=== PATIENT | male | born 1935 | race Hispanic/Latino ===

== ENCOUNTER 2016-11-19 10:12 | Day surgery (SDC) | payer MEDICARE, BC ==
[2016-11-19] MEDS ORDERED: Piperacillin/Tazobact 3.375 gm 100 ML IVPB STA (10:16)
[2016-11-19 10:36] VITALS: BMI 27.0
[2016-11-19] MEDS ORDERED: Propofol 10 mg/ml Inj (20 ML) ONE (10:44)
[2016-11-19] MEDS ORDERED: Midazolam 2 MG/2 ML VIAL ONE (10:45)
[2016-11-19] MEDS ORDERED: Lidocaine 1% Inj (20ml) ONE (10:45)
[2016-11-19] MEDS ORDERED: ePHEDrine 50 mg/ml Inj ONE (11:04)
[2016-11-19] MEDS ORDERED: Neostigmine 1:1000 (1 mg/ml) Inj ONE (11:29)
[2016-11-19] MEDS ORDERED: HYDROmorphone 0.5 mg/0.5 ml ISec IVP PRN (12:07)
[2016-11-19] MEDS ORDERED: Sodium Chloride 0.9% 1,000 ML IV SCH (12:15)
[2016-11-19 13:17] VITALS: RESP 18; TEMP 97.8
[2016-11-19 13:59] VITALS: BP 100/59; PULSE 81; O2SAT 95
--- NOTE | 2016-11-19 16:28 | OP ---
PROCEDURE DATE: 11/19/2016 PREOPERATIVE DIAGNOSIS: Urinary retention, prostatic obstruction. POSTOPERATIVE DIAGNOSIS: Urinary retention, prostatic obstruction. PROCEDURE: Photovaporization of the prostate using a ProTouch 1470 laser. SURGEON: Jose Parker M.D. ANESTHESIA: General endotracheal. DESCRIPTION OF OPERATION: After adequate general LMA was given, the patient was placed in lithotomy, prepped and draped in usual manner. The Espinal catheter was removed. The 23-Welsh laser scope with the obturator was introduced under direct vision. The patient was seen to have bilobar occlusion. Bladder showed no stones or foreign bodies. Orifices normal in appearance and location. There was s ome catheter reaction from the Espinal catheter. Urine was obtained for C and S. The obturator from e laser scope was removed. The working element was then replaced and using the ProTouch 1470 at a se tting of 88, all obstructing tissue was vaporized until there was an unobstructed view from the verum ontanum into the bladder. Orifices were visualized prior and after the procedure and they were compl etely intact with no evidence of any trauma. The prostatic fossa was inspected for bleeding without the water running and no bleeding was seen. The scope was then removed. I then tried to pass a 20-F rench coude catheter. It would not go into the bladder. I then rescoped the patient, placed the sen sor wire in and over and then removed the scope and then placed an 18-Welsh [place] catheter that ea sily went in through the wire into the bladder with return of clear irrigant with no evidence of any bleeding. The balloon was inflated. The patient was awakened and brought to recovery room in good c ondition. Jose Parker MD cc: [id number] TT: 11/19/2016 16:27:55 tn
== END 2016-11-19 14:10 | disposition home or self-care (01) ==
LOC: SDS 10:12
PROVIDERS: ATTEND Urology
DX: N40.1 Benign prostatic hyperplasia with lower urinary tract symptoms (principal); R33.8 Other retention of urine; I10 Essential (primary) hypertension; I25.10 Atherosclerotic heart disease of native coronary artery without angina pectoris; E11.8 Type 2 diabetes mellitus with unspecified complications; Z95.5 Presence of coronary angioplasty implant and graft
CPT/HCPCS: 52648; 87086; A4358; J1170; J2250; J2405; J2543; J2704; J2710; J2765; J3010; J7040; J7120

== ENCOUNTER 2017-05-15 03:14 | Inpatient (IN) | payer MEDICARE, BC ==
--- NOTE | 2017-05-15 03:22 | ED PDOC ---
Arrival/HPI - General Time Seen by Provider: 05/15/17 03:15 Historian: Spouse, EMS - History of Present Illness Narrative History of Present Illness (Text): 05/15/17 03:22 Juan Jose Walton is an 81 year old male, whose past medical history includes myelodysplastic disorder, anemia, hypertension, and diabetes, who presents to the Emergency department brought in by EMS for altered mental status. states patient has been confused, disoriented, and lethargic for the past few hours. Limited HPI and ROS secondary to patient's altered mental status. Symptom Onset: Gradual Symptom Course: Unchanged Activities at Onset: Rest, Light Context: Home Past Medical History - Provider Review Nursing Documentation Reviewed: Yes - Infectious Disease Hx of Infectious Diseases: None - Tetanus Immunization Tetanus Immunization: Unknown - Cardiac Hx Pacemaker: No - Pulmonary Hx Respiratory Disorders: No - Neurological Hx Paralysis: No - HEENT Hx HEENT Disorder: No - Renal Hx Renal Disorder: No - Endocrine/Metabolic Hx Diabetes Mellitus Type 2: Yes - Hematological/Oncological Hx Blood Transfusions: Yes Hx Blood Transfusion Reaction: No - Integumentary Hx Dermatological Disorder: No - Musculoskeletal/Rheumatological Hx Musculoskeletal Disorders: Yes - Gastrointestinal Hx Gastrointestinal Disorders: No - Genitourinary/Gynecological Hx Genitourinary Disorders: No Hx Reproductive Disorders: No - Psychiatric Hx Emotional Abuse: No Hx Physical Abuse: No Hx Substance Use: No - Surgical History Other/Comment: lamenectomy, stent x1, gall bladder removal - Anesthesia Hx Anesthesia Reactions: No Hx Malignant Hyperthermia: No - Suicidal Assessment Feels Threatened In Home Enviroment: No Family/Social History - Physician Review Nursing Documentation Reviewed: Yes Family/Social History: Unknown Family HX Smoking Status: Never Smoked Hx Alcohol Use: No Hx Substance Use: No Hx Substance Use Treatment: No Allergies/Home Meds Allergies/Adverse Reactions: Allergies No Known Allergies Allergy (Verified 05/15/17 03:25) Home Medications: Home Meds Medication Instructions Recorded Confirmed Atorvastatin [Lipitor] 10 mg PO DAILY 05/15/17 05/15/17 Carvedilol [Coreg] 3.125 mg PO BID 05/15/17 05/15/17 Cyclobenzaprine [Flexeril] 10 mg PO TID PRN 05/15/17 05/15/17 Gabapentin [Neurontin] 600 mg PO BID 05/15/17 05/15/17 Lisinopril [Zestril] 10 mg PO DAILY 05/15/17 05/15/17 Vicoprofen 7.5 mg PO QID PRN 05/15/17 05/15/17 metFORMIN [glucOPHAGE] 500 mg PO TID 05/15/17 05/15/17 Review of Systems - Review of Systems Systems not reviewed;Unavailable: Altered Mental Status Physical Exam Vital Signs Reviewed: Yes Vital Signs Temp Pulse Resp BP Pulse Ox 05/15/17 09:05 91 H 05/15/17 08:25 96 H 18 115/61 98 05/15/17 07:41 99.2 F 97 H 20 115/61 99 05/15/17 06:47 22 100/57 L 95 05/15/17 06:30 97 H 20 108/55 L 96 05/15/17 06:09 98 H 21 143/54 L 97 05/15/17 06:05 99 H 22 103/57 L 97 05/15/17 04:56 98 H 22 110/55 L 97 05/15/17 04:09 99.8 F H 100 H 22 93/56 L 98 Temperature: Afebrile Blood Pressure: Normal Respiratory Rate: Normal Appearance: Positive for: Non-Toxic Pain Distress: None Mental Status: Positive for: Lethargic (Lethargic and disoriented) - Systems Exam Head: Present: Atraumatic, Normocephalic Pupils: Present: PERRL Extroacular Muscles: Present: EOMI Conjunctiva: Present: Normal Mouth: Present: Moist Mucous Membranes Neck: Present: Normal Range of Motion Respiratory/Chest: Present: Clear to Auscultation, Good Air Exchange. No: Respiratory Distress, Accessory Muscle Use Cardiovascular: Present: Regular Rate and Rhythm, Normal S1, S2. No: Murmurs Abdomen: Present: Normal Bowel Sounds. No: Tenderness, Distention, Peritoneal Signs Back: Present: Normal Inspection Upper Extremity: Present: Normal Inspection. No: Cyanosis, Edema Lower Extremity: Present: Normal Inspection. No: Edema Neurological: Present: CN II-XII Intact Skin: Present: Warm, Dry, Normal Color. No: Rashes Psychiatric: Present: Lethargic. No: Oriented x 3 (Disoriented) Medical Decision Making ED Course and Treatment: 05/15/17 03:22 Impression: 81 year old male brought in for altered mental status tonight. Plan: -- CT Head w/o contrast -- EKG -- Chest X-ray -- Labs, cardiac enzymes, alcohol level, ammonia level, blood cultures -- Urinalysis, urine cultures, urine drug screen -- Reassess and disposition Prior Visits: Notes and results from previous visits were reviewed. On 10/03/2016, pt was seen in the Emergency department for AMS and slurred speech. Pt was admitted to the hospital for further evaluation. Progress Notes: 05/15/17 04:30 Reviewed radiology, Chest X-ray shows no acute processes. 05/15/17 05:33 Reviewed EKG, sinus rhythm at [address]pm. RBBB. Non-specific ST/T wave changes. CT Head shows: Limitations: Motion artifact - mild. Brain: Mild atrophy. No definite intracranial hemorrhage. No mass. Few scattered foci of decreased attenuation within periventricular/subcortical white matter. No definite edema. Ventricles: No hydrocephalus. Bones/joints: No acute fracture. Soft tissues: Unremarkable. Sinuses: No acute sinusitis. LEFT frontal osteoma. Mastoid air cells: No mastoid effusion. Orbits: Unremarkable as visualized. IMPRESSION: 1. Nonspecific white matter changes. Acute infarction may be CT occult within first 24 hours. If a focal deficit persists, consider followup CT or MRI for further evaluation. 2. Incidental/non-acute findings are described above. 05/15/17 05:[address] Vivi Grey, who is aware and agrees with plan. Accepts pt in to his service. Pt will be admitted to Telemetry for AMS. Family agreeable with plan. 7am pt with change in vs , hypotension still altered will call code sepsis , overdose possible also , case d/w dr neal will admit to icu 05/17/17 19:49 - Lab Interpretations Microbiology Results: Microbiology Results 05/15/17 03:30 Blood-Venous Blood Culture - Preliminary NO GROWTH AFTER 48 HOURS 05/15/17 03:00 Blood-Venous Blood Culture - Preliminary NO GROWTH AFTER 48 HOURS 05/15/17 04:05 Urine,Clean Catch Urine Culture - Final No Growth (<1,000 CFU/ML) Lab Results: 05/15/17 03:30 05/15/17 03:30 Lab Results 05/15/17 05:05: pO2 188 H, VBG pH 7.34, VBG pCO2 44.0, VBG HCO3 23.7, VBG Total CO2 25.1, VBG O2 Sat (Calc) 99.9 H, VBG Base Excess -2.2 L, VBG Potassium 3.9, Glucose 246 H, Lactate 2.6 H, FiO2 21.0, Sodium 140.0, Chloride 110.0 H, Venous Blood Potassium 3.9 05/15/17 04:44: Blood Type O NEGATIVE, Antibody Screen Negative, BBK History Checked Patient has bt 05/15/17 04:29: Urine Opiates Screen Positive H, Urine Methadone Screen Negative , Ur Barbiturates Screen Negative, Ur Phencyclidine Scrn Negative, Ur Amphetamines Screen Negative, U Benzodiazepines Scrn Negative, U Oth Cocaine Metabols Negative, U Cannabinoids Screen Negative 05/15/17 04:05: Urine Color Yellow, Urine Appearance Sl cloudy, Urine pH 6.0, Ur Specific [place] 1.015, Urine Protein 30 H, Urine Glucose (UA) Negative, Urine Ketones Negative, Urine Blood Large H, Urine Nitrate Negative, Urine Bilirubin Negative, Urine Urobilinogen 0.2, Ur Leukocyte Esterase Small H, Urine RBC 20 - 25, Urine WBC 1 - 3, Ur Epithelial Cells 0 - 2, Urine Bacteria Rare 05/15/17 03:30: Alcohol, Quantitative < 10 05/15/17 03:30: Ammonia 17 05/15/17 03:30: Sodium 140, Potassium 3.9, Chloride 105, Carbon Dioxide 23, Anion Gap 16, BUN 65 H, Creatinine 1.4, Est GFR ( Amer) 59, Est GFR (Non- Af Amer) 49, Random Glucose 211 H, Calcium 9.5, Phosphorus 2.9, Magnesium 2.0, Total Bilirubin 0.8, AST 45, ALT 114 H, Alkaline Phosphatase 530 H, Lactate Dehydrogenase 369, Total Creatine Kinase 46, Troponin I < 0.01 D, Total Protein 6.6, Albumin 3.4, Globulin 3.1, Albumin/Globulin Ratio 1.1 05/15/17 03:30: PT 10.9, INR 1.01, APTT 28.4 05/15/17 03:30: WBC 5.2 D, RBC 2.84 L, Hgb 9.3 L, Hct 27.1 L, MCV 95.4, MCH 32.7, MCHC 34.3, RDW 13.0, Plt Count 132, MPV 8.7, Gran % 76.1 H, Lymph % (Auto ) 20.2 L, [place] % (Auto) 2.9, Eos % (Auto) 0.4 L, Baso % (Auto) 0.4, Gran # 3.97 , Lymph # 1.1 L, [place] # 0.2, Eos # 0.0, Baso # 0.02 05/15/17 03:21: POC Glucose (mg/dL) 246 H I have reviewed the lab results: Yes - RAD Interpretation Radiology Orders: 05/15/17 03:27 HEAD W/O CONTRAST [CT] Stat 05/15/17 03:28 CHEST PORTABLE [RAD] Stat Drill Presser: ED Physician, Radiologist - EKG Interpretation Interpreted by ED Physician: Yes Type: 12 lead EKG - Medication Orders Current Medication Orders: Discontinued Medications Albuterol/Ipratropium (Duoneb 3 Mg/0.5 Mg (3 Ml) Ud) 3 ml IH Q4H [facility] Stop: 05/15/17 16:31 Last Admin: 05/15/17 16:00 Dose: 3 ml Atorvastatin Calcium (Lipitor) 10 mg PO DAILY [facility] Last Admin: 05/17/17 10:59 Dose: 10 mg Carvedilol (Coreg) 3.125 mg PO BID DA Last Admin: 05/17/17 11:05 Dose: 3.125 mg Cyclobenzaprine HCl (Flexeril) 10 mg PO TID PRN PRN Reason: Muscle spasm Gabapentin (Neurontin) 600 mg PO BID DA PRN Reason: Protocol Last Admin: 05/17/17 11:04 Dose: 600 mg Behavioural Document 05/17/17 11:04 LMN (Rec: 05/17/17 11:04 [facility]N [id number] Maintenance Maintenance Dose Yes Nonmedicinal Nonmedicinal Interventions Redirect Therapeutic Communication Activity Give food/fluids Comment for pain Heparin Sodium (Porcine) (Heparin) 5,000 units SC Q8H DA PRN Reason: Protocol Last Admin: 05/17/17 08:51 Dose: 5,000 units Subcutaneous Administrations Document 05/17/17 08:51 LMN (Rec: 05/17/17 08:53 LMN [id number]) Injection Site MAR Injection Site Right Abdomen Charges for Administration # of Subcutaneous Administrations 1 Sodium Chloride (Sodium Chloride 0.9%) 1,000 mls @ 500 mls/hr IV .Q2H DA Last Admin: 05/15/17 04:46 Dose: 500 mls/hr eMAR Start Stop Document 05/15/17 04:46 OCS (Rec: 05/15/17 04:46 OCS [id number]) Intravenous Solution Start Date 05/15/17 Start Time 04:46 Aztreonam (Azactam 2 Gm) 100 mls @ 100 mls/hr IVPB STAT STA PRN Reason: Protocol Stop: 05/15/17 06:29 Last Admin: 05/15/17 06:01 Dose: 100 mls/hr eMAR Start Stop Document 05/15/17 06:01 OCS (Rec: 05/15/17 06:01 OCS [id number]) Intravenous Solution Start Date 05/15/17 Start Time 06:01 Vancomycin HCl (Vancomycin 1gm) 1 gm in 250 mls @ 167 mls/hr IVPB STAT STA PRN Reason: Protocol Stop: 05/15/17 06:59 Last Admin: 05/15/17 07:58 Dose: 167 mls/hr eMAR Start Stop Document 05/15/17 07:58 MR (Rec: 05/15/17 07:58 MR [id number]) Intravenous Solution Start Date 05/15/17 Start Time 07:58 End Date 05/15/17 End time 09:28 Total Infusion Time 90 Sodium Chloride (Sodium Chloride 0.9%) 1,000 mls @ 100 mls/hr IV .Q10H DA Last Admin: 05/15/17 06:01 Dose: 100 mls/hr eMAR Start Stop Document 05/15/17 06:01 OCS (Rec: 05/15/17 06:01 OCS [id number]) Intravenous Solution Start Date 05/15/17 Start Time 06:01 Sodium Chloride (Sodium Chloride 0.9%) 1,000 mls @ 150 mls/hr IV .Q6H40M STA Stop: 05/15/17 13:41 Last Admin: 05/15/17 08:39 Dose: 150 mls/hr eMAR Start Stop Document 05/15/17 08:39 MR (Rec: 05/15/17 08:39 MR [id number]) Intravenous Solution Start Date 05/15/17 Start Time 08:39 Sodium Chloride 2,400 ml/ IV (SUPPLIES) 2,400 mls @ 4,762.74 mls/hr IV ONCE ONE PRN Reason: 60 ML/KG/HR Stop: 05/15/17 07:13 Last Admin: 05/15/17 07:37 Dose: 4,762.74 mls/hr eMAR Start Stop Document 05/15/17 07:37 MR (Rec: 05/15/17 07:37 [id number]) Intravenous Solution Start Date 05/15/17 Start Time 07:37 End Date 05/15/17 End time 08:07 Total Infusion Time 30 Insulin Human Lispro (Humalog Low) 0 units SC ACHS DA PRN Reason: Protocol Last Admin: 05/17/17 12:00 Dose: 2 units MAR Blood Glucose Document 05/17/17 12:00 LMN (Rec: 05/17/17 17:06 [id number] Blood Glucose Finger Stick Blood Glucose (70-120) 265 Subcutaneous Administrations Document 05/17/17 12:00 LMN (Rec: 05/17/17 17:06 [id number] Injection Site MAR Injection Site Right Arm Charges for Administration # of Subcutaneous Administrations 1 Lisinopril (Zestril) 10 mg PO DAILY [facility] Last Admin: 05/17/17 11:00 Dose: 10 mg MAR Pulse and Blood Pressure Document 05/17/17 11:00 LMN (Rec: 05/17/17 11:03 [id number] Pulse Pulse Rate (60-90) 84 Blood Pressure Blood Pressure (100/60-150/90) 141/77 Metformin HCl (Glucophage) 500 mg PO TID [facility] Last Admin: 05/17/17 11:04 Dose: 500 mg Methylprednisolone (Solu-Medrol) 40 mg IVP Q8H [facility] Last Admin: 05/16/17 08:33 Dose: 40 mg IVP Administration Document 05/16/17 08:33 MS (Rec: 05/16/17 08:33 MS [id number]) Charges for Administration # of IVP Administrations 1 Naloxone HCl (Narcan) 0.4 mg IVP STAT STA Stop: 05/15/17 05:36 Last Admin: 05/15/17 05:48 Dose: 0.4 mg IVP Administration Document 05/15/17 05:48 JOL (Rec: 05/15/17 05:48 JOL [id number]) Charges for Administration # of IVP Administrations 1 Naloxone HCl (Narcan) 0.4 mg IVP STAT STA Stop: 05/15/17 07:18 Last Admin: 05/15/17 07:31 Dose: 0.4 mg IVP Administration Document 05/15/17 07:31 MR (Rec: 05/15/17 07:31 MR [id number]) Charges for Administration # of IVP Administrations 1 Pantoprazole Sodium (Protonix Inj) 40 mg IVP DAILY DA Last Admin: 05/17/17 10:59 Dose: 40 mg IVP Administration Document 05/17/17 10:59 LMN (Rec: 05/17/17 10:59 LMN [email or web address]) Charges for Administration # of IVP Administrations 1 Tramadol HCl (Ultram) 50 mg PO TID PRN PRN Reason: Pain, moderate (4-7) Last Admin: 05/17/17 10:16 Dose: 50 mg MAR Pain Assessment Document 05/17/17 10:16 LMN (Rec: 05/17/17 10:17 [facility]N [id number] Pain Reassessment Is this a pain reassessment? No Presence of Pain Presence of Pain Yes Pain Scale Used Pain Scale Used Numeric Location Left, Right or Bilateral Left Pain Location Body Site Hip Leg Description Description Constant Intensity of Pain at present 7 Pain Behavior Guarding Restlessness Zolpidem Tartrate (Ambien) 10 mg PO HS PRN; Protocol PRN Reason: Insomnia Last Admin: 05/16/17 22:56 Dose: 10 mg Behavioural Document 05/16/17 22:56 PCO (Rec: 05/16/17 22:56 PCO [place] [id number]) Maintenance Maintenance Dose Yes Nonmedicinal Nonmedicinal Interventions Redirect Behavior Behavior for Medication: Insomnia Re-Assess: Reassess Psych Meds Document 05/16/17 23:56 PCO (Rec: 05/17/17 00:26 PCO [place] [id number]) Reassess Psych Med Effective - Scribe Statement The provider has reviewed the documentation as recorded by the Scribe Chayo Burgess Provider Scribe Attestation: All medical record entries made by the Scribe were at my direction and personally dictated by me. I have reviewed the chart and agree that the record accurately reflects my personal performance of the history, physical exam, medical decision making, and the department course for this patient. I have also personally directed, reviewed, and agree with the discharge instructions and disposition. Disposition/Present on Arrival - Present on Arrival Any Indicators Present on Arrival: No History of DVT/PE: No History of Uncontrolled Diabetes: No Urinary Catheter: No History Surgical Site Infection Following: None - Disposition Have Diagnosis and Disposition been Completed?: Yes Diagnosis: Altered mental state, Sepsis, Overdose Disposition: HOSPITALIZED Disposition Time: 07:15 Condition: SERIOUS
[2017-05-15 04:02] LABS: INR 1.01 (0.93-1.08); PARTIAL THROMBOPLASTIN TIME 28.4 Seconds (23.7-30.8)
[2017-05-15 04:03] LABS: ALB/GLOB RATIO 1.1 (1.1-1.8); ALKALINE PHOSPHATASE 530 U/L (38-126); ALT/SGPT 114 U/L (7-56); AST/SGOT 45 U/L (17-59); BILIRUBIN,TOTAL 0.8 mg/dL (0.2-1.3); BLOOD UREA NITROGEN 65 mg/dL (7-21); CALCIUM 9.5 mg/dL (8.4-10.5); CARBON DIOXIDE 23 mmol/L (21-33); CHLORIDE 105 mmol/L (98-107); GFR AFRICAN-AMERICAN 59; GLUCOSE,RANDOM 211 mg/dL (70-110); PHOSPHOROUS 2.9 mg/dL (2.5-4.5); POTASSIUM 3.9 mmol/L (3.6-5.0); SODIUM 140 mmol/L (132-148); TOTAL PROTEIN 6.6 g/dL (5.8-8.3)
[2017-05-15 04:05] LABS: BASO # 0.02 K/mm3 (0.0-2.0); BASO % 0.4 % (0.0-3.0); EOS % 0.4 % (1.5-5.0); GRAN # 3.97 (1.4-6.5); GRAN % 76.1 % (50.0-68.0); HEMATOCRIT 27.1 % (42.0-52.0); LYMPH # 1.1 (1.2-3.4); LYMPH % 20.2 % (22.0-35.0); MEAN CELL VOLUME 95.4 fl (80.0-105.0); MEAN CORPUSCULAR HEMOGLOBIN 32.7 pg (25.0-35.0); MEAN CORPUSCULAR HGB CONC 34.3 g/dl (31.0-37.0); MEAN PLATELET VOLUME 8.7 fl (7.0-11.0); MONO # 0.2 (0.1-0.6); MONO % 2.9 % (1.0-6.0); WHITE BLOOD COUNT 5.2 10^3/ul (4.5-11.0)
[2017-05-15 04:17] LABS: URINE BILIRUBIN NEGATIVE (NEGATIVE); URINE BLOOD LARGE (NEGATIVE); URINE GLUCOSE (UA) NEGATIVE (NEGATIVE); URINE KETONE NEGATIVE (NEGATIVE); URINE LEUKOCYTE ESTERASE SMALL Leu/uL (NEGATIVE); URINE PROTEIN 30 mg/dL (<30 mg/dL); URINE UROBILINOGEN 0.2 E.U./dL (<1 E.U./dL)
[2017-05-15 04:22] LABS: TROPONIN I < 0.01 ng/mL
[2017-05-15 04:28] LABS: URINE APPEARANCE SL CLOUDY (CLEAR); URINE COLOR YELLOW (YELLOW)
[2017-05-15 04:30] LABS: URINE EPITHELIAL CELLS 0 - 2 /hpf (0-5); URINE RBC 20 - 25 /hpf (0-2)
[2017-05-15] MEDS ORDERED: Sodium Chloride 0.9% 1,000 ML IV SCH ×2 (04:30→05:32)
[2017-05-15 04:31] LABS: URINE BACTERIA RARE (NEG)
[2017-05-15 05:23] LABS: VENOUS BLOOD GAS BASE EXCESS -2.2 mmol/L (0.0-2.0); VENOUS BLOOD PH 7.34 (7.32-7.43)
[2017-05-15] MEDS ORDERED: Aztreonam 2 Gm in NS 100mL 100 ML IVPB STA (05:30)
[2017-05-15] MEDS ORDERED: Vancomycin 1gm in NS 250ml 1 GM/250 ML BAG IVPB STA (05:30)
[2017-05-15] MEDS ORDERED: Naloxone 0.4 mg/ml Inj (Adult) IVP STA ×2 (05:35→07:17)
--- NOTE | 2017-05-15 05:38 | CT ---
EXAM: CT Head Without Intravenous Contrast CLINICAL HISTORY: 81 years old, male; Signs and symptoms; Altered mental status/memory loss; Additional info: AMS TECHNIQUE: Axial computed tomography images of the head/brain without intravenous contrast. All CT scans at this facility use one or more dose reduction techniques, viz.: automated exposure control; ma/kV adjustment per patient size (including targeted exams where dose is matched to indication; i.e. head); or iterative reconstruction technique. COMPARISON: CT - HEAD W/O (CODE STROKE) 10/03/2016 9:41:50 PM FINDINGS: Limitations: Motion artifact - mild. Brain: Mild atrophy. No definite intracranial hemorrhage. No mass. Few scattered foci of decreased attenuation within periventricular/subcortical white matter. No definite edema. Ventricles: No hydrocephalus. Bones/joints: No acute fracture. Soft tissues: Unremarkable. Sinuses: No acute sinusitis. LEFT frontal osteoma. Mastoid air cells: No mastoid effusion. Orbits: Unremarkable as visualized. IMPRESSION: 1. Nonspecific white matter changes. Acute infarction may be CT occult within first 24 hours. If a focal deficit persists, consider followup CT or MRI for further evaluation. 2. Incidental/non-acute findings are described above.
[2017-05-15] MEDS ORDERED: Sodium Chloride 0.9% 1,000 ML IV STA (07:02)
--- NOTE | 2017-05-15 08:05 | RAD ---
HISTORY: ams COMPARISON: Single frontal chest 10/03/2016. FINDINGS: LUNGS: The hemidiaphragm appears elevated. No alveolar infiltrate identified bilaterally. PLEURA: No significant pleural effusion identified, no pneumothorax apparent. CARDIOVASCULAR: Normal. OSSEOUS STRUCTURES: No significant abnormalities. VISUALIZED UPPER ABDOMEN: Normal. OTHER FINDINGS: None. IMPRESSION: Mildly elevated left hemidiaphragm. Exam is otherwise unremarkable grossly. Etiology of this finding is unclear.
[2017-05-15 08:06] LABS: VENOUS BLOOD GAS BASE EXCESS -1.8 mmol/L (0.0-2.0); VENOUS BLOOD PH 7.29 (7.32-7.43)
[2017-05-15 08:28] LABS: ARTERIAL BLOOD GAS HCO3 23.2 mmol/L (21-28); ARTERIAL BLOOD GAS PH 7.32 (7.35-7.45)
--- NOTE | 2017-05-15 08:57 | CARD ---
APPROVED REPORT EKG Measurement Heart [id number] <Conclusion> Sinus rhythm Right bundle branch block NSSTW changes No change
[2017-05-15] MEDS: Albuterol-Ipratrop 3 mg / 0.5 (3 ml) UD IH SCH ×3 (09:18→16:00)
[2017-05-15] MEDS: MethylPREDNISolone 40 mg Vial IVP SCH ×3 (10:19→23:54)
--- NOTE | 2017-05-15 11:51 | CP.PCM.CON ---
<Pavel Beckett - Last Filed: 05/15/17 13:27> History of Present Illness - History of Present Illness History of Present Illness: ICU Consult Note - Erasmo Beckett PGY-1 IM Mr. Walton is an 81 year old male with past medical history significant for myelodysplastic disorder, anemia, hypertension, CAD with hx of stent x1 and diabetes mellitus who presented to [facility] ED via EMS with altered mental status. Per records patient was altered with limited recall of events leading up to his arrival. In speaking with patient today in ICU, patient is alert and oriented to name and year, not to place. Patient reports prior to arrival to ED he had accompanied his to her pain management physician that evening. He arrived home and states he was experiencing left sided hip pain and placed a fentanyl patch on his left side and then going to bed. Patient does not recall the events prior to the EMS arrival and transportation to [facility] ED. Patient denies taking any medication other than stated, drinking alcohol or ingesting any other illegal substances. Patient was brought to ICU for further management and close observation for AMS in the setting of sepsis with lactate of 2.6, HR 100, mild hypotension. Patient denies chest pain, shob, abdominal pain, n/v/f/c. PMH: Myelodysplastic disorder, Anemia, HTN, CAD s/p stent x1, DM PSH: Appendectomy, Cholecystectomy FMH: HTN Meds: unable to recall, check MAR All: NKDA Review of Systems - Review of Systems All systems: reviewed and no additional remarkable complaints except (as mentioned in HPI) Past Patient History - Infectious Disease Hx of Infectious Diseases: None - Tetanus Immunizations Tetanus Immunization: Unknown - Past Social History Smoking Status: Never Smoked Alcohol: None Drugs: Denies - CARDIAC Hx Pacemaker: No - PULMONARY Hx Respiratory Disorders: No - NEUROLOGICAL Hx Paralysis: No - HEENT Hx HEENT Problems: No - RENAL Hx Chronic Kidney Disease: No - ENDOCRINE/METABOLIC Hx Diabetes Mellitus Type 2: Yes - HEMATOLOGICAL/ONCOLOGICAL Hx Blood Transfusions: Yes Hx Blood Transfusion Reaction: No - INTEGUMENTARY Hx Dermatological Problems: No - MUSCULOSKELETAL/RHEUMATOLOGICAL Hx Musculoskeletal Disorders: Yes - GASTROINTESTINAL Hx Gastrointestinal Disorders: No - GENITOURINARY/GYNECOLOGICAL Hx Genitourinary Disorders: No Hx Reproductive Disorders: No - PSYCHIATRIC Hx Emotional Abuse: No Hx Physical Abuse: No Hx Substance Use: No - SURGICAL HISTORY Other/Comment: lamenectomy, stent x1, gall bladder removal - ANESTHESIA Hx Anesthesia Reactions: No Hx Malignant Hyperthermia: No Meds Allergies/Adverse Reactions: Allergies Allergy/AdvReac Type Severity Reaction Status Date / Time No Known Allergies Allergy Verified 05/15/17 03:25 - Medications Medications: Current Medications Albuterol/Ipratropium (Duoneb 3 Mg/0.5 Mg (3 Ml) Ud) 3 ml IH Q4H DA Stop: 05/15/17 16:31 Last Admin: 05/15/17 09:18 Dose: 3 ml Heparin Sodium (Porcine) (Heparin) 5,000 units SC Q8H [facility] PRN Reason: Protocol Last Admin: 05/15/17 10:18 Dose: 5,000 units Sodium Chloride (Sodium Chloride 0.9%) 1,000 mls @ 150 mls/hr IV .Q6H40M STA Stop: 05/15/17 13:41 Last Admin: 05/15/17 08:39 Dose: 150 mls/hr Methylprednisolone (Solu-Medrol) 40 mg IVP Q8H [facility] Last Admin: 05/15/17 10:19 Dose: 40 mg Pantoprazole Sodium (Protonix Inj) 40 mg IVP DAILY [facility] Last Admin: 05/15/17 10:18 Dose: 40 mg Physical Exam - Constitutional Appears: Well, No Acute Distress - Head Exam Head Exam: ATRAUMATIC, NORMAL INSPECTION, NORMOCEPHALIC - Eye Exam Eye Exam: EOMI, PERRL - ENT Exam ENT Exam: Mucous Membranes Dry - Neck Exam Neck exam: Positive for: Full Rom, Normal Inspection - Respiratory Exam Respiratory Exam: Clear to Auscultation Bilateral, NORMAL BREATHING PATTERN Additional comments: patient currently on bipap - Cardiovascular Exam Cardiovascular Exam: REGULAR RHYTHM, RRR, +S1, +S2 - GI/Abdominal Exam GI & Abdominal Exam: Normal Bowel Sounds, Soft. absent: Rigid, Tenderness - Exam Exam: NORMAL INSPECTION. absent: Scrotal Swelling, Testicular Tenderness, Uretheral Discharge - Extremities Exam Extremities exam: Positive for: pedal pulses present. Negative for: calf tenderness - Back Exam Back exam: paraspinal tenderness (bilateral lumbar) - Neurological Exam Neurological exam: Alert, CN II-XII Intact Additional comments: oriented to person and year, not place - Skin Skin Exam: Dry, Intact Results - Vital Signs Recent Vital Signs: Last Vital Signs Temp 99.2 F 05/15/17 07:41 Pulse 87 05/15/17 10:50 Resp 18 05/15/17 08:25 BP 115/61 05/15/17 08:25 Pulse Ox 98 05/15/17 08:25 - Labs Result Diagrams: 05/15/17 03:30 05/15/17 03:30 Labs: Laboratory Results - last 24 hr 05/15/17 05/15/17 07:55 08:10 pCO2 45 pO2 90 H 104.0 H HCO3 23.2 ABG pH 7.32 L ABG Total CO2 24.6 ABG O2 Saturation 99.2 H ABG Base Excess -3.1 L ABG Potassium 3.7 VBG pH 7.29 L VBG pCO2 52.0 VBG HCO3 25.0 VBG Total CO2 26.6 VBG O2 Sat (Calc) 98.6 H VBG Base Excess -1.8 L VBG Potassium 3.9 Sodium 141.0 141.0 Chloride 110.0 H 113.0 H Glucose 260 H 237 H Lactate 1.9 1.5 FiO2 21.0 28.0 Arterial Blood Potassium 3.7 Venous Blood Potassium 3.9 Assessment & Plan - Assessment and Plan (Free Text) Assessment: Patient is a 81 yo male with PMH sig for myelodysplastic syndrome, DM, CAD s/p stent x1, and HTN who presented to [facility] ED for AMS. Patient was evaluated in ED and found to have AMS as well as meet sepsis criteria with lactate of 2.6, HR > 100 and transferred to the ICU for further workup and management. Plan: Neuro : AAOx2, knows name and year, not place. AMS - improved from admission - tox screen positive for opiates - bg normal, electrolytes within normal ranges - afebrile, no leukocytosis, - No neurological deficits noted on PE - no reported seizure activity as per ED - Head CT negative for acute findings in ED CV : - Hemodynamically stable at this time, no pressor support indicated - Hx of HTN, normotensive at this time, will hold off on any anti-hypertensive for now - Maintain MAP>65. - Cont to monitor. Pulm: - On BiPAP settings of 14/6/14/40. Saturating well. - AM ABG reviewed, repeat ABG shows improvement 7.36/40/128/22.6/40%, will decrease FiO2 to 30% and reassess - Maintain O2 sat>90% - Continue with HOB elevation> 35 degrees, aspiration precautions. GI: - NPO. Continue with Protonix for ppx : - Espinal catheter in place - producing cloudy yellow urine Renal : - BUN/Cr. of 65/1.4 - Replace lytes as necessary, maintain euvolemia. Continue to monitor. ID: - Afebrile, no leukocytosis. - 1 dose of aztreonam and vancomyocin given in ED - Code sepsis called for tachycardia and elevated lactate of 2.6, repeat lactate now 1 Endo: BS . Maintain euglycemia. Heme: - Hgb stable at 9.3. Stable. Cont to monitor. DVT ppx - Heparin Q8 GI ppx - Protonix will discuss with attending Dr. Stubbs - Date & Time Date: 05/15/17 Time: 13:22 <Castro Stubbs - Last Filed: 05/15/17 16:22> Meds - Medications Medications: Current Medications Albuterol/Ipratropium (Duoneb 3 Mg/0.5 Mg (3 Ml) Ud) 3 ml IH Q4H [facility] Stop: 05/15/17 16:31 Last Admin: 05/15/17 16:00 Dose: 3 ml Heparin Sodium (Porcine) (Heparin) 5,000 units SC Q8H [facility] PRN Reason: Protocol Last Admin: 05/15/17 10:18 Dose: 5,000 units Methylprednisolone (Solu-Medrol) 40 mg IVP Q8H [facility] Last Admin: 05/15/17 10:19 Dose: 40 mg Pantoprazole Sodium (Protonix Inj) 40 mg IVP DAILY [facility] Last Admin: 05/15/17 10:18 Dose: 40 mg Results - Vital Signs Recent Vital Signs: Last Vital Signs Temp 97.8 F 05/15/17 13:02 Pulse 90 05/15/17 16:05 Resp 18 05/15/17 12:46 BP 132/59 L 05/15/17 12:46 Pulse Ox 98 05/15/17 08:25 - Labs Result Diagrams: 05/15/17 03:30 05/15/17 03:30 Labs: Laboratory Results - last 24 hr 05/15/17 05/15/17 05/15/17 07:55 08:10 09:15 pCO2 45 pO2 90 H 104.0 H HCO3 23.2 ABG pH 7.32 L ABG Total CO2 24.6 ABG O2 Saturation 99.2 H ABG Base Excess -3.1 L ABG Potassium 3.7 VBG pH 7.29 L VBG pCO2 52.0 VBG HCO3 25.0 VBG Total CO2 26.6 VBG O2 Sat (Calc) 98.6 H VBG Base Excess -1.8 L VBG Potassium 3.9 Sodium 141.0 141.0 Chloride 110.0 H 113.0 H Glucose 260 H 237 H Lactate 1.9 1.5 FiO2 21.0 28.0 Procalcitonin 0.69 H Arterial Blood Potassium 3.7 Venous Blood Potassium 3.9 05/15/17 13:00 pCO2 40 pO2 128.0 H HCO3 22.6 ABG pH 7.36 ABG Total CO2 23.8 ABG O2 Saturation 99.5 H ABG Base Excess -2.7 L ABG Potassium 3.7 VBG pH VBG pCO2 VBG HCO3 VBG Total CO2 VBG O2 Sat (Calc) VBG Base Excess VBG Potassium Sodium 142.0 Chloride 117.0 H Glucose 180 H Lactate 1.0 FiO2 40.0 Procalcitonin Arterial Blood Potassium 3.7 Venous Blood Potassium Attending/Attestation - Attestation I have personally seen and examined this patient.: Yes I have fully participated in the care of the patient.: Yes I have reviewed all pertinent clinical information: Yes Notes (Text): 05/15/17 16:[address] stubbs note. BPAP, abx, bronchodilators, steroids taper, serial abg untill acidosis resolved and mental status improved. dvt/gi prophylaxis ccm time 40 min
[2017-05-15 12:59] VITALS: BMI 27.3
[2017-05-15 13:13] LABS: ARTERIAL BLOOD GAS HCO3 22.6 mmol/L (21-28); ARTERIAL BLOOD GAS PH 7.36 (7.35-7.45)
--- NOTE | 2017-05-15 14:05 | PCM.SEPTIC ---
Sepsis Progress Note - Reassessment Type Date of Evaluation: 05/15/17 Time of Evaluation: 13:00 Reassessment Type: Non-invasive reassessment - Non Invasive Reassessment Were the most recent vital sign reviewed: Yes Vital Sign (Latest): Temp Pulse Resp BP Pulse Ox 99.2 F 90 18 132/59 L 98 05/15/17 12:46 05/15/17 13:31 05/15/17 12:46 05/15/17 12:46 05/15/17 08:25 Cardiovascular: Yes: Regular Rate, Rhythm Respiratory: Yes: Normal Breath Sounds Capillary Refill: Normal (Less than 2 sec) Skin: Normal Color
[2017-05-15] MEDS: Insulin Lispro (humaLOG) LOW Coverage SC SCH (23:54)
--- NOTE | 2017-05-16 07:27 | CP.CCUPN ---
<Jody Persaud - Last Filed: 05/16/17 11:08> CCU Subjective - Physician Review Events Since Last Encounter (Free Text): 05/16/17 07:24 Espinal removed overnight Subjective (Free Text): 05/16/17 07:24 Critical care progress note for Dr. Steven Persaud, PGY-1 Pt S & E at bedside. pt reports insomnia overnight, is on Ambien at home. Also c/o Left hip pain - mild, was prescribed Flexeril and Percocet for pain, pt states he took that along with an Ultram on the AM of admission. Espinal was removed overnight due to patient discomfort. Denies N/V/F/C, SOB, CP, ab pain, other complaints. Critical Care Time Spent (in minutes): 35 CCU Objective - Vital Signs / Intake & Output Vital Signs (Last 4 hours): Vital Signs Temp Pulse Resp BP Pulse Ox 05/16/17 06:34 97.9 F 05/16/17 06:30 81 18 95 05/16/17 06:20 85 28 H 96 05/16/17 06:10 85 17 96 05/16/17 06:00 87 10 L 121/64 97 05/16/17 05:50 82 36 H 96 05/16/17 05:40 81 18 94 L 05/16/17 05:30 83 41 H 95 05/16/17 05:20 82 82 H 96 05/16/17 05:10 87 96 05/16/17 05:00 85 43 H 124/56 L 96 05/16/17 04:50 88 21 97 05/16/17 04:40 96 H 22 97 05/16/17 04:30 95 H 19 98 05/16/17 04:20 84 16 99 05/16/17 04:10 89 21 95 05/16/17 04:00 88 18 144/61 97 05/16/17 03:50 88 28 H 93 L 05/16/17 03:40 88 18 94 L 05/16/17 03:30 87 18 95 - Physical Exam Physical Exam Limitations: Negative for: Altered Mental Status Head: Positive for: Atraumatic, Normocephalic Extroacular Muscles: Positive for: EOMI Conjunctiva: Positive for: Normal Mouth: Positive for: Moist Mucous Membranes, Normal Tounge Nose (External): Positive for: Atraumatic Neck: Positive for: Normal Range of Motion Respiratory/Chest: Positive for: Clear to Auscultation, Good Air Exchange. Negative for: Respiratory Distress, Accessory Muscle Use, Wheezes, Rales, Retracting, Rhonchi Cardiovascular: Positive for: Regular Rate and Rhythm, Normal S1, S2. Negative for: Murmurs Abdomen: Positive for: Normal Bowel Sounds. Negative for: Tenderness, Distention, Peritoneal Signs Back: Positive for: Normal Inspection Upper Extremity: Positive for: Normal Inspection. Negative for: Cyanosis, Edema Lower Extremity: Positive for: Normal Inspection. Negative for: Edema Neurological: Positive for: GCS=15, CN II-XII Intact, Speech Normal Skin: Positive for: Warm, Dry, Normal Color. Negative for: Rashes Psychiatric: Positive for: Alert, Normal Insight, Normal Concentration. Negative for: Oriented x 3 (AOx 2 (self, place, not time)) - Medications Active Medications: Active Medications Generic Name Dose Route Start Last Admin Trade Name Freq PRN Reason Stop Dose Admin Heparin Sodium (Porcine) 5,000 units 05/15/17 08:45 05/15/17 23:55 Heparin SC 5,000 units Q8H [facility] Administration Protocol Insulin Human Lispro 0 units 05/15/17 23:45 05/15/17 23:54 Humalog Low SC 3 units ACHS [facility] Administration Protocol Methylprednisolone 40 mg 05/15/17 08:30 05/15/17 23:54 Solu-Medrol IVP 40 mg Q8H DA Administration Pantoprazole Sodium 40 mg 05/15/17 10:00 05/15/17 10:18 Protonix Inj IVP 40 mg DAILY DA Administration - Patient Studies Lab Studies: Lab Studies 05/16/17 05/16/17 05/15/17 Range/Units 06:03 03:55 21:28 pCO2 (35-45) mm/Hg pO2 (30-55) mm/Hg HCO3 (21-28) mmol/L ABG pH (7.35-7.45) ABG Total CO2 (22-28) mmol.L ABG O2 Saturation (95-98) % ABG Base Excess (-2.0-3.0) mmol/L ABG Potassium (3.6-5.2) mmol/L VBG pH (7.32-7.43) VBG pCO2 (40-60) VBG HCO3 (21-28) mmol/l VBG Total CO2 (22-28) mmol.L VBG O2 Sat (Calc) (40-65) % VBG Base Excess (0.0-2.0) mmol/L VBG Potassium (3.6-5.2) mmol/L Sodium (132-148) mmol/L Chloride (98-107) mmol/L Glucose (75-110) mg/dl Lactate (0.7-2.1) mmol/L FiO2 % POC Glucose (mg/dL) 287 H 267 H 365 H (65-110) mg/dL Procalcitonin (0.19-0.49) NG/ML Arterial Blood Potassium (3.6-5.2) mmol/L Venous Blood Potassium (3.6-5.2) mmol/L 05/15/17 05/15/17 05/15/17 Range/Units 13:00 09:15 08:10 pCO2 40 45 (35-45) mm/Hg pO2 128.0 H 104.0 H (30-55) mm/Hg HCO3 22.6 23.2 (21-28) mmol/L ABG pH 7.36 7.32 L (7.35-7.45) ABG Total CO2 23.8 24.6 (22-28) mmol.L ABG O2 Saturation 99.5 H 99.2 H (95-98) % ABG Base Excess -2.7 L -3.1 L (-2.0-3.0) mmol/L ABG Potassium 3.7 3.7 (3.6-5.2) mmol/L VBG pH (7.32-7.43) VBG pCO2 (40-60) VBG HCO3 (21-28) mmol/l VBG Total CO2 (22-28) mmol.L VBG O2 Sat (Calc) (40-65) % VBG Base Excess (0.0-2.0) mmol/L VBG Potassium (3.6-5.2) mmol/L Sodium 142.0 141.0 (132-148) mmol/L Chloride 117.0 H 113.0 H (98-107) mmol/L Glucose 180 H 237 H (75-110) mg/dl Lactate 1.0 1.5 (0.7-2.1) mmol/L FiO2 40.0 28.0 % POC Glucose (mg/dL) (65-110) mg/dL Procalcitonin 0.69 H (0.19-0.49) NG/ML Arterial Blood Potassium 3.7 3.7 (3.6-5.2) mmol/L Venous Blood Potassium (3.6-5.2) mmol/L 05/15/17 Range/Units 07:55 pCO2 (35-45) mm/Hg pO2 90 H (30-55) mm/Hg HCO3 (21-28) mmol/L ABG pH (7.35-7.45) ABG Total CO2 (22-28) mmol.L ABG O2 Saturation (95-98) % ABG Base Excess (-2.0-3.0) mmol/L ABG Potassium (3.6-5.2) mmol/L VBG pH 7.29 L (7.32-7.43) VBG pCO2 52.0 (40-60) VBG HCO3 25.0 (21-28) mmol/l VBG Total CO2 26.6 (22-28) mmol.L VBG O2 Sat (Calc) 98.6 H (40-65) % VBG Base Excess -1.8 L (0.0-2.0) mmol/L VBG Potassium 3.9 (3.6-5.2) mmol/L Sodium 141.0 (132-148) mmol/L Chloride 110.0 H (98-107) mmol/L Glucose 260 H (75-110) mg/dl Lactate 1.9 (0.7-2.1) mmol/L FiO2 21.0 % POC Glucose (mg/dL) (65-110) mg/dL Procalcitonin (0.19-0.49) NG/ML Arterial Blood Potassium (3.6-5.2) mmol/L Venous Blood Potassium 3.9 (3.6-5.2) mmol/L Laboratory Results - last 24 hr 05/15/17 05/15/17 05/15/17 07:55 08:10 09:15 pCO2 45 pO2 90 H 104.0 H HCO3 23.2 ABG pH 7.32 L ABG Total CO2 24.6 ABG O2 Saturation 99.2 H ABG Base Excess -3.1 L ABG Potassium 3.7 VBG pH 7.29 L VBG pCO2 52.0 VBG HCO3 25.0 VBG Total CO2 26.6 VBG O2 Sat (Calc) 98.6 H VBG Base Excess -1.8 L VBG Potassium 3.9 Sodium 141.0 141.0 Chloride 110.0 H 113.0 H Glucose 260 H 237 H Lactate 1.9 1.5 FiO2 21.0 28.0 POC Glucose (mg/dL) Procalcitonin 0.69 H Arterial Blood Potassium 3.7 Venous Blood Potassium 3.9 05/15/17 05/15/17 05/16/17 13:00 21:28 03:55 pCO2 40 pO2 128.0 H HCO3 22.6 ABG pH 7.36 ABG Total CO2 23.8 ABG O2 Saturation 99.5 H ABG Base Excess -2.7 L ABG Potassium 3.7 VBG pH VBG pCO2 VBG HCO3 VBG Total CO2 VBG O2 Sat (Calc) VBG Base Excess VBG Potassium Sodium 142.0 Chloride 117.0 H Glucose 180 H Lactate 1.0 FiO2 40.0 POC Glucose (mg/dL) 365 H 267 H Procalcitonin Arterial Blood Potassium 3.7 Venous Blood Potassium 05/16/17 06:03 pCO2 pO2 HCO3 ABG pH ABG Total CO2 ABG O2 Saturation ABG Base Excess ABG Potassium VBG pH VBG pCO2 VBG HCO3 VBG Total CO2 VBG O2 Sat (Calc) VBG Base Excess VBG Potassium Sodium Chloride Glucose Lactate FiO2 POC Glucose (mg/dL) 287 H Procalcitonin Arterial Blood Potassium Venous Blood Potassium EKG/Cardiology Studies: Cardiology / EKG Studies 05/15/17 07:31 EKG [ELECTROCARDIOGRAM] Stat Comment: Reason For Exam: ams Fingerstick Blood Sugar Results: 267 Review of Systems - Review of Systems All systems: reviewed and no additional remarkable complaints except - Constitutional Constitutional: absent: Fever, Chills - EENT Eyes: UNREMARKABLE Nose/Mouth/Throat: UNREMARKABLE - Cardiovascular Cardiovascular: UNREMARKABLE. absent: Chest Pain - Respiratory Respiratory: UNREMARKABLE. absent: Cough - Gastrointestinal Gastrointestinal: UNREMARKABLE. absent: Abdominal Pain, Nausea, Vomiting - Genitourinary Genitourinary: Dysuria - Integumentary Integumentary: UNREMARKABLE Critical Care Progress Note - Extremities/Vascular Does the Patient have a Central Venous Catheter?: No Does the Patient need a Central Venous Catheter?: No Does the Patient have a Espinal Catheter?: No Does the Patient need a Espinal Catheter?: No - Prophylaxis GI Prophylaxis GI: PPI - Prophylaxis DVT Prophylaxis DVT: Heparin SQ - Nutrition Nutrition: Nutrition Category Date Time Status Dysphagia/Modified Consistency Diet [DIET] Diets 05/15/17 Dinner Ordered Assessment/Plan - Assessment and Plan (Free Text) Assessment: 81M w/AMS-resolving, stable, ready for transfer to med-surg Plan: Neuro AOx2 Stable CVS Mostly Normotensive Normocardiac Stable Pulm Solumedrol ABG pH 7.46, pCO2 32, pO2 87, HCO3 22.8 O2 via NC PRN Sao2 95% Target Sao2>94% GI Diabetic modified consistency diet changed to HHD, thin liquids today Transaminitis AST/ALT improving Holding home med: lipitor Monitor Voids freely UOP 1100cc/24H UDS Pos for opiates Endo ISS Accuchecks Diabetic diet ID Afebrile No leukoctyosis BLood cx neg x 24H FU sputum cx urine cx neg Procalc 0.69 MSK PT OOBTC Monitor for skin break down GI/DVT ppx Heparin Protonix Dispo Stable on RA Transfer to med-surg DW attending Cori, PGY-1 - Date & Time Date: 05/16/17 Time: 07:30 <Emilie SUMMERS,Maria Dolores H - Last Filed: 05/16/17 13:18> CCU Objective - Vital Signs / Intake & Output Vital Signs (Last 4 hours): Vital Signs Pulse 05/16/17 10:00 83 Intake and Output (Last 8hrs): Intake & Output 05/15/17 05/16/17 05/16/17 22:59 06:59 14:59 Output Total 250 Balance -250 Weight 175 lb Output: Urine 250 Urine, Voided 250 - Medications Active Medications: Active Medications Generic Name Dose Route Start Last Admin Trade Name Freq PRN Reason Stop Dose Admin Heparin Sodium (Porcine) 5,000 units 05/15/17 08:45 05/16/17 08:28 Heparin SC 5,000 units Q8H [facility] Administration Protocol Insulin Human Lispro 0 units 05/15/17 23:45 05/16/17 12:53 Humalog Low SC 4 units ACHS DA Administration Protocol Methylprednisolone 40 mg 05/15/17 08:30 05/16/17 08:33 Solu-Medrol IVP 40 mg Q8H DA Administration Pantoprazole Sodium 40 mg 05/15/17 10:00 05/16/17 11:08 Protonix Inj IVP 40 mg DAILY DA Administration - Patient Studies Lab Studies: Lab Studies 05/16/17 05/16/17 05/16/17 Range/Units 11:25 09:55 08:30 WBC (4.5-11.0) 10^3/ul RBC (3.5-6.1) 10^6/uL Hgb (14.0-18.0) g/dL Hct (42.0-52.0) % MCV (80.0-105.0) fl MCH (25.0-35.0) pg MCHC (31.0-37.0) g/dl RDW (11.5-14.5) % Plt Count (120.0-450.0) 10^3/uL MPV (7.0-11.0) fl Gran % (50.0-68.0) % Lymph % (Auto) (22.0-35.0) % Pine % (Auto) (1.0-6.0) % Eos % (Auto) (1.5-5.0) % Baso % (Auto) (0.0-3.0) % Gran # (1.4-6.5) Lymph # (1.2-3.4) Pine # (0.1-0.6) Eos # (0.0-0.7) Baso # (0.0-2.0) K/mm3 pCO2 32 L (35-45) mm/Hg pO2 87.0 (80-100) mm/Hg HCO3 22.8 (21-28) mmol/L ABG pH 7.46 H (7.35-7.45) ABG Total CO2 23.8 (22-28) mmol.L ABG O2 Saturation 99.3 H (95-98) % ABG O2 Content 11.7 L (15-23) ML/dl ABG Base Excess -0.7 (-2.0-3.0) mmol/L ABG Hemoglobin 8.5 L (11.7-17.4) g/dL ABG Carboxyhemoglobin 1.8 H (0.5-1.5) % POC ABG HHb (Measured) 0.7 (0-5) % ABG Methemoglobin 1.1 (0.0-3.0) % ABG O2 Capacity 11.8 L (16-24) mL/dl Hgb O2 Saturation 96.4 (95.0-98.0) % FiO2 21.0 % Sodium 145 (132-148) mmol/L Potassium 4.4 (3.6-5.0) mmol/L Chloride 109 (95-110) mmol/L Carbon Dioxide 26 (21-33) mmol/L Anion Gap 14 (10-20) BUN 42 H (7-21) mg/dL Creatinine 0.9 (0.5-1.4) mg/dL Est GFR ( Amer) > 60 Est GFR (Non-Af Amer) > 60 POC Glucose (mg/dL) 338 H (65-110) mg/dL Random Glucose 258 H (70-110) mg/dL Calcium 8.7 (8.4-10.5) mg/dL Phosphorus 3.2 (2.5-4.5) mg/dL Magnesium 1.7 (1.7-2.2) mg/dL Total Bilirubin 0.6 (0.2-1.3) mg/dL AST 34 (17-59) U/L ALT 97 H (7-56) U/L Alkaline Phosphatase 420 H D (38-126) U/L Total Protein 6.0 (5.8-8.3) g/dL Albumin 3.0 (3.0-4.8) g/dL Globulin 3.1 gm/dL Albumin/Globulin Ratio 1.0 L (1.1-1.8) 05/16/17 05/16/17 05/16/17 Range/Units 08:30 07:51 06:03 WBC 3.6 L D (4.5-11.0) 10^3/ul RBC 2.56 L (3.5-6.1) 10^6/uL Hgb 8.2 L (14.0-18.0) g/dL Hct 24.3 L (42.0-52.0) % MCV 94.9 (80.0-105.0) fl MCH 32.0 (25.0-35.0) pg MCHC 33.7 (31.0-37.0) g/dl RDW 12.6 (11.5-14.5) % Plt Count 128 (120.0-450.0) 10^3/uL MPV 8.5 (7.0-11.0) fl Gran % 70.5 H (50.0-68.0) % Lymph % (Auto) 27.0 (22.0-35.0) % Pine % (Auto) 2.2 (1.0-6.0) % Eos % (Auto) 0.0 L (1.5-5.0) % Baso % (Auto) 0.3 (0.0-3.0) % Gran # 2.53 (1.4-6.5) Lymph # 1.0 L (1.2-3.4) Pine # 0.1 (0.1-0.6) Eos # 0.0 (0.0-0.7) Baso # 0.01 (0.0-2.0) K/mm3 pCO2 (35-45) mm/Hg pO2 (80-100) mm/Hg HCO3 (21-28) mmol/L ABG pH (7.35-7.45) ABG Total CO2 (22-28) mmol.L ABG O2 Saturation (95-98) % ABG O2 Content (15-23) ML/dl ABG Base Excess (-2.0-3.0) mmol/L ABG Hemoglobin (11.7-17.4) g/dL ABG Carboxyhemoglobin (0.5-1.5) % POC ABG HHb (Measured) (0-5) % ABG Methemoglobin (0.0-3.0) % ABG O2 Capacity (16-24) mL/dl Hgb O2 Saturation (95.0-98.0) % FiO2 % Sodium (132-148) mmol/L Potassium (3.6-5.0) mmol/L Chloride (95-110) mmol/L Carbon Dioxide (21-33) mmol/L Anion Gap (10-20) BUN (7-21) mg/dL Creatinine (0.5-1.4) mg/dL Est GFR ( Amer) Est GFR (Non-Af Amer) POC Glucose (mg/dL) 286 H 287 H (65-110) mg/dL Random Glucose (70-110) mg/dL Calcium (8.4-10.5) mg/dL Phosphorus (2.5-4.5) mg/dL Magnesium (1.7-2.2) mg/dL Total Bilirubin (0.2-1.3) mg/dL AST (17-59) U/L ALT (7-56) U/L Alkaline Phosphatase (38-126) U/L Total Protein (5.8-8.3) g/dL Albumin (3.0-4.8) g/dL Globulin gm/dL Albumin/Globulin Ratio (1.1-1.8) 05/16/17 05/15/17 Range/Units 03:55 21:28 WBC (4.5-11.0) 10^3/ul RBC (3.5-6.1) 10^6/uL Hgb (14.0-18.0) g/dL Hct (42.0-52.0) % MCV (80.0-105.0) fl MCH (25.0-35.0) pg MCHC (31.0-37.0) g/dl RDW (11.5-14.5) % Plt Count (120.0-450.0) 10^3/uL MPV (7.0-11.0) fl Gran % (50.0-68.0) % Lymph % (Auto) (22.0-35.0) % Pine % (Auto) (1.0-6.0) % Eos % (Auto) (1.5-5.0) % Baso % (Auto) (0.0-3.0) % Gran # (1.4-6.5) Lymph # (1.2-3.4) Pine # (0.1-0.6) Eos # (0.0-0.7) Baso # (0.0-2.0) K/mm3 pCO2 (35-45) mm/Hg pO2 (80-100) mm/Hg HCO3 (21-28) mmol/L ABG pH (7.35-7.45) ABG Total CO2 (22-28) mmol.L ABG O2 Saturation (95-98) % ABG O2 Content (15-23) ML/dl ABG Base Excess (-2.0-3.0) mmol/L ABG Hemoglobin (11.7-17.4) g/dL ABG Carboxyhemoglobin (0.5-1.5) % POC ABG HHb (Measured) (0-5) % ABG Methemoglobin (0.0-3.0) % ABG O2 Capacity (16-24) mL/dl Hgb O2 Saturation (95.0-98.0) % FiO2 % Sodium (132-148) mmol/L Potassium (3.6-5.0) mmol/L Chloride (95-110) mmol/L Carbon Dioxide (21-33) mmol/L Anion Gap (10-20) BUN (7-21) mg/dL Creatinine (0.5-1.4) mg/dL Est GFR ( Amer) Est GFR (Non-Af Amer) POC Glucose (mg/dL) 267 H 365 H (65-110) mg/dL Random Glucose (70-110) mg/dL Calcium (8.4-10.5) mg/dL Phosphorus (2.5-4.5) mg/dL Magnesium (1.7-2.2) mg/dL Total Bilirubin (0.2-1.3) mg/dL AST (17-59) U/L ALT (7-56) U/L Alkaline Phosphatase (38-126) U/L Total Protein (5.8-8.3) g/dL Albumin (3.0-4.8) g/dL Globulin gm/dL Albumin/Globulin Ratio (1.1-1.8) Laboratory Results - last 24 hr 05/15/17 05/16/17 05/16/17 21:28 03:55 06:03 WBC RBC Hgb Hct MCV MCH MCHC RDW Plt Count MPV Gran % Lymph % (Auto) Pine % (Auto) Eos % (Auto) Baso % (Auto) Gran # Lymph # Pine # Eos # Baso # pCO2 pO2 HCO3 ABG pH ABG Total CO2 ABG O2 Saturation ABG O2 Content ABG Base Excess ABG Hemoglobin ABG Carboxyhemoglobin POC ABG HHb (Measured) ABG Methemoglobin ABG O2 Capacity Hgb O2 Saturation FiO2 Sodium Potassium Chloride Carbon Dioxide Anion Gap BUN Creatinine Est GFR ( Amer) Est GFR (Non-Af Amer) POC Glucose (mg/dL) 365 H 267 H 287 H Random Glucose Calcium Phosphorus Magnesium Total Bilirubin AST ALT Alkaline Phosphatase Total Protein Albumin Globulin Albumin/Globulin Ratio 05/16/17 05/16/17 05/16/17 07:51 08:30 08:30 WBC 3.6 L D RBC 2.56 L Hgb 8.2 L Hct 24.3 L MCV 94.9 MCH 32.0 MCHC 33.7 RDW 12.6 Plt Count 128 MPV 8.5 Gran % 70.5 H Lymph % (Auto) 27.0 Pine % (Auto) 2.2 Eos % (Auto) 0.0 L Baso % (Auto) 0.3 Gran # 2.53 Lymph # 1.0 L Pine # 0.1 Eos # 0.0 Baso # 0.01 pCO2 pO2 HCO3 ABG pH ABG Total CO2 ABG O2 Saturation ABG O2 Content ABG Base Excess ABG Hemoglobin ABG Carboxyhemoglobin POC ABG HHb (Measured) ABG Methemoglobin ABG O2 Capacity Hgb O2 Saturation FiO2 Sodium 145 Potassium 4.4 Chloride 109 Carbon Dioxide 26 Anion Gap 14 BUN 42 H Creatinine 0.9 Est GFR ( Amer) > 60 Est GFR (Non-Af Amer) > 60 POC Glucose (mg/dL) 286 H Random Glucose 258 H Calcium 8.7 Phosphorus 3.2 Magnesium 1.7 Total Bilirubin 0.6 AST 34 ALT 97 H Alkaline Phosphatase 420 H D Total Protein 6.0 Albumin 3.0 Globulin 3.1 Albumin/Globulin Ratio 1.0 L 05/16/17 05/16/17 09:55 11:25 WBC RBC Hgb Hct MCV MCH MCHC RDW Plt Count MPV Gran % Lymph % (Auto) Pine % (Auto) Eos % (Auto) Baso % (Auto) Gran # Lymph # Pine # Eos # Baso # pCO2 32 L pO2 87.0 HCO3 22.8 ABG pH 7.46 H ABG Total CO2 23.8 ABG O2 Saturation 99.3 H ABG O2 Content 11.7 L ABG Base Excess -0.7 ABG Hemoglobin 8.5 L ABG Carboxyhemoglobin 1.8 H POC ABG HHb (Measured) 0.7 ABG Methemoglobin 1.1 ABG O2 Capacity 11.8 L Hgb O2 Saturation 96.4 FiO2 21.0 Sodium Potassium Chloride Carbon Dioxide Anion Gap BUN Creatinine Est GFR ( Amer) Est GFR (Non-Af Amer) POC Glucose (mg/dL) 338 H Random Glucose Calcium Phosphorus Magnesium Total Bilirubin AST ALT Alkaline Phosphatase Total Protein Albumin Globulin Albumin/Globulin Ratio Critical Care Progress Note - Nutrition Nutrition: Nutrition Category Date Time Status Heart Healthy Diet [DIET] Diets 05/16/17 Lunch Ordered Attending/Attestation - Attestation I have personally seen and examined this patient.: Yes I have fully participated in the care of the patient.: Yes I have reviewed all pertinent clinical information: Yes Notes (Text): 05/16/17 13:16 81 y/o M w/ 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 Currently pain free w/ mental status intact. Medications adjusted and no further icu monitoring needed.
--- NOTE | 2017-05-16 08:14 | CON ---
DATE: 05/15/2017 HISTORY OF PRESENT ILLNESS: The patient was seen and examined at the bedside. This is an 81-year-old gentleman with history of hypertension who presented to [facility], [place] with altered mental status. No nausea, no vomiting, no diarrhea, no constipation, no chest pain, no shortness of breath. PAST MEDICAL HISTORY: Hypertension. ALLERGIES: NKDA. MEDICATIONS: Unobtainable. FAMILY HISTORY: Noncontributory. SOCIAL HISTORY: Unobtainable. REVIEW OF SYSTEMS: Review of 12-point systems other than mentioned in history of present illness is negative. PHYSICAL EXAMINATION: VITAL SIGNS: Temperature 99.2, heart rate 97, blood pressure 115/61, respiratory rate 20, oxygen saturation 99% on nasal cannula. HEENT: Head and neck are atraumatic. LUNGS: Clear to auscultation bilaterally. HEART: Regular rate and rhythm. S1 and S2 normal. ABDOMEN: Soft, nontender, nondistended. MUSCULOSKELETAL: Trace bilateral pedal and ankle edema. NEURO: The patient is lethargic, responding to the stimuli. SKIN: Moist. PSYCHIATRIC: The patient is lethargic, but comfortable. LABORATORY DATA: WBC 5.2, hemoglobin 9.3, platelet count 132. Sodium 140, potassium 3.9, chloride 105, carbon dioxide 23, BUN 65, creatinine 1.4, glucose 311, calcium 9.5, AST 45, ALT 114, alkaline phosphatase 530. Total bilirubin 0.8, ammonia level 70. CAT scan of the head did not reveal any acute intracranial pathology. Utox positive opiates. Blood gas revealed pH 7.29, glucose 260, lactic acid went down to 1.9 from 2.6. MEDICATIONS: Tylenol p.r.n., normal saline 150 mL per hour, aztreonam and vancomycin were given. ASSESSMENT AND PLAN: This is an 81-year-old gentleman who presented with decreased mental status in the setting of positive drug screen for opioids. He has a mild what appears to be respiratory acidosis even though ABG is pending, to hold that. The patient is responding to touch and painful stimuli. He was able to protect his airways. At present time, I would recommend bronchodilators, inhaled corticosteroids, BiPAP. I will continue antibiotics. I will check level. I would repeat echocardiogram. I would repeat we will consider transferring the patient to the ICU for low-threshold intubation. I will continue with fluid resuscitation. Castro Stubbs MD
[2017-05-16] MEDS: Insulin Lispro (humaLOG) LOW Coverage SC SCH ×4 (08:28→23:15)
[2017-05-16] MEDS: MethylPREDNISolone 40 mg Vial IVP SCH (08:33)
--- NOTE | 2017-05-16 08:41 | CARD ---
APPROVED REPORT EXAM: Two-dimensional and M-mode echocardiogram with Doppler and color Doppler. Other Information Quality : PoorRhythm : INDICATION Pulmonary Hypertention 2D DIMENSIONS Left Atrium (2D)4.9 (1.6-4.0cm) M-Mode DIMENSIONS IVSd1.19 (0.7-1.1cm)Aortic Root4.00 (2.2-3.7cm) LVDd5.49 (4.0-5.6cm)Aortic Cusp Exc.1.70 (1.5-2.0cm) PWd1.32 (0.7-1.1cm)FS (%) 34 % LVDs3.64 (2.0-3.8cm)LVEF (%)62 (>50%) Aortic Valve AoV Peak Zuahgcyk200.0cm/s Mitral Valve E/A ratio0.0 TDI E/Lateral E'0.0E/Medial E'0.0 Pulmonary Valve PV Peak Auahnztc91.4cm/sPV Peak Grad.3mmHg Tricuspid Valve TR Peak [id number] Peak Gr.12mmHg [id number] LEFT VENTRICLE The left ventricle is normal size. There is normal left ventricular wall thickness. The left ventricular function is normal. The left ventricular ejection fraction is within the normal range. RIGHT VENTRICLE The right ventricle is normal size. ATRIA The left atrium size is normal. The right atrium size is normal. The interatrial septum is intact with no evidence for an atrial septal defect. AORTIC VALVE The aortic valve is not well visualized. MITRAL VALVE The mitral valve is normal in structure. TRICUSPID VALVE The tricuspid valve is normal in structure. PULMONIC VALVE The pulmonic valve is not well visualized. PERICARDIAL EFFUSION There is no pericardial effusion. <Conclusion> Very limited study done in ICU on vented patient. The LV function appears normal. This is based on apical 4 chamber and short access views only. Suggest repeat study when patient is stabilized, out of ICU.
--- NOTE | 2017-05-16 08:44 | CARD ---
APPROVED REPORT EKG Measurement Heart [id number] <Conclusion> Normal sinus rhythm Right bundle branch block NSSTW changes No change
[2017-05-16 08:49] LABS: BASO # 0.01 K/mm3 (0.0-2.0); BASO % 0.3 % (0.0-3.0); GRAN # 2.53 (1.4-6.5); GRAN % 70.5 % (50.0-68.0); HEMATOCRIT 24.3 % (42.0-52.0); MEAN CELL VOLUME 94.9 fl (80.0-105.0); MEAN CORPUSCULAR HGB CONC 33.7 g/dl (31.0-37.0); MEAN PLATELET VOLUME 8.5 fl (7.0-11.0); MONO # 0.1 (0.1-0.6); MONO % 2.2 % (1.0-6.0); RED CELL DISTRIBUTION WIDTH 12.6 % (11.5-14.5); WHITE BLOOD COUNT 3.6 10^3/ul (4.5-11.0)
[2017-05-16 08:53] LABS: ALKALINE PHOSPHATASE 420 U/L (38-126); ALT/SGPT 97 U/L (7-56); AST/SGOT 34 U/L (17-59); BILIRUBIN,TOTAL 0.6 mg/dL (0.2-1.3); BLOOD UREA NITROGEN 42 mg/dL (7-21); CALCIUM 8.7 mg/dL (8.4-10.5); CARBON DIOXIDE 26 mmol/L (21-33); CHLORIDE 109 mmol/L (95-110); GFR AFRICAN-AMERICAN > 60; GLUCOSE,RANDOM 258 mg/dL (70-110); MAGNESIUM 1.7 mg/dL (1.7-2.2); PHOSPHOROUS 3.2 mg/dL (2.5-4.5); POTASSIUM 4.4 mmol/L (3.6-5.0); SODIUM 145 mmol/L (132-148)
[2017-05-16 10:00] LABS: ARTERIAL BLOOD GAS HCO3 22.8 mmol/L (21-28); ARTERIAL BLOOD GAS O2 CAPACITY 11.8 mL/dl (16-24); ARTERIAL BLOOD GAS O2 CONTENT 11.7 ML/dl (15-23); ARTERIAL BLOOD GAS PH 7.46 (7.35-7.45); ARTERIAL BLOOD HGB O2 SAT 96.4 % (95.0-98.0); CARBOXYHEMOGLOBIN 1.8 % (0.5-1.5); HHB 0.7 % (0-5); METHEMOGLOBIN 1.1 % (0.0-3.0)
--- NOTE | 2017-05-16 19:33 | RAD ---
PROCEDURE: Left Hip X-ray with pelvis Radiographs. HISTORY: pain COMPARISON: None. FINDINGS: BONES: No acute fracture or dislocation left hip is appreciated. No fracture through the pelvic ring either. No suspicious lytic or blastic change. Diffuse osteopenia suggests at least an element of osteoporosis. JOINTS: Advanced degenerative joint changes seen at the left hip joint and a moderate at the bilateral sacroiliac joints. Advanced degenerate changes suggests of the right hip joint as well. Right hip joints prostate obscured by add apparent neural stimulator generator at the right hemipelvis soft tissues. SOFT TISSUES: Vascular calcifications seen the inferior pelvic soft tissues enter rounded density at the inferior pelvis suggests at least moderate urinary bladder distention. OTHER FINDINGS: None. IMPRESSION: No acute fracture dislocation throughout the left hip joint or the pelvic ring. Degenerate changes are seen the bilateral sacroiliac and hip joints. Additional details discussed above.
[2017-05-17] MEDS: Insulin Lispro (humaLOG) LOW Coverage SC SCH ×2 (08:53→12:00)
[2017-05-17 08:55] VITALS: RESP 18; TEMP 97.6; O2SAT 99
[2017-05-17 10:28] LABS: BASO # 0.01 K/mm3 (0.0-2.0); BASO % 0.4 % (0.0-3.0); EOS % 0.4 % (1.5-5.0); GRAN # 1.61 (1.4-6.5); GRAN % 59.2 % (50.0-68.0); HEMATOCRIT 25.5 % (42.0-52.0); MEAN CELL VOLUME 96.6 fl (80.0-105.0); MEAN CORPUSCULAR HGB CONC 34.1 g/dl (31.0-37.0); MEAN PLATELET VOLUME 8.4 fl (7.0-11.0); MONO # 0.1 (0.1-0.6); RED CELL DISTRIBUTION WIDTH 12.8 % (11.5-14.5)
[2017-05-17 10:38] LABS: WHITE BLOOD COUNT 2.7 10^3/ul (4.5-11.0)
[2017-05-17 10:47] LABS: ALKALINE PHOSPHATASE 372 U/L (38-126); ALT/SGPT 73 U/L (7-56); AST/SGOT 36 U/L (17-59); BILIRUBIN,TOTAL 0.4 mg/dL (0.2-1.3); BLOOD UREA NITROGEN 26 mg/dL (7-21); CALCIUM 8.9 mg/dL (8.4-10.5); CARBON DIOXIDE 26 mmol/L (21-33); CHLORIDE 106 mmol/L (98-107); GFR AFRICAN-AMERICAN > 60; MAGNESIUM 1.7 mg/dL (1.7-2.2); PHOSPHOROUS 2.2 mg/dL (2.5-4.5); POTASSIUM 3.5 mmol/L (3.6-5.0); SODIUM 143 mmol/L (132-148); TOTAL PROTEIN 6.1 g/dL (5.8-8.3)
[2017-05-17 11:07] LABS: GLUCOSE,RANDOM 304 mg/dL (70-110)
[2017-05-17 11:11] VITALS: BP 141/77; PULSE 84
== END 2017-05-17 14:03 | disposition home or self-care (01) | DRG 948 ==
LOC: ED 03:14 → ERH 06:12 → CCU 09:05 → 5RSO 05-16 14:25
PROVIDERS: ADMIT Internal Medicine; ATTEND Internal Medicine
PROC: 5A09357 Assistance with Respiratory Ventilation, Less than 24 Consecutive Hours, Continuous Positive Airway Pressure (ICD-10-PCS; principal; 2017-05-15)
DX: R41.82 Altered mental status, unspecified (principal); E87.2 Acidosis; D46.9 Myelodysplastic syndrome, unspecified; E11.9 Type 2 diabetes mellitus without complications; D64.9 Anemia, unspecified; I10 Essential (primary) hypertension; I25.10 Atherosclerotic heart disease of native coronary artery without angina pectoris; Z79.84 Long term (current) use of oral hypoglycemic drugs; Z95.5 Presence of coronary angioplasty implant and graft

== ENCOUNTER 2017-08-27 16:24 | Inpatient (IN) | payer MEDICARE, BC ==
--- NOTE | 2017-08-27 17:51 | ED PDOC ---
Arrival/HPI - General Chief Complaint: Abnormal Labs Time Seen by Provider: 08/27/17 17:33 Historian: Patient - History of Present Illness Narrative History of Present Illness (Text): 08/27/17 17:55 81 year old male, whose past medical history includes diabetes, hypertension, history of renal failure, myelodysplastic disorder, CHF, and anemia, presents to the emergency department complaining of shortness of breath that began 1 week ago. Patient went to see Dr. Rasmussen and was told that his hemoglobin was 11. Patient returned today for another visit, but shortness of breath has worsened and struggled to make it to the doctors office. Patient's hemoglobin was check again to be 6.9 and put on fluids. Patient was sent to [facility] [place]. Patient reports decreased appetite secondary to dry mouth, but denies any fever, chills, chest pain, nausea, vomiting, diarrhea, urinary symptoms, back pain, neck pain, headache, dizziness, or any other complaints. PMD: Dr. Grey Time/Duration: 1 week Symptom Onset: Gradual Symptom Course: Unchanged Activities at Onset: Light Context: Home Past Medical History - Provider Review Nursing Documentation Reviewed: Yes - Infectious Disease Hx of Infectious Diseases: None - Tetanus Immunization Tetanus Immunization: Unknown - Cardiac Hx Hypertension: Yes Hx Pacemaker: No - Pulmonary Hx Respiratory Disorders: No - Neurological Hx Paralysis: No - HEENT Hx HEENT Disorder: No - Renal Hx Renal Disorder: Yes Hx Renal Failure: Yes - Endocrine/Metabolic Hx Diabetes Mellitus Type 2: Yes - Hematological/Oncological Hx Anemia: Yes Hx Blood Transfusions: Yes Hx Blood Transfusion Reaction: No - Integumentary Hx Dermatological Disorder: No - Musculoskeletal/Rheumatological Hx Musculoskeletal Disorders: Yes Hx Arthritis: Yes - Gastrointestinal Hx Gastrointestinal Disorders: No - Genitourinary/Gynecological Hx Genitourinary Disorders: No Hx Reproductive Disorders: No - Psychiatric Hx Emotional Abuse: No Hx Physical Abuse: No Hx Substance Use: No - Surgical History Hx Cholecystectomy: Yes Hx Coronary Stent: Yes Other/Comment: lamenectomy, stent x1, gall bladder removal - Anesthesia Hx Anesthesia Reactions: No Hx Malignant Hyperthermia: No - Suicidal Assessment Feels Threatened In Home Enviroment: No Family/Social History - Physician Review Nursing Documentation Reviewed: Yes Family/Social History: No Known Family HX Smoking Status: Never Smoked Hx Alcohol Use: No Hx Substance Use: No Hx Substance Use Treatment: No Allergies/Home Meds Allergies/Adverse Reactions: Allergies No Known Allergies Allergy (Verified 08/28/17 11:59) Home Medications: Home Meds Medication Instructions Recorded Confirmed Atorvastatin [Lipitor] 10 mg PO DAILY 05/15/17 08/27/17 Carvedilol [Coreg] 3.125 mg PO BID 05/15/17 08/27/17 Gabapentin [Neurontin] 600 mg PO BID 05/15/17 08/27/17 Lisinopril [Zestril] 10 mg PO DAILY 05/15/17 08/27/17 metFORMIN [glucOPHAGE] 500 mg PO TID 05/15/17 08/27/17 Prednisone [Sai] 2.5 mg PO DAILY 08/27/17 08/27/17 Zolpidem [Ambien] 10 mg PO DAILY 08/27/17 08/27/17 Review of Systems - Physician Review All systems were reviewed & negative as marked: Yes - Review of Systems Constitutional: absent: Fevers, Other (Chills) Respiratory: SOB Cardiovascular: absent: Chest Pain Gastrointestinal: Appetite Changes (decreased appetite). absent: Diarrhea, Nausea, Vomiting Genitourinary Male: absent: Dysuria, Frequency, Hematuria Musculoskeletal: absent: Back Pain, Neck Pain Neurological: absent: Headache, Dizziness Physical Exam Vital Signs Reviewed: Yes Vital Signs Temp Pulse Resp BP Pulse Ox 08/28/17 11:41 95 H 17 136/65 96 08/28/17 09:48 91 H 17 142/68 96 08/28/17 08:26 98.9 F 98 H 18 136/64 98 08/28/17 07:56 98.2 F 90 17 139/72 96 08/28/17 07:44 98.2 F 90 17 139/72 08/28/17 06:32 98.1 F 90 17 137/71 08/28/17 05:47 98.6 F 94 H 17 137/59 L 08/28/17 05:38 98.1 F 89 17 138/66 98 08/28/17 05:26 98.1 F 92 H 18 135/66 08/28/17 03:00 98.2 F 97 H 18 144/76 95 08/28/17 02:57 98.3 F 92 H 19 124/60 08/28/17 01:44 97.5 F L 93 H 20 136/60 95 08/28/17 01:02 97.5 F L 91 H 18 134/60 08/28/17 00:44 97.8 F 93 H 18 128/57 L 08/27/17 23:12 92 H 19 107/48 L 96 08/27/17 17:01 98.0 F 95 H 19 125/79 96 Temperature: Afebrile Blood Pressure: Normal Pulse: Regular Respiratory Rate: Normal Appearance: Positive for: Well-Appearing, Non-Toxic, Comfortable Pain Distress: None Mental Status: Positive for: Alert and Oriented X 3, Lethargic - Systems Exam Head: Present: Atraumatic, Normocephalic Pupils: Present: PERRL Extroacular Muscles: Present: EOMI Conjunctiva: Present: Normal Mouth: Present: Dry Neck: Present: Normal Range of Motion Respiratory/Chest: Present: Clear to Auscultation, Good Air Exchange. No: Respiratory Distress, Accessory Muscle Use Cardiovascular: Present: Regular Rate and Rhythm, Murmurs (soft systolic murmur) , Normal S1, S2 Abdomen: Present: Normal Bowel Sounds. No: Tenderness, Distention, Peritoneal Signs Back: Present: Normal Inspection Upper Extremity: Present: Normal Inspection. No: Cyanosis, Edema Lower Extremity: Present: Normal Inspection, NORMAL PULSES. No: Edema Neurological: Present: GCS=15, CN II-XII Intact, Speech Normal Skin: Present: Warm, Dry, Pale. No: Rashes Psychiatric: Present: Alert, Oriented x 3, Normal Insight, Normal Concentration , Lethargic Medical Decision Making ED Course and Treatment: 08/27/17 17:50 Impression: 81 year old male presents complaining of shortness of breath that began last week. Patient reports hemoglobin dropped from 11 to 6.9 with that week. Plan: -- Labs -- Chest X-ray -- Reassess and disposition Prior Visits: Notes and results from previous visits were reviewed. Patient was last seen in the emergency department on 05/12/17 presents for AMS. Patient was admitted. Progress Notes: PROCEDURE: Chest X-ray Dictator : Dinora Pulido MD Report Date : 08/27/2017 18:46:18 IMPRESSION: Findings are most compatible with congestive heart failure 08/27/17 20:15 Patient's hem culture is negative. - Lab Interpretations Lab Results: 08/27/17 20:00 08/27/17 18:50 Lab Results 08/27/17 20:00: PT 14.8 H, INR 1.29 H 08/27/17 20:00: WBC 6.1 D, RBC 1.08 L, Hgb 6.0 L* D, Hct 12.6 L*, MCV 101.9 D , MCH 55.6 H, MCHC 54.5 H, RDW 21.0 H, Plt Count 172, MPV 8.3, Gran % 43.2 L, Lymph % (Auto) 54.5 H, [place] % (Auto) 1.3, Eos % (Auto) 0.3 L, Baso % (Auto) 0.7 , Gran # 2.62, Lymph # 3.3, [place] # 0.1, Eos # 0.0, Baso # 0.04 08/27/17 18:50: Blood Type O NEGATIVE, Antibody Screen Negative, Crossmatch See Detail, BBK History Checked Patient has bt 08/27/17 18:50: Sodium 138, Potassium 4.0, Chloride 105, Carbon Dioxide 25, Anion Gap 12, BUN 30 H, Creatinine 1.1, Est GFR ( Amer) > 60, Est GFR ( Non-Af Amer) > 60, Random Glucose 121 H, Calcium 8.7, Total Bilirubin 1.7 H, AST 24, ALT 13, Alkaline Phosphatase 130 H D, Total Protein 9.0 H, Albumin 3.2, Globulin 5.8, Albumin/Globulin Ratio 0.6 L I have reviewed the lab results: Yes - RAD Interpretation Radiology Orders: 08/27/17 17:54 CHEST PORTABLE [RAD] Stat - Medication Orders Current Medication Orders: Acetaminophen (Tylenol 325mg Tab) 650 mg PO Q4H PRN PRN Reason: Pain, Mild (1-3) Ceftriaxone Sodium 500 mg/ (Sodium Chloride) 50 mls @ 100 mls/hr IVPB Q24H DA PRN Reason: Protocol Nystatin (Nystatin Oral Susp) 5 ml PO QID [facility] Last Admin: 08/29/17 13:39 Dose: 5 ml Tramadol HCl (Ultram) 50 mg PO TID [facility] Last Admin: 08/29/17 13:39 Dose: 50 mg MAR Pain Assessment Document 08/29/17 13:39 BIR (Rec: 08/29/17 13:39 [facility] [id number]) Pain Reassessment Is this a pain reassessment? No Sleep Is patient sleeping during reassessment? No Presence of Pain Presence of Pain Yes - Scribe Statement The provider has reviewed the documentation as recorded by the Mojgan Beck Provider Scribe Attestation: All medical record entries made by the Scribe were at my direction and personally dictated by me. I have reviewed the chart and agree that the record accurately reflects my personal performance of the history, physical exam, medical decision making, and the department course for this patient. I have also personally directed, reviewed, and agree with the discharge instructions and disposition. Disposition/Present on Arrival - Present on Arrival Any Indicators Present on Arrival: No History of DVT/PE: No History of Uncontrolled Diabetes: No Urinary Catheter: No History of Decub. Ulcer: No History Surgical Site Infection Following: None - Disposition Have Diagnosis and Disposition been Completed?: Yes Diagnosis: Anemia, Myelodysplasia (myelodysplastic syndrome) Disposition: HOSPITALIZED Disposition Time: 18:00 Patient Plan: Admission Patient Problems: Current Active Problems Problem Status Onset Anemia Acute Myelodysplasia (myelodysplastic syndrome) Acute Condition: STABLE
--- NOTE | 2017-08-27 18:47 | RAD ---
HISTORY: Shortness of breath COMPARISON: 05/15/2017 FINDINGS: LUNGS: There is severe pulmonary venous congestion. There is bibasilar airspace disease likely representing atelectasis however superimposed pneumonia cannot be excluded. PLEURA: There are small pleural effusions, no pneumothorax apparent. CARDIOVASCULAR: The heart is enlarged with prominent central vasculature. OSSEOUS STRUCTURES: No significant abnormalities. VISUALIZED UPPER ABDOMEN: Normal. OTHER FINDINGS: None. IMPRESSION: Findings are most compatible with congestive heart failure.
[2017-08-27 19:24] LABS: ALBUMIN 3.2 g/dL (3.0-4.8); ALT/SGPT 13 U/L (7-56); AST/SGOT 24 U/L (17-59); BLOOD UREA NITROGEN 30 mg/dL (7-21); CALCIUM 8.7 mg/dL (8.4-10.5); GFR AFRICAN-AMERICAN > 60; GFR NON-AFRICAN AMERICAN > 60
[2017-08-27 19:29] LABS: ALB/GLOB RATIO 0.6 (1.1-1.8)
[2017-08-27 20:22] LABS: INR 1.29 (0.93-1.08); PROTHROMBIN TIME 14.8 SECONDS (9.4-12.5)
[2017-08-27 20:27] LABS: BASO # 0.04 K/mm3 (0.0-2.0); BASO % 0.7 % (0.0-3.0); EOS % 0.3 % (1.5-5.0); GRAN # 2.62 (1.4-6.5); GRAN % 43.2 % (50.0-68.0); LYMPH # 3.3 (1.2-3.4); LYMPH % 54.5 % (22.0-35.0); MEAN CELL VOLUME 101.9 fl (80.0-105.0); MEAN CORPUSCULAR HEMOGLOBIN 55.6 pg (25.0-35.0); MEAN CORPUSCULAR HGB CONC 54.5 g/dl (31.0-37.0); MEAN PLATELET VOLUME 8.3 fl (7.0-11.0); MONO # 0.1 (0.1-0.6); MONO % 1.3 % (1.0-6.0); RBC 1.08 10^6/uL (3.5-6.1); WHITE BLOOD COUNT 6.1 10^3/ul (4.5-11.0)
[2017-08-27] MEDS ORDERED: Morphine 4 mg/ml ISec IVP STA (21:07)
[2017-08-28 13:33] VITALS: BMI 25.8
[2017-08-28] MEDS ORDERED: Influenza Vaccine 60 mcg/0.5 mL SYR (4YR UP) IM ONE (13:33)
[2017-08-28] MEDS ORDERED: Pneumococcal 23-Valent Vaccine IM ONE (13:33)
[2017-08-28 14:06] LABS: BASO # 0.03 K/mm3 (0.0-2.0); BASO % 0.5 % (0.0-3.0); EOS % 0.3 % (1.5-5.0); GRAN # 3.25 (1.4-6.5); GRAN % 56.7 % (50.0-68.0); LYMPH # 2.3 (1.2-3.4); LYMPH % 40.1 % (22.0-35.0); MEAN CELL VOLUME 101.4 fl (80.0-105.0); MEAN CORPUSCULAR HEMOGLOBIN 36.8 pg (25.0-35.0); MEAN CORPUSCULAR HGB CONC 36.3 g/dl (31.0-37.0); MEAN PLATELET VOLUME 9.4 fl (7.0-11.0); MONO # 0.1 (0.1-0.6); MONO % 2.4 % (1.0-6.0); RBC 2.12 10^6/uL (3.5-6.1); RED CELL DISTRIBUTION WIDTH 23.9 % (11.5-14.5); WHITE BLOOD COUNT 5.7 10^3/ul (4.5-11.0)
[2017-08-28 14:08] LABS: HEMOGLOBIN 7.8 g/dL (14.0-18.0)
[2017-08-28] MEDS: Nystatin 100,000 Units/ml Oral Susp 5 ml UD PO SCH ×3 (14:11→21:41)
--- NOTE | 2017-08-28 18:01 | CARD ---
APPROVED REPORT EKG Measurement Heart [id number] <Conclusion> Normal sinus rhythm Normal ECG
[2017-08-29 06:28] LABS: BASO # 0.02 K/mm3 (0.0-2.0); BASO % 0.4 % (0.0-3.0); EOS % 0.2 % (1.5-5.0); GRAN # 2.29 (1.4-6.5); GRAN % 48.3 % (50.0-68.0); LYMPH # 2.2 (1.2-3.4); LYMPH % 46.9 % (22.0-35.0); MEAN CORPUSCULAR HEMOGLOBIN 33.9 pg (25.0-35.0); MEAN CORPUSCULAR HGB CONC 36.3 g/dl (31.0-37.0); MEAN PLATELET VOLUME 8.6 fl (7.0-11.0); MONO # 0.2 (0.1-0.6); MONO % 4.2 % (1.0-6.0); RBC 2.89 10^6/uL (3.5-6.1); RED CELL DISTRIBUTION WIDTH 20.5 % (11.5-14.5); WHITE BLOOD COUNT 4.8 10^3/ul (4.5-11.0)
[2017-08-29 06:43] LABS: HEMOGLOBIN 9.8 g/dL (14.0-18.0); MEAN CELL VOLUME 93.4 fl (80.0-105.0)
[2017-08-29 07:10] LABS: BLOOD UREA NITROGEN 16 mg/dL (7-21); CALCIUM 8.1 mg/dL (8.4-10.5); GFR AFRICAN-AMERICAN > 60; GFR NON-AFRICAN AMERICAN > 60
[2017-08-29] MEDS: Nystatin 100,000 Units/ml Oral Susp 5 ml UD PO SCH ×4 (09:13→21:24)
[2017-08-29] MEDS ORDERED: Iodixanol 320 MG/ML 100 ML BOTTLE IV ONE (10:16)
--- NOTE | 2017-08-29 12:13 | CT ---
PROCEDURE: CT Chest with contrast (Pulmonary Angiogram) HISTORY: RlQ pain, MDS, weakness, rope COMPARISON: None available. TECHNIQUE: Axial computed tomography images were obtained of the chest in the pulmonary arterial phase of enhancement. Coronal and sagittal reformatted images were created and reviewed. Intravenous contrast dose: Radiation dose: Total exam DLP = mGy-cm. This CT exam was performed using one or more of the following dose reduction techniques: Automated exposure control, adjustment of the mA and/or kV according to patient size, and/or use of iterative reconstruction technique. FINDINGS: PULMONARY ARTERIES: Unremarkable. No pulmonary embolism. AORTA: No acute findings. No thoracic aortic aneurysm. LUNGS: Bilateral infiltrates with extensive consolidation in both lung bases. PLEURAL SPACES: Unremarkable. No effusion or pneuomothorax. HEART: Unremarkable. No cardiomegaly. No significant pericardial effusion. LYMPH NODES: Scattered mediastinal lymph nodes within enlarged 17 millimeter subcarinal lymph node. Additional mildly enlarged right paratracheal lymph nodes. BONES, CHEST WALL: Unremarkable. No fracture or destructive lesion OTHER FINDINGS: Cholecystectomy. IMPRESSION: Bilateral infiltrates with extensive consolidation in both lung bases.Scattered mediastinal lymph nodes within enlarged 17 millimeter subcarinal lymph node. Additional mildly enlarged right paratracheal lymph nodes. Recommend followup.No pulmonary embolus.
--- NOTE | 2017-08-29 20:50 | PN ---
DATE: 08/29/2017 DAILY PROGRESS NOTE SUBJECTIVE: Patient was seen this Friday morning in room 368, bed 1. He complained of some right sided low rib anterior pain and then he is still feeling tired. His hemoglobin is up to 9 after 4 units of packed red cells. We will await to hear from hematology. PHYSICAL EXAMINATION HEAD AND NECK: Otherwise unremarkable. Conjunctivae are pink. LUNGS: Good aeration in right and left. EXTREMITIES: Show no edema. IMPRESSION: 1. Myelodysplastic syndrome. 2. Severe anemia. 3. Right sided pleuritic like rib pain. PLAN: We will get CT angio to rule out PE and follow. ADDENDUM: Phone call from nurse practioneer, CT angio is negative for pulmonary embolus, but infiltrate and some other abnormalities noted. We will need to review personally and with radiologist. Consider Lasix after transfusions. Sidney Grey MD
[2017-08-30 08:08] LABS: BASO # 0.01 K/mm3 (0.0-2.0); BASO % 0.3 % (0.0-3.0); EOS % 0.5 % (1.5-5.0); GRAN # 1.62 (1.4-6.5); GRAN % 42.4 % (50.0-68.0); HEMOGLOBIN 9.6 g/dL (14.0-18.0); LYMPH # 2.1 (1.2-3.4); LYMPH % 53.7 % (22.0-35.0); MEAN CELL VOLUME 94.6 fl (80.0-105.0); MEAN CORPUSCULAR HEMOGLOBIN 34.5 pg (25.0-35.0); MEAN CORPUSCULAR HGB CONC 36.5 g/dl (31.0-37.0); MEAN PLATELET VOLUME 8.4 fl (7.0-11.0); MONO # 0.1 (0.1-0.6); MONO % 3.1 % (1.0-6.0); RBC 2.78 10^6/uL (3.5-6.1); RED CELL DISTRIBUTION WIDTH 19.9 % (11.5-14.5); WHITE BLOOD COUNT 3.8 10^3/ul (4.5-11.0)
[2017-08-30 08:21] LABS: BLOOD UREA NITROGEN 14 mg/dL (7-21); CALCIUM 8.3 mg/dL (8.4-10.5); GFR AFRICAN-AMERICAN > 60; GFR NON-AFRICAN AMERICAN > 60
[2017-08-30 08:29] LABS: B-TYPE NATRIURETIC PEPTIDE 1250 pg/mL (0-450)
[2017-08-30] MEDS: Nystatin 100,000 Units/ml Oral Susp 5 ml UD PO SCH ×4 (09:17→22:46)
--- NOTE | 2017-08-31 05:16 | CON ---
DATE: 08/30/2017 LOCATION: The patient is in room 368, bed 2. REASON FOR CONSULTATION: Shortness of breath, coronary artery disease, congestive changes on chest x-ray, history of angioplasty and stent insertion. HISTORY OF PRESENT ILLNESS: An 81-year-old male with known case of coronary artery disease, angioplasty, and stent insertion in 2009, history of myelodysplastic syndrome, diabetes mellitus, hypertension, and hyperlipidemia, in the past had bilateral pneumonia, now admitted with the history that since one week he feels that he is weak and tired and on exertion, he was getting shortness of breath. He sees Adjunct Teacher, Dr. Rasmussen and she sent him to Emergency Room, and in the Emergency Room, the patient's hemoglobin was 6.0 and hematocrit 12.6. The patient is now lying comfortably in bed without chest pain, shortness of breath or palpitation. PAST MEDICAL HISTORY: Positive for myelodysplastic syndrome, coronary artery disease, angioplasty, stent insertion in 2009, history of multiple blood transfusions in the past, history of bilateral pneumonia, hypertension, and hyperlipidemia. PERSONAL HISTORY: The patient used to smoke before, but stopped 43 years ago. Denies alcohol abuse. MEDICATIONS: The patient's medications at home included metformin 500 mg t.i.d., Ambien 10 mg daily at night time, prednisone 2.5 mg daily, Zestril 10 mg daily, Neurontin 600 mg b.i.d., Coreg 3.125 b.i.d., and atorvastatin 10 mg daily. ALLERGIES: THE PATIENT DENIES ANY ALLERGIES. REVIEW OF SYSTEMS: All other systems reviewed, positive mentioned in the history, others were negative. PHYSICAL EXAMINATION: VITAL SIGNS: Blood pressure 115/65, respirations 19, pulse 94, and temperature 99.1. HEENT: Head is normocephalic. Eyes: Pupils are normal. Conjunctivae are pale. NECK: JVP low. Carotids are equal. THORAX: AP diameter is normal. LUNGS: Bilateral rales, two-third of the lungs bilateral. CARDIOVASCULAR: S1 and S2. ABDOMEN: Soft. No tenderness. Bowel sounds normal. EXTREMITIES: No clubbing, no cyanosis. LABORATORY DATA: WBC of 3.8; hemoglobin on admission 08/27/2017 was 6.0, but today it is 9.6; hematocrit on the day of admission was 12.6 but today it is 26.3, the patient has received multiple blood transfusions; and platelet count 125. Sodium 136, potassium 3.7, BUN 14, and creatinine 0.9. AST and ALT normal, alkaline phosphatase 130. Glucose 170. NT-pro-B natriuretic peptide 1250. Chest x-ray showed bronchovascular marking prominent, suggestion of some vascular congestion. CT of the chest showed bilateral infiltrates with extensive consolidation in both lung bases, scattered mediastinal lymph nodes with an enlarged one 7-mm subcarinal lymph node, in addition mildly enlarged right paratracheal lymph node. No pulmonary embolism. Electrocardiogram showed normal sinus rhythm. Normal EKG. The patient had echocardiogram done on 07/15/2017, it showed normal LV function with LV ejection fraction of 62%. DIAGNOSES: Myelodysplastic syndrome; severe anemia, multiple blood transfusions; coronary artery disease; history of angioplasty and stent insertion in 2009; hypertension; diabetes mellitus; hyperlipidemia; congestive changes on chest x-ray; bilateral pneumonia. PLAN: The patient is on already carvedilol 3.125 b.i.d., metformin 500 mg b.i.d., Lasix 40 IV daily, Neurontin 600 mg p.o. b.i.d., Protonix 40 mg IV daily, Rocephin 1 g IV daily, and Zestril 10 mg p.o. daily. Chest x-ray will be repeated tomorrow. It has been already ordered as per Dr. Grey. We will continue present therapy, and we will follow with you. Yogi Johnson MD
[2017-08-31 07:55] LABS: IRON 17 ug/dL (45-180)
[2017-08-31 08:04] LABS: TOTAL IRON BINDING CAPACITY 165 ug/dL (261-462)
[2017-08-31 08:12] LABS: % IRON SATURATION 10 % (20-55)
--- NOTE | 2017-08-31 10:06 | RAD ---
HISTORY: f/u on ct findings COMPARISON: 08/27/2017 TECHNIQUE: Chest PA and lateral FINDINGS: LUNGS: There is an increasing infiltrate in the right lower lobe. There is no change in the infiltrate at the left lung base. There is persistent elevation of left hemidiaphragm. PLEURA: No significant pleural effusion identified. No pneumothorax apparent. CARDIOVASCULAR: Mild cardiomegaly. Mild vascular congestion OSSEOUS STRUCTURES: No significant abnormalities. VISUALIZED UPPER ABDOMEN: Normal. OTHER FINDINGS: None. IMPRESSION: There is an increasing infiltrate in the right lower lobe. There is no change in the infiltrate at the left lung base. There is persistent elevation of left hemidiaphragm.
[2017-08-31] MEDS: Nystatin 100,000 Units/ml Oral Susp 5 ml UD PO SCH ×4 (11:14→22:39)
[2017-08-31 11:57] LABS: FOLATE 9.9 ng/mL
--- NOTE | 2017-08-31 15:54 | PN ---
DATE: 08/31/2017 LOCATION: The patient is in room 368, bed 2. REASON FOR CONSULTATION AND FOLLOWUP: Shortness of breath, coronary artery disease, congestive changes on chest x-ray plus history of angioplasty and stent insertion plus bilateral infiltrates in the lungs. SUBJECTIVE: The patient states that he gets shortness of breath on exertion, lying down. He denies any chest pain, palpitation or shortness of breath. The patient is lying flat in bed at present moment. PHYSICAL EXAMINATION: VITAL SIGNS: Blood pressure 118/66, respirations 20, pulse 100, and temperature 99.4. HEENT: Head is normocephalic. Eyes: Pupils are normal. Conjunctivae pale. NECK: JVP low. Carotids are equal. THORAX: AP diameter is normal. LUNGS: Scattered rales, which seem to be left as compared to before. CARDIOVASCULAR: S1 and S2. ABDOMEN: Soft. No tenderness. Bowel sounds normal. EXTREMITIES: No clubbing, no cyanosis. LABORATORY DATA: WBC 3.8, hemoglobin 9.6, hematocrit 26.3, and platelet 125. Sodium 136, potassium 3.7, BUN 14, and creatinine 0.9. AST and ALT normal. NT-pro-B natriuretic peptide 1250. DIAGNOSES: Myelodysplastic syndrome, severe anemia, multiple blood transfusions, coronary artery disease, history of angioplasty and stent insertion in 2009, hypertension, diabetes mellitus, hyperlipidemia, congestive changes on chest x-ray, and bilateral pneumonia. PLAN: The patient is on carvedilol 3.125 b.i.d., Glucophage 500 mg b.i.d., furosemide 40 IV daily, gabapentin 600 mg b.i.d., Protonix 40 mg IV daily, Rocephin 1 g IV daily, and lisinopril 10 mg daily. We will continue present therapy. The patient would have chest x-ray today, we will follow the report. We will follow with you. Yogi Johnson MD
--- NOTE | 2017-08-31 16:07 | PN ---
DATE: 08/31/2017 DAILY PROGRESS NOTE SUBJECTIVE: The patient was seen this Friday morning in room 368, bed 2. He just came back from chest x-ray. He is feeling much improved and better, stronger, with no cough, fever, sputum production, chills, etc. PHYSICAL EXAMINATION: HEENT: Head and Neck: Unremarkable except for some temporalis muscle wasting typical range. Mucous membranes are moist. Neck is supple without masses. LUNGS: Show chronic fine dry rales in all lung angeles. HEART: Non-tachycardic. ABDOMEN: Soft and nontender. IMPRESSION: 1. Severe anemia due to myelodysplastic syndrome. 2. Myelodysplastic syndrome. 3. Abnormal chest x-ray and CT of chest showing infiltrated process versus atelectasis versus chronic changes. 4. Questionable history of abnormal stress test. 5. Failed back syndrome. 6. History of hypertension. 7. Chronic back pain/numbness. PLAN: We will continue IV antibiotics and IV Lasix for now. We will discuss with Cardiology later today or tomorrow. I spoke with pulmonary technical consultant this morning, he is in agreement that much of changes seen on chest x-ray maybe chronic in nature. I will order a serum procalcitonin to support a concern of bacterial, infectious process in the lung. Then we will consider possible discharge for tomorrow. Sidney Grey MD [facility]
--- NOTE | 2017-08-31 16:23 | PN ---
DATE: 08/30/2017 SUBJECTIVE: The patient was seen this Friday morning in room 368, bed 2. I explained the CT findings of the infiltrate to him and how we are covering basis with diuretics and antibiotics while Pulmonary and Cardiology consultation are called. for repeat chest x-ray tomorrow. Continue the current regimen . The patient complains of generalized fatigue in spite of having received 4 units of packed red cells and hemoglobin coming up to 9.8. PHYSICAL EXAMINATION: HEAD AND NECK: Unremarkable. LUNGS: Showed good aeration with chronic rales in all lung angeles related to the underlying chronic lung disease. HEART: Regular. Nontachycardic. ABDOMEN: Soft, nontender. EXTREMITIES: Showed no edema. IMPRESSION: 1. 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 2. Myelodysplastic syndrome. 3. Pleuritic like chest pain for which CT scan was done showing . 4. Infiltrates bilaterally, which I suspect are chronic interstitial rather than acute pneumonia. PLAN: As outlined above, we will discuss with Cardiology and Pulmonary. We will continue Lasix and antibiotics definitive diagnosis determined on the CT findings. Sidney Grey MD
--- NOTE | 2017-08-31 18:57 | CON ---
DATE: 08/31/2017 PULMONARY CONSULTATION REASON FOR ADMISSION: We were asked by Dr. Grey, mattress inspector, to evaluate and treat this 81-year-old man who was admitted to [facility] with symptomatic bradycardia and also shortness of breath. HISTORY OF PRESENT ILLNESS: .Patient reported shortness of breath that started approximately one hour prior to admission. He denied cold, denied fever. PAST MEDICAL HISTORY: Positive for diabetes, renal insufficiency, myelodysplastic disorder, congestive heart failure, anemia. His healthcare administrative assistant is Dr. Rasmussen. His anemia is more symptomatic and probably responsible for his shortness of breath. FAMILY HISTORY: Negative for inherited diseases. SOCIAL HISTORY: He quit smoking more than 40 years ago. He is a nondrinker and never used illicit drugs. HOME MEDICATIONS: Reviewed in MAR reports. REVIEW OF SYSTEMS: CARDIAC: He was complaining of dizziness and symptomatic bradycardia. PULMONARY: Complains of shortness of breath and no cough. GASTROINTESTINAL: No complaints of nausea, vomiting, or diarrhea. GENITOURINARY: No complaints of dysuria or hematuria. The rest of the systems were reviewed and found to be negative. PHYSICAL EXAMINATION: GENERAL: He is awake, alert, in no acute distress. HEAD, EARS, NOSE, AND THROAT: This is within normal limits. NECK: Supple with no jugular vein distention. No adenopathy. LUNGS: A few rhonchi bilaterally at the bases, otherwise clear. Good air entry. No wheezing. GASTROINTESTINAL: Soft, nontender, no organomegaly. EXTREMITIES: No pedal edema. NEUROLOGIC: No focal deficits. SKIN: No acute skin rashes. DIAGNOSTIC DATA: I reviewed the CT scan of chest as well as chest x-ray. The CT scan was negative for pulmonary emboli, however, showed extensive bilateral pulmonary infiltrates, most of them appear chronic. There are a lot of fibrotic changes and pulmonary fibrosis cannot be ruled out. However, this could be transformation of myelodysplastic syndrome with lung infiltrations. Further workup including gallium or PET scan after consultation with Dr. Grey and Dr. Rasmussen will be offered. ASSESSMENT: 1. Bilateral pulmonary infiltrates with fibrosis. 2. Myelodysplastic syndrome. 3. Severe anemia. 4. Right-sided chest discomfort. PLAN: I agree with current empiric antibiotics. We will discuss further workup with Dr. Grey. Zachery Ennis MD [facility] # [id number]
--- NOTE | 2017-08-31 21:17 | PN ---
DATE: 08/31/2017 TIME SEEN: 03:47 p.m. SUBJECTIVE: Mr. Juan Jose Walton is an 81-year-old male admitted with significant anemia and is status post 4 units of packed red blood cells. His hemoglobin is stable x 24 hours. He denies passing bloody stools. He has history of myelodysplastic disorder. I originally evaluated the patient yesterday for his anemia. I did review the blood smear, which shows significant RBC agglutination and rouleaux formation. The red cells were normochromic. No spherocytes were seen. There was some reticulocytosis present. No blast forms or immature were seen. Platelets appeared normal without platelets clumping and only mildly reduced. The patient has been diagnosed with pneumonia and has been seen by Dr. Mays today for further recommendations regarding his treatments. He is currently on Rocephin. The patient feels that he has made minimal progress since yesterday and he still has a stitch type of pain in the right anterior rib area when he coughs. There has been no hemoptysis and his cough is non-productive. CURRENT MEDICATIONS: Rocephin 500 mg q. 24 hours, Ambien, Coreg, Glucophage, Lasix, Neurontin, nystatin, Protonix, Tylenol p.r.n., Ultram, and [id number] Zestril. ALLERGIES: NO KNOWN ALLERGIES. PAST MEDICAL HISTORY: Myelodysplastic syndrome, anemia, diabetes, coronary stent placement, CHF, renal failure, and hypertension. REVIEW OF SYSTEMS: Patient has a poor appetite. Patient feels some fatigue, not improved since yesterday. No nausea or vomiting. Denies rigors, odynophagia, dysphagia, chest pain, back pain, neck pain, jaw pain. There is some right anterior ribcage pain on coughing, but no spontaneous unprovoked chest pain. He denies palpitations, chest pressure, arm pain. He denies swollen extremities, abdominal pain, distress, distention, CVA pain, dysuria, hematuria, melena, hematochezia, hematemesis, or black or red stools. PHYSICAL EXAMINATION: GENERAL: Awake and alert, pale. Skin is warm. There is no diaphoresis. Pleasant male, seated comfortably, in no acute distress. VITAL SIGNS: His temperature was 99.4 early this morning, we are waiting on the repeat temperature now. Blood pressure was on the low side 91/56, pulse rate 103, and O2 saturation 97% on room air. HEENT: Conjunctivae pink. Sclerae anicteric. Mucous membranes moist. NECK: No JVD. LUNGS: Diminished breath sounds at bases, some scattered rhonchi. CARDIAC: Regular rhythm. Mildly tachycardic. ABDOMEN: Soft, nontender, no masses, not distended, no guarding, no rebound. EXTREMITIES: No cyanosis, clubbing, or edema. Finger tips are pink. SKIN: Dry to touch, turgor is good. LABORATORY DATA: Yesterday's white count is 3.8, hemoglobin 9.6, and platelets 125,000. Coags: PT 14.8, INR 1.29. Chemistry: Iron low, TIBC low, iron saturation 10%. BNP was elevated at 1250. Patient still continues to receive Lasix 40 daily. B12 was 925 and folate 9.9, which is in the normal range. Retic count is elevated at 5.27. IMPRESSION: Mr. Juan Jose Walton is an 81-year-old male, who is immunosuppressed with a history of myelodysplastic syndrome, presents with pneumonia. Due to the abnormal findings on the blood smear as mentioned above, we will rule out plasma cell dyscrasia and cold agglutinin disease. The patient's reticulocytosis then again can be due to his Procrit therapy last week, although generally we do not see that sort of a response in myelodysplastic patients who had it long-standing. We will repeat a CBC today as well. We will wait Dr. Mays's input. I have asked the nurse to repeat the patient's temperature as he appeared to be febrile to touch, although he did not look toxic; he is a little fatigued. Microbiology blood cultures negative x 24 hours. Chest x-ray was done today and it reveals infiltrate in the right lower lobe, no change in the infiltrate of the left lung base, persistent elevation of the left hemidiaphragm, and this was a comparison, was made with 08/27/2017, on the patient's date of admission. Thank you very much Dr. Mahajan. 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 Chloe Lu MD [facility] # [id number]
[2017-09-01 07:05] LABS: BASO # 0.03 K/mm3 (0.0-2.0); BASO % 0.9 % (0.0-3.0); EOS % 0.6 % (1.5-5.0); GRAN # 1.28 (1.4-6.5); GRAN % 36.4 % (50.0-68.0); LYMPH # 1.9 (1.2-3.4); MEAN CORPUSCULAR HEMOGLOBIN 35.9 pg (25.0-35.0); MEAN CORPUSCULAR HGB CONC 36.6 g/dl (31.0-37.0); MEAN PLATELET VOLUME 8.8 fl (7.0-11.0); MONO # 0.3 (0.1-0.6); MONO % 7.1 % (1.0-6.0); RBC 2.51 10^6/uL (3.5-6.1); RED CELL DISTRIBUTION WIDTH 18.5 % (11.5-14.5); WHITE BLOOD COUNT 3.5 10^3/ul (4.5-11.0)
[2017-09-01 07:35] LABS: BLOOD UREA NITROGEN 27 mg/dL (7-21); CALCIUM 8.2 mg/dL (8.4-10.5); GFR AFRICAN-AMERICAN > 60; GFR NON-AFRICAN AMERICAN 58
--- NOTE | 2017-09-01 08:46 | CON ---
DATE: 08/30/2017 LOCATION: Room #368, bed 2. CONSULTING PHYSICIAN: Sidney Grey MD HISTORY OF PRESENT ILLNESS: I saw the patient today. The patient is an 81-year-old male with a history of myelodysplasia for which he sees Dr. Rasmussen, I am covering for Dr. Rasmussen this weekend and we were asked to evaluate the patient for severe anemia. The patient had been feeling short of breath for about a week prior to coming to the emergency room. He states he does not know his most recent hemoglobin, but that he does receive injections the name of which he did not recall for his MDS, likely Procrit. The patient's chart indicates that his hemoglobin was checked at Dr. Rasmussen's office recently and it was noted to be 6.9. He received some fluid and came to the emergency room where he was complaining of decreased appetite, dry mouth and shortness of breath. The patient was admitted to the medical floor and states that he is still having some element of shortness of breath and if he takes a deep breath, he gets a quick mild fleeting discomfort in the right anterior chest below the nipple line and over the rib. He denies chest pressures, palpitations, dizziness, nausea, vomiting, indigestion, should pain, jaw pain, arm pain. The patient had a chest x-ray that revealed severe pulmonary venous congestion with bibasilar airspace disease representing atelectasis most likely; however, superimposed pneumonia could not be ruled out and there were small pleural effusions. The heart seemed enlarged with prominent central vasculature. CT scan of the chest 2 days later on 08/29/2017 was done because the patient still complained of some breathlessness moving about and did reveal no pulmonary embolism (CT chest was done with contrast). There were bilateral infiltrates with extensive consolidation in both lung bases. Pleural spaces were unremarkable without effusion. No pericardial effusion. There were mildly enlarged paratracheal nodes and mediastinal lymph nodes present thought to be somewhat enlarged at 17 mm, bones were unremarkable. Other significant findings were cholecystectomy. EKG on 08/27/2017 from the emergency room revealed a heart rate of 90, normal sinus rhythm, normal EKG. The patient received 4 unites of packed cells upon admission and he still notes the discomfort as mentioned above. Blood paulson reports, negative antibody screen, blood type O. Hemoglobin today 9.6. Admission hemoglobin was 6.0, hematocrit 12.6, platelets 172,000, white count 6.1 with 43% granulocytes and 54% lymphocytes. That differential remains essentially unchanged today 08/30/2017. The patient is receiving Lasix 40 daily IV. He denies history of cardiac disease other than having a coronary stent in the past. We were called to evaluate the patient for his progressive anemia. He denies melena, hematochezia, hematemesis, abdominal distress, loss of appetite or recent weight loss. HOME MEDICATIONS: No new vitamins listed on the patient's home medications which include metformin, Ambien, prednisone 2.5 mg daily, Restoril, gabapentin, Carvedilol and Lipitor. CURRENT MEDICATIONS: Ambien 10 mg p.o. at bedtime p.r.n., ceftriaxone provided yesterday 500 mg q. 24 hours, Carvedilol 3.125 mg p.o. b.i.d., metformin 500 mg p.o. b.i.d., Lasix 40 mg IV push daily, gabapentin 600 mg p.o. b.i.d., Nystatin oral suspension q.i.d., Protonix 40 mg IV push daily, Tylenol 325 mg tablets 650 mg p.o. q. 4 hours p.r.n., Tramadol 50 mg p.o. t.i.d., and lisinopril 10 mg p.o. daily. ALLERGIES: NO KNOWN ALLERGIES. PAST MEDICAL HISTORY: Coronary artery disease, status post PCI in the remote past with coronary stent, hypertension, diabetes mellitus type 2, history of anemia, arthritis and cholecystectomy. REVIEW OF SYSTEMS: CONSTITUTIONAL: The patient denies fevers or weight loss, visual change, difficulty swallowing, dysphagia, odynophagia, neck pain, back pain or hemoptysis. He does have a cough, which is nonproductive associated with right anterior chest wall pain on coughing. Denies syncope, dizziness, change in voice, GI distress, reflux, abdominal pressure bloating distention, difficulty urinating, nausea, vomiting, diarrhea or constipation. He denies skin rashes, swollen feet or ankles. He has some dyspnea on exertion over the past week or slightly more. FAMILY HISTORY: Noncontributory. SOCIAL HISTORY: Quit smoking 55 years ago. Denies alcohol or drug abuse. PAST SURGICAL HISTORY: Laminectomy and cholecystectomy. No history of blood transfusion reactions. PHYSICAL EXAMINATION: VITAL SIGNS: Pulse 101, temperature 97.7, blood pressure 120/61, respirations 20, and O2 saturation 94% on room air. GENERAL: The patient is awake, alert and oriented x3, seated up in bed, was feeding himself breakfast. His appetite is good. No acute distress, awake, alert and oriented x3. He appears well and comfortable. HEENT: Normocephalic. Cranial nerves intact. Conjunctivae pink. Sclerae anicteric. Lips and oral mucosa reveal no ulcerations , no lesions. Mucosa pink. NECK: No JVD. No adenopathy. LUNGS: Are clear A and P. CARDIAC: Regular rhythm. ABDOMEN: Soft, nontender. No guarding. No rebound. No hepatosplenomegaly. EXTREMITIES: No cyanosis, clubbing or edema. Feet are warmth. No rashes were appreciated. NEUROLOGICAL: The patient follows commands. There is no tremors. His behavior and conversations is appropriate. Speech is normal. Judgement normal. LABORATORY DATA: Today, white count 3.8, hemoglobin 9.6, and platelet counts 125,000. Routine chemistry; basic metabolic panel is normal except for glucose that is elevated at 178. Other laboratory; PT 14.8 and INR 1.29. BNP 1250 from today on 08/30/2017. On admission, his total protein was elevated at 9.0, albumin 3.2. Albumin globulin ratio was low. Chest x-ray and CAT scan as described in the history. IMPRESSION: The patient is an 81-year-old male with history myelodysplastic syndromes, who presents with shortness of breath, cough nonproductive and bibasilar consolidation in the lungs with severe anemia and no subjective blood loss. The patient has a number of abnormalities on his blood work, mainly an elevated BNP suggesting some element of fluid overload for which he is receiving Lasix. Other interesting findings include elevated bilirubin at 1.7 on admission and total protein. His BUN was initially 30 on admission with a creatinine of 1.1, it has normalized to 14 and 0.9 respectively. Since his transfusion on 08/28/2017 his hemoglobin has remained stable. PLAN: Broad spectrum antibiotic coverage for what appears to be community acquired pneumonia. Agree with diuresis therapy for now and follow BNP and daily CBC. We will obtain serum protein electrophoresis and immunofixation to rule out plasma cell dyscrasia. The peripheral blood smear did have moderate amount of rouleaux formation suggesting elevated globulins, the nature of which will need to be determined. We will also send off stool for occult blood. Haptoglobin level given the elevated bilirubin and an indirect bilirubin. We will also obtain quantitative immunoglobulins. Thank you very much for this consultation. We will follow the patient with you, Dr. Rasmussen, or Dr. Mahajan. We will follow up with the patient on 09/01/2017. I will see the patient tomorrow. I can be reached through Dr. Rasmussen and [facility] service. Chloe Lu MD
[2017-09-01] MEDS: Nystatin 100,000 Units/ml Oral Susp 5 ml UD PO SCH ×4 (09:38→21:37)
--- NOTE | 2017-09-01 11:21 | PN ---
PULMONARY NOTE DATE: 09/01/2017 SUBJECTIVE: The patient appears comfortable this morning. He is not short of breath at rest. PHYSICAL EXAMINATION: VITAL SIGNS: Temperature is 99.7, pulse 85, respirations 18, blood pressure 91/56. Oxygen saturation on room air is 97%. HEENT: Normocephalic, atraumatic. No JVD. CARDIOVASCULAR: Systolic ejection murmur at the lower left sternal border. No S3 gallop. LUNGS: Decreased breath sounds at the bases. Minimal bilateral rhonchi. No wheezing. EXTREMITIES: No clubbing, cyanosis, or edema. Calves are nontender to palpation. GI: Abdomen is soft, nontender, and nondistended. Bowel sounds are positive. SKIN: No acute rash. NEUROLOGIC: Exam limited at the present time. IMPRESSION: 1. Pulmonary fibrosis. 2. Rule out underlying pneumonia. 3. Advanced myelodysplastic syndrome. 4. Chronic anemia. PLAN: The patient appears comfortable this morning. He is not short of breath at rest. He does state to feeling much better overall. On physical exam, there is only minimal bronchospasm noted. In addition, there is no significant alveolar-arterial gradient. Cultures are negative so far. However, the patient does remain with low grade fevers. The patient is currently on intravenous Rocephin. I will add intravenous Zithromax for the time being. Inputs by Oncology/Hematology, and Cardiology are noted. Overall status/prognosis of this chronically ill patient remains very guarded at best. I will discuss the above with the attending physician. Tyrell Newsome MD [facility]
[2017-09-01] MEDS: Azithromycin 500MG/NS 250ml 500 MG/250 ML BAG IVPB SCH (11:45)
[2017-09-01 12:21] LABS: PROLACTIN 14.4 ng/mL (3.7-17.9)
[2017-09-01] MEDS ORDERED: Potassium Chloride 20 mEq ER Tab PO ONE (14:58)
[2017-09-01 19:28] VITALS: RESP 20
[2017-09-02] MEDS ORDERED: Pantoprazole 40 mg EC Tab PO SCH (07:30)
--- NOTE | 2017-09-02 07:43 | PN ---
DATE: 09/02/2017 PULMONARY NOTE SUBJECTIVE: The patient appears very comfortable this morning. He is not short of breath at rest. PHYSICAL EXAMINATION: VITAL SIGNS: Temperature is 98.0, pulse is 88, respiratory rate 18, blood pressure 116/66. Oxygen saturation on room air is 92-95%. HEENT: Normocephalic, atraumatic. NECK: No JVD. CARDIOVASCULAR: Systolic ejection murmur at the lower left sternal border. No S3 gallop. LUNGS: Decreased breath sounds at the bases. Less/very minimal rhonchi. No wheezing. EXTREMITIES: No clubbing, cyanosis or edema. Calves are nontender to palpation. GI: Abdomen is soft, nontender and nondistended. Bowel sounds are positive. SKIN: Skin: No acute rash. NEUROLOGIC: Exam limited at the present time. IMPRESSION: 1. Pulmonary fibrosis. 2. Rule out underlying pneumonia. 3. Advanced myelodysplastic syndrome. 4. Chronic anemia. PLAN: The patient appears very comfortable this morning. He is not short of breath at rest. He does state to feeling much better overall. On physical exam, there is no significant bronchospasm noted. In addition, there is no significant alveolar-arterial gradient. I will continue with the current antibiotic therapy for now. Temperatures have resolved. Input by Hematology/Oncology is also noted. Clinical status of the patient is certainly improved - compared to the initial presentation. However, again, the future status/prognosis for this elderly patient does remain very guarded. I will discuss the above with the attending physician. Tyrell Newsome MD [facility]
--- NOTE | 2017-09-02 08:51 | PN ---
DATE: 09/01/2017 REASON FOR CONSULTATION: Shortness of breath, coronary artery disease, congestive heart failure, history of CAD, status post PTCA, and admitted with pneumonia. SUBJECTIVE: The patient denies any chest pain, but complaints of cough right-sided coughing hurts, but otherwise no chest pain. PHYSICAL EXAMINATION: GENERAL: Not in apparent distress, lying flat on the bed. VITAL SIGNS: As follows; temperature afebrile, heart rate , and blood pressure 108/62. HEENT: PERRLA. Extraocular muscles are intact. NECK: Supple. No carotid bruits or thyromegaly. CHEST: Clear to auscultation. HEART: S1 and S2 regular. ABDOMEN: Soft. EXTREMITIES: Clubbing and cyanosis negative. LABORATORY DATA: Blood workup as follows; WBC 3.5, hemoglobin 9, hematocrit 24.6, and platelet count 140. Chemistry shows sodium 135, potassium 3.7, chloride 100, carbon dioxide 28, anion gap of 10, BUN 27, and creatinine 1.2. IMPRESSION: Pneumonia, history of coronary artery disease, history of percutaneous transluminal coronary angioplasty in the past, myelodysplastic syndrome, severe anemia, multiple blood transfusion, status post 4 units of blood red blood cell transfusion, coronary artery disease, stent in 2009, hypertension, diabetes, hyperlipidemia, and bilateral pneumonia. RECOMMENDATIONS: Continue aggressive medical treatment. Continue gentle diuretics. Keep improve oxygenation. Continue broad-spectrum antibiotic. Continue Coreg. Continue metformin. We will consider pneumonia completely better probably in 4 to 6 weeks. Discussed with the patient. We will supplement potassium. Thank you Dr. Grey for providing us the opportunity in taking care of Juan Jose Walton. Yogi Gibbs MD
[2017-09-02 09:22] VITALS: BP 120/84; PULSE 116; O2SAT 90
[2017-09-02] MEDS: Nystatin 100,000 Units/ml Oral Susp 5 ml UD PO SCH (09:56)
[2017-09-02] MEDS: Azithromycin 500MG/NS 250ml 500 MG/250 ML BAG IVPB SCH (09:56)
[2017-09-02 11:24] VITALS: TEMP 98.5
--- NOTE | 2017-09-02 12:00 | PN ---
DATE: 09/02/2017 Patient is in room 368, bed 2 REASON FOR CONSULTATION: Shortness of breath, coronary artery disease, congestive heart failure, history of CAD, status post PTCA admitted with pneumonia. SUBJECTIVE: Patient denies chest pain. He states his breathing is improving. Denies any palpitation. Patient is lying flat in bed. He states when he walks he gets shortness of breath. PHYSICAL EXAMINATION VITAL SIGNS: Blood pressure 120/84, respirations 20, pulse 116, temperature 98.1. HEENT: Head is normocephalic. Eyes, pupils normal. Conjunctivae slightly pale. NECK: JVP low. Carotids equal. THORAX: AP diameter normal. LUNGS: Few coarse rales showing some improvement when compared to before. CARDIOVASCULAR: S1, S2. Patient has sinus tachycardia. ABDOMEN: Soft, no tenderness. No organomegaly. Bowel sounds are normal. EXTREMITIES: No clubbing. No cyanosis. LABORATORY DATA: WBC 3.5, hemoglobin 9.0, hematocrit 24.6, platelets 140. Sodium 135, potassium 3.7, BUN 27, creatinine 1.2, random glucose 184, calcium 8.2. DIAGNOSES: Pneumonia, history of coronary artery disease, history of angioplasty in the past, myelodysplastic syndrome, severe anemia, multiple blood transfusions, status 4 units of blood transfusion on this admission, coronary artery disease, stent in 2009, hypertension, diabetes, hyperlipidemia, bilateral pneumonia. PLAN: Since patient has sinus tachycardia, we will increase Coreg from 3.125 b.i.d. to 6.25 p.o. b.i.d. We will continue rest of the medications as before including azithromycin 500 mg IV daily, lisinopril 10 daily, Rocephin 500 mg IV q 24 hours, Neurontin 600 b.i.d., furosemide 40 IV daily, metformin 500 mg b.i.d. We will monitor the patient with you and follow. Yogi Johnson MD
--- NOTE | 2017-09-02 12:40 | PN ---
DATE: 09/01/2017 SUBJECTIVE: The patient is an 81-year-old male who was admitted five days ago with severe anemia. 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 Rasmussen for followup on his myelodysplastic syndrome. He received a total of 4 units of O negative type blood. He has also been treated with intravenous antibiotics for pneumonia, which was found on chest x-ray. PHYSICAL EXAMINATION: GENERAL: When seen today, the patient is resting comfortably. VITAL SIGNS: His temperature is 99.7 degrees, blood pressure is 102/62 with a heart rate of 85. HEART: Regular. LUNGS: Clear anteriorly and laterally. LABORATORY DATA: White blood cell count on this morning labs is 3.5, hemoglobin and hematocrit are 9.0 and 24.6, platelet count is 140. Sodium is 135, potassium 3.7, BUN is 27, creatinine is 1.2, and glucose is 184. ASSESSMENT AND PLAN: We are anticipating discharge to home for the patient in the morning and continue followup with us in the office post discharge as well as with his pensions retirement plan specialist. We will also be changing him to oral antibiotics for continued coverage of his pneumonia. Thomas Grey MD
--- NOTE | 2017-09-03 14:08 | DS ---
SUBJECTIVE: This is an 81-year-old male, who came to the emergency room with severe anemia. 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 PAST MEDICAL HISTORY: Also significant for myelodysplastic syndrome, hypertension, and failed back syndrome. COURSE OF HOSPITAL STAY: The patient was admitted to medical floor, transfused 2 units of blood, bringing his hemoglobin up to 7.9, so an additional 3 units were given. He complained of extreme weakness and fatigue in spite of the adequate transfusions. He complained of neck muscle soreness, was treated with some mild analgesics and a muscle relaxer. He complained of some right rib pleuritic like pain. CT scan was done showing a question of an infiltrate and chronic changes. He is followed by Pulmonary as well as Infectious Disease. Rocephin was started initially. Serum prolactin level was unremarkable making it less likely to be infectious of origin. 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 He had improved clinically, was ambulating without difficulty and not coughing. Respiratory status is at baseline. He was not short of breath. He was ready for discharge to home. We briefly entertained the idea of continuing with physical therapy in Transistional Care Unit, but declined for the option to go home. We will see him in the office in 1 week. FINAL DISCHARGE DIAGNOSES: 1. Severe anemia. 2. Myelodysplastic syndrome. 3. Failed back syndrome. 4. Left posterior cervical muscle spasm. 5. Hypertension. 6. History of coronary artery disease. 7. Interstitial lung disease Sidney Grey MD KEYSHA
== END 2017-09-02 13:54 | disposition home or self-care (01) | DRG 811 ==
LOC: ED 16:24 → ERH 21:14 → 3RNO 08-28 12:38 → 5RNO 09-02 11:37
PROVIDERS: ADMIT Internal Medicine; ATTEND Internal Medicine
PROC: 30233N1 Transfusion of Nonautologous Red Blood Cells into Peripheral Vein, Percutaneous Approach (ICD-10-PCS; principal; 2017-08-28)
DX: D46.9 Myelodysplastic syndrome, unspecified (principal); J18.9 Pneumonia, unspecified organism; I11.0 Hypertensive heart disease with heart failure; J84.10 Pulmonary fibrosis, unspecified; D63.8 Anemia in other chronic diseases classified elsewhere; I50.9 Heart failure, unspecified; E11.9 Type 2 diabetes mellitus without complications; E78.5 Hyperlipidemia, unspecified; I25.10 Atherosclerotic heart disease of native coronary artery without angina pectoris; G89.29 Other chronic pain; M54.9 Dorsalgia, unspecified; Z95.5 Presence of coronary angioplasty implant and graft; Z87.891 Personal history of nicotine dependence

== ENCOUNTER 2017-09-03 11:29 | Inpatient (IN) | payer MEDICARE, BC ==
[2017-09-03 11:39] VITALS: BMI 22.6
--- NOTE | 2017-09-03 12:04 | ED PDOC ---
Arrival/HPI - General Time Seen by Provider: 09/03/17 11:41 Historian: Patient, Family - History of Present Illness Narrative History of Present Illness (Text): 09/03/17 12:01 A 81 year old male, whose past medical history includes diabetes, hypertension, anemia, myelodysplastic disorder and CHF, brought into the emergency department by EMS accompanied by family complaining of shortness of breath since this morning. Family reports patient was recently hospitalized for pneumonia, however signed out against medical advice yesterday. Patient notes generalized weakness but denies any fever, chills, nausea, vomiting, abdominal pain, chest pain or any other complaints. PMD: Dr. 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 Gibbs Time/Duration: Other (this morning) Symptom Course: Unchanged Context: Home Past Medical History - Provider Review Nursing Documentation Reviewed: Yes - Infectious Disease Hx of Infectious Diseases: None - Tetanus Immunization Tetanus Immunization: Unknown - Cardiac Hx Congestive Heart Failure: Yes Hx Hypertension: Yes - Pulmonary Hx Respiratory Disorders: No - Neurological Hx Paralysis: No - HEENT Hx HEENT Disorder: No - Renal Hx Renal Failure: Yes - Endocrine/Metabolic Hx Diabetes Mellitus Type 2: Yes - Hematological/Oncological Hx Anemia: Yes Hx Blood Transfusions: Yes Hx Blood Transfusion Reaction: No - Integumentary Hx Dermatological Disorder: No - Musculoskeletal/Rheumatological Hx Arthritis: Yes - Gastrointestinal Hx Gastrointestinal Disorders: No - Genitourinary/Gynecological Hx Genitourinary Disorders: No Hx Reproductive Disorders: No - Psychiatric Hx Emotional Abuse: No Hx Physical Abuse: No Hx Substance Use: No - Surgical History Hx Cholecystectomy: Yes Hx Coronary Stent: Yes Other/Comment: lamenectomy, stent x1, gall bladder removal - Anesthesia Hx Anesthesia Reactions: No Hx Malignant Hyperthermia: No - Suicidal Assessment Feels Threatened In Home Enviroment: No Family/Social History - Physician Review Nursing Documentation Reviewed: Yes Family/Social History: No Known Family HX Smoking Status: Never Smoked Hx Alcohol Use: No Hx Substance Use: No Hx Substance Use Treatment: No Allergies/Home Meds Allergies/Adverse Reactions: Allergies No Known Allergies Allergy (Verified 09/03/17 12:13) Home Medications: Home Meds Medication Instructions Recorded Confirmed Atorvastatin [Lipitor] 10 mg PO DAILY 05/15/17 09/03/17 Carvedilol [Coreg] 3.125 mg PO BID 05/15/17 09/03/17 Gabapentin [Neurontin] 600 mg PO BID 05/15/17 09/03/17 Lisinopril [Zestril] 10 mg PO DAILY 05/15/17 09/03/17 metFORMIN [glucOPHAGE] 500 mg PO TID 05/15/17 09/03/17 Prednisone [Sai] 2.5 mg PO DAILY 08/27/17 09/03/17 Zolpidem [Ambien] 10 mg PO DAILY 08/27/17 09/03/17 Review of Systems - Physician Review All systems were reviewed & negative as marked: Yes - Review of Systems Constitutional: Other (Generalized weakness). absent: Fevers, Night Sweats Respiratory: SOB Cardiovascular: absent: Chest Pain Gastrointestinal: absent: Abdominal Pain, Nausea, Vomiting Physical Exam - Physical Exam Narrative Physical Exam (Text): Constitutional: No acute distress. Head: Normocephalic. Atraumatic. Eyes: PERRL. ENT: Dry mucous membranes. Neck: Supple. Cardiovascular: Systolic murmur. Chest: No tenderness. Respiratory: Clear to auscultation bilaterally. 90% saturation on room air. GI: Soft. Nontender. Nondistended. Back: No CVA tenderness. Musculoskeletal: No tenderness or swelling of extremities. Skin: No rash. Neurologic: Alert, no focal deficit. Vital Signs Reviewed: Yes Vital Signs Temp Pulse Pulse Resp BP Pulse Ox 09/03/17 17:35 103 H 17 108/52 L 99 09/03/17 17:22 104 H 17 101/46 L 100 09/03/17 17:14 103 H 103 H 17 108/52 L 09/03/17 17:08 101 H 18 97/54 L 98 09/03/17 15:45 104 H 18 93/45 L 99 09/03/17 15:00 104 H 19 75/46 L 97 09/03/17 13:23 115 H 24 87/45 L 92 L 09/03/17 13:02 87/45 L 09/03/17 12:00 24 92 L 09/03/17 11:53 99.9 F H 123 H 18 90/45 L 95 Temperature: Afebrile Blood Pressure: Hypotensive Pulse: Tachycardic Respiratory Rate: Normal Appearance: Positive for: Other (Elderly male, weak appearing) Pain Distress: Moderate (Moderately short of breath) Mental Status: Positive for: Alert and Oriented X 3 Medical Decision Making ED Course and Treatment: 09/03/17 12:01 Impression: A 81 year old male with shortness of breath. Patient denies chest pain. Plan: -- Chest xray -- EKG -- Labs -- Urine culture and Urinalysis -- Reassess and disposition Prior Visits: Notes and results from previous visits were reviewed. Patient last seen in the ED on 08/27/16 for shortness of breath and hospitalized for anemia. Progress Notes: EKG shows sinus tachycardia at [address]-segment elevations. Interpreted by me. Report Date : 09/03/2017 12:32:47 Procedure: Chest xray Dictator : Thomas Blackburn MD IMPRESSION: Bilateral perihilar and lower lobe infiltrates unchanged 09/03/17 21:35 Dr. Grey accepts patient to his service on telemetry. ICU consulted due to patient's tachycardia and hypotension, recommended telemetry admission at this time, hydration given normal EF and signs and lab results consistent with dehydration. - Lab Interpretations Lab Results: 09/03/17 13:20 09/03/17 13:20 Lab Results 09/03/17 15:29: Influenza Typ A,B (EIA) Negative for flu a/b 09/03/17 14:45: pCO2 35, pO2 91.0, HCO3 23.2, ABG pH 7.43, ABG Total CO2 24.3, ABG O2 Saturation 99.3 H, ABG Base Excess -0.6, ABG Potassium 4.0, Glucose 90, Lactate 1.5, FiO2 100.0, Sodium 140.0, Chloride 110.0 H, Arterial Blood Potassium 4.0 09/03/17 13:20: PT 16.8 H, INR 1.45 H, APTT 31.0 09/03/17 13:20: Sodium 139, Potassium 4.5, Chloride 106, Carbon Dioxide 22, Anion Gap 16, BUN 40 H, Creatinine 1.9 H, Est GFR ( Amer) 41, Est GFR ( Non-Af Amer) 34, Random Glucose 124 H, Calcium 8.5, Total Bilirubin 1.1, AST 14 L D, ALT 20, Alkaline Phosphatase 102, Total Creatine Kinase < 20 L, Troponin I < 0.01, NT-Pro-B Natriuret Pep 574 H, Total Protein 7.7, Albumin 2.6 L, Globulin 5.1, Albumin/Globulin Ratio 0.5 L 09/03/17 13:20: WBC 3.7 L, RBC 3.24 L, Hgb 9.9 L, Hct 30.8 L, MCV 95.1, MCH 30.6 , MCHC 32.1, RDW 18.2 H, Plt Count 162, MPV 9.0, Gran % 73.4 H, Lymph % (Auto) 18.6 L, Hale % (Auto) 7.4 H, Eos % (Auto) 0.3 L, Baso % (Auto) 0.3, Gran # 2.68 , Lymph # 0.7 L, Hale # 0.3, Eos # 0.0, Baso # 0.01 I have reviewed the lab results: Yes - RAD Interpretation Radiology Orders: 09/03/17 12:03 CHEST PORTABLE [RAD] Stat - Medication Orders Current Medication Orders: Discontinued Medications Furosemide (Lasix) 20 mg IVP STAT STA Stop: 09/03/17 12:17 Last Admin: 09/03/17 13:02 Dose: 20 mg MAR Blood Pressure Document 09/03/17 13:02 OCS (Rec: 09/03/17 13:04 [id number] Blood Pressure Blood Pressure (100/60-150/90) 87/45 IVP Administration Document 09/03/17 13:02 OCS (Rec: 09/03/17 13:04 [id number] Charges for Administration # of IVP Administrations 1 Sodium Chloride (Sodium Chloride 0.9%) 1,000 mls @ 999 mls/hr IV .Q1H1M STA Stop: 09/03/17 13:47 Last Admin: 09/03/17 13:04 Dose: 999 mls/hr eMAR Start Stop Document 09/03/17 13:04 OCS (Rec: 09/03/17 13:04 [id number] Intravenous Solution Start Date 09/03/17 Start Time 13:04 End Date 09/03/17 End time 14:05 Total Infusion Time 61 Sodium Chloride (Sodium Chloride 0.9%) 1,000 mls @ 999 mls/hr IV .Q1H1M STA Stop: 09/03/17 13:48 Last Admin: 09/03/17 14:28 Dose: 999 mls/hr eMAR Start Stop Document 09/03/17 14:28 OCS (Rec: 09/03/17 14:28 OCS [id number]) Intravenous Solution Start Date 09/03/17 Start Time 14:28 End Date 09/03/17 End time 15:29 Total Infusion Time 61 Sodium Chloride (Sodium Chloride 0.9%) 1,000 mls @ 999 mls/hr IV .Q1H1M STA Stop: 09/03/17 16:04 Last Admin: 09/03/17 15:15 Dose: 999 mls/hr eMAR Start Stop Document 09/03/17 15:15 SF (Rec: 09/03/17 15:29 SF [id number]) Intravenous Solution Start Date 09/03/17 Start Time 15:15 End Date 09/03/17 End time 16:16 Total Infusion Time 61 Cefepime HCl (Maxipime 1gm) 1 gm in 100 mls @ 100 mls/hr IVPB STAT STA PRN Reason: Protocol Stop: 09/03/17 16:03 Last Admin: 09/03/17 15:28 Dose: 100 mls/hr eMAR Start Stop Document 09/03/17 15:28 SF (Rec: 09/03/17 15:28 SF [id number]) Intravenous Solution Start Date 09/03/17 Start Time 15:28 End Date 09/03/17 End time 16:28 Total Infusion Time 60 Vancomycin HCl (Vancomycin 1gm) 1 gm in 250 mls @ 167 mls/hr IVPB STAT STA PRN Reason: Protocol Stop: 09/03/17 16:33 Last Admin: 09/03/17 16:53 Dose: 167 mls/hr eMAR Start Stop Document 09/03/17 16:53 SF (Rec: 09/03/17 16:54 SF [id number]) Intravenous Solution Start Date 09/03/17 Start Time 16:53 End Date 09/03/17 End time 18:25 Total Infusion Time 92 Pneumococcal Polyvalent Vaccine (Pneumovax 23 Vaccine) 0.5 ml IM .ONCE ONE Stop: 09/03/17 17:55 - Scribe Statement The provider has reviewed the documentation as recorded by the Ronaldiblianna Scanlon Provider Scribe Attestation: All medical record entries made by the Scribe were at my direction and personally dictated by me. I have reviewed the chart and agree that the record accurately reflects my personal performance of the history, physical exam, medical decision making, and the department course for this patient. I have also personally directed, reviewed, and agree with the discharge instructions and disposition. Disposition/Present on Arrival - Present on Arrival Any Indicators Present on Arrival: No History of DVT/PE: No History of Uncontrolled Diabetes: No Urinary Catheter: No History Surgical Site Infection Following: None - Disposition Have Diagnosis and Disposition been Completed?: Yes Diagnosis: Pneumonia, Acute renal failure, Dehydration Disposition: HOSPITALIZED Disposition Time: 14:30 Patient Plan: Admission, Telemetry Condition: GUARDED
[2017-09-03] MEDS ORDERED: Sodium Chloride 0.9% 1,000 ML IV STA ×4 (12:16→15:04)
--- NOTE | 2017-09-03 12:34 | RAD ---
HISTORY: dyspnea COMPARISON: 08/31/2017 FINDINGS: LUNGS: Bilateral perihilar and lower lobe infiltrates are unchanged PLEURA: No significant pleural effusion identified, no pneumothorax apparent. CARDIOVASCULAR: Mild to moderate cardiomegaly OSSEOUS STRUCTURES: No significant abnormalities. VISUALIZED UPPER ABDOMEN: Normal. OTHER FINDINGS: None. IMPRESSION: Bilateral perihilar and lower lobe infiltrates unchanged
[2017-09-03 13:27] LABS: BASO # 0.01 K/mm3 (0.0-2.0); BASO % 0.3 % (0.0-3.0); EOS % 0.3 % (1.5-5.0); GRAN # 2.68 (1.4-6.5); GRAN % 73.4 % (50.0-68.0); HEMOGLOBIN 9.9 g/dL (14.0-18.0); LYMPH # 0.7 (1.2-3.4); LYMPH % 18.6 % (22.0-35.0); MEAN CELL VOLUME 95.1 fl (80.0-105.0); MEAN CORPUSCULAR HEMOGLOBIN 30.6 pg (25.0-35.0); MEAN CORPUSCULAR HGB CONC 32.1 g/dl (31.0-37.0); MONO # 0.3 (0.1-0.6); MONO % 7.4 % (1.0-6.0); RBC 3.24 10^6/uL (3.5-6.1); RED CELL DISTRIBUTION WIDTH 18.2 % (11.5-14.5); WHITE BLOOD COUNT 3.7 10^3/ul (4.5-11.0)
[2017-09-03 13:35] LABS: INR 1.45 (0.93-1.08); PROTHROMBIN TIME 16.8 SECONDS (9.4-12.5)
[2017-09-03 13:52] LABS: B-TYPE NATRIURETIC PEPTIDE 574 pg/mL (0-450); TROPONIN I < 0.01 ng/mL
[2017-09-03 13:55] LABS: ALB/GLOB RATIO 0.5 (1.1-1.8); ALBUMIN 2.6 g/dL (3.0-4.8); ALT/SGPT 20 U/L (7-56); AST/SGOT 14 U/L (17-59); BLOOD UREA NITROGEN 40 mg/dL (7-21); CALCIUM 8.5 mg/dL (8.4-10.5); GFR AFRICAN-AMERICAN 41; GFR NON-AFRICAN AMERICAN 34
[2017-09-03] MEDS ORDERED: Azithromycin 500MG/NS 250ml 500 MG/250 ML BAG IVPB STA (14:28)
[2017-09-03 14:54] LABS: ARTERIAL BLOOD GAS HCO3 23.2 mmol/L (21-28); ARTERIAL BLOOD GAS O2 SAT 99.3 % (95-98); ARTERIAL BLOOD GAS PCO2 35 mm/Hg (35-45); ARTERIAL BLOOD GAS PH 7.43 (7.35-7.45); ARTERIAL BLOOD GAS TCO2 24.3 mmol.L (22-28)
[2017-09-03] MEDS ORDERED: Cefepime 1gm in NS 100ml 1 GM/100 ML BAG IVPB STA (15:04)
[2017-09-03] MEDS ORDERED: Vancomycin 1gm in NS 250ml 1 GM/250 ML BAG IVPB STA (15:04)
--- NOTE | 2017-09-03 16:03 | CP.PCM.CON ---
History of Present Illness - History of Present Illness History of Present Illness: Patient is 81yo male with PMHx diabetes, hypertension, anemia, myelodysplastic disorder, who signed out AMA yesterday from hospital after being treated for CAP , presents with SOB and Hypotension. Pt reports this morning he was more SOB< cough non productive, without chest pain, palpitaitons, OSORIO, dizziness. In the ER patient noted to have BP 80/40, given 2L NS bolus, repeat BP 95/42, HR 104, lactate 1.5. Currently awake, alert, providing full history. Pt reports after he left the hospital he never filled out his antibiotics. PMHx diabetes, hypertension, anemia, myelodysplastic disorder PSHx as above Allergies NKDA Meds as per EMR ROS as above Review of Systems - Review of Systems Review of Systems: as above Past Patient History - Infectious Disease Hx of Infectious Diseases: None - Tetanus Immunizations Tetanus Immunization: Unknown - Past Social History Smoking Status: Never Smoked - CARDIAC Hx Congestive Heart Failure: Yes Hx Hypertension: Yes - PULMONARY Hx Respiratory Disorders: No - NEUROLOGICAL Hx Paralysis: No - HEENT Hx HEENT Problems: No - RENAL Hx Renal Failure: Yes - ENDOCRINE/METABOLIC Hx Diabetes Mellitus Type 2: Yes - HEMATOLOGICAL/ONCOLOGICAL Hx Anemia: Yes Hx Blood Transfusions: Yes Hx Blood Transfusion Reaction: No - INTEGUMENTARY Hx Dermatological Problems: No - MUSCULOSKELETAL/RHEUMATOLOGICAL Hx Arthritis: Yes - GASTROINTESTINAL Hx Gastrointestinal Disorders: No - GENITOURINARY/GYNECOLOGICAL Hx Genitourinary Disorders: No Hx Reproductive Disorders: No - PSYCHIATRIC Hx Emotional Abuse: No Hx Physical Abuse: No Hx Substance Use: No - SURGICAL HISTORY Hx Cholecystectomy: Yes Hx Coronary Stent: Yes Other/Comment: lamenectomy, stent x1, gall bladder removal - ANESTHESIA Hx Anesthesia Reactions: No Hx Malignant Hyperthermia: No Meds Allergies/Adverse Reactions: Allergies Allergy/AdvReac Type Severity Reaction Status Date / Time No Known Allergies Allergy Verified 09/03/17 12:13 - Medications Medications: Current Medications Sodium Chloride (Sodium Chloride 0.9%) 1,000 mls @ 999 mls/hr IV .Q1H1M STA Stop: 09/03/17 16:04 Last Admin: 09/03/17 15:15 Dose: 999 mls/hr Cefepime HCl (Maxipime 1gm) 1 gm in 100 mls @ 100 mls/hr IVPB STAT STA PRN Reason: Protocol Stop: 09/03/17 16:03 Last Admin: 09/03/17 15:28 Dose: 100 mls/hr Vancomycin HCl (Vancomycin 1gm) 1 gm in 250 mls @ 167 mls/hr IVPB STAT STA PRN Reason: Protocol Stop: 09/03/17 16:33 Physical Exam - Constitutional Appears: Non-toxic, No Acute Distress - Eye Exam Eye Exam: Normal appearance - ENT Exam ENT Exam: Mucous Membranes Dry - Respiratory Exam Respiratory Exam: Clear to Auscultation Bilateral, NORMAL BREATHING PATTERN - Cardiovascular Exam Cardiovascular Exam: Tachycardia, REGULAR RHYTHM, +S1, +S2 - GI/Abdominal Exam GI & Abdominal Exam: Normal Bowel Sounds, Soft - Extremities Exam Extremities exam: Positive for: normal inspection Results - Vital Signs Recent Vital Signs: Last Vital Signs Temp 99.9 F H 09/03/17 11:53 Pulse 104 H 09/03/17 15:00 Resp 19 09/03/17 15:00 BP 75/46 L 09/03/17 15:00 Pulse Ox 97 09/03/17 15:00 - Labs Result Diagrams: 09/03/17 13:20 09/03/17 13:20 Labs: Laboratory Results - last 24 hr 09/03/17 09/03/17 09/03/17 13:20 13:20 13:20 WBC 3.7 L RBC 3.24 L Hgb 9.9 L Hct 30.8 L MCV 95.1 MCH 30.6 MCHC 32.1 RDW 18.2 H Plt Count 162 MPV 9.0 Gran % 73.4 H Lymph % (Auto) 18.6 L Bradford % (Auto) 7.4 H Eos % (Auto) 0.3 L Baso % (Auto) 0.3 Gran # 2.68 Lymph # 0.7 L Bradford # 0.3 Eos # 0.0 Baso # 0.01 PT 16.8 H INR 1.45 H APTT 31.0 pCO2 pO2 HCO3 ABG pH ABG Total CO2 ABG O2 Saturation ABG Base Excess ABG Potassium Glucose Lactate FiO2 Sodium 139 Potassium 4.5 Chloride 106 Carbon Dioxide 22 Anion Gap 16 BUN 40 H Creatinine 1.9 H Est GFR ( Amer) 41 Est GFR (Non-Af Amer) 34 Random Glucose 124 H Calcium 8.5 Total Bilirubin 1.1 AST 14 L D ALT 20 Alkaline Phosphatase 102 Total Creatine Kinase < 20 L Troponin I < 0.01 NT-Pro-B Natriuret Pep 574 H Total Protein 7.7 Albumin 2.6 L Globulin 5.1 Albumin/Globulin Ratio 0.5 L Arterial Blood Potassium 09/03/17 14:45 WBC RBC Hgb Hct MCV MCH MCHC RDW Plt Count MPV Gran % Lymph % (Auto) Bradford % (Auto) Eos % (Auto) Baso % (Auto) Gran # Lymph # Bradford # Eos # Baso # PT INR APTT pCO2 35 pO2 91.0 HCO3 23.2 ABG pH 7.43 ABG Total CO2 24.3 ABG O2 Saturation 99.3 H ABG Base Excess -0.6 ABG Potassium 4.0 Glucose 90 Lactate 1.5 FiO2 100.0 Sodium 140.0 Potassium Chloride 110.0 H Carbon Dioxide Anion Gap BUN Creatinine Est GFR ( Amer) Est GFR (Non-Af Amer) Random Glucose Calcium Total Bilirubin AST ALT Alkaline Phosphatase Total Creatine Kinase Troponin I NT-Pro-B Natriuret Pep Total Protein Albumin Globulin Albumin/Globulin Ratio Arterial Blood Potassium 4.0 - Imaging and Cardiology Chest x-ray Status: Image reviewed by me, Report reviewed by me Assessment & Plan - Assessment and Plan (Free Text) Assessment: 81yo male a/w SOB, PNA SOB PNA Sepsis Anemia Acute Renal Failure - currently febrile, 99.9, BP 95/45, HR 102, AAOX2, NAD, providing full history - LACTATE 1.5 - CXR with bilateral lower lobe infiltrate - Patient has received 2L NS bolus, clinically markedly dry, Cr 1.9 (baseline normal, 1.0), on his third liter of NS currently - took BP meds at home today Recommend: - supp o2 as needed, goal sat >90% - broad spectrum antibiotics, Vanco, Cefepime, Azithro - check procalcitonin, sputum cultures, BCx, UA - rule out FLU - hold BP meds, hold Lisinopril, patient reports he took it today - IVF hydration - UA, Ulytes - ID eval
[2017-09-03] MEDS ORDERED: Influenza Vaccine 60 mcg/0.5 mL SYR (4YR UP) IM ONE (17:54)
[2017-09-03] MEDS ORDERED: Pneumococcal 23-Valent Vaccine IM ONE (17:54)
[2017-09-04] MEDS ORDERED: Dextrose 5%/0.45% NS 1,000 ML IV SCH (01:30)
[2017-09-04] MEDS ORDERED: Albuterol-Ipratrop 3 mg / 0.5 (3 ml) UD IH PRN (07:43)
[2017-09-04] MEDS: Albuterol-Ipratrop 3 mg / 0.5 (3 ml) UD IH SCH ×3 (10:31→19:47)
[2017-09-04] MEDS: Budesonide 0.5 mg/2 ml Inhal Susp UD IH SCH ×2 (10:31→19:47)
--- NOTE | 2017-09-04 13:03 | CARD ---
APPROVED REPORT EKG Measurement Heart [id number] <Conclusion> Sinus tachycardia Nonspecific ST abnormality
[2017-09-04] MEDS: Cefepime 1gm in NS 100ml 1 GM/100 ML BAG IVPB SCH ×3 (13:30→22:02)
[2017-09-04] MEDS: Linezolid 600 mg in D5W 300 ml 600 MG/300 ML BAG IVPB SCH (13:30)
--- NOTE | 2017-09-04 14:55 | CON ---
DATE: 09/04/2017 PULMONARY CONSULTATION REASON FOR CONSULTATION: Pneumonia. REFERRING PHYSICIAN: Dr. Grey. HISTORY: The patient is an 81-year-old chronically ill male, with past medical history significant for advanced myelodysplastic syndrome, chronic anemia, coronary artery disease, hypertension, diabetes mellitus, previous pneumonia (2016), who presents back to [facility] yesterday with increasing shortness of breath at rest, dyspnea on exertion, and cough. Unfortunately, the patient was being treated for pneumonia - but signed out of the hospital against medical advice on 09/02/2017. There is no history of significant sputum production. The patient did present to the hospital with low grade fevers (99.9). These fevers have now resolved. No history of chills or infectious exposure. No history of night sweats, weight loss, or appetite change prior to the above events. No history of calf pains. No history of syncope or diaphoresis. No history of recent travel or trauma. No history of chest pain or hemoptysis. REVIEW OF SYSTEMS: No history of nausea, vomiting, or diarrhea. No acute urinary symptoms. No new neurologic complaints. Rest of the review of systems negative. ALLERGIES: NO KNOWN ALLERGIES. SOCIAL HISTORY: Positive for tobacco. Negative for alcohol. FAMILY HISTORY: No inheritable diseases. HOME MEDICATIONS: Include Glucophage, Ambien, Sai, Zestril, Neurontin, Coreg, Lipitor. PHYSICAL EXAMINATION: GENERAL: The patient appears comfortable at rest. He is not short of breath. VITALS: Temperature is 97.4, pulse is 94, respirations 18/20, blood pressure 97/66. Oxygen saturation on nasal cannula is 95%. HEENT: Normocephalic, atraumatic. No JVD. CARDIOVASCULAR: Systolic ejection murmur at the lower left sternal border. No S3 gallop. LUNGS: Decreased breath sounds at the bases with crackles. Minimal bilateral rhonchi. No wheezing. EXTREMITIES: No clubbing, cyanosis, or edema. Calves are nontender to palpation. GI: Abdomen is soft, nontender, and nondistended. Bowel sounds are positive. SKIN: No acute rash. NEUROLOGIC: Limited at the present time. PERTINENT LABORATORY DATA: Chest x-ray was done yesterday and reviewed. There is no change in the lower lobe infiltrates - compared to the previous film. The patient also had a recent CAT scan of the chest - 08/29/2017. On that CAT scan, there is mild pulmonary fibrosis noted at both lower lobes. In addition, there are scattered infiltrates at both bases - with air bronchograms - consistent with pneumonia. There is no significant lymphadenopathy. CBC: White count 3.7, hemoglobin 9.9, hematocrit 30.8, platelets of 162,000. INR 1.45. Complete metabolic profile: BUN 40, creatinine 1.9, glucose 124, AST 14. B-type natriuretic peptide 574, glucose 2.6. Rest of the metabolic profile is within normal limits. IMPRESSION: 1. Bilateral pneumonia. 2. Mild bronchospasm. 3. Pulmonary fibrosis - lower lobes. 4. Advanced myelodysplastic syndrome. 5. Renal insufficiency. 6. Chronic anemia. PLAN: The patient presents to [facility] with a 1-day history of increasing shortness of breath at rest, dyspnea on exertion, and cough. As above, unfortunately, the patient was being treated for pneumonia - when he signed out of the hospital against medical advice on 09/02/2017. I did discuss this issue with him at length this morning. He does regret signing out against medical advice. The patient did present to the hospital with low grade fevers. He was given cefepime and vancomycin in the emergency room. His fevers have now resolved. I did review the chest x-ray as above. The chest x-ray is not significantly changed from the previous film. Dr. Nye has been called on the case for antibiotic usage. I did discuss the case with Dr. Nye at length. On physical exam, there is only mild bronchospasm noted. There is no significant alveolar-arterial gradient. I will start the patient on DuoNeb treatments and inhaled steroids. The patient is also on a very small dose of prednisone. The patient does feel better this morning and is clinically improved - compared to yesterday. Additional pulmonary intervention will be based on the clinical status of the patient. I will discuss the above with Dr. Grey later this morning. Thank you very much for this pulmonary consultation. Tyrell Newsome MD [facility] # [id number]
[2017-09-05 00:11] LABS: PH,URINE 5.5 (4.7-8.0); URINE BILIRUBIN NEGATIVE (NEGATIVE); URINE BLOOD NEGATIVE (NEGATIVE); URINE GLUCOSE (UA) 250 mg/dL (NEGATIVE); URINE LEUKOCYTE ESTERASE SMALL Leu/uL (NEGATIVE); URINE NITRATE NEGATIVE (NEGATIVE); URINE PROTEIN 30 mg/dL (<30 mg/dL); URINE UROBILINOGEN 0.2 E.U./dL (<1 E.U./dL)
[2017-09-05 00:19] LABS: URINE APPEARANCE CLEAR (CLEAR); URINE COLOR YELLOW (YELLOW)
[2017-09-05 00:29] LABS: URINE RBC 0 - 2 /hpf (0-2)
[2017-09-05 00:30] LABS: URINE BACTERIA SMALL (NEG)
[2017-09-05] MEDS: Albuterol-Ipratrop 3 mg / 0.5 (3 ml) UD IH SCH ×4 (02:29→19:39)
[2017-09-05] MEDS: Cefepime 1gm in NS 100ml 1 GM/100 ML BAG IVPB SCH ×3 (05:38→21:40)
[2017-09-05 07:10] LABS: BASO # 0.01 K/mm3 (0.0-2.0); BASO % 0.3 % (0.0-3.0); EOS % 0.8 % (1.5-5.0); GRAN # 2.04 (1.4-6.5); GRAN % 57.3 % (50.0-68.0); LYMPH # 1.4 (1.2-3.4); LYMPH % 38.2 % (22.0-35.0); MEAN CELL VOLUME 95.8 fl (80.0-105.0); MEAN CORPUSCULAR HEMOGLOBIN 30.7 pg (25.0-35.0); MEAN PLATELET VOLUME 8.7 fl (7.0-11.0); MONO # 0.1 (0.1-0.6); MONO % 3.4 % (1.0-6.0); RBC 2.61 10^6/uL (3.5-6.1); RED CELL DISTRIBUTION WIDTH 18.3 % (11.5-14.5); WHITE BLOOD COUNT 3.6 10^3/ul (4.5-11.0)
[2017-09-05 07:48] LABS: ALB/GLOB RATIO 0.5 (1.1-1.8); ALBUMIN 2.3 g/dL (3.0-4.8); ALT/SGPT 12 U/L (7-56); AST/SGOT 9 U/L (17-59); BLOOD UREA NITROGEN 28 mg/dL (7-21); CALCIUM 8.5 mg/dL (8.4-10.5); GFR AFRICAN-AMERICAN > 60; GFR NON-AFRICAN AMERICAN > 60
[2017-09-05] MEDS: Budesonide 0.5 mg/2 ml Inhal Susp UD IH SCH ×2 (08:15→19:39)
--- NOTE | 2017-09-05 08:18 | CON ---
DATE: 09/04/2017 The patient was seen earlier today in room 272, bed 2. CHIEF COMPLAINT: Weakness times several days. HISTORY OF PRESENT ILLNESS: This is an 81-year-old male with past medical history significant for myelodysplastic syndrome, hypertension, osteoarthritis, hypothyroidism, coronary artery disease, hyperlipidemia, history of cholecystostomy, history of right foot surgery, multiple back surgeries and hernia surgery, who is recently in the hospital and was treated for pneumonia and was discharged. Prior to that, the patient was in the hospital in last 04/2017, the patient signed out against medical advice, he is readmitted because of persistent weakness and cough, and Infectious Disease consultation requested. REVIEW OF SYSTEMS: Reveals the patient did have fevers, and the patient had no chest pain. There is mild cough, nonproductive. No abdominal pain. No diarrhea or constipation. No bright blood per rectum. No headaches or blurred vision. PAST MEDICAL HISTORY: Significant for myelodysplastic syndrome, congestive heart failure, hyperlipidemia, hypertension, osteoarthritis, hypothyroidism, arthritis, coronary artery disease. PAST SURGICAL HISTORY: Significant for cholecystostomy, right foot surgery, back surgery, and hernia surgery. ALLERGIES: THE PATIENT HAS NO KNOWN ALLERGIES. MEDICATIONS AT HOME: Reveal the patient to be on metformin, Ambien, prednisone, lisinopril, gabapentin, carvedilol, Lipitor. PHYSICAL EXAMINATION VITAL SIGNS: The patient's temperature is 97, blood pressure is 100/60, respiratory rate of 20, heart rate of 94, it was up to 103, respiratory rate is up to 24 yesterday. HEENT: Examination of HEENT is unremarkable. NECK: Supple. LUNGS: Decreased breath sounds. HEART: Normal S1 and S2. ABDOMEN: Soft, nontender. No rebound or guarding. LABORATORY DATA: Laboratory examination reveals the white count of 3.7, hemoglobin of 9, platelets of 162. Coagulation is noted. BUN of 27 and creatinine of 1.2 which is up to 1.9. LFTs are noted to be normal. BNP is 574. Cold agglutinins are positive. Influenza is negative x2. Microbiology reveals the blood cultures are negative from 08/29. The patient had a chest x-ray, bilateral perihilar and lower lobe infiltrates. ASSESSMENT AND PLAN: This is an 81-year-old male with past medical history significant for myelodysplastic syndrome, hyperlipidemia, hypertension, congestive heart failure, hypothyroidism, coronary artery disease, arthritis, osteoarthritis, who is admitted with infiltrate, signed out against medical advice and came back in with shortness of breath, tachycardia and now with, 1. Severe sepsis, community-acquired pneumonia with acute kidney injury with creatinine changed from 1.9 to 1.2, and we will start the patient on Zyvox, Maxipime and doxycycline. We will order procalcitonin and check on the final culture results. Case discussed with Dr. Newsome from a radiological point of view, the patient has significant infiltrate, and we will also order an MRSA nasal screen. We will make further recommendations upon the availability of initial results. We will also order a Goodpasture's workup and ANCA for Nyla's workup in a patient with persistent infiltrates and renal disease and vasculitis ANCA workup. We will order an urinalysis and urine culture. The patient also had an HIV test in 04/2017 which was reported to be negative. Shawn Nye MD
[2017-09-05] MEDS: MethylPREDNISolone 40 mg Vial IVP SCH ×2 (10:25→21:43)
[2017-09-05] MEDS: Linezolid 600 mg in D5W 300 ml 600 MG/300 ML BAG IVPB SCH ×2 (10:26→21:42)
--- NOTE | 2017-09-05 11:55 | PN ---
DATE: 09/05/2017 SUBJECTIVE: The patient appears comfortable this morning. He is not short of breath at rest. PHYSICAL EXAMINATION: VITAL SIGNS: Temperature is 98.0, pulse 102, respirations 18/20, blood pressure 112/64. Oxygen saturation on nasal cannula is between 94-96%. HEENT: Normocephalic, atraumatic. No JVD. CARDIOVASCULAR: Systolic ejection murmur at the lower left sternal border. No S3 gallop. LUNGS: Decreased breath sounds at the bases with crackles. Mild bilateral rhonchi remain. No wheezing. EXTREMITIES: No clubbing, cyanosis or edema. Calves are nontender to palpation. GI: Abdomen is soft, nontender and nondistended. Bowel sounds are positive. SKIN: No acute rash. NEUROLOGIC: Exam limited at the present time. IMPRESSION: 1. Bilateral pneumonia. 2. Mild bronchospasm. 3. Pulmonary fibrosis - lower lobes. 4. Advanced myelodysplastic syndrome. 5. Renal insufficiency. 6. Chronic anemia. PLAN: The patient appears comfortable this morning. He is not short of breath at rest. He does state to feeling much better overall. On physical exam, mild bronchospasm persists. I will continue with the current nebulizer treatments and inhaled steroids for now. However, I will discontinue the low-dose prednisone and start intravenous Solu-Medrol. There is no significant alveolar-arterial gradient. Oxygen saturation on nasal cannula is now 94-96%. I would continue with the antibiotic coverage as per Infectious Disease. Input by Dr. Nye is noted. I did discuss the case with Dr. Nye at length yesterday. The temperatures are now resolving. Clinical status of the patient is definitely improved - compared to the initial presentation. I did discuss the case with Dr. Grey at length yesterday. I will discuss the case with him today. Tyrell Newsome MD MTDKika
--- NOTE | 2017-09-05 15:30 | CP.PCM.PN ---
Subjective - Date & Time of Evaluation Date of Evaluation: 09/05/17 Time of Evaluation: 10:25 - Subjective Subjective: Comfortable but still having cough and occasional shortness of breath at rest, no fevers overnight. Objective - Vital Signs/Intake and Output Vital Signs (last 24 hours): Temp Pulse Resp BP Pulse Ox 98 F 102 H 20 112/64 94 L 09/05/17 06:00 09/05/17 06:00 09/05/17 06:00 09/05/17 06:00 09/05/17 06:00 Intake and Output: 09/05/17 09/05/17 06:59 18:59 Intake Total 300 Output Total 400 Balance -100 - Medications Medications: Current Medications Albuterol/Ipratropium (Duoneb 3 Mg/0.5 Mg (3 Ml) Ud) 3 ml IH [id number] [facility] Last Admin: 09/05/17 08:15 Dose: 3 ml Albuterol/Ipratropium (Duoneb 3 Mg/0.5 Mg (3 Ml) Ud) 3 ml IH Q2H PRN PRN Reason: Shortness of Breath Last Admin: 09/05/17 05:31 Dose: 3 ml Atorvastatin Calcium (Lipitor) 10 mg PO DIN [facility] Last Admin: 09/04/17 18:17 Dose: 10 mg Budesonide (Pulmicort Respules) 0.5 mg IH [id number] [facility] Last Admin: 09/05/17 08:15 Dose: 0.5 mg Carvedilol (Coreg) 3.125 mg PO BID [facility] Last Admin: 09/04/17 18:17 Dose: 3.125 mg Clotrimazole (Mycelex Ernestine) 10 mg MT 5XD [facility] Last Admin: 09/05/17 05:39 Dose: 10 mg Doxycycline Hyclate (Doryx) 100 mg PO Q12 [facility] PRN Reason: Protocol Stop: 09/13/17 12:58 Last Admin: 09/04/17 22:04 Dose: 100 mg Gabapentin (Neurontin) 600 mg PO BID [facility] PRN Reason: Protocol Last Admin: 09/04/17 18:17 Dose: 600 mg Cefepime HCl (Maxipime 1gm) 1 gm in 100 mls @ 100 mls/hr IVPB Q8 [facility] PRN Reason: Protocol Stop: 09/13/17 12:58 Last Admin: 09/05/17 05:38 Dose: 100 mls/hr Linezolid (Zyvox 600mg/300ml D5w) 600 mg in 300 mls @ 200 mls/hr IVPB Q12 DA PRN Reason: Protocol Stop: 09/13/17 13:01 Last Admin: 09/04/17 13:30 Dose: 200 mls/hr Lisinopril (Zestril) 10 mg PO DAILY DA Last Admin: 09/04/17 10:09 Dose: Not Given Metformin HCl (Glucophage) 500 mg PO WM DA Last Admin: 09/04/17 18:17 Dose: 500 mg Methylprednisolone (Solu-Medrol) 20 mg IVP Q12 DA Zolpidem Tartrate (Ambien) 10 mg PO HS PRN; Protocol PRN Reason: Insomnia - Labs Labs: 09/05/17 06:00 09/05/17 06:30 PT 16.8 SECONDS (9.4-12.5) H 09/03/17 13:20 INR 1.45 (0.93-1.08) H 09/03/17 13:20 APTT 31.0 Seconds (25.1-36.5) 09/03/17 13:20 - Constitutional Appears: Chronically Ill - Head Exam Head Exam: NORMAL INSPECTION - ENT Exam ENT Exam: Mucous Membranes Moist - Neck Exam Neck Exam: absent: Meningismus - Respiratory Exam Respiratory Exam: Decreased Breath Sounds, Rales (scattered) - Cardiovascular Exam Cardiovascular Exam: +S1, +S2 - GI/Abdominal Exam GI & Abdominal Exam: Soft. absent: Tenderness Assessment and Plan - Assessment and Plan (Free Text) Plan: Assessment severe sepsis S/P acute renal failure from bilateral healthcare-associated pneumonia R/O vasculitis myelodysplastic disorder with history of pancytopenia history of bilateral pneumonia coronary artery disease diabetes mellitus history of back surgeries and laminectomy in the past hypothyroidism HTN dyslipidemia ostearthritis Plan continue Zyvox, Cefepime and Doxycycline day 2; blood cx are negative will continue to monitor clinically overall prognosis is poor
[2017-09-06] MEDS: Albuterol-Ipratrop 3 mg / 0.5 (3 ml) UD IH SCH ×4 (03:40→21:15)
[2017-09-06] MEDS: Cefepime 1gm in NS 100ml 1 GM/100 ML BAG IVPB SCH ×3 (06:06→21:56)
[2017-09-06] MEDS: Budesonide 0.5 mg/2 ml Inhal Susp UD IH SCH ×2 (08:02→21:15)
[2017-09-06] MEDS ORDERED: Insulin Regular 1 UNITS/0.01 ML ML SC STA (09:20)
[2017-09-06] MEDS: MethylPREDNISolone 40 mg Vial IVP SCH ×2 (09:31→21:57)
[2017-09-06] MEDS: Linezolid 600 mg in D5W 300 ml 600 MG/300 ML BAG IVPB SCH ×2 (09:41→21:56)
[2017-09-06] MEDS: Insulin Reg-LOW-Coverage SC SCH ×3 (11:58→21:57)
--- NOTE | 2017-09-06 15:11 | PN ---
DATE: 09/06/2017 PULMONARY PROGRESS NOTE SUBJECTIVE: The patient is feeling better and he offers no respiratory complaint. Occasional cough is heard. No additional problems are noted. The chart has been reviewed and discussed with the patient. PHYSICAL EXAMINATION GENERAL: The patient is lying comfortably in bed. VITAL SIGNS: Afebrile, respiratory rate 18, blood pressure 120/70, O2 sat 96% on nasal cannula. HEENT: Normocephalic, atraumatic. No jugular venous distention, no bruit. No lymphadenopathy. CARDIOVASCULAR: Regular rhythm. S1 and S2, without murmur, gallop, or rub. LUNGS: Global decrease in breath sounds. Scattered rhonchi. No wheezing appreciated. ABDOMEN: Soft. Bowel sounds normoactive, without mass, guarding, rebound or organomegaly. EXTREMITIES: Revealed no clubbing, cyanosis or edema. There is no Con's sign. SKIN: No rash or excoriation. LYMPHATICS: Lymphadenopathy is not present in the supraclavicular notch or in the cervical, inguinal, or axillary areas. NEUROLOGIC: Shows no focal findings. CLINICAL IMPRESSION: 1. Bilateral pneumonia. 2. Acute bronchospasm, resolved. 3. Pulmonary fibrosis (lower lobes). 4. Advanced myelodysplastic syndrome. 5. Renal insufficiency. PLAN: The patient will require followup after discharge. We must follow the pneumonia to complete resolution. Bronchospasm needs to be treated as well. Long-term bronchodilators will be required. Evaluation of lower lobe fibrosis needs to be done as well. This may be due to the myelodysplastic disorder or underlying pulmonary fibrosis. This can be further evaluated once the patient is stabilized. We will follow closely with you. Baron Mays MD
--- NOTE | 2017-09-07 00:55 | PN ---
DATE: 09/06/2017 SUBJECTIVE: The patient was seen early this morning in room 272, bed 2. No fever or chills. Overall, he is doing much better. Less short of breath and less cough. PHYSICAL EXAMINATION: VITAL SIGNS: Temperature is 97, blood pressure is 140/70, respiratory rate of 20 and heart rate of 81. HEENT: Unremarkable. NECK: Supple. LUNGS: Have decreased breath sounds. HEART: Normal S1 and S2. ABDOMEN: Soft. LABORATORY DATA: Reveals the patient has a white count of 3.6, hemoglobin of 8 and platelets of 169. Chemistry reveals a BUN of 28, creatinine of 1.1 and procalcitonin of 23.64. Microbiology reveals the patient's blood cultures are negative. Nasal MRSA is negative. Urine culture is negative. Review of orders reveals the patient has been on doxycycline p.o., cefepime and linezolid. ASSESSMENT AND PLAN: This is an 81-year-old male with severe sepsis, status post acute renal failure and bilateral healthcare-associated pneumonia, vasculitis, myelodysplastic disorder, history of pancytopenia, history of bilateral pneumonia, coronary artery disease, diabetes now with what appears to be a bacterial pneumonia due to an elevated procalcitonin of 24, on Zyvox, cefepime, and doxycycline day #2. The nasal MRSA screen is negative. Dr. report is reviewed. We will follow with you. Shawn Nye MD
[2017-09-07] MEDS: Albuterol-Ipratrop 3 mg / 0.5 (3 ml) UD IH SCH ×4 (03:10→21:04)
[2017-09-07] MEDS: Cefepime 1gm in NS 100ml 1 GM/100 ML BAG IVPB SCH ×3 (05:17→21:13)
[2017-09-07] MEDS: Insulin Reg-LOW-Coverage SC SCH ×4 (07:56→21:37)
[2017-09-07] MEDS: Budesonide 0.5 mg/2 ml Inhal Susp UD IH SCH ×2 (07:56→21:04)
[2017-09-07] MEDS: MethylPREDNISolone 40 mg Vial IVP SCH ×2 (09:12→21:13)
[2017-09-07] MEDS: Linezolid 600 mg in D5W 300 ml 600 MG/300 ML BAG IVPB SCH (10:52)
[2017-09-07 16:18] LABS: IRON 131 ug/dL (45-180)
[2017-09-07 16:28] LABS: % IRON SATURATION 78 % (20-55); TOTAL IRON BINDING CAPACITY 167 ug/dL (261-462)
[2017-09-07 22:38] LABS: FOLATE 12.8 ng/mL
--- NOTE | 2017-09-08 00:31 | PN ---
DATE: 09/07/2017 SUBJECTIVE: The patient is in bed in no acute distress, nontoxic. PHYSICAL EXAMINATION: VITAL SIGNS: Temperature is 98, blood pressure is 120/70, respiratory rate of 20, and heart rate of 83. HEENT: Unremarkable. NECK: Supple. LUNGS: Have decreased breath sounds. HEART: Normal S1 and S2. ABDOMEN: Soft and nontender. LABORATORY EXAMINATION: Reveals a white count of 3.6 and coagulation is noted. Chemistries reveal the patient has a creatinine of 1.1, it was 1.9. Urinalysis is noted. The patient's procalcitonin is elevated at 23.64. Urinalysis is noted and serology is pending. Influenza is negative. Microbiology reveals the patient's blood cultures, no growth; urine cultures no growth; and naris MRSA is not detected. Clostridium difficile antigen and toxin are negative. Review of orders reveals the patient to be on doxycycline and cefepime. ASSESSMENT AND PLAN: This is an 81-year-old male with severe sepsis, status post acute renal failure, bilateral healthcare-associated pneumonia, myelodysplastic disorder, history of pancytopenia, history of bilateral pneumonia, coronary artery disease, and diabetes, which appears to have right at this time severe sepsis secondary to bacterial pneumonia due to an elevated procalcitonin of 24. Today is day number 3 of Zyvox, cefepime, and doxycycline. Methicillin-resistant Staphylococcus aureus screen is negative and cultures are negative. We will discontinue the Zyvox and continue Maxipime and doxycycline day number 3, we would continue 4 to 7 days of antibiotics. We will repeat procalcitonin today for trend of procalcitonin and we will make further recommendations. Shawn Nye MD
[2017-09-08] MEDS: Albuterol-Ipratrop 3 mg / 0.5 (3 ml) UD IH SCH ×4 (02:20→21:27)
[2017-09-08] MEDS: Cefepime 1gm in NS 100ml 1 GM/100 ML BAG IVPB SCH ×3 (05:07→22:37)
[2017-09-08 06:34] LABS: GRAN # 0.7 (1.4-6.5); GRAN % 29.3 % (50.0-68.0); LYMPH # 1.7 (1.2-3.4); LYMPH % 69.9 % (22.0-35.0); MEAN CELL VOLUME 93.4 fl (80.0-105.0); MEAN CORPUSCULAR HEMOGLOBIN 29.3 pg (25.0-35.0); MEAN CORPUSCULAR HGB CONC 31.4 g/dl (31.0-37.0); MEAN PLATELET VOLUME 8.8 fl (7.0-11.0); MONO % 0.8 % (1.0-6.0); RBC 2.73 10^6/uL (3.5-6.1); RED CELL DISTRIBUTION WIDTH 17.2 % (11.5-14.5)
[2017-09-08 06:40] LABS: WHITE BLOOD COUNT 2.4 10^3/ul (4.5-11.0)
[2017-09-08 06:58] LABS: ALB/GLOB RATIO 0.6 (1.1-1.8); ALBUMIN 2.5 g/dL (3.0-4.8); ALT/SGPT 21 U/L (7-56); AST/SGOT 22 U/L (17-59); BLOOD UREA NITROGEN 33 mg/dL (7-21); CALCIUM 9.3 mg/dL (8.4-10.5); GFR AFRICAN-AMERICAN > 60; GFR NON-AFRICAN AMERICAN > 60
[2017-09-08] MEDS: Budesonide 0.5 mg/2 ml Inhal Susp UD IH SCH ×2 (07:55→21:28)
[2017-09-08] MEDS: Insulin Reg-LOW-Coverage SC SCH ×4 (08:01→22:38)
--- NOTE | 2017-09-08 09:39 | PN ---
DATE: 09/08/2017 PULMONARY NOTE SUBJECTIVE: The patient appears very comfortable this morning. He is not short of breath at rest. PHYSICAL EXAMINATION: VITAL SIGNS: Temperature is 98.5, pulse 79, respirations 18, blood pressure 128/52. Oxygen saturation on nasal cannula is 98%. HEENT: Normocephalic, atraumatic. NECK: No JVD. CARDIOVASCULAR: Systolic ejection murmur at the lower left sternal border. No S3 gallop. LUNGS: Less crackles at the bases. Much less rhonchi. No wheezing. EXTREMITIES: No clubbing, cyanosis or edema. Calves are nontender to palpation. GI: Abdomen is soft, nontender, nondistended. Bowel sounds are positive. SKIN: No acute rash. NEUROLOGIC: Exam limited at the present time. IMPRESSION: 1. Bilateral pneumonia. 2. Mild bronchospasm. 3. Pulmonary fibrosis - lower lobes. 4. Advanced myelodysplastic syndrome. 5. Renal insufficiency. 6. Chronic anemia. PLAN: The patient appears very comfortable this morning. He is not short of breath at rest. He does state to feeling much better overall. On physical exam, his bronchospasm is significantly less. In addition, the alveolar-arterial gradient is also significantly less. I will continue the current nebulizer treatments and change to low-dose oral steroids this morning. The patient remains on antibiotic therapy - as per Infectious Disease. His temperatures have completely resolved. Clinical status of the patient is significantly improved - compared to the initial presentation. However, again, the future status/prognosis for this chronically ill patient does remain guarded. I will discuss the above with the attending physician. Tyrell Newsome MD MTDKika
--- NOTE | 2017-09-08 16:42 | CP.PCM.PN ---
Subjective - Date & Time of Evaluation Date of Evaluation: 09/08/17 Time of Evaluation: 10:25 - Subjective Subjective: Still with cough but it has improved, breathing better, no fevers overnight, no diarrhea, no nausea. Objective - Vital Signs/Intake and Output Vital Signs (last 24 hours): Temp Pulse Resp BP Pulse Ox 98.5 F 79 18 128/52 L 98 09/08/17 05:51 09/08/17 05:51 09/08/17 05:51 09/08/17 05:51 09/08/17 05:51 Intake and Output: 09/07/17 09/08/17 18:59 06:59 Intake Total 1260 240 Output Total 1844 1200 Balance -584 960 - Medications Medications: Current Medications Albuterol/Ipratropium (Duoneb 3 Mg/0.5 Mg (3 Ml) Ud) 3 ml IH [id number] [facility] Last Admin: 09/08/17 02:20 Dose: 3 ml Albuterol/Ipratropium (Duoneb 3 Mg/0.5 Mg (3 Ml) Ud) 3 ml IH Q2H PRN PRN Reason: Shortness of Breath Last Admin: 09/05/17 05:31 Dose: 3 ml Atorvastatin Calcium (Lipitor) 10 mg PO DIN [facility] Last Admin: 09/07/17 17:09 Dose: 10 mg Budesonide (Pulmicort Respules) 0.5 mg IH [id number] [facility] Last Admin: 09/07/17 21:04 Dose: 0.5 mg Carvedilol (Coreg) 3.125 mg PO BID [facility] Last Admin: 09/07/17 17:56 Dose: 3.125 mg Clotrimazole (Mycelex Ernestine) 10 mg MT 5XD [facility] Last Admin: 09/08/17 05:07 Dose: Not Given Doxycycline Hyclate (Doryx) 100 mg PO Q12 [facility] PRN Reason: Protocol Stop: 09/13/17 12:58 Last Admin: 09/07/17 21:12 Dose: 100 mg Gabapentin (Neurontin) 600 mg PO BID [facility] PRN Reason: Protocol Last Admin: 09/07/17 17:56 Dose: 600 mg Cefepime HCl (Maxipime 1gm) 1 gm in 100 mls @ 100 mls/hr IVPB Q8 DA PRN Reason: Protocol Stop: 09/13/17 12:58 Last Admin: 09/08/17 05:07 Dose: 100 mls/hr Insulin Human Regular (Humulin R Low) 0 units SC ACHS DA PRN Reason: Protocol Last Admin: 09/07/17 21:37 Dose: Not Given Lisinopril (Zestril) 10 mg PO DAILY [facility] Last Admin: 09/07/17 09:12 Dose: 10 mg Metformin HCl (Glucophage) 500 mg PO WM [facility] Last Admin: 09/07/17 17:09 Dose: 500 mg Methylprednisolone (Solu-Medrol) 20 mg IVP Q12 DA Last Admin: 09/07/17 21:13 Dose: 20 mg Zolpidem Tartrate (Ambien) 10 mg PO HS PRN; Protocol PRN Reason: Insomnia Last Admin: 09/07/17 21:13 Dose: 10 mg - Labs Labs: 09/08/17 05:30 09/05/17 06:30 PT 16.8 SECONDS (9.4-12.5) H 09/03/17 13:20 INR 1.45 (0.93-1.08) H 09/03/17 13:20 APTT 31.0 Seconds (25.1-36.5) 09/03/17 13:20 - Constitutional Appears: Non-toxic - Head Exam Head Exam: NORMAL INSPECTION - ENT Exam ENT Exam: Mucous Membranes Moist - Neck Exam Neck Exam: absent: Meningismus - Respiratory Exam Respiratory Exam: Decreased Breath Sounds - Cardiovascular Exam Cardiovascular Exam: +S1, +S2 - GI/Abdominal Exam GI & Abdominal Exam: Soft. absent: Tenderness Assessment and Plan - Assessment and Plan (Free Text) Plan: Assessment severe sepsis S/P acute renal failure from bilateral healthcare-associated pneumonia myelodysplastic disorder with history of pancytopenia history of bilateral pneumonia coronary artery disease diabetes mellitus history of back surgeries and laminectomy in the past hypothyroidism HTN dyslipidemia ostearthritis Plan continue Cefepime and Doxycycline day 5; blood cx are negative; PCT has trended downwards; complete up to 7 days of therapy will continue to monitor clinically overall prognosis is poor
[2017-09-08 21:01] VITALS: RESP 20
[2017-09-09] MEDS: Albuterol-Ipratrop 3 mg / 0.5 (3 ml) UD IH SCH ×3 (02:35→14:55)
[2017-09-09] MEDS: Cefepime 1gm in NS 100ml 1 GM/100 ML BAG IVPB SCH ×2 (06:41→14:28)
[2017-09-09] MEDS: Budesonide 0.5 mg/2 ml Inhal Susp UD IH SCH (07:35)
--- NOTE | 2017-09-09 08:38 | PN ---
DATE: 09/09/2017 PULMONARY NOTE SUBJECTIVE: The patient appears very comfortable this morning. He is not short of breath at rest. PHYSICAL EXAMINATION: VITAL SIGNS: Temperature is 97.7, pulse 86, respirations 18/20, blood pressure 125/69. Oxygen saturation on nasal cannula is 96%. HEENT: Normocephalic, atraumatic. NECK: No JVD. CARDIOVASCULAR: Systolic ejection murmur at the lower left sternal border. No S3 gallop. LUNGS: Less crackles at the bases. Much less rhonchi. No wheezing. EXTREMITIES: No clubbing, cyanosis or edema. Calves are nontender to palpation. GI: Abdomen is soft, nontender and nondistended. Bowel sounds are positive. SKIN: No acute rash. NEUROLOGIC: Exam limited at the present time. IMPRESSION: 1. Bilateral pneumonia. 2. Mild bronchospasm. 3. Pulmonary fibrosis - lower lobes. 4. Advanced myelodysplastic syndrome. 5. Renal insufficiency. 6. Chronic anemia. PLAN: The patient appears very comfortable this morning. He is not short of breath at rest. He states he is feeling much better overall. On physical exam, his bronchospasm continues to resolve. In addition, the oxygen saturation on nasal cannula is now 96%. I will continue the current nebulizer treatments and oral steroids (changed yesterday) for now. The patient remains on antibiotic therapy - as per Infectious Disease. The patient's temperatures have completely resolved. The clinical status of the patient is definitely improved - compared to the initial presentation. However, again, the future status/prognosis for this chronically ill patient does remain very guarded. I will discuss the above with the attending physician. Tyrell Newsome MD KEY[facility]
[2017-09-09] MEDS: Insulin Reg-LOW-Coverage SC SCH ×2 (08:49→12:15)
[2017-09-09 09:59] VITALS: BP 106/53; PULSE 81
[2017-09-09 10:32] VITALS: TEMP 97.9; O2SAT 92
[2017-09-09 10:55] LABS: EOS % 0.4 % (1.5-5.0); GRAN % 25.7 % (50.0-68.0); HEMOGLOBIN 8.3 g/dL (14.0-18.0); LYMPH # 1.9 (1.2-3.4); LYMPH % 70.2 % (22.0-35.0); MEAN CELL VOLUME 92.8 fl (80.0-105.0); MEAN CORPUSCULAR HGB CONC 32.3 g/dl (31.0-37.0); MEAN PLATELET VOLUME 8.3 fl (7.0-11.0); MONO # 0.1 (0.1-0.6); MONO % 3.7 % (1.0-6.0); PLATELET COUNT 115 10^3/uL (120.0-450.0); RBC 2.77 10^6/uL (3.5-6.1)
[2017-09-09 11:07] LABS: ALB/GLOB RATIO 0.7 (1.1-1.8); ALBUMIN 2.6 g/dL (3.0-4.8); ALT/SGPT 20 U/L (7-56); AST/SGOT 23 U/L (17-59); BLOOD UREA NITROGEN 28 mg/dL (7-21); CALCIUM 9.1 mg/dL (8.4-10.5); GFR AFRICAN-AMERICAN > 60; GFR NON-AFRICAN AMERICAN > 60; MAGNESIUM 1.3 mg/dL (1.7-2.2)
[2017-09-09 11:13] LABS: WHITE BLOOD COUNT 2.7 10^3/ul (4.5-11.0)
[2017-09-09 11:37] LABS: ANCA SCREEN POSITIVE (NEGATIVE)
[2017-09-09 11:41] LABS: ATYPICAL LYMPHOCYTE 2 % (0.0-0.0); LYMPHOCYTE 68 % (22.0-35.0); MONOCYTE 2 % (1.0-6.0); NEUTROPHIL 28 % (50.0-70.0); NUCLEATED RED BLOOD CELL 1 %; PLATELET ESTIMATE NORMAL (NORMAL)
[2017-09-09 11:42] LABS: ANISOCYTOSIS SLIGHT
[2017-09-09] MEDS ORDERED: Magnesium Chloride 64 mg ER Tab PO SCH (12:30)
--- NOTE | 2017-09-09 13:02 | PN ---
DATE: 09/08/2017 SUBJECTIVE: The patient is an 81-year-old male who presented to the emergency room after suggestion of his dining service inspector/oncologist after being found to be grossly anemic. He is noted to have a history of myelodysplastic disorder, congestive heart failure, diabetes, hypertension, and anemia. He was complaining of shortness of breath on admission. He is noted to have chronic interstitial changes on chest x-ray this admission, he is being treated for pneumonia. His blood cultures have been negative x2, procalcitonin is markedly elevated at 23.64. He is being treated with Zosyn, meropenem, and doxycycline. Nasal probe is negative for MRSA. During the hospital stay, the patient was placed on a sliding scale regular insulin to cover the fingerstick glucoses. His hemoglobin had dropped during the hospital stay from 9.8 to 8. He was typed and screened for treatment with packed red blood cells, but his hemoglobin seems to have stabilized at 8.0. With the current treatment, the patient seems to be improving clinically. His respirations are easier. His reticulocyte count was elevated at 2.7. PHYSICAL EXAMINATION: GENERAL: When seen today, he is comfortable, awake, alert and oriented. LUNGS: Clear anteriorly. HEART: Regular. LABORATORY DATA: His white blood cell count this morning is 3.4, hemoglobin 8.0, hematocrit 25.5, platelet count is 140. Vital signs are stable. ASSESSMENT: We were continuing with the antibiotics. We will continue to follow the patient closely. As per Dr. Newsome's note, he will be changed to oral steroids in the morning, and I have encouraged ambulation and physical therapy. Thomas Grey MD
[2017-09-09] MEDS ORDERED: Potassium Chloride 10 mEq ER Tab PO SCH (18:00)
--- NOTE | 2017-09-10 00:34 | PN ---
DATE: 09/09/2017 SUBJECTIVE: The patient is in bed, in no acute distress. PHYSICAL EXAMINATION: VITAL SIGNS: Temperature is 98, blood pressure is 106/60, respiratory rate of 20. HEENT: Unremarkable. NECK: Supple.. LUNGS: Have decreased breath sounds. HEART: Normal S1 and S2. ABDOMEN: Soft, nontender. LABORATORY DATA: Reveals a white count of 2.7, hemoglobin of 8, platelets are 150. Chemistries reveal a BUN of 28, creatinine of 0.8. MIRTHA screen is positive and atypical p-ANCA titer is 1 to 20 and c-ANCA titer is pending. Cultures are noted. Dr. Grey's note is reviewed. ASSESSMENT AND PLAN: This is an 81-year-old with severe sepsis, status post acute renal failure, bilateral healthcare-associated pneumonia, myelodysplastic syndrome, history of pancytopenia, history of bilateral pneumonia, coronary artery disease, diabetes mellitus, history of back surgery, laminectomy, on cefepime and doxycycline day #6 with a procalcitonin treatment, will complete 7 days. We will follow with you. Shawn Nye MD
--- NOTE | 2017-09-11 03:09 | DS ---
HISTORY OF PRESENT ILLNESS: This is an 81-year-old man, who is known for many years, recently hospitalized at [facility] with severe anemia. He was sent to the hospital by his Account Administrator who follows him for his myelodysplastic syndrome. He is treated with transfusion. Infiltrate was noted on chest x-ray, treated with antibiotics and diuretics. He was improved clinically, not short of breath, went home. There is a question as to whether he filled his prescription for antibiotics as he currently did not take anything, but returned in 2 days with worsening cough and shortness of breath. Worsening infiltrate was noted on chest x-ray. He was admitted and treated with very aggressive course of antibiotics. Followup by Dr. Nye for Infectious Disease and Dr. Newsome for Pulmonary. His procalcitonin was elevated and the patient responded nicely to antibiotics. He improved clinically, but was weak, given the pneumonia, his underlying myelodysplastic syndrome, his chronic back pain, etc. Improved clinically and the patient was seen today. He says he feels much better; although, is still weak. Arrangements were made for him to transfer to the Transitional Care Unit at [facility] for additional Physical Therapy and conditioning and to continue his course of antibiotics. FINAL DISCHARGE DIAGNOSES: 1. Pneumonia. 2. Myelodysplastic syndrome. 3. Chronic low back pain. 4. Diabetes. 5. Hyperlipidemia. 6. Coronary artery disease. 7. Anemia related to myelodysplastic syndrome. 8. Hypertension. 9. Osteoarthritis. 10. Hypothyroidism. 11. Status post multiple back surgeries. PLAN: We will follow the patient on Transitional Care Unit. Sidney Grey MD MTDKika
== END 2017-09-09 16:06 | DRG 871 ==
LOC: ED 11:29 → ERH 15:33 → 2RSO 09-04 00:50 → 5RSO 09-08 14:34
PROVIDERS: ADMIT Internal Medicine; ATTEND Internal Medicine
PROC: 3E03328 Introduction of Oxazolidinones into Peripheral Vein, Percutaneous Approach (ICD-10-PCS; principal; 2017-09-04)
PROC: 3E0F7GC Introduction of Other Therapeutic Substance into Respiratory Tract, Via Natural or Artificial Opening (ICD-10-PCS; 2017-09-04)
DX: A41.9 Sepsis, unspecified organism (principal); J18.9 Pneumonia, unspecified organism; N17.9 Acute kidney failure, unspecified; J84.10 Pulmonary fibrosis, unspecified; I11.0 Hypertensive heart disease with heart failure; I50.9 Heart failure, unspecified; E11.9 Type 2 diabetes mellitus without complications; E86.0 Dehydration; J98.01 Acute bronchospasm; D46.9 Myelodysplastic syndrome, unspecified; R65.20 Severe sepsis without septic shock; I25.10 Atherosclerotic heart disease of native coronary artery without angina pectoris; E78.5 Hyperlipidemia, unspecified; E03.9 Hypothyroidism, unspecified; Y95 Nosocomial condition; Z95.5 Presence of coronary angioplasty implant and graft

== ENCOUNTER 2017-09-09 16:06 | Inpatient (IN) | payer OTHER, BC ==
[2017-09-09 16:43] VITALS: BMI 24.5
[2017-09-09] MEDS ORDERED: Albuterol-Ipratrop 3 mg / 0.5 (3 ml) UD IH PRN (17:03)
[2017-09-09] MEDS: Potassium Chloride 10 mEq ER Tab PO SCH (18:20)
[2017-09-09] MEDS: Budesonide 0.5 mg/2 ml Inhal Susp UD IH SCH (21:00)
[2017-09-09] MEDS: Arformoterol 15 mcg/2 ml Inh Sol IH SCH (21:00)
[2017-09-09] MEDS: Albuterol-Ipratrop 3 mg / 0.5 (3 ml) UD IH SCH (21:00)
[2017-09-09] MEDS: Insulin Reg-LOW-Coverage SC SCH (22:43)
[2017-09-09] MEDS: Cefepime 1gm in NS 100ml 1 GM/100 ML BAG IVPB SCH (22:43)
[2017-09-10] MEDS: Albuterol-Ipratrop 3 mg / 0.5 (3 ml) UD IH SCH ×4 (01:39→20:30)
[2017-09-10] MEDS: Cefepime 1gm in NS 100ml 1 GM/100 ML BAG IVPB SCH ×3 (06:21→22:13)
[2017-09-10] MEDS: Insulin Reg-LOW-Coverage SC SCH ×4 (06:56→22:12)
[2017-09-10] MEDS: Arformoterol 15 mcg/2 ml Inh Sol IH SCH ×2 (07:35→20:30)
[2017-09-10] MEDS: Budesonide 0.5 mg/2 ml Inhal Susp UD IH SCH ×2 (07:35→20:30)
[2017-09-10 07:40] LABS: EOS % 0.3 % (1.5-5.0); GRAN # 0.75 (1.4-6.5); GRAN % 21.3 % (50.0-68.0); HEMOGLOBIN 8.3 g/dL (14.0-18.0); LYMPH # 2.7 (1.2-3.4); LYMPH % 75.6 % (22.0-35.0); MEAN CELL VOLUME 90.3 fl (80.0-105.0); MEAN CORPUSCULAR HEMOGLOBIN 29.9 pg (25.0-35.0); MEAN CORPUSCULAR HGB CONC 33.1 g/dl (31.0-37.0); MEAN PLATELET VOLUME 8.3 fl (7.0-11.0); MONO # 0.1 (0.1-0.6); MONO % 2.8 % (1.0-6.0); RBC 2.78 10^6/uL (3.5-6.1); RED CELL DISTRIBUTION WIDTH 16.8 % (11.5-14.5); WHITE BLOOD COUNT 3.5 10^3/ul (4.5-11.0)
[2017-09-10 07:57] LABS: BLOOD UREA NITROGEN 26 mg/dL (7-21); CALCIUM 9.1 mg/dL (8.4-10.5); GFR AFRICAN-AMERICAN > 60; GFR NON-AFRICAN AMERICAN > 60; MAGNESIUM 1.4 mg/dL (1.7-2.2)
[2017-09-10] MEDS: Potassium Chloride 10 mEq ER Tab PO SCH ×2 (08:08→17:38)
--- NOTE | 2017-09-10 08:17 | PN ---
DATE: 09/10/2017 PULMONARY NOTE SUBJECTIVE: The patient appears very comfortable this morning. He is not short of breath at rest. PHYSICAL EXAMINATION: VITAL SIGNS: Temperature is 97.9, pulse 88, respirations 18, blood pressure 123/66. Oxygen saturation on nasal cannula is 99%. HEENT: Normocephalic, atraumatic. NECK: No JVD. CARDIOVASCULAR: Systolic ejection murmur at the lower left sternal border. No S3 gallop. LUNGS: Less crackles at the bases. Minimal/less rhonchi. No wheezing. EXTREMITIES: No clubbing, cyanosis or edema. Calves are nontender to palpation. GI: Abdomen is soft, nontender and nondistended. Bowel sounds are positive. SKIN: No acute rash. NEUROLOGIC: Exam limited at the present time. IMPRESSION: 1. Bilateral pneumonia. 2. Mild bronchospasm. 3. Pulmonary fibrosis - lower lobes. 4. Advanced myelodysplastic syndrome. 5. Renal insufficiency. 6. Chronic anemia. PLAN: The patient appears very comfortable this morning. He is not short of breath at rest. He does state to feeling much better overall. On physical exam, his bronchospasm continues to resolve. In addition, the oxygen saturation on nasal cannula is now 99%. I will continue with the current nebulizer treatments and oral steroids for now. The patient remains on antibiotic therapy - as per Infectious Disease. The temperatures have completely resolved. Clinical status of the patient is significantly improved - compared to the initial presentation. However, again, the future status/prognosis for this chronically ill patient does remain guarded. The patient is now on the Transitional Unit - where he will participate physical therapy. I will discuss the above with the attending physician. Tyrell Newsome MD MTDKika
[2017-09-10] MEDS ORDERED: Darbepoetin Alfa 100 mcg/ml Inj SC ONE (08:23)
[2017-09-10] MEDS: Magnesium Chloride 64 mg ER Tab PO SCH (12:47)
--- NOTE | 2017-09-10 13:40 | CON ---
DATE: 09/10/2017 MEDICAL HEMATOLOGY CONSULTATION LOCATION: The patient is currently located in [place] [address], bed 2. REASON FOR HEMATOLOGY CONSULTATION: Known history of myelodysplastic syndrome. HISTORY OF PRESENT ILLNESS: This is an 81-year-old male very well know to us for his history of myelodysplastic syndrome. The patient follows with Dr. Rasmussen in the office and was last seen on 08/27/2017. At which time, he was sent to [facility] for admission due to hemoglobin of 6.8 and low O2 saturations. At that time, he was also found to have bilateral pneumonias and signed out against medical advice during his treatment course. He represented back to the emergency room with worsening complaints of shortness of breath. Chest x-ray did reveal persistent infiltrates. He was seen and evaluated by Infectious Disease and is currently on IV antibiotics. At bedside, upon questioning, Mr. Walton does state that he feels much better and his breathing has improved since this admission period. He is currently requiring oxygen via nasal cannula and will be commencing physical therapy today to assess his performance status. His baseline hemoglobin ranges between 10 and 11. At this time, on admission, his hemoglobin was noted to be 8.3 with a white blood cell count of 3.5 and platelet count of 114,000. He denies any bleeding or other complaints. PAST MEDICAL HISTORY: As per HPI as well as known history of CAD, diabetes, hypertension, CHF. PAST SURGICAL HISTORY: Noncontributory currently. SOCIAL HISTORY: Denies toxic habits. No smoking. No drinking. ALLERGIES: No known drug or food allergies. PHYSICAL EXAMINATION VITAL SIGNS: Pulse is 91, blood pressure 123/66, currently on 2 liters nasal cannula, saturating very well. GENERAL: AAO x3. No acute respiratory distress is noted. The patient is comfortable at bedside, eating breakfast. HEENT: Normocephalic, atraumatic. Pupils reactive bilaterally. LUNGS: Clear to auscultation bilaterally. Minimal decreased breath sounds at bilateral bases. No rales, rhonchi or wheezing. CARDIOVASCULAR: S1 and S2 normal. Regular rate and rhythm. ABDOMEN: Soft, nontender, nondistended. No organomegaly. EXTREMITIES: No cyanosis, clubbing, or edema. SKIN: No lesions or ecchymosis is noted. LABORATORY DATA: White blood cell count 3.5, hemoglobin 8.3, hematocrit 25.1, platelet count 114,000. Chemistry: Sodium 135, potassium 3.2, chloride 101, bicarb 27, BUN 26, creatinine 0.7, glucose 211, magnesium 1.4. ASSESSMENT AND PLAN: In summary, this is an 81-year-old gentleman, very well known to us, with a history of myelodysplastic syndrome. He is reported with weekly erythropoietin stimulating agent treatment as needed based on his hemoglobin. Most recently, he was transfused at the beginning of August due to acute drop in his hemoglobin. Currently, his hemoglobin is at 8.3. I will order a dose of Aranesp 100 mcg subcu x1 while he is here inpatient and we will monitor his hemoglobin and hematocrit and transfuse as necessary. Otherwise, he is hemodynamically stable and does not require PRBC transfusion at this time. We will continue to follow and monitor his course with you. Thank you kindly for this consultation. Guillermo Mahajan MD
--- NOTE | 2017-09-10 23:45 | CON ---
DATE: LOCATION: The patient is in bed in room 313, the patient is seen earlier this morning. CHIEF COMPLAINT: Weakness times several days. HISTORY OF PRESENT ILLNESS: This is an 81-year-old male with myelodysplastic syndrome, coronary artery disease, congestive heart failure, arthritis, hyperlipidemia, diabetes mellitus, hypertension, osteoarthritis, hypothyroidism. He was admitted to the acute care given the diagnosis of bilateral healthcare-associated pneumonia, acute kidney injury and severe sepsis, now transferred to transitional care. The patient was seen in transitional care this morning in room 313. He states he is doing much better and he is feeling stronger; however, he still has significant weakness. PAST MEDICAL HISTORY: Significant for myelodysplastic syndrome, coronary artery disease, arthritis, diabetes, congestive heart failure, hyperlipidemia, hypertension, osteoarthritis, and hypothyroidism. PAST SURGICAL HISTORY: Significant for hernia surgery and laminectomy. ALLERGIES: THE PATIENT HAS NO KNOWN ALLERGIES. MEDICATIONS AT HOME: Included Glucophage, prednisone, lisinopril, gabapentin, carvedilol, and Lipitor. PHYSICAL EXAMINATION: VITAL SIGNS: The patient is in bed with a temperature of 98, blood pressure is 120/60, respiratory rate of 18, and heart rate of 91. HEENT: Unremarkable. NECK: Supple. LUNGS: Decreased breath sounds. HEART: Normal S1 and S2. ABDOMEN: Soft, nontender. LABORATORY DATA: Reveals a white count of 3.5, hemoglobin of 8, platelets of 114. Chemistries are reviewed and noted. MEDICATIONS: Review of the medications reveal the patient to be on cefepime and doxycycline. ASSESSMENT AND PLAN: This is an 81-year-old male with myelodysplastic syndrome, coronary artery disease, congestive heart failure, arthritis, hyperlipidemia, diabetes, hypertension, osteoarthritis, hypothyroidism with severe sepsis, acute kidney injury, bilateral healthcare-associated pneumonia with a procalcitonin that changed from 23.64 down to 1.1. Overall, the patient is doing well, today is day #7 of Maxipime and doxycycline. We will follow closely with you. Shawn Nye MD
[2017-09-11] MEDS: Cefepime 1gm in NS 100ml 1 GM/100 ML BAG IVPB SCH ×3 (05:58→21:21)
[2017-09-11] MEDS: Arformoterol 15 mcg/2 ml Inh Sol IH SCH ×2 (07:13→20:33)
[2017-09-11] MEDS: Albuterol-Ipratrop 3 mg / 0.5 (3 ml) UD IH SCH ×3 (07:13→20:33)
[2017-09-11] MEDS: Budesonide 0.5 mg/2 ml Inhal Susp UD IH SCH ×2 (07:14→20:34)
[2017-09-11] MEDS: Insulin Reg-LOW-Coverage SC SCH ×4 (07:39→22:44)
[2017-09-11] MEDS: Potassium Chloride 10 mEq ER Tab PO SCH ×2 (08:14→17:47)
[2017-09-11] MEDS: Magnesium Chloride 64 mg ER Tab PO SCH (10:27)
--- NOTE | 2017-09-11 10:41 | PN ---
DATE: 09/11/2017 PULMONARY PROGRESS NOTE SUBJECTIVE: The patient appears comfortable this morning. He is not short of breath at rest. PHYSICAL EXAMINATION: VITAL SIGNS: (Last noted in the computer): Temperature is 97.7, pulse is 86, respirations are 18, and blood pressure is 122/65. Oxygen saturation on room air is 97%. HEENT: Normocephalic and atraumatic. NECK: No JVD. CARDIOVASCULAR: Systolic ejection murmur at the lower left sternal border. No S3 gallop. LUNGS: Less crackles at the bases. Minimal/less rhonchi. No wheezing. EXTREMITIES: No clubbing, cyanosis or edema. Calves are nontender to palpation. GASTROINTESTINAL: Abdomen is soft, nontender and nondistended. Bowel sounds are positive. SKIN: No acute rash. NEUROLOGIC: Exam is limited at the present time. IMPRESSION 1. Bilateral pneumonia. 2. Mild bronchospasm. 3. Pulmonary fibrosis - lower lobes. 4. Advanced myelodysplastic syndrome. 5. Renal insufficiency. 6. Chronic anemia. PLAN: The patient appears very comfortable this morning. He is not short of breath at rest. He does state to feeling much ,much better overall. On physical exam, his bronchospasm continues to resolve. In addition, the oxygen saturation on room air is now 97%. I will continue the current nebulizer treatments and oral steroids for now. The patient remains on antibiotic therapy - as per infectious disease. His temperatures have now fully resolved. Input by Hematology/Oncology is also noted. Clinical status of the patient is significantly improved. However, again, his overall status/prognosis does remain guarded. I will discuss the above with the attending physician. Tyrell Newsome MD KEYSHA
--- NOTE | 2017-09-11 11:53 | PN ---
DATE: 09/10/2017 DAILY PROGRESS NOTE I would like the progress note to be read as follows if you would be so kind. SUBJECTIVE: The patient is an 81-year-old male who was admitted to [facility] on 09/03/2017 after suggestion of his airline ticket agent/oncologist after being found to be grossly anemic. He has a history of myelodysplastic disorder, congestive heart failure, diabetes, hypertension, and anemia. He was complaining of shortness of breath on admission, found to have a low hemoglobin around 6. He was transfused with packed red blood cells. He also showed to have a pneumonia on chest x-ray, which appeared different from chronic changes he had had in the past. Procalcitonin was markedly elevated at 23.64. He is being treated with Zosyn, meropenem, and doxycycline. Nasal probe is negative for MRSA. His fingerstick glucoses are being covered on a sliding scale. On 09/09/2017, he was transferred to the Transitional Care Unit where he was seen today. When seen, he is in good spirits. Family is at the bedside. His respirations are easy. He continues to be followed by Dr. Nye, the infectious disease specialist; Dr. Newsome, the gauge inspector; and Dr. Mahajan, the airline ticket agent. PHYSICAL EXAMINATION: LUNGS: Clear bilaterally. HEART: Regular. ABDOMEN: Soft and nontender. LABORATORY DATA: This morning, his white blood cell count was 3.5, hemoglobin and hematocrit are 8.3 and 25.1, and platelets are 114. Sodium is 135, potassium is 3.2, BUN is 26, and creatinine is 0.7. So, we are continuing to follow the patient closely. Encouraging physical therapy, continuing treatment with antibiotics. Thomas Grey MD
--- NOTE | 2017-09-11 23:42 | PN ---
DATE: 09/11/2017 SUBJECTIVE: The patient is in bed, in no acute distress, nontoxic. PHYSICAL EXAMINATION: VITAL SIGNS: Temperature is 98, blood pressure is 108/50, respiratory rate of 18. HEENT: Unremarkable. NECK: Supple. LUNGS: Have decreased breath sounds. HEART: Normal S1 and S2. ABDOMEN: Soft and nontender. LABORATORY DATA: Reveals a white count of 3.5, hemoglobin of 8, and platelets of 114. Chemistries reveal the patient's BUN of 26 and creatinine of 0.7. ASSESSMENT AND PLAN: This is an 81-year-old male with myelodysplastic syndrome, coronary artery disease, congestive heart failure, arthritis, hyperlipidemia, diabetes, hypertension, osteoarthritis, hypothyroidism with severe sepsis, acute kidney injury, bilateral healthcare-associated pneumonia and a procalcitonin is changed from 23.64 to 1.1. Today is day #8 of Maxipime and doxycycline. Overall, the patient is much improved. Shawn Nye MD
[2017-09-12] MEDS: Albuterol-Ipratrop 3 mg / 0.5 (3 ml) UD IH SCH ×4 (01:30→21:23)
[2017-09-12] MEDS: Cefepime 1gm in NS 100ml 1 GM/100 ML BAG IVPB SCH ×2 (05:22→15:00)
[2017-09-12] MEDS: Insulin Reg-LOW-Coverage SC SCH ×4 (06:49→22:14)
[2017-09-12] MEDS: Arformoterol 15 mcg/2 ml Inh Sol IH SCH ×2 (07:20→21:22)
[2017-09-12] MEDS: Budesonide 0.5 mg/2 ml Inhal Susp UD IH SCH ×2 (07:21→21:23)
[2017-09-12] MEDS: Potassium Chloride 10 mEq ER Tab PO SCH ×2 (09:00→17:45)
[2017-09-12] MEDS: Magnesium Chloride 64 mg ER Tab PO SCH (11:00)
--- NOTE | 2017-09-12 12:58 | PN ---
DATE: SUBJECTIVE: The patient appears very comfortable this morning. He is not short of breath at rest. PHYSICAL EXAMINATION: VITAL SIGNS: Temperature is 98.1, pulse 88, respirations 18, blood pressure 108/57. Oxygen saturation on room air is 97%. HEENT: Normocephalic, atraumatic. NECK: No JVD. CARDIOVASCULAR: Systolic ejection murmur at the lower left sternal border. No S3 gallop. LUNGS: Less crackles at the bases. No rhonchi or wheezing this morning. EXTREMITIES: No clubbing, cyanosis, or edema. Calves are nontender to palpation. GI: Abdomen is soft, nontender, and nondistended. Bowel sounds are positive. SKIN: No acute rash. NEUROLOGIC: Limited at the present time. IMPRESSION: 1. Bilateral pneumonia. 2. Mild bronchospasm. 3. Pulmonary fibrosis-lower lobes. 4. Advanced myelodysplastic syndrome. 5. Renal insufficiency. 6. Chronic anemia. PLAN: The patient appears very comfortable this morning. He is not short of breath at rest. He does state to feeling much better overall. On physical exam, his bronchospasm continues to resolve. In addition, the oxygen saturation on room air is now 97%. I will continue with the current nebulizer treatments and decrease the oral steroids this morning. The patient remains on antibiotic therapy-as per Infectious Disease. Clinical status of the patient is significantly improved. However, again, the future status/prognosis for this chronically ill elderly patient, does remain guarded. I will discuss the above with the attending physician. Tyrell Newsome MD KEYSHA
--- NOTE | 2017-09-12 18:43 | CP.PCM.PN ---
Subjective - Date & Time of Evaluation Date of Evaluation: 09/12/17 Time of Evaluation: 11:50 - Subjective Subjective: Comfortable, breathing better, no fevers. Objective - Vital Signs/Intake and Output Vital Signs (last 24 hours): Temp Pulse Resp BP Pulse Ox 98.1 F 88 18 98/50 L 97 09/11/17 18:01 09/12/17 09:00 09/11/17 18:01 09/12/17 09:00 09/11/17 18:01 - Medications Medications: Current Medications Albuterol/Ipratropium (Duoneb 3 Mg/0.5 Mg (3 Ml) Ud) 3 ml IH [id number] DA PRN Reason: Protocol Last Admin: 09/12/17 07:20 Dose: 3 ml Albuterol/Ipratropium (Duoneb 3 Mg/0.5 Mg (3 Ml) Ud) 3 ml IH Q2H PRN; Protocol PRN Reason: Shortness of Breath Arformoterol Tartrate (Brovana) 15 mcg IH [id number] [facility] Last Admin: 09/12/17 07:20 Dose: 15 mcg Atorvastatin Calcium (Lipitor) 10 mg PO 1800 DA PRN Reason: Protocol Last Admin: 09/11/17 17:47 Dose: 10 mg Budesonide (Pulmicort Respules) 0.5 mg IH [id number] DA PRN Reason: Protocol Last Admin: 09/12/17 07:21 Dose: 0.5 mg Carvedilol (Coreg) 3.125 mg PO 0800,1800 DA PRN Reason: Protocol Last Admin: 09/12/17 09:00 Dose: Not Given Clotrimazole (Mycelex Ernestine) 10 mg MT 5XD DA PRN Reason: Protocol Last Admin: 09/12/17 05:22 Dose: Not Given Doxycycline Hyclate (Doryx) 100 mg PO Q12 DA PRN Reason: Protocol Last Admin: 09/11/17 21:28 Dose: 100 mg Gabapentin (Neurontin) 600 mg PO BID DA PRN Reason: Protocol Last Admin: 09/11/17 17:44 Dose: 600 mg Cefepime HCl (Maxipime 1gm) 1 gm in 100 mls @ 100 mls/hr IVPB 0600,1400,2200 DA PRN Reason: Protocol Stop: 09/14/17 14:59 Last Admin: 09/12/17 05:22 Dose: 100 mls/hr Insulin Human Regular (Humulin R Low) 0 units SC ACHS DA PRN Reason: Protocol Last Admin: 09/12/17 06:49 Dose: 1 units Lisinopril (Zestril) 10 mg PO DAILY DA PRN Reason: Protocol Last Admin: 09/11/17 10:27 Dose: 10 mg Magnesium Chloride (Slow-Mag) 64 mg PO DAILY DA PRN Reason: Protocol Last Admin: 09/11/17 10:27 Dose: 64 mg Metformin HCl (Glucophage) 500 mg PO 0730,1200,1700 DA PRN Reason: Protocol Last Admin: 09/12/17 08:30 Dose: 500 mg Potassium Chloride (Klor-Con 10) 10 meq PO 0800,1800 DA PRN Reason: Protocol Last Admin: 09/11/17 17:47 Dose: 10 meq Prednisone (Prednisone Tab) 20 mg PO DAILY DA Zolpidem Tartrate (Ambien) 10 mg PO HS DA PRN Reason: Protocol Last Admin: 09/11/17 21:21 Dose: 10 mg - Labs Labs: 09/10/17 07:15 09/10/17 07:15 - Constitutional Appears: Chronically Ill - Head Exam Head Exam: NORMAL INSPECTION - Respiratory Exam Respiratory Exam: Decreased Breath Sounds - Cardiovascular Exam Cardiovascular Exam: +S1, +S2 - GI/Abdominal Exam GI & Abdominal Exam: Soft. absent: Tenderness Assessment and Plan - Assessment and Plan (Free Text) Plan: Assessment severe sepsis S/P acute renal failure from bilateral healthcare-associated pneumonia myelodysplastic disorder with history of pancytopenia history of bilateral pneumonia coronary artery disease diabetes mellitus history of back surgeries and laminectomy in the past hypothyroidism HTN dyslipidemia ostearthritis Plan on Cefepime and Doxycycline day 9; blood cx are negative; PCT has trended downwards; will d/c antibiotics and observe overall prognosis is poor
[2017-09-13] MEDS: Albuterol-Ipratrop 3 mg / 0.5 (3 ml) UD IH SCH ×4 (01:27→19:53)
[2017-09-13] MEDS: Arformoterol 15 mcg/2 ml Inh Sol IH SCH ×2 (07:18→19:52)
[2017-09-13] MEDS: Budesonide 0.5 mg/2 ml Inhal Susp UD IH SCH ×2 (07:19→19:53)
[2017-09-13] MEDS: Insulin Reg-LOW-Coverage SC SCH ×4 (08:16→22:56)
[2017-09-13] MEDS: Potassium Chloride 10 mEq ER Tab PO SCH ×2 (08:16→17:32)
--- NOTE | 2017-09-13 09:05 | PN ---
DATE: 09/13/2017 PULMONARY NOTE SUBJECTIVE: The patient appears very comfortable this morning. He is not short of breath at rest. PHYSICAL EXAMINATION VITAL SIGNS: (Last noted in the computer): Temperature is 97.8, pulse 95, respirations 18, blood pressure 106/61. Oxygen saturation on room air is 98%. HEENT: Normocephalic, atraumatic. No JVD. CARDIOVASCULAR: Systolic ejection murmur at the lower left sternal border. No S3 gallop. LUNGS: Less/minimal crackles at the bases. No rhonchi or wheezing. EXTREMITIES: No clubbing, cyanosis or edema. Calves are nontender to palpation. GI: Abdomen is soft, nontender and nondistended. Bowel sounds are positive. SKIN: No acute rash. NEUROLOGIC: Limited at the present time. IMPRESSION: 1. Bilateral pneumonia. 2. Mild bronchospasm. 3. Pulmonary fibrosis - lower lobes. 4. Advanced myelodysplastic syndrome. 5. Renal insufficiency. 6. Chronic anemia. PLAN: The patient appears very comfortable this morning. He is not short of breath at rest. He does state to feeling much, much better overall. On physical exam, his bronchospasm continues to resolve. In addition, the oxygen saturation on room air is now 98%. I will continue the current nebulizer treatments and low-dose oral steroids (decreased yesterday) for now. I would continue with the antibiotic therapy as per infectious disease. Input by Dr. Gimenez is noted. Clinical status of the patient is significantly improved. However, again, the future status/prognosis for this chronically ill elderly patient does remain guarded. I will discuss the above with the attending physician. Tyrell Newsome MD KEYSHA
--- NOTE | 2017-09-13 10:44 | PN ---
DATE: 09/12/2017 SUBJECTIVE: The patient was seen this Friday morning in room 313, bed 1, resting comfortably in bed, in no acute distress. Clinical condition looks markedly improved from the time of admission. He is in good spirits, feeling well, ambulating much better,afebrile, eating well and in good spirits. PLAN: Continue physical therapy and antibiotics to end soon as per Infectious Disease security and privacy consultant. While here in TCU, we will follow closely. Sidney Grey MD MTDKika
[2017-09-13] MEDS: Magnesium Chloride 64 mg ER Tab PO SCH (10:51)
--- NOTE | 2017-09-13 12:15 | RAD ---
HISTORY: COMPARISON: 09/03/2017 TECHNIQUE: Chest PA and lateral FINDINGS: LINES AND TUBES: None. LUNG AND PLEURA: There is interval improved aeration in the lungs with persistent airspace disease in both lower lobes. Suspect small pleural effusions. No pneumothorax. HEART AND MEDIASTINUM: The heart is not enlarged. The hilar and mediastinal contours are within normal limits. SKELETAL STRUCTURES: The bony structures are within normal limits for the patient's age. VISUALIZED UPPER ABDOMEN: Normal. OTHER FINDINGS: None. IMPRESSION: Improving bilateral lower lobe presumable pneumonia.
--- NOTE | 2017-09-13 23:58 | PN ---
DATE: 09/13/2017 SUBJECTIVE: The patient is in bed, in no acute distress, nontoxic. PHYSICAL EXAMINATION: VITAL SIGNS: Temperature is 97, blood pressure is 112/50, respiratory rate of 21, and heart rate of 82. HEENT: Unremarkable. NECK: Supple. LUNGS: Have decreased breath sounds. HEART: Normal S1 and S2. ABDOMEN: Soft. LABORATORY EXAMINATION: Reveals a white count of 3.5, hemoglobin of 8, and platelets of 114. Chemistries are noted, BUN of 26 and creatinine of 0.7. Microbiology is noted. The patient had a chest x-ray this morning, which showed improving bilateral lower lobe, presumably pneumonia. ASSESSMENT AND PLAN: This is an 81-year-old male with myelodysplastic syndrome, and admitted with severe sepsis with acute kidney injury from healthcare-associated pneumonia, myelodysplastic disorder, history of pancytopenia, coronary artery disease, and day #10 of antibiotics. The patient has received Maxipime and doxycycline. Currently now, the patient is off of antibiotics, afebrile, doing well. Shawn Nye MD
[2017-09-14] MEDS: Albuterol-Ipratrop 3 mg / 0.5 (3 ml) UD IH SCH ×4 (02:39→19:24)
[2017-09-14] MEDS: Insulin Reg-LOW-Coverage SC SCH ×4 (07:19→22:13)
[2017-09-14] MEDS: Budesonide 0.5 mg/2 ml Inhal Susp UD IH SCH ×2 (07:27→19:24)
[2017-09-14] MEDS: Arformoterol 15 mcg/2 ml Inh Sol IH SCH ×2 (07:27→19:24)
[2017-09-14 08:24] LABS: EOS % 0.3 % (1.5-5.0); GRAN # 0.95 (1.4-6.5); GRAN % 23.9 % (50.0-68.0); HEMOGLOBIN 8.1 g/dL (14.0-18.0); LYMPH # 2.9 (1.2-3.4); LYMPH % 73.5 % (22.0-35.0); MEAN CELL VOLUME 92.5 fl (80.0-105.0); MEAN CORPUSCULAR HEMOGLOBIN 30.2 pg (25.0-35.0); MEAN CORPUSCULAR HGB CONC 32.7 g/dl (31.0-37.0); MEAN PLATELET VOLUME 8.5 fl (7.0-11.0); MONO # 0.1 (0.1-0.6); MONO % 2.3 % (1.0-6.0); PLATELET COUNT 107 10^3/uL (120.0-450.0); RBC 2.68 10^6/uL (3.5-6.1); RED CELL DISTRIBUTION WIDTH 17.1 % (11.5-14.5)
[2017-09-14] MEDS: Potassium Chloride 10 mEq ER Tab PO SCH ×2 (08:29→17:19)
[2017-09-14 09:06] LABS: ALB/GLOB RATIO 0.8 (1.1-1.8); ALBUMIN 2.8 g/dL (3.0-4.8); ALT/SGPT 29 U/L (7-56); AST/SGOT 18 U/L (17-59); BLOOD UREA NITROGEN 25 mg/dL (7-21); CALCIUM 9.3 mg/dL (8.4-10.5); GFR AFRICAN-AMERICAN > 60; GFR NON-AFRICAN AMERICAN > 60; MAGNESIUM 1.6 mg/dL (1.7-2.2)
[2017-09-14 10:28] LABS: LYMPHOCYTE 75 % (22.0-35.0); MONOCYTE 2 % (1.0-6.0); NEUTROPHIL 23 % (50.0-70.0)
[2017-09-14] MEDS: Magnesium Chloride 64 mg ER Tab PO SCH (10:51)
--- NOTE | 2017-09-14 11:23 | PN ---
DATE: 09/13/2017 SUBJECTIVE: The patient was seen this Friday morning on Transitional Care Unit in room 313, bed 2. He is awake, alert, clear, comfortable, and markedly improved from his initial presentation. His pneumonia is clearing nicely. Notes by Infection Disease, Pulmonary and Hematology are appreciated. PHYSICAL EXAMINATION: LUNGS: Show good aeration. EXTREMITIES: No edema. PLAN: We will continue antibiotics. Check H and H. Discontinue the Mycelex Troches. Check that he is not on any diuretics because he seems to a bit dry with dry mouth. At the patient's request and his medications at home, we will decrease the Lipitor to every other day. Continue physical therapy and strengthening. We will follow closely. We will look forward to ambulation and a followup chest x-ray to document the improvement of the infiltrates. Sidney Grey MD KEYSHA
--- NOTE | 2017-09-14 16:42 | PN ---
DATE: 09/14/2017 SUBJECTIVE: The patient is seen in room 313 this morning. He is doing well. No fevers OR chills. He is feeling stronger. PHYSICAL EXAMINATION: VITAL SIGNS: Temperature is 97, blood pressure is 112/50, respiratory rate of 21, heart rate of 82. HEENT: Unremarkable. NECK: Supple. LUNGS: Have decreased breath sounds. HEART: Normal S1, S2. ABDOMEN: Soft, nontender. LABORATORY DATA: Reveals a white count of 4.0 with a hemoglobin of 8 and platelets of 107. BUN of 25, creatinine of 0.7. A chest x-ray is noted, improved aeration. Review of orders reveals the patient is off of antibiotics at this time. The patient is on prednisone. ASSESSMENT AND PLAN: This is an 81-year-old male with a history of myelodysplastic syndrome, admitted with severe sepsis, acute kidney injury, and healthcare-associated pneumonia with pancytopenia, coronary artery disease. Completed 10 days of antibiotics of Maxipime and doxycycline, currently off of antibiotics, afebrile, on prednisone. The patient is at risk for developing nosocomial infections. If possible, would discontinue heparin lock to minimize nosocomial complications. Shawn Nye MD
--- NOTE | 2017-09-14 22:48 | PN ---
DATE: 09/14/2017 SUBJECTIVE: The patient was seen this Friday morning in the Transitional Care Unit, room 313, bed 2. Yesterday, I was able to watch him ambulate in the shannon and today as well, he is doing quite well, ambulating without difficulty, although he does get tired after walking the length of the shannon. PHYSICAL EXAMINATION: Remainder of physical exam is unremarkable. ASSESSMENT AND PLAN: Hematology followup is appreciated. We will continue heme followup by . Injection of Aranesp/erythropoietin as they see indicated. He is currently off antibiotics and being followed by Infectious Disease, having completed a prolonged [facility] and finished here on [facility]. We will follow closely. Chest x-ray shows improvement of the infiltrate. Sidney Grey MD
[2017-09-15] MEDS: Albuterol-Ipratrop 3 mg / 0.5 (3 ml) UD IH SCH ×3 (07:17→21:15)
[2017-09-15] MEDS: Arformoterol 15 mcg/2 ml Inh Sol IH SCH ×2 (07:17→21:15)
[2017-09-15] MEDS: Budesonide 0.5 mg/2 ml Inhal Susp UD IH SCH ×2 (07:17→21:15)
[2017-09-15] MEDS: Insulin Reg-LOW-Coverage SC SCH ×4 (07:38→21:44)
[2017-09-15] MEDS: Potassium Chloride 10 mEq ER Tab PO SCH ×2 (08:20→17:45)
--- NOTE | 2017-09-15 08:20 | PN ---
DATE: 09/15/2017 PULMONARY PROGRESS NOTE SUBJECTIVE: The patient appears very comfortable this morning. He is not short of breath at rest. PHYSICAL EXAMINATION: VITAL SIGNS: (Last noted in the computer): Temperature is 98.5, pulse is 68, respirations are 18, and blood pressure is 121/67. Oxygen saturation on room air is 97%. HEENT: Normocephalic and atraumatic. NECK: No JVD. CARDIOVASCULAR: Systolic ejection murmur at the lower left sternal border. No S3 gallop. LUNGS: Less/minimal crackles at the bases. No rhonchi. No wheezing. EXTREMITIES: No clubbing, cyanosis or edema. Calves are nontender to palpation. EXTREMITIES: Mild edema. No cyanosis and no clubbing. Calves are nontender to palpation. GASTROINTESTINAL: Abdomen is soft, nontender and nondistended. Bowel sounds are positive. SKIN: No acute rash. NEUROLOGIC: Exam is limited at the present time. PERTINENT LABORATORY DATA Pertinent laboratory data: Chest x-ray was repeated on 09/13/2017 and reviewed. The most current chest film shows definite improvement-- with decreased infiltrates in both lower lobes. IMPRESSION 1. Bilateral pneumonia. 2. Mild bronchospasm. 3. Pulmonary fibrosis - lower lobes. 4. Advanced myelodysplastic syndrome. 5. Renal insufficiency. 6. Chronic anemia. PLAN: The patient appears very comfortable this morning. He is not short of breath at rest. He does state to feeling much better overall. On physical exam, there is no significant bronchospasm noted. In addition, the oxygen saturation on room air is now 97%. I will continue the current nebulizer treatments and low-dose oral steroids (decreased by Dr. Grey) for now. The patient is now off antibiotic therapy - as per Infectious Diseases. Repeat chest x-ray shows definite improvement. Clinical status of the patient is significantly improved - compared to the initial presentation. However, again, the future status/prognosis for this chronically ill elderly patient does remain guarded. I will discuss the above with Dr. Grey. Tyrell Newsome MD KEYSHA
--- NOTE | 2017-09-15 09:07 | PN ---
DATE: 09/13/2017 LOCATION: The patient is in the [facility], room number 313-02 SUBJECTIVE: Juan Jose has MDS and was admitted with pleuritic chest pain. Pulmonary consultation revealed bilateral pneumonia and bibasilar fibrosis. The patient received Aranesp on 09/10/2017, 100 mcg subcutaneously. He remains on nebulizers, steroids and his antibiotics cefepime and Doxil were discontinued yesterday. He states he is coming along in physical therapy and walked the entire length of the shannon with much improved dyspnea. He denied fevers, chills, cough and chest pain. CURRENT MEDICATIONS: Ambien, Brovana, Coreg, Duoneb, Glucophage, Humulin, Klor-Con, Lipitor, Neurontin, prednisone 10 mg daily, budesonide, Slow-Mag, lisinopril 10 mg daily, Ambien 10 mg at bedtime p.r.n., doxycycline discontinued yesterday and Lipitor, and Maxipime discontinued yesterday. ALLERGIES: NO KNOWN ALLERGIES. REVIEW OF SYSTEMS: The patient denies headache and change in vision. He has dry mouth. He states the nystatin did not help the dry sensation in his mouth. No dysphagia, odynophagia, nausea, vomiting, chest pain, shortness of breath, abdominal bloating pain, indigestion, nausea, vomiting or diarrhea. During he is somewhat constipated, no flank pain, no dysuria, fever, or chills. No focal weakness. No skin rashes or irritations. PHYSICAL EXAMINATION: VITAL SIGNS: Temperature is 97.8, pulse is 95, blood pressure is 106/61, respiratory rate is 18, and O2 saturation is 98% on room air. GENERAL: The patient is lying in bed, in no acute distress, in good spirits and in no distress. Awake, alert and oriented x3. HEENT: Mucous membranes pink. Mouth is dry. There is no evidence of mucositis. NECK: No adenopathy of the head and neck. CARDIAC: Regular rhythm. LUNGS: Have bilateral rales at the bases. No rhonchi or wheezing. ABDOMEN: Round, soft, and nontender. No masses and no guarding. EXTREMITIES: No cyanosis, clubbing, or edema, turgor increased slightly. NEUROLOGICAL: Extremities are Warm. No rigors or tremors and no focal weakness. Speech is normal and affect is normal. LABORATORY DATA: On 09/10/2017, white count of 3.5, hemoglobin of 8.3, and platelets of 114,000. Glucose yesterday was 195 and 280 max. The patient has not had recent chemistries. Last chemistry on 09/10/2017 showed low potassium of 3.2, BUN of 26, and creatinine of 0.7. IMPRESSION: Juan Jose Persaud is an 81-year-old male with myelodysplastic syndrome and associated chronic anemia, admitted with pleuritic chest pain, and bilateral pneumonia. He has pulmonary fibrosis at the bases noted. The patient had full course of antibiotics initially with Rocephin, cefepime and Doxil. He received Aranesp 100 mcg subcutaneous on 09/10/2017. PLAN: Continue to monitor his progress. The patient is due for Aranesp on 09/18/2017. He receives Procrit in the office with Dr. Rasmussen who he will be following up with. The patient making progress with physical therapy and clinically improved. Dr. Rasmussen and Dr. Guillermo Mahajan will resume Mr. Persaud's care on 09/15/[address]. [address] Lu covering for Dr. Rasmussen and Dr. Guillermo Mahajan. Chloe Lu MD cc: MD Guillerom Coelho MD
[2017-09-15] MEDS: Magnesium Chloride 64 mg ER Tab PO SCH (10:14)
--- NOTE | 2017-09-15 18:42 | CP.PCM.PN ---
Subjective - Date & Time of Evaluation Date of Evaluation: 09/15/17 Time of Evaluation: 11:35 - Subjective Subjective: Comfortable, no fevers. Objective - Vital Signs/Intake and Output Vital Signs (last 24 hours): Temp Pulse Resp BP Pulse Ox 98.5 F 84 18 101/55 L 97 09/14/17 16:00 09/15/17 08:20 09/14/17 16:00 09/15/17 08:20 09/14/17 16:00 - Medications Medications: Current Medications Albuterol/Ipratropium (Duoneb 3 Mg/0.5 Mg (3 Ml) Ud) 3 ml IH [id number] DA PRN Reason: Protocol Last Admin: 09/15/17 07:17 Dose: 3 ml Albuterol/Ipratropium (Duoneb 3 Mg/0.5 Mg (3 Ml) Ud) 3 ml IH Q2H PRN; Protocol PRN Reason: Shortness of Breath Arformoterol Tartrate (Brovana) 15 mcg IH [id number] [facility] Last Admin: 09/15/17 07:17 Dose: 15 mcg Atorvastatin Calcium (Lipitor) 10 mg PO MWF DA PRN Reason: Protocol Budesonide (Pulmicort Respules) 0.5 mg IH [id number] DA PRN Reason: Protocol Last Admin: 09/15/17 07:17 Dose: 0.5 mg Carvedilol (Coreg) 3.125 mg PO 0800,1800 DA PRN Reason: Protocol Last Admin: 09/15/17 08:20 Dose: 3.125 mg Gabapentin (Neurontin) 600 mg PO BID DA PRN Reason: Protocol Last Admin: 09/14/17 17:20 Dose: 600 mg Insulin Human Regular (Humulin R Low) 0 units SC ACHS DA PRN Reason: Protocol Last Admin: 09/15/17 07:38 Dose: 1 units Lisinopril (Zestril) 10 mg PO DAILY DA PRN Reason: Protocol Last Admin: 09/14/17 10:52 Dose: 10 mg Magnesium Chloride (Slow-Mag) 64 mg PO DAILY DA PRN Reason: Protocol Last Admin: 09/14/17 10:51 Dose: 64 mg Metformin HCl (Glucophage) 500 mg PO 0730,1200,1700 DA PRN Reason: Protocol Last Admin: 09/15/17 08:19 Dose: 500 mg Potassium Chloride (Klor-Con 10) 10 meq PO 0800,1800 DA PRN Reason: Protocol Last Admin: 09/15/17 08:20 Dose: 10 meq Prednisone (Prednisone Tab) 10 mg PO 0800 DA Last Admin: 09/15/17 08:20 Dose: 10 mg Zolpidem Tartrate (Ambien) 10 mg PO HS PRN; Protocol PRN Reason: Insomnia Last Admin: 09/14/17 22:13 Dose: 10 mg - Labs Labs: 09/14/17 07:45 09/14/17 07:45 - Constitutional Appears: Chronically Ill - Head Exam Head Exam: NORMAL INSPECTION - Respiratory Exam Respiratory Exam: Decreased Breath Sounds - Cardiovascular Exam Cardiovascular Exam: +S1, +S2 - GI/Abdominal Exam GI & Abdominal Exam: Soft. absent: Tenderness Assessment and Plan - Assessment and Plan (Free Text) Plan: Assessment S/P severe sepsis S/P acute renal failure from bilateral healthcare-associated pneumonia myelodysplastic disorder with history of pancytopenia history of bilateral pneumonia coronary artery disease diabetes mellitus history of back surgeries and laminectomy in the past hypothyroidism HTN dyslipidemia ostearthritis Plan will continue to monitor off antibiotics since he is at risk for nosocomial infections overall prognosis is poor
[2017-09-16] MEDS: Albuterol-Ipratrop 3 mg / 0.5 (3 ml) UD IH SCH ×4 (01:38→21:53)
[2017-09-16] MEDS: Insulin Reg-LOW-Coverage SC SCH ×4 (06:44→23:37)
--- NOTE | 2017-09-16 07:18 | PN ---
DATE: 09/16/2017 PULMONARY NOTE SUBJECTIVE: The patient appears very comfortable this morning. He is not short of breath at rest. PHYSICAL EXAMINATION VITAL SIGNS (Last noted in the computer): Temperature is 97.3, pulse 80, respirations 18/20, blood pressure 104/64. Oxygen saturation on room air is 97%. HEENT: Normocephalic, atraumatic. No JVD. CARDIOVASCULAR: Systolic ejection murmur at the lower left sternal border. No S3 gallop. LUNGS: Minimal crackles at the bases. No rhonchi. No wheezing. EXTREMITIES: No clubbing, cyanosis or edema. Calves are nontender to palpation. GI: Abdomen is soft, nontender and nondistended. Bowel sounds are positive. SKIN: No acute rash. NEUROLOGIC: Limited at the present time. IMPRESSION: 1. Bilateral pneumonia. 2. Mild bronchospasm. 3. Pulmonary fibrosis - lower lobes. 4. Advanced myelodysplastic syndrome. 5. Renal insufficiency. 6. Chronic anemia. PLAN: The patient appears very comfortable this morning. He is not short of breath at rest. He does state to feeling much better overall. On physical exam, his bronchospasm has primarily resolved. In addition, the oxygen saturation on room air is now 97%. I will continue the current nebulizer treatments and very low-dose oral steroids for now. The patient remains off antibiotic therapy - as per Infectious Disease. Input by Dr. Gimenez is noted. There are no temperatures noted. There is no leukocytosis. Clinical status of the patient is significantly improved - compared to the initial presentation. However, again, the future status/prognosis for this chronically ill elderly patient - does remain guarded. I will discuss the above with Dr. Grey. Tyrell Newsome MD MTDD
[2017-09-16] MEDS: Arformoterol 15 mcg/2 ml Inh Sol IH SCH ×2 (07:26→21:53)
[2017-09-16] MEDS: Budesonide 0.5 mg/2 ml Inhal Susp UD IH SCH ×2 (07:26→21:53)
[2017-09-16] MEDS: Potassium Chloride 10 mEq ER Tab PO SCH ×2 (09:28→17:06)
[2017-09-16] MEDS: Magnesium Chloride 64 mg ER Tab PO SCH (09:29)
[2017-09-16 11:17] VITALS: RESP 18; O2SAT 96
[2017-09-16 16:32] VITALS: TEMP 98.4
--- NOTE | 2017-09-16 21:35 | PN ---
DATE: 09/16/2017 SUBJECTIVE: The patient seen in bed, in no acute distress, nontoxic. PHYSICAL EXAMINATION VITAL SIGNS: Temperature is 98, blood pressure is 100/40, respiratory rate 18, heart rate of 60. HEENT: Unremarkable. NECK: Supple. LUNGS: Have decreased breath sounds. HEART: Normal S1, S2. ABDOMEN: Soft, nontender. LABORATORY DATA: Reveals a white count of 4, hemoglobin of 8, platelets of 107. Chemistries revealed the patient to have a BUN of 25, creatinine of 0.7. ASSESSMENT AND PLAN: This is an 81-year-old male with severe sepsis, status post acute renal failure, bilateral healthcare-associated pneumonia, myelodysplastic disorder, history of pancytopenia, history of bilateral pneumonia, coronary artery disease, diabetes mellitus, history of back surgery. Currently off of antibiotics with a history of hypertension, dyslipidemia and osteoarthritis. Review of orders reveals the patient had completed the antibiotic and is doing well. The patient is on prednisone. We will follow with you. Shawn Nye MD
[2017-09-17] MEDS: Albuterol-Ipratrop 3 mg / 0.5 (3 ml) UD IH SCH ×3 (03:00→13:25)
[2017-09-17] MEDS: Insulin Reg-LOW-Coverage SC SCH ×2 (06:54→12:30)
--- NOTE | 2017-09-17 07:10 | PN ---
DATE: 09/16/2017 SUBJECTIVE: The patient was seen this Friday morning in room 313 in Transitional Care Unit. He continues to engage in activities in the unit and ambulating in [place]. He is looking to gain some weight as there has been approximately 15 pound weight loss during these recent episodes of pneumonia. I spoke with the delinquent tax collector at the bedside. We will increase his diet to a regular diet. carbohydrate restrictions allowing for increase calories and some weight gain. He is feeling well with ambulation and ready for discharge tomorrow. Sidney Grey MD
[2017-09-17] MEDS: Arformoterol 15 mcg/2 ml Inh Sol IH SCH (07:18)
[2017-09-17] MEDS: Budesonide 0.5 mg/2 ml Inhal Susp UD IH SCH (07:18)
--- NOTE | 2017-09-17 07:38 | PN ---
DATE: 09/17/2017 PULMONARY NOTE SUBJECTIVE: The patient appears very comfortable this morning. He is not short of breath at rest. OBJECTIVE: VITALS: Temperature is 98.4, pulse 88, respirations 18, last blood pressure recorded 98/54. Oxygen saturation on room air is 96%. HEENT: Normocephalic, atraumatic. No JVD. CARDIOVASCULAR: Systolic ejection murmur at the lower left sternal border. No S3 gallop. LUNGS: Minimal/less crackles at the bases. Otherwise clear. EXTREMITIES: No clubbing, cyanosis or edema. Calves are nontender to palpation. GI: Abdomen is soft, nontender and nondistended. Bowel sounds are positive. SKIN: No acute rash. NEUROLOGIC: Limited at the present time. IMPRESSION: 1. Bilateral pneumonia. 2. Mild bronchospasm. 3. Pulmonary fibrosis - lower lobes. 4. Advanced myelodysplastic syndrome. 5. Renal insufficiency. 6. Chronic anemia. PLAN: The patient appears very comfortable this morning. He is not short of breath at rest. He does state to feeling much, much better overall. On physical exam, his bronchospasm has resolved. In addition, the oxygen saturation on room air is now 96%. I will continue with the current nebulizer treatments and discontinue the oral steroids for now. The patient remains off antibiotic therapy. Input by Dr. Nye is noted. There are no temperatures noted. There is no leukocytosis. Clinical status of the patient is significantly improved overall. However, the future status/prognosis for this chronically ill elderly patient, does remain somewhat guarded. I will discuss the above with the attending physician. Tyrell Newsome MD KEYSHA
[2017-09-17] MEDS: Potassium Chloride 10 mEq ER Tab PO SCH (08:23)
[2017-09-17 08:26] VITALS: BP 96/48; PULSE 85
[2017-09-17] MEDS: Magnesium Chloride 64 mg ER Tab PO SCH (11:00)
--- NOTE | 2017-09-17 13:52 | PN ---
DATE: 09/17/2017 SUBJECTIVE: The patient is lying in bed, denies any acute complaints. He still feels fatigued, but otherwise, overall, much better. He has also lost a significant amount of weight since the last visit with me. PHYSICAL EXAMINATION: VITAL SIGNS: Stable with a temperature of 98.4, pulse of 85, respiratory rate of 18, and blood pressure 96/48. GENERAL: The patient is an elderly thin-appearing male, lying in bed, in no acute distress. HEENT: Normocephalic, atraumatic. Eyes: Pupils, equal, round, reactive to light and accommodation. Extraocular muscles intact. There is some pallor. No trismus noted. NECK: Supple with no adenopathy, no JVD, no thyromegaly. LUNGS: Clear to auscultation bilaterally with no rales or rhonchi. CARDIOVASCULAR: S1, S2 heard. ABDOMEN: Positive bowel sounds, soft, nontender, nondistended. No organomegaly is palpated. EXTREMITIES: There is no edema, clubbing, or cyanosis. LABORATORY DATA: His labs reveal a white count of 4.0, hemoglobin 8.1, hematocrit of 24.8, and a platelet count of 107. His chemistries are within normal limits. He had a CT chest done on 08/29/2017 which revealed bilateral infiltrates with extensive consolidation in both lungs, scattered mediastinal lymph nodes as well as 17 mm subcarinal lymph node, additionally, mildly enlarged right paratracheal lymph nodes, but no pulmonary embolus. ASSESSMENT AND PLAN: Elderly male with pancytopenia, prior bone marrow has been negative for any lymphoma, but now,he has new lymphadenopathy, significant anemia as well as lymphocytosis. We will need a repeat bone marrow as an outpatient. Discussed with the patient at length. We will hold off on PRBC transfusion at this point. Arrange for bone marrow evaluation as well as a PET scan as an outpatient. Thank you for the consult. We will follow. Vish Rasmussen MD
--- NOTE | 2017-09-17 23:54 | PN ---
DATE: 09/17/2017 SUBJECTIVE: The patient was seen early this morning in room 313. He is awake and alert, anxious about going home. PHYSICAL EXAMINATION: VITAL SIGNS: Temperature is 98, blood pressure is 120/70, respiratory rate 16. HEENT: Examination of HEENT is unremarkable. NECK: Supple. LUNGS: Have decreased breath sounds. HEART: Normal S1 and S2. ABDOMEN: Soft, nontender. LABORATORY EXAMINATION: Reveals a white count of 4 and the chemistries are noted. ASSESSMENT AND PLAN: He is an 81-year-old male with severe sepsis, status post acute renal failure, bilateral healthcare-associated pneumonia, myelodysplastic disorder, history of pancytopenia, history of bilateral pneumonia, coronary artery disease, diabetes mellitus, history of back surgery. Currently off of antibiotics. The patient for possible discharge today. Shawn Nye MD
== END 2017-09-17 14:36 | disposition home health service (06) | DRG 945 ==
LOC: TRCU 16:06
PROVIDERS: ADMIT Internal Medicine; ATTEND Internal Medicine
PROC: 3E0F7GC Introduction of Other Therapeutic Substance into Respiratory Tract, Via Natural or Artificial Opening (ICD-10-PCS; 2017-09-09)
PROC: F07Z9ZZ Gait Training/Functional Ambulation Treatment (ICD-10-PCS; principal; 2017-09-10)
PROC: F08Z4ZZ Home Management Treatment (ICD-10-PCS; 2017-09-10)
DX: R53.1 Weakness (principal); J18.9 Pneumonia, unspecified organism; A41.9 Sepsis, unspecified organism; R65.20 Severe sepsis without septic shock; D46.9 Myelodysplastic syndrome, unspecified; D61.818 Other pancytopenia; I11.0 Hypertensive heart disease with heart failure; J84.10 Pulmonary fibrosis, unspecified; I50.9 Heart failure, unspecified; E11.9 Type 2 diabetes mellitus without complications; I25.10 Atherosclerotic heart disease of native coronary artery without angina pectoris; E78.5 Hyperlipidemia, unspecified; E03.9 Hypothyroidism, unspecified; Y95 Nosocomial condition; J98.01 Acute bronchospasm; D72.820 Lymphocytosis (symptomatic); R59.1 Generalized enlarged lymph nodes; M19.90 Unspecified osteoarthritis, unspecified site

== ENCOUNTER 2018-08-27 13:38 | Outpatient (CLI) | payer MEDICARE, BC | END 2018-08-27 13:39 | disposition home or self-care (01) | LOC: RAD 13:38 ==

== ENCOUNTER 2018-10-29 09:36 | Outpatient (CLI) | payer MEDICARE, BC | END 2018-10-29 09:37 | disposition home or self-care (01) | LOC: PAT 09:36 ==

== ENCOUNTER 2018-11-12 06:54 | Day surgery (SDC) | payer MEDICARE, BC ==
[2018-11-12] MEDS ORDERED: Bupivacaine 0.5% 50 ML IJ ONE (07:23)
[2018-11-12] MEDS ORDERED: Bacitracin Ointment 30 GM TUBE ONE (07:43)
[2018-11-12 08:21] VITALS: BMI 26.5
[2018-11-12] MEDS ORDERED: Propofol 10 mg/ml Inj (20 ML) ONE (08:23)
[2018-11-12] MEDS ORDERED: Etomidate 20 mg/10ml Inj IV ONE (08:23)
[2018-11-12] MEDS ORDERED: Silver Sulfadiazine 1% Cream (25 gm) TP ONE (09:00)
[2018-11-12] MEDS ORDERED: Morphine 2 mg/ml ISec IVP PRN (09:13)
[2018-11-12] MEDS ORDERED: Lactated Ringer's 1,000 ML IV SCH (09:15)
[2018-11-12 10:35] VITALS: O2SAT 96
[2018-11-12 11:36] VITALS: BP 141/77; PULSE 70; RESP 20; TEMP 97.7
--- NOTE | 2018-11-12 12:49 | OP ---
PROCEDURE DATE: 11/12/2018 PREOPERATIVE DIAGNOSIS: Multiple penile lesions. POSTOPERATIVE DIAGNOSIS: Multiple penile lesions. PROCEDURE: Penile biopsy and CO2 laser ablation of penile lesions. SURGEON: Zbigniew Blair MD TYPE OF ANESTHESIA: General. SPECIMENS: Penile biopsy was sent to Pathology. DRAINS: None. COMPLICATIONS: There were none. OPERATIVE FINDINGS: After informed consent was obtained, the patient was taken to the operating room, placed on operating table. Anesthesia was administered. The patient was then prepped and draped in usual sterile fashion. The patient received IV antibiotics prior to start of the procedure. On exam, the patient has clusters of multiple dark pigmented lesions, most likely condyloma. 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 The opening is surrounded by darkly pigmented lesions. There are few other scattered smaller lesions on the distal penile shaft. 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 There are few small lesions also at the base of the penis and the suprapubic region. First, a punch biopsy was taken using the punch biopsy tool of one of the lesions in the darkly pigmented adjacent to the area, which was surrounding the urethral meatus. The biopsy specimen was removed and sent to Pathology as specimen. The base of the biopsy site was then cauterized using electrocautery. There was complete hemostasis. After the biopsy was performed, the CO2 laser was then infused at a setting of 3 and 4 wylie to ablate all the visible lesions. Care was taken to avoid ablation on the urethral meatus. A border of the lesions was demarcated using the laser and then the laser was used to fulgurate and vaporize any of the lesions and the pigmented areas down into the appropriate depth of the skin. After the larger confluence of lesions was ablated, the laser was then used to remove any remaining lesions on the penile shaft in the suprapubic area. Final inspection was then made. There was complete hemostasis. There were no remaining suspicious lesions noted and at this point sterile Silvadene cream was applied to all the ablation sites and the procedure was complete. The patient tolerated the procedure well. He was taken to the recovery room in awake and stable condition. Zbigniew Blair MD [facility] # [id number]
== END 2018-11-12 11:15 | disposition home or self-care (01) ==
LOC: SDS 06:54
PROVIDERS: ATTEND Urology
DX: D07.4 Carcinoma in situ of penis (principal); A63.0 Anogenital (venereal) warts; I10 Essential (primary) hypertension; E11.9 Type 2 diabetes mellitus without complications

== ENCOUNTER 2018-12-04 12:10 | Outpatient (CLI) | payer MEDICARE, BC | END 2018-12-04 12:11 | disposition home or self-care (01) | LOC: RAD 12:10 ==

== ENCOUNTER 2018-12-07 19:05 | Inpatient (IN) | payer MEDICARE, BC ==
[2018-12-07 19:02] LABS: BASO # 0.01 {null, K/mm3} (0.0-2.0); BASO % 0.1 % (0.0-3.0); EOS % 0.2 % (1.5-5.0); HEMOGLOBIN 10.3 g/dL (14.0-18.0); LYMPH # 1.5 (1.2-3.4); LYMPH % 17.5 % (22.0-35.0); MEAN CORPUSCULAR HEMOGLOBIN 32.6 pg (25.0-35.0); MEAN CORPUSCULAR HGB CONC 32.6 g/dl (31.0-37.0); MEAN PLATELET VOLUME 8.9 fl (7.0-11.0); MONO # 0.4 (0.1-0.6); MONO % 4.1 % (1.0-6.0); RBC 3.16 {null, 10^6/uL} (3.5-6.1); RED CELL DISTRIBUTION WIDTH 14.1 % (11.5-14.5); WHITE BLOOD COUNT 8.5 {null, 10^3/uL} (4.5-11.0)
[2018-12-07] MEDS ORDERED: Sodium Chloride 0.9% 500 ML IV STA (19:09)
[2018-12-07 19:12] LABS: INR 1.25; PARTIAL THROMBOPLASTIN TIME 35.6 Seconds (26.9-38.3); PROTHROMBIN TIME 13.9 SECONDS (9.4-12.5)
[2018-12-07 19:13] LABS: ALBUMIN 3.4 g/dL (3.0-4.8); ALT/SGPT 55 U/L (7-56); AST/SGOT 28 U/L (17-59); BLOOD UREA NITROGEN 42 mg/dL (7-21); GFR NON-AFRICAN AMERICAN > 60
--- NOTE | 2018-12-07 19:13 | ED PDOC ---
Arrival/HPI - General Chief Complaint: Abdominal Pain Historian: Patient - History of Present Illness Narrative History of Present Illness (Text): 12/07/18 19:10 83 year old male, with past medical history of diabetes, hypertension, anemia, myelodysplastic disorder, CHF, s/p cholecystectomy, brought into the emergency department for evaluation of RUQ pain with nausea, vomiting and constipation. Patient reports that the pain and constipation has been present x 5 days, on the first day he had nausea and vomiting. Patient also adds that he has been having dyspnea as well for the past few days. Denies any fever, chills, URI, CP, back pain, leg swelling, recent travel, or any other complaints. PMD: Dr. Sidney Grey Section Leader: Dr. Gibbs Past Medical History - Infectious Disease Hx of Infectious Diseases: None - Tetanus Immunization Tetanus Immunization: Unknown - Cardiac Hx Cardiac Disorders: Yes (cardiac stent) Hx Angina: Yes Hx Congestive Heart Failure: Yes Hx Hypertension: Yes Hx Peripheral Edema: Yes (NOT AT PRESENT) Other/Comment: CAD - Pulmonary Hx Respiratory Disorders: Yes Hx Pneumonia: Yes (NOVEMBER 2017) - Neurological Hx Neurological Disorder: Yes Other/Comment: Peripheral neuropathy - HEENT Hx HEENT Disorder: Yes Hx Cataracts: Yes (LEFT IOL) Other/Comment: double vision since last admission in early Aug 2013 - Renal Hx Renal Disorder: Yes (RENAL INSUFFICIENCY) - Endocrine/Metabolic Hx Endocrine Disorders: Yes Hx Diabetes Mellitus Type 2: Yes - Hematological/Oncological Hx Blood Transfusions: Yes Hx Blood Transfusion Reaction: No - Integumentary Hx Dermatological Disorder: No Other/Comment: right buttock/posterior upper r thigh healed wound from fall in may 2017 had 40 stitches, dry skin both feet - Musculoskeletal/Rheumatological Hx Musculoskeletal Disorders: Yes - Gastrointestinal Hx Gastrointestinal Disorders: Yes Hx Gall Bladder Disease: Yes - Genitourinary/Gynecological Hx Genitourinary Disorders: Yes Hx Prostate Problems: Yes - Psychiatric Hx Emotional Abuse: No Hx Physical Abuse: No Hx Substance Use: No - Surgical History Hx Cataract Extraction: Yes (LEFT IOL) Hx Cardiac Catheterization: Yes (5 YEARS) Hx Cholecystectomy: Yes Hx Coronary Stent: Yes (5 YEARS AGO) Hx Musculoskeletal Surgery: Yes (LAMINECTOMY) Hx Orthopedic Surgery: Yes (R foot) - Anesthesia Hx Anesthesia Reactions: No Hx Malignant Hyperthermia: No - Suicidal Assessment Feels Threatened In Home Enviroment: No Family/Social History Family/Social History: No Known Family HX Smoking Status: Never Smoked Hx Alcohol Use: No Hx Substance Use: No Hx Substance Use Treatment: No Allergies/Home Meds Allergies/Adverse Reactions: Allergies No Known Allergies Allergy (Verified 12/07/18 18:30) Home Medications: Home Meds Medication Instructions Recorded Confirmed Prednisone [Sai] 5 mg PO DAILY 08/27/17 12/07/18 Aspirin [Adult Low Dose Aspirin EC] 81 mg PO DAILY 02/25/18 12/07/18 Glipizide [Glipizide Xl] 5 mg PO TID 02/25/18 12/07/18 Gabapentin [Neurontin] 600 mg PO TID 07/22/18 12/07/18 metFORMIN [glucOPHAGE] 500 mg PO TID 07/22/18 12/07/18 Atorvastatin [Lipitor] 10 mg PO DAILY 12/07/18 12/07/18 Review of Systems - Review of Systems Constitutional: absent: Fatigue, Fevers Respiratory: SOB. absent: Cough Cardiovascular: absent: Chest Pain, Palpitations, Edema Gastrointestinal: Abdominal Pain, Constipation, Nausea, Vomiting. absent: Diarrhea Genitourinary Male: absent: Dysuria, Frequency Musculoskeletal: absent: Arthralgias, Back Pain, Neck Pain Skin: absent: Rash, Pruritis, Skin Lesions Neurological: absent: Headache, Dizziness Physical Exam Vital Signs Temp Pulse Resp BP Pulse Ox 12/07/18 18:12 98.8 F 110 H 20 123/72 96 Temperature: Afebrile Blood Pressure: Normal Pulse: Tachycardic Respiratory Rate: Normal Appearance: Positive for: Well-Appearing, Non-Toxic, Comfortable Pain Distress: Mild Mental Status: Positive for: Alert and Oriented X 3 - Systems Exam Head: Present: Atraumatic, Normocephalic Pupils: Present: PERRL Extroacular Muscles: Present: EOMI Conjunctiva: Present: Normal Mouth: Present: Dry Neck: Present: Normal Range of Motion Respiratory/Chest: Present: Good Air Exchange, Respiratory Distress (+mild respiratory distress). No: Accessory Muscle Use Cardiovascular: Present: Normal S1, S2, Tachycardic. No: Murmurs Abdomen: Present: Tenderness (+mild RUQ tenderness). No: Distention, Peritoneal Signs Rectal: Present: Other (Female RN was present as display carver during the exam). No: Occult Blood, Rectal Tenderness, Gross Blood, Hemorrhoids, Fissures, Nodule/Mass/Lesions Back: Present: Normal Inspection Upper Extremity: Present: Normal Inspection. No: Cyanosis, Edema Lower Extremity: Present: Normal Inspection. No: Edema Neurological: Present: GCS=15, CN II-XII Intact, Speech Normal Skin: Present: Warm, Dry, Normal Color. No: Rashes Psychiatric: Present: Alert, Oriented x 3, Normal Insight, Normal Concentration Medical Decision Making ED Course and Treatment: 12/07/18 19:17 Plan : - IV - Labs - UA, urine cx - EKG - CXR - Morphine / Zofran - Reassess / disposition - CT A/P w/ IV contrast 12/07/18 19:38 CXR : NAD, as read by ANDREA EKG: ST at 115 bpm w/ premature supraventricular complexes, LAD, RBBB, (-) acute ST changes, as read by NADREA. Labs reviewed : hgb 10.3/hct 31.6, bun 42/creat 1.1, t bili 1.6, alk phos 398, lipase 5,565, trop (-), bnp (-) 12/07/18 21:00 On reevaluation, patient reports no nausea, states that the pain is controlled. On exam, patient remains awake alert and oriented 3 in no acute distress. Abdomen soft and nontender. Lab results d/w the patient, diagnosis of pancreatitis d/w the patient. CT results still pending. 12/07/18 22:01 CT results d/w the patient. Rocephin and zithromax IV, blood cx ordered for pneumonia in the RML seen on CT. Case d/w Dr. Grey, agrees with plan to admit with consult to Dr. Newsome and Dr. Sam. - RAD Interpretation Narrative RAD Interpretations (Text): 12/07/18 21:52 EXAM: CT Abdomen and Pelvis with IV contrast CLINICAL HISTORY: RUQ pain TECHNIQUE: Axial computed tomography images of the abdomen and pelvis with intravenous contrast. 550.82 mGy-cm CONTRAST: With; OMNI 300 100 ml COMPARISON: None provided. FINDINGS: LUNG BASES: There is subtle patchy airspace opacity seen in the medial right lung base which may be compatible with a small pneumonic consolidation. No pleural effusions are seen. LIVER: Unremarkable. GALLBLADDER AND BILE DUCTS: Status post cholecystectomy. No biliary ductal dilatation is evident. PANCREAS: There is diffuse subtle peripancreatic haziness noted compatible with acute pancreatitis. No pancreatic abscess formation detected. SPLEEN: Unremarkable. ADRENAL GLANDS: Unremarkable. KIDNEYS, URETERS, AND BLADDER: The kidneys appear within normal limits. There is no hydronephrosis or hydroureter. A 6.5 mm non-obstructing calculus is seen in the lateral upper left renal pole. The urinary bladder appeared normal in size and configuration. STOMACH AND BOWEL: Circumferential mucosal wall thickening is seen within the lower esophagus at the esophagogastric junction. This finding may be compatible with reflux esophagitis. Unremarkable appearance of the stomach. No evidence of bowel obstruction. There is mucosal wall thickening seen within the duodenum and throughout the small intestinal tract with associated fluid in the lumen compatible with diffuse enteritis. Infectious or inflammatory etiologies are thought most likely. No evidence suggesting colitis. There is mild diverticulosis coli noted without evidence of acute diverticulitis. APPENDIX: No evidence of acute appendicitis on CT examination. PERITONEUM: No free fluid. No free air. Small bilateral inguinal hernias are noted which each contain fat. LYMPH NODES: No lymphadenopathy is evident. REPRODUCTIVE: The seminal vesicles appeared normal and symmetrical in size. There is prostatic hypertrophy noted. The prostate gland measured 6.2 cm transversely. VASCULATURE: No evidence of abdominal aortic aneurysm. Moderate-extensive atherosclerotic vascular plaquing is present. BONES: No aggressive appearing osseous lesion. No acute osseous pathology evident. IMPRESSION: 1. Evidence of acute pancreatitis. 2. Subtle small pneumonic consolidation in the medial right lung base. 3. Findings likely compatible with reflux esophagitis as described above. 4. Evidence of diffuse enteritis. 5. Mild diverticulosis coli. No acute diverticulitis detected. 6. Prostatic hypertrophy. 7. Status post cholecystectomy. 8. 6.5 mm non-obstructing calculus in the lateral upper left renal pole. Electronically signed on Dec 07, 2018 9:49:38 PM EDT by: Kevin Pickard M.D., M.B.A., Certified By [employer] Trained MRI and CT Specialist Radiology Orders: 12/07/18 18:33 CHEST PORTABLE [RAD] Stat 12/07/18 19:08 ABD & PELVIS IV CONTRAST ONLY [CT] Stat Rubber Thread Spooler: Radiologist - Medication Orders Current Medication Orders: Sodium Chloride (Sodium Chloride 0.9%) 500 mls @ 500 mls/hr IV .Q1H STA Stop: 12/07/18 20:08 - PA / RESPIRATORY CLINICIAN / Resident Statement MD/DO has reviewed & agrees with the documentation as recorded. Disposition/Present on Arrival - Present on Arrival Any Indicators Present on Arrival: Yes History of DVT/PE: No History of Uncontrolled Diabetes: Yes Urinary Catheter: No History of Decub. Ulcer: No History Surgical Site Infection Following: None - Disposition Have Diagnosis and Disposition been Completed?: Yes Diagnosis: Acute pancreatitis, Pneumonia Disposition: HOME/ ROUTINE Disposition Time: 22:00 Patient Plan: Admission Patient Problems: Current Active Problems Problem Status Onset Acute pancreatitis Acute Pneumonia Acute Condition: GUARDED
[2018-12-07] MEDS ORDERED: Morphine 4 mg/ml ISec IVP STA (19:15)
[2018-12-07] MEDS ORDERED: Iohexol 300 100 ML IJ ONE (19:28)
[2018-12-07 19:36] LABS: LIPASE 5565 U/L (23-300)
[2018-12-07 19:49] LABS: B-TYPE NATRIURETIC PEPTIDE 233 pg/mL (0-450); TROPONIN I < 0.01 ng/mL
[2018-12-07 21:16] LABS: URINE BILIRUBIN NEGATIVE (NEGATIVE); URINE BLOOD NEGATIVE (NEGATIVE); URINE GLUCOSE (UA) NEGATIVE (NEGATIVE); URINE LEUKOCYTE ESTERASE SMALL Leu/uL (NEGATIVE); URINE PROTEIN 100 mg/dL (<30 mg/dL)
[2018-12-07 21:20] LABS: URINE APPEARANCE SL CLOUDY (CLEAR); URINE COLOR YELLOW (YELLOW)
[2018-12-07 21:24] LABS: URINE COARSE GRANULAR CAST TRACE /hpf; URINE RBC 0 - 2 /hpf (0-2)
[2018-12-07] MEDS ORDERED: cefTRIAXone 1 gm 1 GM/100 ML BAG IVPB STA (21:53)
[2018-12-07] MEDS ORDERED: Azithromycin 500MG/NS 250ml 500 MG/250 ML BAG IVPB STA (21:53)
[2018-12-07] MEDS ORDERED: Sodium Chloride 0.9% 1,000 ML IV STA (22:16)
[2018-12-07 23:51] LABS: VENOUS BLOOD GAS BASE EXCESS 1.7 mmol/L (0.0-2.0); VENOUS BLOOD GAS PO2 62 mm/Hg (30-55); VENOUS BLOOD PH 7.39 (7.32-7.43)
[2018-12-08 02:48] VITALS: BMI 27.3
--- NOTE | 2018-12-08 08:35 | RAD ---
Date of service: 12/07/2018 HISTORY: abd pain COMPARISON: 10/29/2018 TECHNIQUE: 1 view obtained. FINDINGS: LUNGS: No active pulmonary disease. PLEURA: No significant pleural effusion identified, no pneumothorax apparent. CARDIOVASCULAR: No aortic atherosclerotic calcification present. Normal cardiac size. No pulmonary vascular congestion. OSSEOUS STRUCTURES: No significant abnormalities. VISUALIZED UPPER ABDOMEN: Normal. OTHER FINDINGS: None. IMPRESSION: No active disease.
--- NOTE | 2018-12-08 09:08 | CON ---
DATE OF CONSULTATION: 12/08/2018 PULMONARY CONSULTATION REASON FOR CONSULTATION: Pneumonia. REFERRING PHYSICIAN: Sidney Grey MD I did discuss the case with the night nurse at length. I have also discussed the case with the patient at length, and reviewed the chart at length. HISTORY OF PRESENT ILLNESS: The patient is a chronically ill 83-year-old male, with past medical history significant for advanced myelodysplastic syndrome, chronic anemia, coronary artery disease, hypertension, diabetes mellitus, previous pneumonia, who presents to [facility] with a 3-day history of increasing abdominal pain, as well as a 1-day history of persistent nausea and vomiting. In the emergency room, the patient was diagnosed with acute pancreatitis. He was thus admitted for additional evaluation. Again, I did discuss the case with the nurse and the patient at length. The patient is not short of breath at rest. He does state to mild occasional dyspnea on exertion. There is no history of cough or sputum production. There is no history of chest pain, coughing up of blood, or chest pain - made worse with deep respirations. There is no history of temperatures at home. No history of chills or infectious exposure. No history of night sweats, weight loss, or appetite change prior to the above events. No history of leg or calf pains. No history of syncope or diaphoresis. No history of recent travel or trauma. REVIEW OF SYSTEMS: No acute urinary symptoms. No new neurologic or musculoskeletal complaints. Rest of the review of systems is negative. ALLERGIES: NO KNOWN ALLERGIES. SOCIAL HISTORY: Positive for former tobacco usage. No alcohol. FAMILY HISTORY: No inheritable diseases. MEDICATIONS: Home medications include Lipitor, aspirin, Ambien, Zestril, glipizide, Neurontin, Coreg, Glucophage, and prednisone. PHYSICAL EXAMINATION: GENERAL: The patient appears comfortable this morning. He is not short of breath at rest. VITAL SIGNS: Last temperature recorded is 99.4, pulse this morning 88, respiratory rate 18/20, blood pressure 150/78. Oxygen saturation on nasal cannula 99%. HEENT: Normocephalic, atraumatic. NECK: No JVD. CARDIOVASCULAR: Systolic ejection murmur at the lower left sternal border. No S3 gallop. LUNGS: Minimal crackles - right base. No rhonchi. No wheezing. EXTREMITIES: No clubbing, cyanosis or edema. Calves are nontender to palpation. GASTROINTESTINAL: Abdomen is soft. It is mildly distended and tender to palpation. Bowel sounds are positive. SKIN: No acute rash. NEUROLOGIC: Exam limited at the present time. PERTINENT LABORATORY DATA: Chest x-ray was done last night and reviewed. I do not appreciate any new or significant changes compared to the previous films. Abdominal and pelvic CAT scan was also done. On the CAT scan, there are small patchy infiltrates noted at the right base. There is also evidence of acute pancreatitis. CBC: White count 8.5K, hemoglobin 10.3, hematocrit 31.6, platelets are 150,000. Complete metabolic profile: BUN 42, glucose 150, bilirubin 1.6, alkaline phosphatase 398, lipase 5565. Rest of the metabolic profile is within normal limits. IMPRESSION: 1. Acute pancreatitis. 2. Right lower lobe pneumonia. 3. Chronic anemia. 4. Myelodysplastic syndrome. 5. Coronary artery disease. PLAN: Again, I did discuss the case with the night nurse at length. I have also reviewed the chart at length, and discussed the case with the patient at length. The patient presents to [facility] with a 3-day history of worsening abdominal pain. In addition, he also presents with a 1-day history of protracted nausea and vomiting. In the emergency room, the patient was diagnosed with acute pancreatitis. He was thus admitted for additional evaluation. GI evaluation has been ordered. The patient does state to chronic occasional dyspnea on exertion. He offers no other pulmonary complaints. I did review the chest x-ray and CAT scan - noted above. Again, on the CAT scan, there are small patchy infiltrates noted at the right base. Given the above history, it is possible that this represents an aspiration pneumonia. In any case, calderon cultures have been ordered, and will be analyzed when feasible. The patient was given Rocephin and Zithromax in the emergency room. I will continue with these antibiotics for now. Check procalcitonin level. The patient does state to feeling better this morning, and is clinically improved. I will discuss the above with Dr. Grey later this morning. Thank you very much for this pulmonary consultation. Tyrell Newsome MD KEY[facility]
--- NOTE | 2018-12-08 09:18 | CT ---
Date of service: 12/07/2018 PROCEDURE: CT Abdomen and Pelvis with contrast HISTORY: RUQ pain COMPARISON: None. TECHNIQUE: Contrast dose: 100 cc of Omni 300 Radiation dose: Total exam DLP = 550.82 mGy-cm. This CT exam was performed using one or more of the following dose reduction techniques: Automated exposure control, adjustment of the mA and/or kV according to patient size, and/or use of iterative reconstruction technique. FINDINGS: LOWER THORAX: Unremarkable. LIVER: Unremarkable. No gross lesion or ductal dilatation. GALLBLADDER AND BILE DUCTS: Gallbladder removed PANCREAS: There is mild stranding of the peripancreatic fat planes suggesting pancreatitis. There is also mild enlargement of the pancreatic head. Clinical correlation is suggested SPLEEN: Unremarkable. ADRENALS: Unremarkable. No mass. KIDNEYS AND URETERS: Unremarkable. No hydronephrosis. No solid mass. VASCULATURE: Unremarkable. No aortic aneurysm. Aortic calcification BOWEL: Unremarkable. No obstruction. No gross mural thickening. APPENDIX: Normal appendix. PERITONEUM: Unremarkable. No free fluid. No free air. LYMPH NODES: Unremarkable. No enlarged lymph nodes. BLADDER: Unremarkable. REPRODUCTIVE: The prostate is enlarged and partially calcified measuring 50 x 63 mm transversely. BONES: No acute fracture. OTHER FINDINGS: The report concurs with the preliminary [employer] report IMPRESSION: There is mild stranding of the peripancreatic fat planes suggesting pancreatitis. There is also mild enlargement of the pancreatic head. Clinical correlation is suggested
--- NOTE | 2018-12-08 11:49 | CARD ---
APPROVED REPORT Date of service: 12/07/2018 EKG Measurement Heart [id number] <Conclusion> Sinus tachycardia with premature supraventricular complexes Left axis deviation Right bundle branch block Abnormal ECG
[2018-12-08] MEDS: Lactated Ringer's 1,000 ML IV SCH (11:59)
[2018-12-08] MEDS: POLYETHYLENE GLYCOL 3350 17 GM/Dose PACKET PO SCH ×2 (12:00→12:30)
[2018-12-08] MEDS: cefTRIAXone 1 gm 1 GM/100 ML BAG IVPB SCH (12:01)
[2018-12-08] MEDS ORDERED: Morphine 4 mg/ml ISec IVP PRN (12:23)
[2018-12-08] MEDS: Azithromycin 500MG/NS 250ml 500 MG/250 ML BAG IVPB SCH (14:16)
--- NOTE | 2018-12-08 14:36 | CP.PCM.APN ---
Subjective - Date & Time of Evaluation Date of Evaluation: 12/08/18 Time of Evaluation: 12:30 - Subjective Subjective: pt seen and examined at bedside, pt reports some abdominal discomfort Review of Systems - Constitutional Constitutional: As Per HPI - Gastrointestinal Gastrointestinal: Abdominal Pain Objective - Vital Signs/Intake and Output Vital Signs (last 24 hours): Temp Pulse Resp BP Pulse Ox 98.8 F 100 H 20 108/62 93 L 12/08/18 06:00 12/08/18 06:00 12/08/18 06:00 12/08/18 06:00 12/08/18 06:00 Intake and Output: 12/08/18 12/08/18 06:59 18:59 Intake Total 1250 Output Total 150 Balance 1250 -150 - Medications Medications: Current Medications Ceftriaxone Sodium (Rocephin 1 Gram Ivpb) 1 gm in 100 mls @ 100 mls/hr IVPB DAILY DA; Protocol Last Admin: 12/08/18 12:01 Dose: 100 mls/hr Azithromycin (Zithromax 500mg In Ns) 500 mg in 250 mls @ 167 mls/hr IVPB DAILY DA; Protocol Last Admin: 12/08/18 14:16 Dose: 167 mls/hr Lactated Ringer's (Lactated Ringer's) 1,000 mls @ 150 mls/hr IV .Q6H40M DA Last Admin: 12/08/18 11:59 Dose: 150 mls/hr Morphine Sulfate (Morphine) 4 mg IVP Q4H PRN PRN Reason: Pain, severe (8-10) Oxycodone/Acetaminophen (Percocet 5/325 Mg Tab) 1 tab PO Q4H PRN PRN Reason: Pain, moderate (4-7) Stop: 12/11/18 12:23 Polyethylene Glycol (Miralax) 17 gm PO DAILY DA - Labs Labs: 12/07/18 18:57 12/07/18 18:57 PT 13.9 SECONDS (9.4-12.5) H 12/07/18 18:57 INR 1.25 12/07/18 18:57 APTT 35.6 Seconds (26.9-38.3) 12/07/18 18:57 - Constitutional Appears: No Acute Distress - Eye Exam Eye Exam: Normal appearance Pupil Exam: NORMAL ACCOMODATION - ENT Exam ENT Exam: Normal Exam - Neck Exam Neck Exam: Normal Inspection - Respiratory Exam Respiratory Exam: Decreased Breath Sounds, NORMAL BREATHING PATTERN - Cardiovascular Exam Cardiovascular Exam: +S1, +S2 - GI/Abdominal Exam GI & Abdominal Exam: Distended, Soft, Tenderness, Normal Bowel Sounds - Rectal Exam Rectal Exam: Deferred - Psychiatric Exam Psychiatric exam: Normal Affect, Normal Mood - Skin Skin Exam: Dry, Intact Assessment and Plan - Assessment and Plan (Free Text) Plan: ITS Impressions Chest X-Ray 12/07/18 18:33 IMPRESSION: No active disease. Abdomen/Pelvis CT 12/07/18 19:08 IMPRESSION: There is mild stranding of the peripancreatic fat planes suggesting pancreatitis. There is also mild enlargement of the pancreatic head. Clinical correlation is suggested A/P 83 yr old male with pmh sig for MDS, CAD, chronic anemia, dm, now admitted with acute abd pain found to have acute pancreatitis with lipase 5565, right lobe pne. pt on IVF, IV antibiotics and being followed by GI and Pulmonary. will continue to follow clinical course BPCI/TIC - BPCIA/TIC Educated pt/family on BPCIA/CIR/Med to Bed Programs: N/A Pt/family verbalized understanding & agreed to program: N/A
--- NOTE | 2018-12-08 16:55 | CP.PCM.CON ---
<Hans Spence - Last Filed: 12/08/18 16:52> History of Present Illness - History of Present Illness History of Present Illness: PGY4 GI fellow consult note 83-year-old white male with a history of diabetes, hypertension, anemia, MDS, CHF, OA, CAD, hyperlipidemia, hypothyroidism and status post cholecystectomy presenting with complaint of abdominal pain. he states over about the last week he has had progressively worse right upper quadrant, stabbing pain that is worse with by mouth intake. He also reports a few episodes of nonbloody, nonbilious emesis. He denied any weight loss, dysphagia but simply notes that pain is worse with by mouth intake. He states he has not moved his bowels in several days but that the last bowel movement he had was formed brown stool. He denied any alcohol use, new medications, recent travel or sick contacts. Per chart review he had EGD in 2014 with H. pylori negative gastritis. He also reports a colonoscopy done 5-6 years ago that was unremarkable per patient report. 12 point review of systems negative other than stated above Medical history: See above Surgical history: Cholecystectomy, hernia surgery, laminectomy Medications: reviewed in chart Family history: Denied any history of GI or colorectal cancer Social history: Denied 3 Allergies: no known drug allergies Past Patient History - Infectious Disease Hx of Infectious Diseases: None - Tetanus Immunizations Tetanus Immunization: Unknown - Past Social History Smoking Status: Former Smoker - CARDIAC Hx Cardiac Disorders: Yes (CAD) Hx Angina: Yes Hx Congestive Heart Failure: Yes Hx Hypertension: Yes Hx Peripheral Edema: Yes - PULMONARY Hx Pneumonia: Yes - NEUROLOGICAL Hx Neurological Disorder: Yes (Periferal Neuropathy) Hx Dizziness: Yes - HEENT Hx HEENT Problems: (double vision since last admission 2013) Hx Cataracts: Yes (L IOF) - RENAL Hx Chronic Kidney Disease: Yes (renal insufficiency) - ENDOCRINE/METABOLIC Hx Diabetes Mellitus Type 2: Yes - HEMATOLOGICAL/ONCOLOGICAL Hx Blood Transfusions: Yes Hx Blood Transfusion Reaction: No - INTEGUMENTARY Hx Dermatological Problems: Yes (R buttock old stitches) Other/Comment: B/L feet dry skin - MUSCULOSKELETAL/RHEUMATOLOGICAL Hx Arthritis: Yes Hx Falls: No Hx Unsteady Gait: Yes (cane) - GASTROINTESTINAL Hx Gall Bladder Disease: Yes - GENITOURINARY/GYNECOLOGICAL Hx Prostate Problems: Yes - PSYCHIATRIC Hx Emotional Abuse: No Hx Physical Abuse: No Hx Substance Use: No - SURGICAL HISTORY Hx Surgeries: Yes (Laminectomy) Hx Coronary Stent: Yes (5yrs ago) Hx Orthopedic Surgery: Yes (r foot sx) - ANESTHESIA Hx Anesthesia Reactions: No Hx Malignant Hyperthermia: No Meds Allergies/Adverse Reactions: Allergies Allergy/AdvReac Type Severity Reaction Status Date / Time No Known Allergies Allergy Verified 12/07/18 18:30 - Medications Medications: Current Medications Ceftriaxone Sodium (Rocephin 1 Gram Ivpb) 1 gm in 100 mls @ 100 mls/hr IVPB DAILY DA; Protocol Last Admin: 12/08/18 12:01 Dose: 100 mls/hr Azithromycin (Zithromax 500mg In Ns) 500 mg in 250 mls @ 167 mls/hr IVPB DAILY DA; Protocol Last Admin: 12/08/18 14:16 Dose: 167 mls/hr Lactated Ringer's (Lactated Ringer's) 1,000 mls @ 150 mls/hr IV .Q6H40M DA Last Admin: 12/08/18 11:59 Dose: 150 mls/hr Morphine Sulfate (Morphine) 4 mg IVP Q4H PRN PRN Reason: Pain, severe (8-10) Oxycodone/Acetaminophen (Percocet 5/325 Mg Tab) 1 tab PO Q4H PRN PRN Reason: Pain, moderate (4-7) Stop: 12/11/18 12:23 Polyethylene Glycol (Miralax) 17 gm PO DAILY [facility] Physical Exam - Constitutional Appears: Well, No Acute Distress - Head Exam Head Exam: ATRAUMATIC, NORMAL INSPECTION - Eye Exam Eye Exam: EOMI. absent: Scleral icterus - ENT Exam ENT Exam: Mucous Membranes Dry. absent: Mucous Membranes Moist - Respiratory Exam Respiratory Exam: Clear to Auscultation Bilateral, NORMAL BREATHING PATTERN. absent: Accessory Muscle Use - Cardiovascular Exam Cardiovascular Exam: REGULAR RHYTHM, RRR - GI/Abdominal Exam GI & Abdominal Exam: Guarding, Normal Bowel Sounds, Soft, Tenderness (tender to palpation in right upper quadrant with voluntary guarding upon palpation in the right upper quadrant and epigastrium). absent: Bruit, Diminished Bowel Sounds, Distended, Firm, Hernia, Organomegaly, Pulsatile Mass, Rebound, Rigid - Extremities Exam Extremities exam: Positive for: normal inspection. Negative for: pedal edema - Neurological Exam Neurological exam: Alert, Oriented x3 - Psychiatric Exam Psychiatric exam: Normal Affect, Normal Mood - Skin Skin Exam: Normal Color, Warm Results - Vital Signs Recent Vital Signs: Last Vital Signs Temp 98.5 F 12/08/18 14:00 Pulse 101 H 12/08/18 14:00 Resp 18 12/08/18 14:00 BP 119/64 12/08/18 14:00 Pulse Ox 93 L 12/08/18 14:00 - Labs Result Diagrams: 12/07/18 18:57 12/07/18 18:57 Labs: Laboratory Results - last 24 hr 12/07/18 12/07/18 12/07/18 18:50 18:57 18:57 WBC 8.5 RBC 3.16 L Hgb 10.3 L D Hct 31.6 L MCV 100.0 D MCH 32.6 MCHC 32.6 RDW 14.1 Plt Count 150 MPV 8.9 Neut % (Auto) 78.1 H Lymph % (Auto) 17.5 L [place] % (Auto) 4.1 Eos % (Auto) 0.2 L Baso % (Auto) 0.1 Lymph # (Auto) 1.5 [place] # (Auto) 0.4 Eos # (Auto) 0.0 Baso # (Auto) 0.01 Absolute Neuts (auto) 6.64 H PT 13.9 H INR 1.25 APTT 35.6 pO2 VBG pH VBG pCO2 VBG HCO3 VBG Total CO2 VBG O2 Sat (Calc) VBG Base Excess VBG Potassium Glucose Lactate FiO2 Sodium Potassium Chloride Carbon Dioxide Anion Gap BUN Creatinine Est GFR ( Amer) Est GFR (Non-Af Amer) Random Glucose Calcium Magnesium Total Bilirubin AST ALT Alkaline Phosphatase Troponin I < 0.01 NT-Pro-B Natriuret Pep 233 Total Protein Albumin Globulin Albumin/Globulin Ratio Lipase Procalcitonin Venous Blood Potassium Urine Color Urine Appearance Urine pH Ur Specific [place] Urine Protein Urine Glucose (UA) Urine Ketones Urine Blood Urine Nitrate Urine Bilirubin Urine Urobilinogen Ur Leukocyte Esterase Urine RBC Urine WBC Ur Epithelial Cells Fine Granular Casts Coarse Granular Casts 12/07/18 12/07/18 12/07/18 18:57 21:00 23:40 WBC RBC Hgb Hct MCV MCH MCHC RDW Plt Count MPV Neut % (Auto) Lymph % (Auto) [place] % (Auto) Eos % (Auto) Baso % (Auto) Lymph # (Auto) [place] # (Auto) Eos # (Auto) Baso # (Auto) Absolute Neuts (auto) PT INR APTT pO2 62 H VBG pH 7.39 VBG pCO2 45.0 VBG HCO3 27.2 VBG Total CO2 28.6 H VBG O2 Sat (Calc) 94.9 H VBG Base Excess 1.7 VBG Potassium 3.7 Glucose 99 Lactate 0.7 FiO2 21.0 Sodium 140 140.0 Potassium 4.3 Chloride 101 106.0 Carbon Dioxide 24 Anion Gap 20 BUN 42 H Creatinine 1.1 Est GFR ( Amer) > 60 Est GFR (Non-Af Amer) > 60 Random Glucose 150 H Calcium 9.0 Magnesium 1.7 Total Bilirubin 1.6 H AST 28 ALT 55 Alkaline Phosphatase 398 H D Troponin I NT-Pro-B Natriuret Pep Total Protein 6.7 Albumin 3.4 Globulin 3.3 Albumin/Globulin Ratio 1.0 L Lipase 5565 H Procalcitonin Venous Blood Potassium 3.7 Urine Color Yellow Urine Appearance Sl cloudy Urine pH 6.0 Ur Specific [place] 1.020 Urine Protein 100 H Urine Glucose (UA) Negative Urine Ketones Trace H Urine Blood Negative Urine Nitrate Negative Urine Bilirubin Negative Urine Urobilinogen 1.0 H Ur Leukocyte Esterase Small H Urine RBC 0 - 2 Urine WBC 2 - 5 Ur Epithelial Cells 1 - 3 Fine Granular Casts TEST NOT PERFORMED Coarse Granular Casts Trace 12/08/18 06:59 WBC RBC Hgb Hct MCV MCH MCHC RDW Plt Count MPV Neut % (Auto) Lymph % (Auto) [place] % (Auto) Eos % (Auto) Baso % (Auto) Lymph # (Auto) [place] # (Auto) Eos # (Auto) Baso # (Auto) Absolute Neuts (auto) PT INR APTT pO2 VBG pH VBG pCO2 VBG HCO3 VBG Total CO2 VBG O2 Sat (Calc) VBG Base Excess VBG Potassium Glucose Lactate FiO2 Sodium Potassium Chloride Carbon Dioxide Anion Gap BUN Creatinine Est GFR ( Amer) Est GFR (Non-Af Amer) Random Glucose Calcium Magnesium Total Bilirubin AST ALT Alkaline Phosphatase Troponin I NT-Pro-B Natriuret Pep Total Protein Albumin Globulin Albumin/Globulin Ratio Lipase Procalcitonin 0.87 H Venous Blood Potassium Urine Color Urine Appearance Urine pH Ur Specific [place] Urine Protein Urine Glucose (UA) Urine Ketones Urine Blood Urine Nitrate Urine Bilirubin Urine Urobilinogen Ur Leukocyte Esterase Urine RBC Urine WBC Ur Epithelial Cells Fine Granular Casts Coarse Granular Casts Assessment & Plan - Assessment and Plan (Free Text) Assessment: 83-year-old white male with a history of diabetes, hypertension, myelodysplastic syndrome, CHF, OA, CAD, hypothyroidism presenting with abdominal pain. #Abdominal pain: Due to acute pancreatitis. 3 out of 3 criteria met with typical symptoms, lipase elevation greater than 3 times upper limit of normal as well as CT findings. Exact etiology unclear at this point. He is status post cholecystectomy making stones less likely however is still a possibility nonetheless. He is not a drinker really no alcohol nor are triglycerides significantly elevated. No new medications and no obvious masses on CT #diverticulosis: Seen on CT. No signs of acute inflammation Plan: Clear liquid diet Lactated Ringer's IVF until taking good by mouth intake We will plan to get MRI/MRCP to further evaluate tomorrow pending renal function Pain control per primary Monitor labs Patient seen and examined with Dr. Tesha Ramirez. Please see attestation for further recommendations/changes. <Brea Sam V - Last Filed: 12/08/18 23:20> Meds - Medications Medications: Current Medications Ceftriaxone Sodium (Rocephin 1 Gram Ivpb) 1 gm in 100 mls @ 100 mls/hr IVPB [facility] DA; Protocol Last Admin: 12/08/18 12:01 Dose: 100 mls/hr Azithromycin (Zithromax 500mg In Ns) 500 mg in 250 mls @ 167 mls/hr IVPB DAILY [facility]; Protocol Last Admin: 12/08/18 14:16 Dose: 167 mls/hr Lactated Ringer's (Lactated Ringer's) 1,000 mls @ 150 mls/hr IV .Q6H40M [facility] Last Admin: 12/08/18 11:59 Dose: 150 mls/hr Morphine Sulfate (Morphine) 4 mg IVP Q4H PRN PRN Reason: Pain, severe (8-10) Oxycodone/Acetaminophen (Percocet 5/325 Mg Tab) 1 tab PO Q4H PRN PRN Reason: Pain, moderate (4-7) Stop: 12/11/18 12:23 Last Admin: 12/08/18 18:50 Dose: 1 tab Polyethylene Glycol (Miralax) 17 gm PO DAILY DA Last Admin: 12/08/18 12:30 Dose: 17 gm Zolpidem Tartrate (Ambien) 5 mg PO HS PRN; Protocol PRN Reason: Insomnia Last Admin: 12/08/18 22:19 Dose: 5 mg Results - Vital Signs Recent Vital Signs: Last Vital Signs Temp 98.7 F 12/08/18 22:34 Pulse 110 H 12/08/18 22:34 Resp 18 12/08/18 22:34 BP 145/75 12/08/18 22:34 Pulse Ox 89 L 12/08/18 22:34 - Labs Result Diagrams: 12/07/18 18:57 12/07/18 18:57 Labs: Laboratory Results - last 24 hr 12/07/18 12/08/18 23:40 06:59 pO2 62 H VBG pH 7.39 VBG pCO2 45.0 VBG HCO3 27.2 VBG Total CO2 28.6 H VBG O2 Sat (Calc) 94.9 H VBG Base Excess 1.7 VBG Potassium 3.7 Sodium 140.0 Chloride 106.0 Glucose 99 Lactate 0.7 FiO2 21.0 Procalcitonin 0.87 H Venous Blood Potassium 3.7 Attending/Attestation - Attestation I have personally seen and examined this patient.: Yes I have fully participated in the care of the patient.: Yes I have reviewed all pertinent clinical information: Yes Notes (Text): This patient was seen and evaluated along with the GI fellow earlier. Discussed with the Dr. Sidney Grey. Patient was admitted with the pancreatitis. Status post cholecystectomy in the past The etiology for his pancreatitis is unclear. Patient is also constipated. Plan Clear liquid IV hydration MRI of the abdomen with MRCP to further evaluate 12/08/18 23:17
[2018-12-08] MEDS: Oxycodone/Acetaminophen 5/325 mg Tab PO PRN (18:50)
[2018-12-09] MEDS: Lactated Ringer's 1,000 ML IV SCH ×5 (01:00→13:47)
--- NOTE | 2018-12-09 07:48 | PN ---
DATE: 12/08/2018 The patient was seen this Friday morning, admitted after being seen yesterday in the office, diagnosed of acute pancreatitis. He looks much clinically improved today with aggressive hydration overnight. He is asking about question of pneumonia being raised on chest x-ray. I will need to look at this myself as he has a history of chronic infiltrate on chest x-ray that recurs frequently on entire hospitalizations. Case was discussed with GI. The patient is scheduled for an MRCP tomorrow. As far as etiology of his pancreatitis, he does not drink alcohol, he does not have a history of hyperlipidemia, he is status post cholecystectomy with no dilated bile duct on scans that were done at admission. So, we will look to MRCP and follow this with GI. Morning labs drawn. He is on IV antibiotics and will follow up on that possible pneumonia/infiltrate on chest x-ray. Addendum CXR report shows NO infiltrate Sidney Grey MD MTDKika
--- NOTE | 2018-12-09 08:28 | PN ---
DATE: 12/09/2018 SUBJECTIVE: The patient appears comfortable this morning. He is not short of breath at rest. PHYSICAL EXAMINATION: VITAL SIGNS: Temperature is 98.7, pulse this morning 88, respiratory rate 18, blood pressure 145/75. Oxygen saturation on nasal cannula - 96%. HEENT: Normocephalic, atraumatic. No JVD. CARDIOVASCULAR: Systolic ejection murmur at the lower left sternal border. No S3 gallop. LUNGS: Minimal crackles - right base. No rhonchi. No wheezing. EXTREMITIES: No clubbing, cyanosis or edema. Calves are nontender to palpation. GASTROINTESTINAL: Abdomen is soft. It is less distended and less tender to palpation. Bowel sounds are positive. SKIN: No acute rash. NEUROLOGIC: Exam limited at the present time. IMPRESSION: 1. Acute pancreatitis. 2. Right lower lobe pneumonia. 3. Chronic anemia. 4. Myelodysplastic syndrome. 5. Coronary artery disease. PLAN: The patient appears comfortable this morning. He is not short of breath at rest. He does state to feeling better overall. I did discuss the case with the night nurse at length. The night nurse stated that the patient had an uneventful night. On physical exam, there is no significant bronchospasm noted. In addition, there is no significant alveolar arterial gradient. I will continue the current aspiration precautions for now. The patient remains on antibiotic therapy. Procalcitonin done yesterday was slightly elevated. I will continue the current antibiotic therapy for now. Input by Gastroenterology is also noted. Clinical status of the patient is certainly improved - compared to the initial presentation. However, given the above, the future status/prognosis for this elderly patient does remain guarded. I will discuss the above with the attending physician. Tyrell Newsome MD MTDD
[2018-12-09 08:30] LABS: EOS % 0.1 % (1.5-5.0); LYMPH # 1.2 (1.2-3.4); LYMPH % 13.4 % (22.0-35.0); MEAN CELL VOLUME 101.1 fl (80.0-105.0); MEAN CORPUSCULAR HEMOGLOBIN 32.1 pg (25.0-35.0); MEAN CORPUSCULAR HGB CONC 31.8 g/dl (31.0-37.0); MEAN PLATELET VOLUME 8.6 fl (7.0-11.0); MONO # 0.6 (0.1-0.6); MONO % 6.3 % (1.0-6.0); RBC 2.8 {null, 10^6/uL} (3.5-6.1); RED CELL DISTRIBUTION WIDTH 14.2 % (11.5-14.5); WHITE BLOOD COUNT 8.7 {null, 10^3/uL} (4.5-11.0)
[2018-12-09 08:42] LABS: ALBUMIN 3.3 g/dL (3.0-4.8); ALT/SGPT 25 U/L (7-56); AST/SGOT 25 U/L (17-59); BLOOD UREA NITROGEN 21 mg/dL (7-21); CALCIUM 8.8 mg/dL (8.4-10.5); GFR NON-AFRICAN AMERICAN > 60
[2018-12-09] MEDS: cefTRIAXone 1 gm 1 GM/100 ML BAG IVPB SCH (11:03)
[2018-12-09] MEDS: POLYETHYLENE GLYCOL 3350 17 GM/Dose PACKET PO SCH (11:03)
[2018-12-09] MEDS: Azithromycin 500MG/NS 250ml 500 MG/250 ML BAG IVPB SCH (11:03)
[2018-12-09] MEDS: Oxycodone/Acetaminophen 5/325 mg Tab PO PRN ×2 (11:40→20:59)
--- NOTE | 2018-12-09 13:50 | PN ---
DATE: 12/09/2018 DAILY PROGRESS NOTE SUBJECTIVE: The patient is an 83-year-old male, who was admitted on the 12/07/2018 with abdominal pain. CAT scan revealed this to be acute pancreatitis. Amylase was elevated. The patient is noted to have a past medical history positive for myelodysplastic disorder, anemia, hypertension, and diabetes. Today, the patient is receiving IV fluids. He is evaluated by Dr. Newsome, the Combination Machine Tool Setter as well as Dr. Sam, the Belt Back Operator. He was seen today. The patient is awake, alert and oriented. He was walking to and from the bathroom. He admits the abdominal pain has subsided somewhat. PHYSICAL EXAMINATION: LUNGS: Clear to auscultation and percussion. HEART: Regular. ABDOMEN: Minimal tenderness on palpation. PLAN: The patient is scheduled for MRCP later on today. We will continue to follow the patient closely and discuss the case with Dr. Sam, the Belt Back Operator. Thomas Grey MD
--- NOTE | 2018-12-09 16:42 | CP.PCM.PN ---
<Hans Spence - Last Filed: 12/09/18 18:19> Subjective - Date & Time of Evaluation Date of Evaluation: 12/09/18 Time of Evaluation: 13:55 - Subjective Subjective: PGY4 GI fellow progress note Patient lying in bed when seen this morning. He states his abdominal pain is improved and is tolerating the liquid diet without issues. Eager for MRI later today. Denied fevers, chills, nausea, vomiting. Reported one loose stool earlier today but otherwise no further stool output. Five-point review of systems negative other than stated above Objective - Vital Signs/Intake and Output Vital Signs (last 24 hours): Temp Pulse Resp BP Pulse Ox 98 F 93 H 16 144/74 95 12/09/18 14:00 12/09/18 14:00 12/09/18 14:00 12/09/18 14:00 12/09/18 14:00 Intake and Output: 12/09/18 12/09/18 06:59 18:59 Output Total 660 Balance -660 - Medications Medications: Current Medications Ceftriaxone Sodium (Rocephin 1 Gram Ivpb) 1 gm in 100 mls @ 100 mls/hr IVPB DAILY DA; Protocol Last Admin: 12/09/18 11:03 Dose: 100 mls/hr Azithromycin (Zithromax 500mg In Ns) 500 mg in 250 mls @ 167 mls/hr IVPB DAILY DA; Protocol Last Admin: 12/09/18 11:03 Dose: 167 mls/hr Lactated Ringer's (Lactated Ringer's) 1,000 mls @ 150 mls/hr IV .Q6H40M [facility] Last Admin: 12/09/18 13:47 Dose: Not Given Morphine Sulfate (Morphine) 4 mg IVP Q4H PRN PRN Reason: Pain, severe (8-10) Oxycodone/Acetaminophen (Percocet 5/325 Mg Tab) 1 tab PO Q4H PRN PRN Reason: Pain, moderate (4-7) Stop: 12/11/18 12:23 Last Admin: 12/09/18 11:40 Dose: 1 tab Polyethylene Glycol (Miralax) 17 gm PO DAILY DA Last Admin: 12/09/18 11:03 Dose: Not Given Zolpidem Tartrate (Ambien) 5 mg PO HS PRN; Protocol PRN Reason: Insomnia Last Admin: 12/08/18 22:19 Dose: 5 mg - Labs Labs: 12/09/18 08:15 12/09/18 08:15 PT 13.9 SECONDS (9.4-12.5) H 12/07/18 18:57 INR 1.25 12/07/18 18:57 APTT 35.6 Seconds (26.9-38.3) 12/07/18 18:57 - Constitutional Appears: Well, No Acute Distress - Head Exam Head Exam: ATRAUMATIC, NORMAL INSPECTION - Eye Exam Eye Exam: EOMI. absent: Scleral icterus - ENT Exam ENT Exam: Mucous Membranes Moist. absent: Mucous Membranes Dry - Respiratory Exam Respiratory Exam: NORMAL BREATHING PATTERN. absent: Accessory Muscle Use - GI/Abdominal Exam GI & Abdominal Exam: Soft, Tenderness (mildly tender to palpation in epigastrium on deep palpation without guarding), Normal Bowel Sounds. absent: Bruit, Distended, Firm, Guarding, Rigid, Hypoactive Bowel Sounds, Organomegaly, Pulsatile Mass Assessment and Plan - Assessment and Plan (Free Text) Assessment: 83-year-old white male with a history of diabetes, hypertension, myelodysplastic syndrome, CHF, OA, CAD, hypothyroidism presenting with abdominal pain. #Abdominal pain: Due to acute pancreatitis. 3 out of 3 criteria met with typical symptoms, lipase elevation greater than 3 times upper limit of normal as well as CT findings. Exact etiology unclear at this point. He is status post cholecystectomy making stones less likely however is still a possibility nonetheless. He is not a drinker really no alcohol nor are triglycerides significantly elevated. No new medications and no obvious masses on CT #diverticulosis: Seen on CT. No signs of acute inflammation Plan: Clear liquid diet Await MRI/MRCP results Pain control per primary Monitor labs Patient seen and examined with Dr. Sam. Please see attestation for further recommendations/changes. <Brea Sam V - Last Filed: 12/13/18 23:16> Objective - Vital Signs/Intake and Output Vital Signs (last 24 hours): Temp Pulse Resp BP Pulse Ox 98.8 F 103 H 18 148/74 94 L 12/13/18 06:00 12/13/18 06:00 12/13/18 06:00 12/13/18 06:00 12/13/18 06:00 - Labs Labs: 12/12/18 09:20 12/12/18 09:20 PT 13.9 SECONDS (9.4-12.5) H 12/07/18 18:57 INR 1.25 12/07/18 18:57 APTT 35.6 Seconds (26.9-38.3) 12/07/18 18:57 Attending/Attestation - Attestation I have personally seen and examined this patient.: Yes I have fully participated in the care of the patient.: Yes I have reviewed all pertinent clinical information, including history, physical exam and plan: Yes Notes (Text): This is a delayed addendum to the GI progress note dictated by the fellow. This patient was seen and evaluated along with the fellow earlier. Discussed with the Dr. Grey. Requested for an MRCP still pending. Previous work-up was reviewed 12/13/18 23:15
--- NOTE | 2018-12-10 02:17 | CP.PCM.PN ---
Subjective - Date & Time of Evaluation Date of Evaluation: 12/10/18 Time of Evaluation: 02:17 - Subjective Subjective: # 22 angiocath was inserted in left distal forearm. Has no acute symptoms now. VSS. Objective - Vital Signs/Intake and Output Vital Signs (last 24 hours): Temp Pulse Resp BP Pulse Ox 99.2 F 114 H 17 153/66 H 92 L 12/09/18 22:00 12/09/18 22:00 12/09/18 22:00 12/09/18 22:00 12/09/18 22:00 Intake and Output: 12/09/18 12/10/18 18:59 06:59 Intake Total 1300 Balance 1300 - Medications Medications: Current Medications Ceftriaxone Sodium (Rocephin 1 Gram Ivpb) 1 gm in 100 mls @ 100 mls/hr IVPB DAILY DA; Protocol Last Admin: 12/09/18 11:03 Dose: 100 mls/hr Azithromycin (Zithromax 500mg In Ns) 500 mg in 250 mls @ 167 mls/hr IVPB DAILY DA; Protocol Last Admin: 12/09/18 11:03 Dose: 167 mls/hr Lactated Ringer's (Lactated Ringer's) 1,000 mls @ 150 mls/hr IV .Q6H40M DA Last Admin: 12/09/18 13:47 Dose: Not Given Morphine Sulfate (Morphine) 4 mg IVP Q4H PRN PRN Reason: Pain, severe (8-10) Oxycodone/Acetaminophen (Percocet 5/325 Mg Tab) 1 tab PO Q4H PRN PRN Reason: Pain, moderate (4-7) Stop: 12/11/18 12:23 Last Admin: 12/09/18 20:59 Dose: 1 tab Polyethylene Glycol (Miralax) 17 gm PO DAILY DA Last Admin: 12/09/18 11:03 Dose: Not Given Zolpidem Tartrate (Ambien) 5 mg PO HS PRN; Protocol PRN Reason: Insomnia Last Admin: 12/09/18 21:02 Dose: 5 mg - Labs Labs: 12/09/18 08:15 12/09/18 08:15 PT 13.9 SECONDS (9.4-12.5) H 12/07/18 18:57 INR 1.25 12/07/18 18:57 APTT 35.6 Seconds (26.9-38.3) 12/07/18 18:57
[2018-12-10 07:33] LABS: ALB/GLOB RATIO 0.9 (1.1-1.8); ALBUMIN 3.1 g/dL (3.0-4.8); ALT/SGPT 26 U/L (7-56); AST/SGOT 22 U/L (17-59); BLOOD UREA NITROGEN 17 mg/dL (7-21); CALCIUM 8.7 mg/dL (8.4-10.5); GFR NON-AFRICAN AMERICAN > 60
[2018-12-10] MEDS ORDERED: Gadodiamide 287 MG/ML VIAL (20ML) IV ONE (07:45)
--- NOTE | 2018-12-10 08:35 | PN ---
DATE: 12/10/2018 SUBJECTIVE: The patient appears quite comfortable this morning. He is not short of breath at rest. PHYSICAL EXAMINATION: VITAL SIGNS: Temperature is 98.8, pulse on my exam is approximately 90, respiratory rate 18, blood pressure 169/90. Oxygen saturation on nasal cannula - 98%. HEENT: Normocephalic, atraumatic. No JVD. CARDIOVASCULAR: Systolic ejection murmur at the lower left sternal border. No S3 gallop. LUNGS: Minimal crackles at right base. No rhonchi. No wheezing. EXTREMITIES: No clubbing, cyanosis or edema. Calves are nontender to palpation. GASTROINTESTINAL: Abdomen is soft. It is much less tender to palpation. It is not distended. Bowel sounds are positive. SKIN: No acute rash. NEUROLOGIC: Exam limited at the present time. IMPRESSION: 1. Acute pancreatitis. 2. Right lower lobe pneumonia. 3. Chronic anemia. 4. Myelodysplastic syndrome. 5. Coronary artery disease. PLAN: The patient appears very comfortable this morning. He is not short of breath at rest. He does state to feeling much better this morning. I did discuss the case with the night nurse at length. The night nurse stated that the patient had an uneventful night. On physical exam, there is no significant bronchospasm. In addition, the oxygen saturation on nasal cannula is now 98%. I will continue the patient on aspiration precautions for now. The patient remains on intravenous antibiotic therapy. There are no temperatures noted. Input by Gastroenterology is also noted. Clinical status of the patient is certainly improved - compared to the initial presentation. However, given the above, the future status/prognosis for this chronically ill elderly patient does remain guarded. I will discuss the above with Dr. Grey. Tyrell Newsome MD MTDD
[2018-12-10] MEDS: POLYETHYLENE GLYCOL 3350 17 GM/Dose PACKET PO SCH (10:41)
[2018-12-10] MEDS: cefTRIAXone 1 gm 1 GM/100 ML BAG IVPB SCH (10:41)
[2018-12-10] MEDS: Azithromycin 500MG/NS 250ml 500 MG/250 ML BAG IVPB SCH (10:50)
--- NOTE | 2018-12-10 11:27 | MRI ---
Date of service: 12/10/2018 PROCEDURE: MRI Abdomen with and without contrast HISTORY: Acute pancreatitis. Rule out common duct stone COMPARISON: None available. TECHNIQUE: Multisequence, multiplanar MR images of the abdomen with and without gadolinium contrast enhancement. 15 cc of Omniscan FINDINGS: LIVER: Unremarkable. GALLBLADDER: Gallbladder removed. The common duct is within normal limits of size measuring 8 mm. There are no stones seen in the common duct. SPLEEN: Unremarkable. PANCREAS: Unremarkable. ADRENALS: Unremarkable. KIDNEYS: Unremarkable. AORTA: No aneurysm. ASCITES: None. PERITONEUM: Unremarkable. LYMPH NODES: Unremarkable. OTHER FINDINGS: None. IMPRESSION: Gallbladder removed. The common duct is within normal limits of size measuring 8 mm. There are no stones seen in the common duct.
[2018-12-10] MEDS ORDERED: Potassium Chloride 40 mEq/30 ml LIQ UD PO ONE (12:26)
[2018-12-10] MEDS ORDERED: Sodium Chloride 0.9% 1,000 ML IV SCH (12:30)
--- NOTE | 2018-12-10 12:31 | CP.PCM.PCO ---
Physician Communication Note - Physician Communication Note Physician Communication Note: pt s/p mrcp, adjusted ivf, ordered sliding scale and repleted K Additional Comments - Additional Comments Additional Comments: pt continues on liquid diet, will discuss with GI, lipase trending down, will follow GI recs
[2018-12-10] MEDS: Insulin Lispro (humaLOG) LOW Coverage SC SCH ×2 (17:07→21:22)
--- NOTE | 2018-12-10 17:12 | CP.PCM.PN ---
<Sandra Robison - Last Filed: 12/10/18 17:17> Subjective - Date & Time of Evaluation Date of Evaluation: 12/10/18 Time of Evaluation: 17:09 - Subjective Subjective: Gastroenterology Fellow/PGY6 Progress Note Patient notes resolved abdominal pain. Tolerating liquid diet. Notes bowel movement yesterday. 12-point review of systems negative except for as above. Objective - Vital Signs/Intake and Output Vital Signs (last 24 hours): Temp Pulse Resp BP Pulse Ox 98.2 F 102 H 20 153/76 H 94 L 12/10/18 14:00 12/10/18 14:00 12/10/18 14:00 12/10/18 14:00 12/10/18 14:00 Intake and Output: 12/10/18 12/10/18 06:59 18:59 Intake Total 1660 Output Total 450 Balance 1210 - Medications Medications: Current Medications Carvedilol (Coreg) 3.125 mg PO BID [facility] Ceftriaxone Sodium (Rocephin 1 Gram Ivpb) 1 gm in 100 mls @ 100 mls/hr IVPB DAILY DA; Protocol Last Admin: 12/10/18 10:41 Dose: 100 mls/hr Azithromycin (Zithromax 500mg In Ns) 500 mg in 250 mls @ 167 mls/hr IVPB DAILY DA; Protocol Last Admin: 12/10/18 10:50 Dose: 167 mls/hr Sodium Chloride (Sodium Chloride 0.9%) 1,000 mls @ 100 mls/hr IV .Q10H DA Last Admin: 12/10/18 12:51 Dose: 100 mls/hr Insulin Human Lispro (Humalog Low) 0 units SC ACHS DA; Protocol Morphine Sulfate (Morphine) 4 mg IVP Q4H PRN PRN Reason: Pain, severe (8-10) Polyethylene Glycol (Miralax) 17 gm PO DAILY DA Last Admin: 12/10/18 10:41 Dose: 17 gm Tramadol HCl (Ultram) 50 mg PO Q6H PRN PRN Reason: Pain, moderate (4-7) Last Admin: 12/10/18 10:46 Dose: 50 mg Zolpidem Tartrate (Ambien) 5 mg PO HS PRN; Protocol PRN Reason: Insomnia Last Admin: 12/09/18 21:02 Dose: 5 mg - Labs Labs: 12/09/18 08:15 12/10/18 06:40 PT 13.9 SECONDS (9.4-12.5) H 12/07/18 18:57 INR 1.25 12/07/18 18:57 APTT 35.6 Seconds (26.9-38.3) 12/07/18 18:57 - Constitutional Appears: Non-toxic, No Acute Distress - Head Exam Head Exam: ATRAUMATIC, NORMOCEPHALIC - Eye Exam Eye Exam: EOMI, PERRL. absent: Scleral icterus Pupil Exam: PERRL - ENT Exam ENT Exam: Mucous Membranes Moist, Normal Oropharynx - Neck Exam Neck Exam: Full ROM, Normal Inspection - Respiratory Exam Respiratory Exam: Clear to Ausculation Bilateral. absent: Rales, Rhonchi, Wheezes - Cardiovascular Exam Cardiovascular Exam: RRR, +S1, +S2. absent: Gallop, Rubs - GI/Abdominal Exam GI & Abdominal Exam: Soft, Normal Bowel Sounds. absent: Distended, Firm, Guarding, Rigid, Tenderness, Rebound - Extremities Exam Extremities Exam: Normal Inspection - Neurological Exam Neurological Exam: Alert, Awake - Psychiatric Exam Psychiatric exam: Normal Affect, Normal Mood - Skin Skin Exam: Dry, Intact, Normal Color, Warm Assessment and Plan - Assessment and Plan (Free Text) Assessment: 83 year old male with PMH of myelodysplastic syndrome, CHF, CAD, Diabetes, HTN, and Hypothyroidism presenting with abdominal pain. Acute treatment of acute mild pancreatitis, unclear etiology. Prior EGD with EUS 03/2015 showed H. pylori negative gastritis and normal CBD 7mm with no other pathology to evaluate prior abnormal CT 02/2015 with mild para-aortic lymphadenopathy. Plan: -MRCP- no mass lesion, no biliary dilatation, pancreas unremarkable -ordered IgG4, EtOH, Triglyceride/lipid panel for further pancreatitis etiology workup -chronic elevated ALP- likely in setting of myelodysplastic syndrome -intermittently elevated ALT -ordered GGT, autoimmune serologies, IgG/A/MA1c, TSH -resolved hyperbilirubinemia on admission -advance diet as tolerated to low fat diet -will follow clinical course <Brea Sam V - Last Filed: 12/13/18 23:21> Objective - Vital Signs/Intake and Output Vital Signs (last 24 hours): Temp Pulse Resp BP Pulse Ox 99 F 107 H 20 158/81 H 94 L 12/10/18 22:19 12/10/18 22:19 12/10/18 22:19 12/10/18 22:19 12/10/18 22:19 Intake and Output: 12/10/18 12/11/18 18:59 06:59 Intake Total 580 Output Total 200 Balance 380 - Medications Medications: Current Medications Albuterol/Ipratropium (Duoneb 3 Mg/0.5 Mg (3 Ml) Ud) 3 ml IH Q2H PRN PRN Reason: Shortness of Breath Last Admin: 12/10/18 19:45 Dose: 3 ml Carvedilol (Coreg) 3.125 mg PO BID DA Last Admin: 12/10/18 17:11 Dose: 3.125 mg Ceftriaxone Sodium (Rocephin 1 Gram Ivpb) 1 gm in 100 mls @ 100 mls/hr IVPB DAILY DA; Protocol Last Admin: 12/10/18 10:41 Dose: 100 mls/hr Azithromycin (Zithromax 500mg In Ns) 500 mg in 250 mls @ 167 mls/hr IVPB DAILY DA; Protocol Last Admin: 12/10/18 10:50 Dose: 167 mls/hr Insulin Human Lispro (Humalog Low) 0 units SC ACHS DA; Protocol Last Admin: 12/10/18 21:22 Dose: Not Given Morphine Sulfate (Morphine) 4 mg IVP Q4H PRN PRN Reason: Pain, severe (8-10) Polyethylene Glycol (Miralax) 17 gm PO DAILY DA Last Admin: 12/10/18 10:41 Dose: 17 gm Tramadol HCl (Ultram) 50 mg PO Q6H PRN PRN Reason: Pain, moderate (4-7) Last Admin: 12/10/18 18:53 Dose: 50 mg Zolpidem Tartrate (Ambien) 5 mg PO HS PRN; Protocol PRN Reason: Insomnia Last Admin: 12/09/18 21:02 Dose: 5 mg - Labs Labs: 12/09/18 08:15 12/10/18 06:40 PT 13.9 SECONDS (9.4-12.5) H 12/07/18 18:57 INR 1.25 12/07/18 18:57 APTT 35.6 Seconds (26.9-38.3) 04/22/19 18:57 Attending/Attestation - Attestation I have personally seen and examined this patient.: Yes I have fully participated in the care of the patient.: Yes I have reviewed all pertinent clinical information, including history, physical exam and plan: Yes Notes (Text): This is related to the progress note dictated by the GI fellow. The patient was seen and evaluated along with the GI fellow earlier. MRCP was reviewed. Etiology unclear Fluctuating liver enzymes noticed. Fa on the diet. Would benefit from EUS electively. 12/10/18 23:25 12/13/18 23:18
--- NOTE | 2018-12-10 17:35 | PN ---
DATE: 12/10/2018 SUBJECTIVE: The patient was seen this morning in room 563 bed 1, having just gotten back from MRCP. His blood pressure was noted to be elevated earlier, but has now come down. MRCP done, we are awaiting results. He is requesting an increase in diet as he is feeling much better, much improved, certainly better with IV hydration. He is also requesting a lower dose of pain medicine perhaps changing to tramadol. PHYSICAL EXAMINATION: GENERAL: The patient is awake, alert and clear, recognizes me, converses normally, but still a bit weak after severe dehydration of 3 to 4 days of no p.o. intake. LUNGS: Show good aeration, right and left. HEART: Regular not tachycardic. ABDOMEN: Soft, nontender. IMPRESSION: 1. Pancreatitis. 2. No infiltrate on chest x-ray as patient heard. PLAN: We will advance the diet, wait for the results of the MRCP, follow blood pressure closely, add tramadol for pain. Sidney Grey MD [id number]
[2018-12-10] MEDS ORDERED: Albuterol-Ipratrop 3 mg / 0.5 (3 ml) UD IH PRN (18:54)
--- NOTE | 2018-12-10 19:59 | CP.PCM.PN ---
<Jeanine Rivera - Last Filed: 12/10/18 19:54> Subjective - Date & Time of Evaluation Date of Evaluation: 12/10/18 Time of Evaluation: 19:54 - Subjective Subjective: House doctor paged for Chest pain, Sharla Rivera PGY3 Patient evaluated for chest pain. Patient reports it is R sided below rib cage and is worse with palpation. He does report some shortness of breath that has improved since earlier today. Of note, patient had MRCP today and received fluids and lasix as well as a breathing treatment. He had a CXR on admission which was reported as no active disease. Objective - Vital Signs/Intake and Output Vital Signs (last 24 hours): Temp Pulse Resp BP Pulse Ox 98.2 F 103 H 20 169/85 H 94 L 12/10/18 14:00 12/10/18 17:11 12/10/18 14:00 12/10/18 19:05 12/10/18 14:00 Intake and Output: 12/10/18 12/11/18 18:59 06:59 Intake Total 180 Output Total 200 Balance -20 - Medications Medications: Current Medications Albuterol/Ipratropium (Duoneb 3 Mg/0.5 Mg (3 Ml) Ud) 3 ml IH Q2H PRN PRN Reason: Shortness of Breath Carvedilol (Coreg) 3.125 mg PO BID [facility] Last Admin: 12/10/18 17:11 Dose: 3.125 mg Ceftriaxone Sodium (Rocephin 1 Gram Ivpb) 1 gm in 100 mls @ 100 mls/hr IVPB DAILY [facility]; Protocol Last Admin: 12/10/18 10:41 Dose: 100 mls/hr Azithromycin (Zithromax 500mg In Ns) 500 mg in 250 mls @ 167 mls/hr IVPB DAILY DA; Protocol Last Admin: 12/10/18 10:50 Dose: 167 mls/hr Insulin Human Lispro (Humalog Low) 0 units SC ACHS [facility]; Protocol Last Admin: 12/10/18 17:07 Dose: 2 u Morphine Sulfate (Morphine) 4 mg IVP Q4H PRN PRN Reason: Pain, severe (8-10) Polyethylene Glycol (Miralax) 17 gm PO DAILY [facility] Last Admin: 12/10/18 10:41 Dose: 17 gm Tramadol HCl (Ultram) 50 mg PO Q6H PRN PRN Reason: Pain, moderate (4-7) Last Admin: 12/10/18 18:53 Dose: 50 mg Zolpidem Tartrate (Ambien) 5 mg PO HS PRN; Protocol PRN Reason: Insomnia Last Admin: 12/09/18 21:02 Dose: 5 mg - Labs Labs: 12/09/18 08:15 12/10/18 06:40 PT 13.9 SECONDS (9.4-12.5) H 12/07/18 18:57 INR 1.25 12/07/18 18:57 APTT 35.6 Seconds (26.9-38.3) 12/07/18 18:57 - Constitutional Appears: No Acute Distress - Head Exam Head Exam: ATRAUMATIC, NORMAL INSPECTION, NORMOCEPHALIC - Eye Exam Eye Exam: PERRL Pupil Exam: NORMAL ACCOMODATION, PERRL - ENT Exam ENT Exam: Mucous Membranes Moist - Respiratory Exam Respiratory Exam: Chest Wall Tenderness (on R anterior-inferior chest ), Rales (at bases), NORMAL BREATHING PATTERN. absent: Decreased Breath Sounds, Rhonchi, Wheezes - Cardiovascular Exam Cardiovascular Exam: REGULAR RHYTHM. absent: Gallop, Rubs, Murmur - GI/Abdominal Exam GI & Abdominal Exam: Soft, Tenderness (RUQ), Normal Bowel Sounds. absent: Rigid, Mass, Organomegaly, Rebound - Extremities Exam Extremities Exam: Normal Inspection. absent: Calf Tenderness, Pedal Edema - Neurological Exam Neurological Exam: Alert, Awake, CN II-XII Intact, Oriented x3 - Psychiatric Exam Psychiatric exam: Normal Affect, Normal Mood - Skin Skin Exam: Dry, Warm Assessment and Plan - Assessment and Plan (Free Text) Assessment: Atypical chest pain - Vitals showed elevated BP in 160s and tachycardia - repeat EKG showed tachycardia @109bpm. No changes compared to prior EKG - CXR showed mild bilateral congestion (read by myself) - Pt received 40mg of lasix at 7pm (1hr prior to chest pain call) - Will continue to monitor vitals and urine output - Hold IV fluids - If symptoms continue will order another 20mg of lasix Case seen, discussed and reviewed with attending. Sharla Rivera PGY3 <Franklin John - Last Filed: 12/11/18 09:33> Objective - Vital Signs/Intake and Output Vital Signs (last 24 hours): Temp Pulse Resp BP Pulse Ox 97.9 F 88 17 124/59 L 96 12/11/18 06:00 12/11/18 06:00 12/11/18 06:00 12/11/18 06:00 12/11/18 06:00 Intake and Output: 12/11/18 12/11/18 06:59 18:59 Intake Total 580 Output Total 200 Balance 380 - Medications Medications: Current Medications Albuterol/Ipratropium (Duoneb 3 Mg/0.5 Mg (3 Ml) Ud) 3 ml IH Q2H PRN PRN Reason: Shortness of Breath Last Admin: 12/10/18 19:45 Dose: 3 ml Carvedilol (Coreg) 3.125 mg PO BID DA Last Admin: 12/10/18 17:11 Dose: 3.125 mg Ceftriaxone Sodium (Rocephin 1 Gram Ivpb) 1 gm in 100 mls @ 100 mls/hr IVPB DAILY DA; Protocol Last Admin: 12/10/18 10:41 Dose: 100 mls/hr Azithromycin (Zithromax 500mg In Ns) 500 mg in 250 mls @ 167 mls/hr IVPB DAILY DA; Protocol Last Admin: 12/10/18 10:50 Dose: 167 mls/hr Magnesium Sulfate/Dextrose (Magnesium Sulfate 1 Gm/100 Ml D5w) 1 gm in 100 mls @ 100 mls/hr IVPB ONCE ONE Stop: 12/11/18 09:48 Potassium Chloride (Potassium Chloride 20 Meq/100 Ml) 20 meq in 100 mls @ 50 mls/hr IVPB Q2H DA Stop: 12/11/18 12:59 Insulin Human Lispro (Humalog Low) 0 units SC ACHS DA; Protocol Last Admin: 12/10/18 21:22 Dose: Not Given Morphine Sulfate (Morphine) 4 mg IVP Q4H PRN PRN Reason: Pain, severe (8-10) Polyethylene Glycol (Miralax) 17 gm PO DAILY DA Last Admin: 12/10/18 10:41 Dose: 17 gm Tramadol HCl (Ultram) 50 mg PO Q6H PRN PRN Reason: Pain, moderate (4-7) Last Admin: 12/10/18 18:53 Dose: 50 mg Zolpidem Tartrate (Ambien) 5 mg PO HS PRN; Protocol PRN Reason: Insomnia Last Admin: 12/09/18 21:02 Dose: 5 mg - Labs Labs: 12/11/18 07:00 12/11/18 07:00 PT 13.9 SECONDS (9.4-12.5) H 12/07/18 18:57 INR 1.25 12/07/18 18:57 APTT 35.6 Seconds (26.9-38.3) 12/07/18 18:57 Attending/Attestation - Attestation I have personally seen and examined this patient.: Yes I have fully participated in the care of the patient.: Yes I have reviewed all pertinent clinical information, including history, physical exam and plan: Yes
[2018-12-11 06:27] LABS: BARBITURATES, UR NEGATIVE (NEGATIVE); BENZODIAZEPINES, UR NEGATIVE (NEGATIVE); OPIATES, UR NEGATIVE (NEGATIVE); PHENCYCLIDINE, UR NEGATIVE (NEGATIVE)
[2018-12-11 07:08] LABS: BASO # 0.02 {null, K/mm3} (0.0-2.0); BASO % 0.5 % (0.0-3.0); EOS % 0.7 % (1.5-5.0); LYMPH # 1.4 (1.2-3.4); LYMPH % 31.8 % (22.0-35.0); MEAN CELL VOLUME 100.4 fl (80.0-105.0); MEAN CORPUSCULAR HEMOGLOBIN 31.9 pg (25.0-35.0); MEAN CORPUSCULAR HGB CONC 31.7 g/dl (31.0-37.0); MEAN PLATELET VOLUME 8.5 fl (7.0-11.0); MONO # 0.2 (0.1-0.6); MONO % 5.5 % (1.0-6.0); RBC 2.51 {null, 10^6/uL} (3.5-6.1); WHITE BLOOD COUNT 4.3 {null, 10^3/uL} (4.5-11.0)
[2018-12-11 07:16] LABS: GAMMA GLUTAMYL TRANSPEPTIDASE 175 U/L (8-78); HDL CHOLESTEROL 14 mg/dL (29-60)
[2018-12-11 07:27] LABS: LDL CHOLESTEROL 59 mg/dL (0-129)
[2018-12-11 07:32] LABS: ALB/GLOB RATIO 0.8 (1.1-1.8); ALT/SGPT 18 U/L (7-56); AMYLASE 38 U/L (35-125); AST/SGOT 24 U/L (17-59); BLOOD UREA NITROGEN 16 mg/dL (7-21); CALCIUM 8.6 mg/dL (8.4-10.5); GFR NON-AFRICAN AMERICAN > 60; LIPASE 94 U/L (23-300)
--- NOTE | 2018-12-11 08:11 | CP.PCM.PN ---
<Sandra Robison - Last Filed: 12/11/18 09:47> Subjective - Date & Time of Evaluation Date of Evaluation: 12/11/18 Time of Evaluation: 08:07 - Subjective Subjective: Gastroenterology Fellow/PGY6 Progress Note Patient notes lower abdominal discomfort. Tolerating liquid diet. Notes small stool two days ago with [id number] evacuation. 12-point review of systems negative except for as above. Objective - Vital Signs/Intake and Output Vital Signs (last 24 hours): Temp Pulse Resp BP Pulse Ox 97.9 F 88 17 124/59 L 96 12/11/18 06:00 12/11/18 06:00 12/11/18 06:00 12/11/18 06:00 12/11/18 06:00 Intake and Output: 12/11/18 12/11/18 06:59 18:59 Intake Total 580 Output Total 200 Balance 380 - Medications Medications: Current Medications Albuterol/Ipratropium (Duoneb 3 Mg/0.5 Mg (3 Ml) Ud) 3 ml IH Q2H PRN PRN Reason: Shortness of Breath Last Admin: 12/10/18 19:45 Dose: 3 ml Carvedilol (Coreg) 3.125 mg PO BID [facility] Last Admin: 12/10/18 17:11 Dose: 3.125 mg Ceftriaxone Sodium (Rocephin 1 Gram Ivpb) 1 gm in 100 mls @ 100 mls/hr IVPB DAILY [facility]; Protocol Last Admin: 12/10/18 10:41 Dose: 100 mls/hr Azithromycin (Zithromax 500mg In Ns) 500 mg in 250 mls @ 167 mls/hr IVPB DAILY [facility]; Protocol Last Admin: 12/10/18 10:50 Dose: 167 mls/hr Insulin Human Lispro (Humalog Low) 0 units SC ACHS [facility]; Protocol Last Admin: 12/10/18 21:22 Dose: Not Given Morphine Sulfate (Morphine) 4 mg IVP Q4H PRN PRN Reason: Pain, severe (8-10) Polyethylene Glycol (Miralax) 17 gm PO DAILY [facility] Last Admin: 12/10/18 10:41 Dose: 17 gm Tramadol HCl (Ultram) 50 mg PO Q6H PRN PRN Reason: Pain, moderate (4-7) Last Admin: 12/10/18 18:53 Dose: 50 mg Zolpidem Tartrate (Ambien) 5 mg PO HS PRN; Protocol PRN Reason: Insomnia Last Admin: 12/09/18 21:02 Dose: 5 mg - Labs Labs: 12/11/18 07:00 12/11/18 07:00 PT 13.9 SECONDS (9.4-12.5) H 12/07/18 18:57 INR 1.25 12/07/18 18:57 APTT 35.6 Seconds (26.9-38.3) 12/07/18 18:57 - Constitutional Appears: Non-toxic, No Acute Distress - Head Exam Head Exam: ATRAUMATIC, NORMOCEPHALIC - Eye Exam Eye Exam: EOMI, PERRL. absent: Scleral icterus Pupil Exam: PERRL. absent: Miosis, Mydriatic - ENT Exam ENT Exam: Mucous Membranes Moist, Normal Oropharynx - Neck Exam Neck Exam: Full ROM, Normal Inspection - Respiratory Exam Respiratory Exam: Clear to Ausculation Bilateral. absent: Rales, Rhonchi, Wheezes - Cardiovascular Exam Cardiovascular Exam: RRR, +S1, +S2. absent: Gallop, Rubs - GI/Abdominal Exam GI & Abdominal Exam: Soft, Tenderness, Normal Bowel Sounds. absent: Distended, Firm, Guarding, Rigid, Organomegaly, Rebound Additional comments: Bilateral lower abdomen discomfort - Extremities Exam Extremities Exam: Normal Inspection - Neurological Exam Neurological Exam: Alert, Awake - Psychiatric Exam Psychiatric exam: Normal Affect, Normal Mood - Skin Skin Exam: Dry, Intact, Normal Color, Warm Assessment and Plan - Assessment and Plan (Free Text) Assessment: 83 year old male with PMH of myelodysplastic syndrome, CHF, CAD, Diabetes, HTN, and Hypothyroidism presenting with abdominal pain. Acute treatment of acute mild pancreatitis, unclear etiology. Prior EGD with EUS 03/2015 showed H. pylori negative gastritis and normal CBD 7mm with no other pathology noted. Performed to evaluate prior abnormal CT 02/2015 with mild para-aortic lymphadenopathy. Plan: -MRCP- no mass lesion, no biliary dilatation, pancreas unremarkable -pending IgG4, EtOH, Triglyceride/lipid panel, autoimmune serologies, A1c, TSH -chronic elevated ALP -advance diet as tolerated to low fat diet -continue Miralax for constipation, Dulcolax once -will benefit from elective follow up for EUS and re-assessment of symptoms -will follow clinical course <CecyBrea V - Last Filed: 12/11/18 22:16> Objective - Vital Signs/Intake and Output Vital Signs (last 24 hours): Temp Pulse Resp BP Pulse Ox 98 F 97 H 17 158/74 H 94 L 12/11/18 14:00 12/11/18 14:00 12/11/18 14:00 12/11/18 14:00 12/11/18 14:00 Intake and Output: 12/11/18 12/12/18 18:59 06:59 Intake Total 240 Output Total 500 Balance -260 - Medications Medications: Current Medications Albuterol/Ipratropium (Duoneb 3 Mg/0.5 Mg (3 Ml) Ud) 3 ml IH Q2H PRN PRN Reason: Shortness of Breath Last Admin: 12/10/18 19:45 Dose: 3 ml Carvedilol (Coreg) 3.125 mg PO BID [facility] Last Admin: 12/11/18 17:37 Dose: 3.125 mg Ceftriaxone Sodium (Rocephin 1 Gram Ivpb) 1 gm in 100 mls @ 100 mls/hr IVPB DAILY [facility]; Protocol Last Admin: 12/11/18 10:12 Dose: 100 mls/hr Azithromycin (Zithromax 500mg In Ns) 500 mg in 250 mls @ 167 mls/hr IVPB DAILY [facility]; Protocol Last Admin: 12/11/18 10:11 Dose: 167 mls/hr Insulin Human Lispro (Humalog Low) 0 units SC ACHS DA; Protocol Last Admin: 12/11/18 17:37 Dose: 2 u Polyethylene Glycol (Miralax) 17 gm PO DAILY [facility] Last Admin: 12/11/18 10:12 Dose: 17 gm Tramadol HCl (Ultram) 50 mg PO Q6H PRN PRN Reason: Pain, moderate (4-7) Last Admin: 12/11/18 17:49 Dose: 50 mg Zolpidem Tartrate (Ambien) 5 mg PO HS PRN; Protocol PRN Reason: Insomnia Last Admin: 12/09/18 21:02 Dose: 5 mg - Labs Labs: 12/11/18 07:00 12/11/18 07:00 PT 13.9 SECONDS (9.4-12.5) H 12/07/18 18:57 INR 1.25 04/22/19 18:57 APTT 35.6 Seconds (26.9-38.3) 12/07/18 18:57 Attending/Attestation - Attestation I have personally seen and examined this patient.: Yes I have fully participated in the care of the patient.: Yes I have reviewed all pertinent clinical information, including history, physical exam and plan: Yes Notes (Text): This patient was seen and evaluated along with the GI fellow earlier. MRCP was reviewed. Pain is GI work-up was also reviewed. Patient is tolerating diet. Patient does have hematology to problem being followed by Dr. Rasmussen. We discussed with the Dr. Grey. Continue PPI. Would consider elective EUS to further evaluate 12/11/18 22:13
[2018-12-11 08:13] LABS: B-TYPE NATRIURETIC PEPTIDE 2650 pg/mL (0-450)
--- NOTE | 2018-12-11 08:24 | PN ---
DATE: 12/11/2018 PULMONARY NOTE SUBJECTIVE: The patient appears comfortable this morning. He is not short of breath at rest. OBJECTIVE: VITALS: Last temperature recorded is 99.0, pulse this morning approximately 88, respiratory rate 18/20, blood pressure 158/81. Oxygen saturation on nasal canula 94% --98%. HEENT: Normocephalic, atraumatic. No JVD. CARDIOVASCULAR: Systolic ejection murmur at the lower left sternal border. Questionable S3 gallop. LUNGS: Minimal crackles noted - right base. No rhonchi. No wheezing. EXTREMITIES: No clubbing, cyanosis, or edema. Calves are nontender to palpation. GASTROINTESTINAL: Abdomen is soft. It is much less tender to palpation. It is much less distended. Bowel sounds are positive. SKIN: No acute rash. NEUROLOGIC: Limited at the present time. PERTINENT LABORATORY DATA: Chest x-ray was done last night and reviewed. There appears to be new pulmonary vascular congestion noted on this film. Official results are pending. IMPRESSION: 1. Acute pancreatitis. 2. Right lower lobe pneumonia. 3. Chronic anemia. 4. Myelodysplastic syndrome. 5. Coronary artery disease. 6. Rule out congestive heart failure/volume overload. PLAN: The patient appears comfortable this morning. He is not short of breath at rest. He does state to feeling better overall. On physical exam, there is no significant bronchospasm noted. In addition, there is no significant alveolar arterial gradient. I will continue with the aspiration precautions for now. The patient also has DuoNebs ordered on a p.r.n. basis. I did review the chest x-ray from last night. Increased pulmonary vascular congestion is noted. Official results are pending. The patient did receive a dose of Lasix from the night team. I have also ordered a B-type natriuretic peptide to be done on a stat basis. Intravenous fluids have been discontinued. I will continue with the current antibiotic therapy for now. The recent infiltrates seen on the CAT scan are in a DIFFERENT location from the infiltrates previously seen on CAT scan. Inputs by Internal Medicine and Gastroenterology are also noted. Clinical status of the patient is certainly improved - compared to the initial presentation. However, given the above, the future status/prognosis for this chronically ill elderly patient does remain guarded. I will discuss the above with Dr. Grey. Tyrell Newsome MD [facility] # [id number] KEYSHA
[2018-12-11] MEDS ORDERED: Magnesium Sulfate 1 gm in D5W 1 GM/100 ML BAG IVPB ONE (08:49)
--- NOTE | 2018-12-11 09:31 | RAD ---
Date of service: 12/10/2018 HISTORY: sob COMPARISON: 12/07/2018 TECHNIQUE: 1 view obtained. FINDINGS: LUNGS: Consolidation at the left lung base PLEURA: No significant pleural effusion identified, no pneumothorax apparent. CARDIOVASCULAR: Aortic calcification Normal cardiac size. Mild vascular congestion OSSEOUS STRUCTURES: No significant abnormalities. VISUALIZED UPPER ABDOMEN: Normal. OTHER FINDINGS: None. IMPRESSION: Consolidation at the left lung base which was not present on earlier study
[2018-12-11] MEDS ORDERED: Bisacodyl 5mg EC Tab PO ONE (09:45)
[2018-12-11] MEDS ORDERED: POLYETHYLENE GLYCOL 3350 17 GM/Dose PACKET PO ONE (09:46)
[2018-12-11] MEDS: Azithromycin 500MG/NS 250ml 500 MG/250 ML BAG IVPB SCH (10:11)
[2018-12-11] MEDS: POLYETHYLENE GLYCOL 3350 17 GM/Dose PACKET PO SCH (10:12)
[2018-12-11] MEDS: cefTRIAXone 1 gm 1 GM/100 ML BAG IVPB SCH (10:12)
[2018-12-11] MEDS: Insulin Lispro (humaLOG) LOW Coverage SC SCH ×4 (10:12→22:19)
--- NOTE | 2018-12-11 11:37 | CP.PCM.PCO ---
Physician Communication Note - Physician Communication Note Physician Communication Note: pt seen and examined, discuss plan with pmd, replete lytes and monitor Additional Comments - Additional Comments Additional Comments: pt with hypokalemia and hypomagnesemia being repleted, discuss plan with PMD Laboratory Results - last 24 hr 12/10/18 12/10/18 12/11/18 16:16 21:00 05:00 WBC RBC Hgb Hct MCV MCH MCHC RDW Plt Count MPV Neut % (Auto) Lymph % (Auto) Weakley % (Auto) Eos % (Auto) Baso % (Auto) Lymph # (Auto) Weakley # (Auto) Eos # (Auto) Baso # (Auto) Absolute Neuts (auto) Sodium Potassium Chloride Carbon Dioxide Anion Gap BUN Creatinine Est GFR ( Amer) Est GFR (Non-Af Amer) POC Glucose (mg/dL) 238 H 169 H Random Glucose Hemoglobin A1c Calcium Phosphorus Magnesium Total Bilirubin GGT AST ALT Alkaline Phosphatase NT-Pro-B Natriuret Pep Total Protein Albumin Globulin Albumin/Globulin Ratio Triglycerides Cholesterol LDL Cholesterol Direct HDL Cholesterol Amylase Lipase TSH 3rd Generation Urine Opiates Screen Negative Urine Methadone Screen Negative Ur Barbiturates Screen Negative Ur Phencyclidine Scrn Negative Ur Amphetamines Screen Negative U Benzodiazepines Scrn Negative U Oth Cocaine Metabols Negative U Cannabinoids Screen Negative Alcohol, Quantitative 12/11/18 12/11/18 12/11/18 06:41 07:00 07:00 WBC RBC Hgb Hct MCV MCH MCHC RDW Plt Count MPV Neut % (Auto) Lymph % (Auto) Weakley % (Auto) Eos % (Auto) Baso % (Auto) Lymph # (Auto) Weakley # (Auto) Eos # (Auto) Baso # (Auto) Absolute Neuts (auto) Sodium Potassium Chloride Carbon Dioxide Anion Gap BUN Creatinine Est GFR ( Amer) Est GFR (Non-Af Amer) POC Glucose (mg/dL) 212 H Random Glucose Hemoglobin A1c 7.1 H Calcium Phosphorus Magnesium Total Bilirubin GGT 175 H AST ALT Alkaline Phosphatase NT-Pro-B Natriuret Pep Total Protein Albumin Globulin Albumin/Globulin Ratio Triglycerides 102 Cholesterol 88 L LDL Cholesterol Direct 59 HDL Cholesterol 14 L Amylase Lipase TSH 3rd Generation Urine Opiates Screen Urine Methadone Screen Ur Barbiturates Screen Ur Phencyclidine Scrn Ur Amphetamines Screen U Benzodiazepines Scrn U Oth Cocaine Metabols U Cannabinoids Screen Alcohol, Quantitative 12/11/18 12/11/18 12/11/18 07:00 07:00 07:00 WBC 4.3 L D RBC 2.51 L Hgb 8.0 L Hct 25.2 L MCV 100.4 MCH 31.9 MCHC 31.7 RDW 14.0 Plt Count 150 MPV 8.5 Neut % (Auto) 61.5 Lymph % (Auto) 31.8 Weakley % (Auto) 5.5 Eos % (Auto) 0.7 L Baso % (Auto) 0.5 Lymph # (Auto) 1.4 Weakley # (Auto) 0.2 Eos # (Auto) 0.0 Baso # (Auto) 0.02 Absolute Neuts (auto) 2.67 Sodium 140 Potassium 3.0 L Chloride 101 Carbon Dioxide 29 Anion Gap 13 BUN 16 Creatinine 0.9 Est GFR ( Amer) > 60 Est GFR (Non-Af Amer) > 60 POC Glucose (mg/dL) Random Glucose 180 H Hemoglobin A1c Calcium 8.6 Phosphorus 3.0 Magnesium 1.4 L Total Bilirubin 0.8 GGT AST 24 ALT 18 Alkaline Phosphatase 222 H NT-Pro-B Natriuret Pep 2650 H Total Protein 6.5 Albumin 3.0 Globulin 3.5 Albumin/Globulin Ratio 0.8 L Triglycerides Cholesterol LDL Cholesterol Direct HDL Cholesterol Amylase 38 Lipase 94 TSH 3rd Generation 3.00 Urine Opiates Screen Urine Methadone Screen Ur Barbiturates Screen Ur Phencyclidine Scrn Ur Amphetamines Screen U Benzodiazepines Scrn U Oth Cocaine Metabols U Cannabinoids Screen Alcohol, Quantitative < 10 pt with acute pancreatitis -resolving s/p MRCP with result noted , lipase now normalized pt now off iv fluids due to SOB/fluid overload yesterday pt continues on IV antibiotics for PNA with Pul follow up and recs noted. per discursion with pmd, continue to monitor off fluids and advance diet as per GI recs repeat labs for am plan : home in am if clinically stable per Dr Matias.
[2018-12-11 12:01] LABS: HEPATITIS B SURFACE AG Negative (NEGATIVE)
[2018-12-11 12:07] LABS: HEPATITIS A IGM NEGATIVE (NEGATIVE); HEPATITIS B CORE AB NEGATIVE (NEGATIVE)
[2018-12-11 12:19] LABS: HEPATITIS C ANTIBODY NEGATIVE (NEGATIVE)
--- NOTE | 2018-12-11 15:12 | CARD ---
APPROVED REPORT Date of service: 12/10/2018 EKG Measurement Heart [id number] <Conclusion> Sinus tachycardia Right bundle branch block Abnormal ECG
[2018-12-12 09:53] LABS: ALB/GLOB RATIO 0.8 (1.1-1.8); ALT/SGPT 26 U/L (7-56); AST/SGOT 42 U/L (17-59); BLOOD UREA NITROGEN 17 mg/dL (7-21); CALCIUM 8.5 mg/dL (8.4-10.5); GFR NON-AFRICAN AMERICAN > 60
[2018-12-12 10:02] LABS: HEMOGLOBIN 8.4 g/dL (14.0-18.0); MEAN CELL VOLUME 102.7 fl (80.0-105.0); MEAN CORPUSCULAR HEMOGLOBIN 32.7 pg (25.0-35.0); MEAN CORPUSCULAR HGB CONC 31.8 g/dl (31.0-37.0); MEAN PLATELET VOLUME 8.7 fl (7.0-11.0); RBC 2.57 {null, 10^6/uL} (3.5-6.1); WHITE BLOOD COUNT 4.5 {null, 10^3/uL} (4.5-11.0)
[2018-12-12] MEDS: Insulin Lispro (humaLOG) LOW Coverage SC SCH ×4 (10:17→23:29)
[2018-12-12] MEDS: Azithromycin 500MG/NS 250ml 500 MG/250 ML BAG IVPB SCH (10:18)
[2018-12-12] MEDS: cefTRIAXone 1 gm 1 GM/100 ML BAG IVPB SCH (10:18)
[2018-12-12] MEDS: POLYETHYLENE GLYCOL 3350 17 GM/Dose PACKET PO SCH (10:18)
--- NOTE | 2018-12-12 11:23 | CP.PCM.PN ---
<Hans Spence - Last Filed: 12/12/18 18:49> Subjective - Date & Time of Evaluation Date of Evaluation: 12/12/18 Time of Evaluation: 09:45 - Subjective Subjective: PGY4 GI fellow progress note Patient was lying in bed when seen this morning. He states he is feeling well and tolerating diet without abdominal pain, nausea nor vomiting. He reports one loose bowel movement this morning with no bowel movements yesterday. 5 point review of systems negative as stated above Objective - Vital Signs/Intake and Output Vital Signs (last 24 hours): Temp Pulse Resp BP Pulse Ox 98.3 F 83 20 147/70 96 12/12/18 06:00 12/12/18 06:00 12/12/18 06:00 12/12/18 06:00 12/12/18 06:00 Intake and Output: 12/12/18 12/12/18 06:59 18:59 Intake Total 360 Output Total 500 Balance -140 - Medications Medications: Current Medications Albuterol/Ipratropium (Duoneb 3 Mg/0.5 Mg (3 Ml) Ud) 3 ml IH Q2H PRN PRN Reason: Shortness of Breath Last Admin: 12/10/18 19:45 Dose: 3 ml Carvedilol (Coreg) 3.125 mg PO BID DA Last Admin: 12/12/18 10:18 Dose: 3.125 mg Ceftriaxone Sodium (Rocephin 1 Gram Ivpb) 1 gm in 100 mls @ 100 mls/hr IVPB DAILY DA; Protocol Last Admin: 12/12/18 10:18 Dose: 100 mls/hr Azithromycin (Zithromax 500mg In Ns) 500 mg in 250 mls @ 167 mls/hr IVPB DAILY DA; Protocol Last Admin: 12/12/18 10:18 Dose: 167 mls/hr Insulin Human Lispro (Humalog Low) 0 units SC ACHS DA; Protocol Last Admin: 12/12/18 10:17 Dose: 4 u Polyethylene Glycol (Miralax) 17 gm PO DAILY DA Last Admin: 12/12/18 10:18 Dose: 17 gm Tramadol HCl (Ultram) 50 mg PO Q6H PRN PRN Reason: Pain, moderate (4-7) Last Admin: 12/12/18 06:53 Dose: 50 mg Zolpidem Tartrate (Ambien) 5 mg PO HS PRN; Protocol PRN Reason: Insomnia Last Admin: 12/09/18 21:02 Dose: 5 mg - Labs Labs: 12/12/18 09:20 12/12/18 09:20 PT 13.9 SECONDS (9.4-12.5) H 12/07/18 18:57 INR 1.25 12/07/18 18:57 APTT 35.6 Seconds (26.9-38.3) 12/07/18 18:57 - Constitutional Appears: Well, No Acute Distress - Head Exam Head Exam: ATRAUMATIC, NORMAL INSPECTION - Eye Exam Eye Exam: EOMI. absent: Scleral icterus - ENT Exam ENT Exam: Mucous Membranes Moist. absent: Mucous Membranes Dry - Respiratory Exam Respiratory Exam: NORMAL BREATHING PATTERN. absent: Accessory Muscle Use - GI/Abdominal Exam GI & Abdominal Exam: Soft, Normal Bowel Sounds. absent: Bruit, Distended, Firm, Guarding, Rigid, Tenderness, Mass, Organomegaly, Pulsatile Mass, Rebound Assessment and Plan - Assessment and Plan (Free Text) Assessment: 83 year old male with PMH of myelodysplastic syndrome, CHF, CAD, Diabetes, HTN, and Hypothyroidism presenting with abdominal pain. Acute treatment of acute mild pancreatitis, unclear etiology. Prior EGD with EUS 03/2015 showed H. pylori negative gastritis and normal CBD 7mm with no other pathology noted. Performed to evaluate prior abnormal CT 02/2015 with mild para-aortic lymphadenopathy. Plan: -MRCP- no mass lesion, no biliary dilatation, pancreas unremarkable -pending IgG4, EtOH, Triglyceride/lipid panel, autoimmune serologies, A1c, TSH -Start Ursodiol for possible sludge induced pancreatitis -chronic elevated ALP -Low fat diet -continue Miralax for constipation -will benefit from elective follow up for EUS and re-assessment of symptoms -will follow clinical course patient discussed with Dr. Sam. Please see a gestation for further recommendations/changes <Brea Sam V - Last Filed: 12/13/18 01:07> Objective - Vital Signs/Intake and Output Vital Signs (last 24 hours): Temp Pulse Resp BP Pulse Ox 99.5 F 109 H 22 152/62 H 94 L 12/12/18 22:00 12/12/18 22:00 12/12/18 22:00 12/12/18 22:00 12/12/18 22:00 - Medications Medications: Current Medications Albuterol/Ipratropium (Duoneb 3 Mg/0.5 Mg (3 Ml) Ud) 3 ml IH Q2H PRN PRN Reason: Shortness of Breath Last Admin: 12/10/18 19:45 Dose: 3 ml Carvedilol (Coreg) 3.125 mg PO BID DA Last Admin: 12/12/18 17:12 Dose: 3.125 mg Ceftriaxone Sodium (Rocephin 1 Gram Ivpb) 1 gm in 100 mls @ 100 mls/hr IVPB DAILY DA; Protocol Last Admin: 12/12/18 10:18 Dose: 100 mls/hr Azithromycin (Zithromax 500mg In Ns) 500 mg in 250 mls @ 167 mls/hr IVPB DAILY DA; Protocol Last Admin: 12/12/18 10:18 Dose: 167 mls/hr Insulin Human Lispro (Humalog Low) 0 units SC ACHS DA; Protocol Last Admin: 12/12/18 23:29 Dose: Not Given Polyethylene Glycol (Miralax) 17 gm PO DAILY DA Last Admin: 12/12/18 10:18 Dose: 17 gm Tramadol HCl (Ultram) 50 mg PO Q6H PRN PRN Reason: Pain, moderate (4-7) Last Admin: 12/12/18 06:53 Dose: 50 mg Ursodiol (Actigall) 300 mg PO BID DA Zolpidem Tartrate (Ambien) 5 mg PO HS PRN; Protocol PRN Reason: Insomnia Last Admin: 12/09/18 21:02 Dose: 5 mg - Labs Labs: 12/12/18 09:20 12/12/18 09:20 PT 13.9 SECONDS (9.4-12.5) H 12/07/18 18:57 INR 1.25 12/07/18 18:57 APTT 35.6 Seconds (26.9-38.3) 12/07/18 18:57 Attending/Attestation - Attestation I have personally seen and examined this patient.: Yes I have fully participated in the care of the patient.: Yes I have reviewed all pertinent clinical information, including history, physical exam and plan: Yes Notes (Text): This patient was seen and evaluated here earlier. This is an addendum to the GI progress report dictated by the GI fellow. Patient was feeling better. Potassium has been supplemented. Patient magnesium strength leg in the low side. Patient did develop pulmonary vascular congestion secondary to the volume overload. Now resolved the IV fluids need to receive Lasix. The etiology for this patient's pancreatitis unclear. MRCP was reviewed. Patient is also being followed by Dr. Rasmussen digital marketing apprentice. The reasonable thing is to do endoscopic ultrasound as an outpatient. Patient did have a fluctuating liver enzymes. common bile duct sludge also should be considered as a di fferential diagnosis. We will empirically start the patient on Actigall 300 mg twice daily. Follow-up of the LFTs. 12/13/18 01:03
--- NOTE | 2018-12-12 13:29 | PN ---
DATE: 12/12/2018 SUBJECTIVE: Juan Jose is markedly improved. He feels well. He states that he is awaiting transfer to the stepdown unit for physical therapy and recuperation. He denies pain or shortness of breath. OBJECTIVE: VITAL SIGNS: Vital signs remain stable. He had a low-grade fever yesterday. He is comfortable at the present time. His blood pressure is 160/80, respiratory rate of 16, O2 saturation 98%. HEENT: Normocephalic, atraumatic. There is no jugular venous distention, bruit, mass or lymphadenopathy. CARDIOVASCULAR: Regular rhythm, S1, S2 without murmur, gallop or rub. CHEST: Essentially clear. Decreased breath sounds at the right with occasional rales. No rhonchi or wheezes appreciated. GASTROINTESTINAL: Soft. Bowel sounds normoactive without mass, guarding, or rebound. No organomegaly. EXTREMITIES: Reveal no clubbing, cyanosis or edema. There is no clinical evidence of positive Homans' sign. SKIN: Shows no rash or excoriation. There are no other abnormalities noted. NEUROLOGIC: No focal findings. Motor, sensory and coordination are normal. DIAGNOSTIC DATA: Chest x-ray showed mild pulmonary vascular congestion on the last film consistent with the rales auscultated on exam. CLINICAL IMPRESSION: 1. Mild pulmonary vascular congestion. 2. Acute pancreatitis. 3. Right lower lobe pneumonia. 4. Myelodysplastic syndrome. PLAN: The patient should be further evaluated by Cardiology. Followup x-ray will be required in several days after treatment of pulmonary vascular congestion and possible fluid overload. We will discuss with primary medical doctor and team. If the patient remains on medical or TCU, he can still be monitored closely. He has received diuretic therapy. BMP cannot be located from the chart but we will follow closely with you. We will follow closely and decide on the need for further intervention wherever his location may be. We will continue to follow up closely with you. Baron Mays MD
[2018-12-12 15:48] VITALS: O2SAT 94
[2018-12-13 08:13] VITALS: BP 148/74; PULSE 103; RESP 18; TEMP 98.8
[2018-12-13] MEDS: Insulin Lispro (humaLOG) LOW Coverage SC SCH ×2 (08:29→12:08)
[2018-12-13] MEDS: cefTRIAXone 1 gm 1 GM/100 ML BAG IVPB SCH (09:42)
[2018-12-13] MEDS: Azithromycin 500MG/NS 250ml 500 MG/250 ML BAG IVPB SCH (09:42)
[2018-12-13] MEDS: POLYETHYLENE GLYCOL 3350 17 GM/Dose PACKET PO SCH (09:43)
--- NOTE | 2018-12-13 11:08 | CP.PCM.PN ---
<Hans Spence - Last Filed: 12/13/18 11:05> Subjective - Date & Time of Evaluation Date of Evaluation: 12/13/18 Time of Evaluation: 10:35 - Subjective Subjective: PGY4 GI fellow progress note Patient was lying in bed when seen this morning. States no further abdominal pain and is tolerating diet. Five-point review of systems negative other than stated above Objective - Vital Signs/Intake and Output Vital Signs (last 24 hours): Temp Pulse Resp BP Pulse Ox 98.8 F 103 H 18 148/74 94 L 12/13/18 06:00 12/13/18 06:00 12/13/18 06:00 12/13/18 06:00 12/13/18 06:00 - Medications Medications: Current Medications Albuterol/Ipratropium (Duoneb 3 Mg/0.5 Mg (3 Ml) Ud) 3 ml IH Q2H PRN PRN Reason: Shortness of Breath Last Admin: 12/10/18 19:45 Dose: 3 ml Carvedilol (Coreg) 3.125 mg PO BID [facility] Last Admin: 12/13/18 09:43 Dose: 3.125 mg Insulin Human Lispro (Humalog Low) 0 units SC ACHS [facility]; Protocol Last Admin: 12/13/18 08:29 Dose: 2 u Polyethylene Glycol (Miralax) 17 gm PO DAILY [facility] Last Admin: 12/13/18 09:43 Dose: Not Given Tramadol HCl (Ultram) 50 mg PO Q6H PRN PRN Reason: Pain, moderate (4-7) Last Admin: 12/12/18 06:53 Dose: 50 mg Ursodiol (Actigall) 300 mg PO BID [facility] Last Admin: 12/13/18 09:43 Dose: 300 mg Zolpidem Tartrate (Ambien) 5 mg PO HS PRN; Protocol PRN Reason: Insomnia Last Admin: 12/09/18 21:02 Dose: 5 mg - Labs Labs: 12/12/18 09:20 12/12/18 09:20 PT 13.9 SECONDS (9.4-12.5) H 12/07/18 18:57 INR 1.25 12/07/18 18:57 APTT 35.6 Seconds (26.9-38.3) 12/07/18 18:57 - Constitutional Appears: Well, No Acute Distress - Head Exam Head Exam: ATRAUMATIC, NORMAL INSPECTION - Eye Exam Eye Exam: EOMI. absent: Scleral icterus - ENT Exam ENT Exam: Mucous Membranes Moist. absent: Mucous Membranes Dry - Respiratory Exam Respiratory Exam: NORMAL BREATHING PATTERN. absent: Accessory Muscle Use - GI/Abdominal Exam GI & Abdominal Exam: Soft. absent: Bruit, Distended, Firm, Guarding, Rigid, Tenderness, Mass, Pulsatile Mass Assessment and Plan - Assessment and Plan (Free Text) Assessment: 83 year old male with PMH of myelodysplastic syndrome, CHF, CAD, Diabetes, HTN, and Hypothyroidism presenting with abdominal pain. Acute treatment of acute mild pancreatitis, unclear etiology. Prior EGD with EUS 03/2015 showed H. pylori negative gastritis and normal CBD 7mm with no other pathology noted. Performed to evaluate prior abnormal CT 02/2015 with mild para-aortic lymphadenopathy. Chronic elevated ALP. Plan: -MRCP- no mass lesion, no biliary dilatation, pancreas unremarkable -Pending IgG4, EtOH, Triglyceride/lipid panel, autoimmune serologies, A1c, TSH -Cont Ursodiol for possible sludge induced pancreatitis -Low fat diet -Continue Miralax for constipation -Will benefit from elective follow up for EUS and re-assessment of symptoms -Will follow clinical course Patient seen and examined with Dr. Sam. Please see a gestation for further recommendations/changes <Brea Sam V - Last Filed: 12/13/18 17:38> Objective - Vital Signs/Intake and Output Vital Signs (last 24 hours): Temp Pulse Resp BP Pulse Ox 98.8 F 103 H 18 148/74 94 L 12/13/18 06:00 12/13/18 06:00 12/13/18 06:00 12/13/18 06:00 12/13/18 06:00 - Labs Labs: 12/12/18 09:20 12/12/18 09:20 PT 13.9 SECONDS (9.4-12.5) H 12/07/18 18:57 INR 1.25 12/07/18 18:57 APTT 35.6 Seconds (26.9-38.3) 12/07/18 18:57 Attending/Attestation - Attestation I have personally seen and examined this patient.: Yes I have fully participated in the care of the patient.: Yes I have reviewed all pertinent clinical information, including history, physical exam and plan: Yes Notes (Text): Patient was seen and evaluated the earlier along with the GI fellow. This is an addendum to the progress report dictated by the fellow. Patient denies any abdominal pain tolerating the diet. Etiology for this bank since pancreatitis unclear Patient does have fluctuating LFTs. History of status post cholecystectomy CBD normal in the MRCP. One of the differential diagnosis to be considered is a sludge in the CBD started the patient on Actigall Patient is also being followed by Dr. Rasmussen. History of para-aortic lymphadenopathy extensive work-up done in the past Patient will benefit from elective EUS. We will discuss with the Dr. Grey and also with Dr. Rasmussen 12/13/18 17:36
--- NOTE | 2018-12-14 12:58 | PN ---
DATE: 12/14/2018 SUBJECTIVE: The patient feels great. He has been transferred to TCU for further treatment. He has no respiratory distress. He is washing himself without dyspnea. He feels well. OBJECTIVE: VITAL SIGNS: He is afebrile. Vital signs otherwise stable. Oxygen saturation 99%. HEENT: Normocephalic, atraumatic. NECK: Supple. No jugular venous distention, no bruit or mass. CARDIOVASCULAR: Regular rhythm, S1, S2 without murmur, gallop or rub. CHEST: Slight decreased breath sounds at the right base, minimal rhonchi. No wheezes or rales appreciated. GASTROINTESTINAL: Soft. Bowel sounds normoactive without mass, guarding, rebound, organomegaly. EXTREMITIES: No clubbing, cyanosis or edema. There is no evidence of Homans' sign. SKIN: No rash or excoriation. NEUROLOGICAL: No focal findings. DIAGNOSTIC DATA: No new chest x-ray has yet been requested. CLINICAL IMPRESSION: 1. Pulmonary vascular congestion. 2. Right lower lobe pneumonia. 3. Status post acute pancreatitis. 4. Myelodysplastic disorder. PLAN: Continue vigorous support in transitional care unit. We must follow the patient's pneumonic infiltrate to complete resolution. In the interim, however, Cardiology must continue evaluation and treatment of pulmonary vascular congestion. We will follow closely with you during the course of this hospitalization and beyond, must follow chest x-ray to complete resolution. A followup chest x-ray requested for the morning. Baron Mays MD
== END 2018-12-13 15:31 | DRG 438 ==
LOC: ED 19:05 → ERH 22:06 → 5RNO 12-08 00:30
PROVIDERS: ADMIT Internal Medicine; ATTEND Internal Medicine
DX: K85.90 Acute pancreatitis without necrosis or infection, unspecified (principal); J18.1 Lobar pneumonia, unspecified organism; D46.9 Myelodysplastic syndrome, unspecified; I11.0 Hypertensive heart disease with heart failure; I50.9 Heart failure, unspecified; I25.10 Atherosclerotic heart disease of native coronary artery without angina pectoris; E11.9 Type 2 diabetes mellitus without complications; E03.9 Hypothyroidism, unspecified; K21.0 Gastro-esophageal reflux disease with esophagitis; N40.0 Benign prostatic hyperplasia without lower urinary tract symptoms; E87.6 Hypokalemia; E83.42 Hypomagnesemia; K59.00 Constipation, unspecified; Z79.82 Long term (current) use of aspirin; Z79.84 Long term (current) use of oral hypoglycemic drugs; Z87.891 Personal history of nicotine dependence; Z95.5 Presence of coronary angioplasty implant and graft

== ENCOUNTER 2018-12-13 15:31 | Inpatient (IN) | payer OTHER, BC ==
[2018-12-13] MEDS ORDERED: Albuterol-Ipratrop 3 mg / 0.5 (3 ml) UD IH PRN (16:38)
[2018-12-13] MEDS: Insulin Lispro (humaLOG) LOW Coverage SC SCH (22:15)
[2018-12-14] MEDS: Insulin Lispro (humaLOG) LOW Coverage SC SCH ×4 (06:45→23:17)
--- NOTE | 2018-12-14 10:22 | CP.PCM.PN ---
<Isaiah Pedro - Last Filed: 12/14/18 16:51> Subjective - Date & Time of Evaluation Date of Evaluation: 12/14/18 Time of Evaluation: 07:50 - Subjective Subjective: PGY6 GI Fellow Progress Note Patient seen and examined bedside this morning. Admits to ongoing RUQ abdominal pain, though improved from previous. Tolerating heart healthy diet without issue. No events overnight. Passing stool regularly. 12 system ROS performed and negative except where stated Objective - Vital Signs/Intake and Output Vital Signs (last 24 hours): Temp Pulse Resp BP Pulse Ox 98 H 135/68 12/14/18 08:19 12/14/18 08:19 Intake and Output: 12/14/18 12/14/18 06:59 18:59 Intake Total 340 Balance 340 - Medications Medications: Current Medications Albuterol/Ipratropium (Duoneb 3 Mg/0.5 Mg (3 Ml) Ud) 3 ml IH Q2H PRN; Protocol PRN Reason: Shortness of Breath Carvedilol (Coreg) 3.125 mg PO 0800,1800 DA; Protocol Last Admin: 12/14/18 08:19 Dose: 3.125 mg Glipizide (Glucotrol) 5 mg PO 0700,1130,1630 DA; Protocol Last Admin: 12/14/18 06:45 Dose: 5 mg Insulin Human Lispro (Humalog Low) 0 units SC ACHS DA; Protocol Last Admin: 12/14/18 06:45 Dose: 2 units Lisinopril (Zestril) 10 mg PO DAILY DA; Protocol Metformin HCl (Glucophage) 500 mg PO 0800,1200,1800 DA; Protocol Last Admin: 12/14/18 08:18 Dose: 500 mg Polyethylene Glycol (Miralax) 17 gm PO DAILY DA; Protocol Tramadol HCl (Ultram) 50 mg PO Q6H PRN; Protocol PRN Reason: Pain, moderate (4-7) Last Admin: 12/14/18 05:05 Dose: 50 mg Ursodiol (Actigall) 300 mg PO 0800,1800 DA; Protocol Last Admin: 12/14/18 08:19 Dose: 300 mg Zolpidem Tartrate (Ambien) 5 mg PO HS PRN; Protocol PRN Reason: Insomnia - Constitutional Appears: Non-toxic, No Acute Distress - Eye Exam Eye Exam: EOMI, PERRL - ENT Exam ENT Exam: Mucous Membranes Moist - Respiratory Exam Respiratory Exam: Clear to Ausculation Bilateral. absent: Rales, Rhonchi, Wheezes - Cardiovascular Exam Cardiovascular Exam: RRR, +S1, +S2 - GI/Abdominal Exam GI & Abdominal Exam: Soft, Normal Bowel Sounds. absent: Distended, Firm, Guarding, Rigid, Tenderness, Organomegaly - Extremities Exam Extremities Exam: Normal Inspection. absent: Pedal Edema - Neurological Exam Neurological Exam: Alert, Awake, Oriented x3 - Psychiatric Exam Psychiatric exam: Normal Affect, Normal Mood - Skin Skin Exam: Dry, Warm Assessment and Plan - Assessment and Plan (Free Text) Assessment: Patient is an 83yo male with PMHx significant for CAD, CHF, DM, HTN, hypothyroidism and myelodysplastic syndrome who presented with abdominal pain -Acute pancreatitis, resolving Plan: -Ongoing supportive care with analgesia and diet as tolerated -Imaging reviewed -Awaiting IgG4 to rule out autoimmune component -Denies EtOH or tobacco use -On Ursodiol with concern for microlithiasis/sludge -Elective follow up for EUS and re-assessment of symptoms <Brea Sam V - Last Filed: 12/14/18 20:05> Objective - Vital Signs/Intake and Output Vital Signs (last 24 hours): Temp Pulse Resp BP Pulse Ox 89 131/74 95 12/14/18 17:33 12/14/18 17:33 12/14/18 11:30 - Medications Medications: Current Medications Albuterol/Ipratropium (Duoneb 3 Mg/0.5 Mg (3 Ml) Ud) 3 ml IH Q2H PRN; Protocol PRN Reason: Shortness of Breath Carvedilol (Coreg) 3.125 mg PO 0800,1800 [facility]; Protocol Last Admin: 12/14/18 17:33 Dose: 3.125 mg Glipizide (Glucotrol) 5 mg PO 0700,1130,1630 [facility]; Protocol Last Admin: 12/14/18 17:08 Dose: 5 mg Insulin Human Lispro (Humalog Low) 0 units SC [facility]; Protocol Last Admin: 12/14/18 17:03 Dose: Not Given Lisinopril (Zestril) 10 mg PO DAILY [facility]; Protocol Last Admin: 12/14/18 08:10 Dose: 10 mg Metformin HCl (Glucophage) 500 mg PO 0800,1200,1800 DA; Protocol Last Admin: 12/14/18 17:33 Dose: 500 mg Polyethylene Glycol (Miralax) 17 gm PO DAILY DA; Protocol Last Admin: 12/14/18 11:40 Dose: Not Given Tramadol HCl (Ultram) 50 mg PO Q6H PRN; Protocol PRN Reason: Pain, moderate (4-7) Last Admin: 12/14/18 10:37 Dose: 50 mg Ursodiol (Actigall) 300 mg PO 0800,1800 DA; Protocol Last Admin: 12/14/18 17:32 Dose: 300 mg Zolpidem Tartrate (Ambien) 5 mg PO HS PRN; Protocol PRN Reason: Insomnia Attending/Attestation - Attestation I have personally seen and examined this patient.: Yes I have fully participated in the care of the patient.: Yes I have reviewed all pertinent clinical information, including history, physical exam and plan: Yes Notes (Text): This is an addendum to the GI progress report dictated by the fellow. The patient was seen and evaluated along with the GI fellow. Previous medical records reviewed. We will discuss with the Dr. Rasmussen. Patient had history of myelodysplasia history of lymphadenopathy before extensive work-up including PET scan done in the past. Follow-up with LFTs [facility] 12/14/18 20:04
[2018-12-14] MEDS: POLYETHYLENE GLYCOL 3350 17 GM/Dose PACKET PO SCH (11:40)
[2018-12-15] MEDS: Insulin Lispro (humaLOG) LOW Coverage SC SCH ×4 (06:41→21:42)
[2018-12-15 07:05] LABS: HEMOGLOBIN 8.2 g/dL (14.0-18.0); MEAN CELL VOLUME 100.4 fl (80.0-105.0); MEAN CORPUSCULAR HEMOGLOBIN 31.2 pg (25.0-35.0); MEAN CORPUSCULAR HGB CONC 31.1 g/dl (31.0-37.0); MEAN PLATELET VOLUME 8.5 fl (7.0-11.0); RBC 2.63 10^6/uL (3.5-6.1); RED CELL DISTRIBUTION WIDTH 13.9 % (11.5-14.5); WHITE BLOOD COUNT 6.1 10^3/uL (4.5-11.0)
[2018-12-15 07:45] LABS: BLOOD UREA NITROGEN 16 mg/dL (7-21); CALCIUM 8.1 mg/dL (8.4-10.5); GFR NON-AFRICAN AMERICAN > 60
[2018-12-15 07:46] LABS: ALB/GLOB RATIO 0.7 (1.1-1.8); ALBUMIN 2.9 g/dL (3.0-4.8); ALT/SGPT 8 U/L (7-56); AST/SGOT 27 U/L (17-59)
[2018-12-15] MEDS ORDERED: Potassium Chloride 20 mEq ER Tab PO ONE (09:34)
[2018-12-15] MEDS: POLYETHYLENE GLYCOL 3350 17 GM/Dose PACKET PO SCH (10:59)
[2018-12-15] MEDS: Neomy-Polymyx-Dexameth Ophth Susp (5 ml) OS SCH ×3 (13:58→21:43)
--- NOTE | 2018-12-15 23:31 | PN ---
DATE: 12/15/2018 SUBJECTIVE: The patient was seen this Friday, late morning in the Transitional Care Unit in room 314, bed 1. He is resting in bed but appears tired, fatigued and perhaps not well. He looks clinically dry. Labs were done this morning which were unremarkable. PHYSICAL EXAMINATION VITAL SIGNS: He is afebrile. Vital signs are stable. NEUROLOGIC: He is just sleepy. He answers appropriately. He is awake and clear. HEAD AND NECK: His left eye is swollen with conjunctivitis and a crusting present. Otherwise unremarkable. LUNGS: Clear. HEART: Regular and not tachycardic. ABDOMEN: Soft. EXTREMITIES: Show no edema. SKIN: Clear with no infection. IMPRESSION: 1. Conjunctivitis of the left eye with periorbital swelling. 2. Possible dehydration. 3. Recovery from recent pancreatitis. PLAN: We will add some eye drops in addition to the oral antibiotics that have already been prescribed to the eye. We will check morning labs. If not clinically improved tomorrow, may consider additional IV hydration. Sidney Grey MD [id number]
[2018-12-16] MEDS: Insulin Lispro (humaLOG) LOW Coverage SC SCH ×5 (06:46→21:38)
[2018-12-16 07:38] LABS: BASO # 0.02 K/mm3 (0.0-2.0); BASO % 0.3 % (0.0-3.0); EOS % 0.2 % (1.5-5.0); HEMOGLOBIN 8.1 g/dL (14.0-18.0); LYMPH # 2.1 (1.2-3.4); LYMPH % 33.3 % (22.0-35.0); MEAN CORPUSCULAR HEMOGLOBIN 30.8 pg (25.0-35.0); MEAN CORPUSCULAR HGB CONC 30.8 g/dl (31.0-37.0); MEAN PLATELET VOLUME 8.3 fl (7.0-11.0); MONO # 0.1 (0.1-0.6); MONO % 2.1 % (1.0-6.0); RBC 2.63 10^6/uL (3.5-6.1); RED CELL DISTRIBUTION WIDTH 13.9 % (11.5-14.5); WHITE BLOOD COUNT 6.2 10^3/uL (4.5-11.0)
[2018-12-16 08:09] LABS: ALB/GLOB RATIO 0.6 (1.1-1.8); ALBUMIN 2.9 g/dL (3.0-4.8); ALT/SGPT < 6 U/L (7-56); AMYLASE 93 U/L (35-125); AST/SGOT 33 U/L (17-59); BLOOD UREA NITROGEN 14 mg/dL (7-21); CALCIUM 8.2 mg/dL (8.4-10.5); GFR NON-AFRICAN AMERICAN > 60; LIPASE 289 U/L (23-300)
[2018-12-16] MEDS ORDERED: Potassium Chloride 20 mEq ER Tab PO ONE (09:34)
[2018-12-16] MEDS: Neomy-Polymyx-Dexameth Ophth Susp (5 ml) OS SCH ×4 (10:42→21:43)
[2018-12-16] MEDS: POLYETHYLENE GLYCOL 3350 17 GM/Dose PACKET PO SCH (10:44)
--- NOTE | 2018-12-16 15:36 | PN ---
DATE: 12/16/2018 PULMONARY PROGRESS NOTE SUBJECTIVE: The patient was seen and examined at bedside in the transitional care unit. He is complaining of cough, productive of some phlegm. He does not appear to be short of breath at rest. PHYSICAL EXAMINATION: GENERAL: He is afebrile. VITAL SIGNS: Stable. Oxygen saturation is 94% on room air. HEENT: Head normocephalic and atraumatic. NECK: Supple with no jugular vein distention. PULMONARY: Few basilar rhonchi, no wheezing. CARDIOVASCULAR: Regular rhythm. No murmurs. GASTROINTESTINAL: Soft, nontender. No organomegaly. EXTREMITIES: No edema. NEUROLOGIC: No focal deficits. SKIN: No acute skin rashes. ASSESSMENT: 1. Status post pneumonia. 2. Possible underlying chronic obstructive pulmonary disease. 3. Resolving pancreatitis. PLAN: The patient is on oral antibiotics. His pulmonary status has improved. Discharge plans per Dr. Sidney Grey. Stable pulmonary status. Zachery Ennis MD
[2018-12-17] MEDS: Insulin Lispro (humaLOG) LOW Coverage SC SCH ×4 (06:32→22:59)
[2018-12-17] MEDS: POLYETHYLENE GLYCOL 3350 17 GM/Dose PACKET PO SCH (10:27)
[2018-12-17] MEDS: Neomy-Polymyx-Dexameth Ophth Susp (5 ml) OS SCH (10:27)
[2018-12-17] MEDS ORDERED: Ciprofloxacin/Dexamethasone OTIC SUSP AU SCH (11:15)
[2018-12-17] MEDS: Ciprofloxacin 0.3% OPTH SOLN OU SCH ×3 (13:54→21:25)
[2018-12-17] MEDS: Nystatin 100,000 Units/ml Oral Susp 5 ml UD PO SCH ×3 (13:54→21:26)
--- NOTE | 2018-12-17 22:56 | CP.PCM.PN ---
Subjective - Date & Time of Evaluation Date of Evaluation: 12/16/18 Time of Evaluation: 17:30 - Subjective Subjective: Patient comfortable ambulating. No complaints of abdominal pain Objective - Vital Signs/Intake and Output Vital Signs (last 24 hours): Temp Pulse Resp BP Pulse Ox 99.2 F 101 H 20 148/75 92 L 12/16/18 16:00 12/16/18 17:22 12/16/18 16:00 12/16/18 17:22 12/16/18 16:00 Intake and Output: 12/16/18 12/17/18 18:59 06:59 Intake Total 380 Balance 380 - Medications Medications: Current Medications Albuterol/Ipratropium (Duoneb 3 Mg/0.5 Mg (3 Ml) Ud) 3 ml IH Q2H PRN; Protocol PRN Reason: Shortness of Breath Carvedilol (Coreg) 3.125 mg PO 0800,1800 DA; Protocol Last Admin: 12/16/18 17:22 Dose: 3.125 mg Cephalexin Monohydrate (Keflex) 500 mg PO TID [facility]; Protocol Stop: 12/19/18 23:00 Last Admin: 12/16/18 17:25 Dose: 500 mg Glipizide (Glucotrol) 5 mg PO 0700,1130,1630 DA; Protocol Last Admin: 12/16/18 17:24 Dose: 5 mg Insulin Human Lispro (Humalog Low) 0 units SC ACHS [facility]; Protocol Last Admin: 12/16/18 21:38 Dose: Not Given Lisinopril (Zestril) 10 mg PO DAILY [facility]; Protocol Last Admin: 12/16/18 10:43 Dose: 10 mg Metformin HCl (Glucophage) 500 mg PO 0800,1200,1800 DA; Protocol Last Admin: 12/16/18 17:23 Dose: 500 mg Neomycin/Polymyxin/Dexamethasone (Maxitrol Opht Susp) 0 ml OS QID DA Last Admin: 12/16/18 21:43 Dose: 1 drop Polyethylene Glycol (Miralax) 17 gm PO DAILY [facility]; Protocol Last Admin: 12/16/18 10:44 Dose: Not Given Tramadol HCl (Ultram) 50 mg PO Q6H PRN; Protocol PRN Reason: Pain, moderate (4-7) Last Admin: 12/16/18 21:42 Dose: 50 mg Ursodiol (Actigall) 300 mg PO 0800,1800 DA; Protocol Last Admin: 12/16/18 17:22 Dose: 300 mg - Labs Labs: 12/16/18 07:20 12/16/18 07:20 - Constitutional Appears: Well, Non-toxic - Head Exam Head Exam: ATRAUMATIC Additional comments: Gaze with left eye swollen eyelids covering left eye - ENT Exam ENT Exam: Mucous Membranes Moist, Normal Oropharynx - Neck Exam Neck Exam: Full ROM. absent: Lymphadenopathy - Respiratory Exam Respiratory Exam: NORMAL BREATHING PATTERN. absent: Accessory Muscle Use - Cardiovascular Exam Cardiovascular Exam: +S1, +S2. absent: JVD - GI/Abdominal Exam GI & Abdominal Exam: Soft, Normal Bowel Sounds. absent: Tenderness, Mass - Neurological Exam Neurological Exam: Alert, Awake, Oriented x3 Assessment and Plan - Assessment and Plan (Free Text) Assessment: This 83-year-old patient admitted with the pancreatitis MRCP showed no stones pancreas appeared normal etiology unclear history of myelodysplasia and adenopathy being followed by Dr. Rasmussen. History of fluctuating LFTs one of the differential diagnosis to be considered is a CBD sludge patient was started on Actigall has been on Actigall. Showing good clinical improvement history of anemia recommendations this follow-up LFTs Continue Actigall Consider elective EUS
[2018-12-18] MEDS: Insulin Lispro (humaLOG) LOW Coverage SC SCH (06:38)
[2018-12-18] MEDS: POLYETHYLENE GLYCOL 3350 17 GM/Dose PACKET PO SCH (09:45)
[2018-12-18] MEDS: Ciprofloxacin 0.3% OPTH SOLN OU SCH (09:46)
[2018-12-18] MEDS: Nystatin 100,000 Units/ml Oral Susp 5 ml UD PO SCH (09:47)
[2018-12-18 09:55] VITALS: BP 151/67; PULSE 105
--- NOTE | 2018-12-18 11:48 | PN ---
DATE: 12/17/2018 SUBJECTIVE: The patient was seen on morning in the Transitional Care Unit in room 314. Again, he remains a bit groggy as if sedated in bed. Review of his medications shows he is no longer on any tranquilizers, sedatives, neuroleptics, which would cause sedation. He continues on antibiotics, complaints of mouth soreness. PHYSICAL EXAMINATION: HEENT: Tongue is dry and slightly hyperemic. Eyes are crusted, swelling in the left eye has markedly decreased with antibiotics and current eye drop regimen. LUNGS: Show good aeration, right and left. HEART: Regular and not tachycardic. EXTREMITIES: Show no edema. IMPRESSION: Fatigue, cellulitis around the left orbit, conjunctivitis bilateral. PLAN: We will change to ciprofloxacin eyedrops. Continue oral Cephalexin for now. We will check labs, physical therapy, out of the bed. Sidney Grey MD MTDD
[2018-12-18 15:25] VITALS: RESP 16; TEMP 98.7; O2SAT 90
--- NOTE | 2018-12-18 23:09 | CP.PCM.PN ---
Subjective - Date & Time of Evaluation Date of Evaluation: 12/17/18 Time of Evaluation: 09:45 - Subjective Subjective: The patient tolerating diet. No complaints of abdominal pain. Left eye swelling ? Conjunctivitis Antibiotics Continue Actigall Follow-up LFTs CBC Elective EUS Hematology evaluation Objective - Vital Signs/Intake and Output Vital Signs (last 24 hours): Temp Pulse Resp BP Pulse Ox 98.4 F 102 H 20 155/78 H 97 12/17/18 10:00 12/17/18 17:38 12/17/18 10:00 12/17/18 17:38 12/17/18 13:40 Intake and Output: 12/17/18 12/18/18 18:59 06:59 Intake Total 240 Balance 240 - Medications Medications: Current Medications Albuterol/Ipratropium (Duoneb 3 Mg/0.5 Mg (3 Ml) Ud) 3 ml IH Q2H PRN; Protocol PRN Reason: Shortness of Breath Carvedilol (Coreg) 3.125 mg PO 0800,1800 DA; Protocol Last Admin: 12/17/18 17:38 Dose: 3.125 mg Cephalexin Monohydrate (Keflex) 500 mg PO TID [facility]; Protocol Stop: 12/19/18 23:00 Last Admin: 12/17/18 17:40 Dose: 500 mg Ciprofloxacin (Ciloxan 0.3% Oph Soln) 1 drop OU QID [facility] Last Admin: 12/17/18 21:25 Dose: 1 drop Glipizide (Glucotrol) 5 mg PO 0700,1130,1630 DA; Protocol Last Admin: 12/17/18 17:30 Dose: 5 mg Insulin Human Lispro (Humalog Low) 0 units SC ACHS [facility]; Protocol Last Admin: 12/17/18 17:30 Dose: Not Given Lisinopril (Zestril) 10 mg PO DAILY [facility]; Protocol Last Admin: 12/17/18 10:27 Dose: 10 mg Metformin HCl (Glucophage) 500 mg PO 0800,1200,1800 DA; Protocol Last Admin: 12/17/18 18:34 Dose: Not Given Nystatin (Nystatin Oral Susp) 5 ml PO QID DA Last Admin: 12/17/18 21:26 Dose: 5 ml Polyethylene Glycol (Miralax) 17 gm PO DAILY [facility]; Protocol Last Admin: 12/17/18 10:27 Dose: Not Given Tramadol HCl (Ultram) 50 mg PO Q6H PRN; Protocol PRN Reason: Pain, moderate (4-7) Last Admin: 12/17/18 21:29 Dose: 50 mg Ursodiol (Actigall) 300 mg PO 0800,1800 DA; Protocol Last Admin: 12/17/18 17:38 Dose: 300 mg - Labs Labs: 12/16/18 07:20 12/16/18 07:20 - Head Exam Head Exam: ATRAUMATIC, NORMAL INSPECTION - Eye Exam Additional comments: Left eye swelling noticed - ENT Exam ENT Exam: Mucous Membranes Moist, Normal Oropharynx - Neck Exam Neck Exam: Full ROM. absent: Lymphadenopathy - Cardiovascular Exam Cardiovascular Exam: REGULAR RHYTHM, +S1, +S2. absent: JVD - GI/Abdominal Exam GI & Abdominal Exam: Soft. absent: Tenderness, Mass - Extremities Exam Extremities Exam: Full ROM. absent: Calf Tenderness - Neurological Exam Neurological Exam: Alert, Awake, Oriented x3 Assessment and Plan - Assessment and Plan (Free Text) Assessment: This 82-year-old patient is admitted with a pancreatitis abdominal pain and elevated pancreatic enzymes. For the CT of the abdomen did not show any obvious pancreatitis. 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
--- NOTE | 2018-12-19 15:11 | DS ---
HOSPITAL COURSE: This is an 83-year-old male, I know for sometime who presented to the acute care facility of [facility] with abdominal pain, found to have acute pancreatitis with elevated amylase and lipase. Workup was negative. He is status post cholecystectomy, does not drink alcohol, does not have a history of hyperlipidemia. His enzymes quickly subsided. He was asymptomatic, pain free, but having difficulty walking because of chronic low back pain, and came to the transitional care unit for additional physical therapy and conditioning. He was oriented to the activities of the unit on Friday, three days ago, I noticed him to be a bit groggy and lethargic. Medications were reviewed; Neurontin, Benadryl, and Tramadol were discontinued because of the concern of drowsiness. Yesterday the patient was again more drowsy and today perhaps even more so. Over the last week, he had developed some left eye periorbital edema with the cellulitis, treated with oral antibiotics and he improved. He developed crusting of the eye, was given antibiotic and steroid eye drops with improvement, but today, his final day of this hospital stay, there was increased swelling of both eyes with increased crusting and erythema and scleral edema. Because of the altered mental status and since he was an immunocompromised host on steroids with myelodysplastic syndrome, arrangements were made for him to discharge from the transitional care unit to the emergency room for evaluation. The biggest concern would be the periorbital cellulitis and conjunctivitis, leading to meningitis and/or viral encephalitis. FINAL DISCHARGE DIAGNOSES: 1. Deconditioning. 2. Pancreatitis, resolved. 3. Myelodysplastic syndrome. 4. Diabetes. 5. Hypertension. 6. Severe chronic low back pain. 7. Spinal stenosis. 8. Status post multiple spine procedures for his low back pain. 9. Lethargy, fatigue/altered mental status prompting discharge to the emergency room from transitional care. Sidney Grey MD
== END 2018-12-18 11:00 | disposition short-term general hospital (02) | DRG 555 ==
LOC: TRCU 15:31
PROVIDERS: ADMIT Internal Medicine; ATTEND Internal Medicine
PROC: F07Z9FZ Gait Training/Functional Ambulation Treatment using Assistive, Adaptive, Supportive or Protective Equipment (ICD-10-PCS; principal; 2018-12-14)
PROC: F08Z4FZ Home Management Treatment using Assistive, Adaptive, Supportive or Protective Equipment (ICD-10-PCS; 2018-12-14)
DX: R26.2 Difficulty in walking, not elsewhere classified (principal); K85.90 Acute pancreatitis without necrosis or infection, unspecified; H05.012 Cellulitis of left orbit; H10.9 Unspecified conjunctivitis; D46.9 Myelodysplastic syndrome, unspecified; E03.9 Hypothyroidism, unspecified; E11.9 Type 2 diabetes mellitus without complications; G89.29 Other chronic pain; I25.10 Atherosclerotic heart disease of native coronary artery without angina pectoris; M48.00 Spinal stenosis, site unspecified; I11.0 Hypertensive heart disease with heart failure; I50.9 Heart failure, unspecified; Z87.01 Personal history of pneumonia (recurrent)

== ENCOUNTER 2018-12-18 11:19 | Inpatient (IN) | payer MEDICARE, BC ==
[2018-12-18 11:19] VITALS: BMI 27.3
--- NOTE | 2018-12-18 12:16 | ED PDOC ---
Arrival/HPI - General Chief Complaint: Altered Mental Status Time Seen by Provider: 12/18/18 11:19 Historian: Patient - History of Present Illness Narrative History of Present Illness (Text): 12/18/18 12:08 83 m with extensive pmhx presents to the ED from TCU for evaluation of altered mentation, persistent lethargy and eye swelling. Patient reports a 4/10 frontal headache, left eye pain and double vision ("i see two of you doc"). Patient cannot delineate exactly when his double vision started but his headache has been present for at least since yesterday. Patient denies any nausea, denies fever, denies neck pain or stiffness, no cough, no abdominal pain. As per dr. neal, patient was being treated for cellulitis of the eyes which reportedly responded to keflex but the patient was noted to have bilateral eye swelling. 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 Symptom Onset: Gradual Symptom Course: Unchanged Activities at Onset: Light Context: Home Past Medical History - Provider Review Nursing Documentation Reviewed: Yes Primary Care Provider: Sidney Grey - Infectious Disease Hx of Infectious Diseases: None - Tetanus Immunization Tetanus Immunization: Unknown - Cardiac Hx Cardiac Disorders: Yes (CAD) - Pulmonary Hx Pneumonia: Yes - Neurological Hx Neurological Disorder: Yes (Periferal Neuropathy) Hx Dizziness: Yes - HEENT Hx HEENT Disorder: (double vision since last admission 2013) Hx Cataracts: Yes (L IOF) - Renal Hx Renal Disorder: Yes (renal insufficiency) - Endocrine/Metabolic Hx Diabetes Mellitus Type 2: Yes - Hematological/Oncological Hx Blood Disorders: Yes (myelodysplasic syndrome) Hx Anemia: Yes - Integumentary Hx Dermatological Disorder: Yes (R buttock old stitches) Other/Comment: B/L feet dry skin - Musculoskeletal/Rheumatological Hx Falls: No - Gastrointestinal Hx Gall Bladder Disease: Yes - Psychiatric Hx Emotional Abuse: No Hx Physical Abuse: No Hx Substance Use: No - Surgical History Hx Orthopedic Surgery: Yes (r foot sx) - Anesthesia Hx Anesthesia Reactions: No Hx Malignant Hyperthermia: No - Suicidal Assessment Feels Threatened In Home Enviroment: No Family/Social History - Physician Review Nursing Documentation Reviewed: Yes Family/Social History: Unknown Family HX Smoking Status: Former Smoker Hx Alcohol Use: No Hx Substance Use: No Hx Substance Use Treatment: No Allergies/Home Meds Allergies/Adverse Reactions: Allergies No Known Allergies Allergy (Verified 12/18/18 11:24) Home Medications: Home Meds Medication Instructions Recorded Confirmed Prednisone [Sai] 5 mg PO DAILY 08/27/17 12/13/18 Aspirin [Adult Low Dose Aspirin EC] 81 mg PO DAILY 02/25/18 12/13/18 Glipizide [Glipizide Xl] 5 mg PO TID 02/25/18 12/13/18 Gabapentin [Neurontin] 600 mg PO TID 07/22/18 12/13/18 metFORMIN [glucOPHAGE] 500 mg PO TID 07/22/18 12/13/18 Atorvastatin [Lipitor] 10 mg PO DAILY 12/07/18 12/13/18 Review of Systems - Physician Review All systems were reviewed & negative as marked: Yes - Review of Systems Constitutional: absent: Fevers Eyes: Vision Changes (+double vision), Eye Pain (left eye) Respiratory: absent: Cough Gastrointestinal: absent: Abdominal Pain, Nausea Musculoskeletal: absent: Neck Pain Neurological: Headache Physical Exam - Physical Exam Narrative Physical Exam (Text): 12/18/18 12:16 Gen: VS reviewed, alert, well developed, well nourished, nontoxic, mild distress HEENT: EOMI, PERRL , there is mild scleral redness, there is edema of the bilateral upper eyelids but worse on the left, there is mild tenderness of the left eyelid, there is no proptosis of the eyes, there is no sinus tenderness, +dry mucous membranes, no oral thrush Neck: no JVD, supple, no adenopathy CV: regular rate, regular rhythm, no rubs,no murmur, S1, S2 Pulm: no distress, clear to auscultation, no wheeze, no rhonchi, breath sounds equal, no rales Abd: soft, nontender, no guarding, no rebound, no rigidity Ext: no edema Skin: good color, no rash, no cyanosis Psych: responds appropriately to questions, normal affect Neuro: oriented x3, CN2-12 intact grossly, motor intact, sensation intact Vital Signs Temp Pulse Resp BP Pulse Ox 12/18/18 11:19 98.9 F 94 H 20 147/81 94 L Medical Decision Making ED Course and Treatment: 12/18/18 12:18 patient seen for lethargy, headache and eye swelling. will get CT to eval for po ssible cavernous sinus thrombosis-it is understood that MRV is the preferred study but a CT will give immediate information if there is evidence of orbital cellulitis or mass lesion that would preclude lumbar puncture. 12/18/18 14:36 prior to procedure the informed me that the patient has a hx of termporal arteritis. 12/18/18 14:[address] mercer, patient to be admitted for lethargy associated with headache and visual disturbance, empiric tx for temporal arteritis. Lumbar puncture was done to rule out meningitis/encephalitis. consults to joslyn carranza, infectious disease. 12/18/18 16:[address] jorgensen, he has ordered MRI brain and it was agreed to also perform MRV of the head to eval for possible cavernous sinus thrombosis. i have discussed the order with the rv service technician and he states to order MRA of the head with special instruction to perform MRV. - RAD Interpretation Narrative RAD Interpretations (Text): 12/18/18 13:34 CT head reviewed by Michelet Guzman MD, shows: no acute findings. CT orbit reviewed by Michelet Guzman MD, shows: negative study. Radiology Orders: 12/18/18 11:35 HEAD W/CONTRAST [CT] Stat 12/18/18 11:55 ORBITS W & W/O CONTRAST [CT] Stat Material Handler 1St Shift: Radiologist - EKG Interpretation EKG Interpretation (Text): 12/18/18 12:35 ekg my read: sinus tach at 102 bpm, rbbb, no ectopy Interpreted by ED Physician: Yes Procedures - Time-Out Type of Procedure: lumbar puncture Correct Patient (with visual ID + MR# on ID Band): Yes Correct Procedure: Yes X-Ray Marked: No (US guided position confirmed prior to procedure) Physician Name: Viktor - Additional Procedures Progress: LP Informed and written consent obtained, specifically outlining the risks; including infection, headache, bleeding, localized pain and neurologic injury and the benefits and alternatives to the procedure. An opportunity was provided for questions and discussion of all concerns. After calling a "time out" to confirm correct patient, procedure and site, the patient was draped and prepped in the usual fashion. Using standard, sterile technique the skin and the inter-vertebral space was anesthetized with lidocaine. 7 CSF obtained without difficulty -csf tube 1 was clear without complication -csf tube 2 blood return was noted, however the needle remained unchanged in position from tube 1 -csf tube 3 less blood was noted, however the needle was rotation which diminish ed bloody return -csf tube 4, stylet was reintroduced into needle, spinal needle was slightly advanced, clear csf returned . A sterile dressing was applied to puncture site. The patient tolerated the procedure well. CSF samples were sent to the lab for appropriate analysis. - Scribe Statement The provider has reviewed the documentation as recorded by the Ronaldiblianna Iraheta All medical record entries made by the Mojgan were at my direction and personally dictated by me. I have reviewed the chart and agree that the record accurately reflects my personal performance of the history, physical exam, medical decision making, and the department course for this patient. I have also personally directed, reviewed, and agree with the discharge instructions and disposition. Disposition/Present on Arrival - Present on Arrival Any Indicators Present on Arrival: No History of DVT/PE: No History of Uncontrolled Diabetes: No Urinary Catheter: No History of Decub. Ulcer: No History Surgical Site Infection Following: None - Disposition Have Diagnosis and Disposition been Completed?: Yes Diagnosis: Temporal arteritis Disposition: HOSPITALIZED Disposition Time: 15:44 Patient Plan: Admission Patient Problems: Current Active Problems Problem Status Onset Headache Acute Temporal arteritis Acute Condition: STABLE
[2018-12-18 12:20] LABS: BASO # 0.03 K/mm3 (0.0-2.0); BASO % 0.3 % (0.0-3.0); EOS % 0.1 % (1.5-5.0); HEMOGLOBIN 7.7 g/dL (14.0-18.0); LYMPH # 2.4 (1.2-3.4); LYMPH % 26.4 % (22.0-35.0); MEAN CELL VOLUME 97.5 fl (80.0-105.0); MEAN CORPUSCULAR HEMOGLOBIN 31.6 pg (25.0-35.0); MEAN CORPUSCULAR HGB CONC 32.4 g/dl (31.0-37.0); MEAN PLATELET VOLUME 8.4 fl (7.0-11.0); MONO # 0.6 (0.1-0.6); MONO % 6.2 % (1.0-6.0); RBC 2.44 10^6/uL (3.5-6.1); RED CELL DISTRIBUTION WIDTH 13.6 % (11.5-14.5); WHITE BLOOD COUNT 8.9 10^3/uL (4.5-11.0)
[2018-12-18 12:21] LABS: VENOUS BLOOD GAS BASE EXCESS 5.6 mmol/L (0.0-2.0); VENOUS BLOOD GAS PO2 79 mm/Hg (30-55); VENOUS BLOOD PH 7.51 (7.32-7.43)
[2018-12-18 12:31] LABS: INR 1.5; PARTIAL THROMBOPLASTIN TIME 31.3 Seconds (26.9-38.3)
[2018-12-18 12:32] LABS: ALB/GLOB RATIO 0.6 (1.1-1.8); ALBUMIN 2.9 g/dL (3.0-4.8); ALT/SGPT < 6 U/L (7-56); AST/SGOT 33 U/L (17-59); BLOOD UREA NITROGEN 16 mg/dL (7-21); CALCIUM 8.4 mg/dL (8.4-10.5); GFR NON-AFRICAN AMERICAN > 60
--- NOTE | 2018-12-18 12:56 | CT ---
Date of service: 12/18/2018 PROCEDURE: CT HEAD WITH CONTRAST HISTORY: focus orbits and cavernous sinus COMPARISON: None available. TECHNIQUE: Axial computed tomography images were obtained through the head/brain with intravenous contrast. Contrast dose: 150 cc of Omni 350 Radiation dose: Total exam DLP = 995.16 mGy-cm. This CT exam was performed using one or more of the following dose reduction techniques: Automated exposure control, adjustment of the mA and/or kV according to patient size, and/or use of iterative reconstruction technique. FINDINGS: HEMORRHAGE: No intracranial hemorrhage. BRAIN: No mass, mass effect or edema. No abnormal intracranial enhancement. Chronic microvascular changes in the periventricular white matter. VENTRICLES: Unremarkable. No hydrocephalus. 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 PARANASAL SINUSES: Unremarkable as visualized. No significant inflammatory changes. MASTOID AIR CELLS: Unremarkable as visualized. No mastoid effusion. OTHER FINDINGS: None. IMPRESSION: No acute findings
[2018-12-18] MEDS: Sodium Chloride 0.9% 1,000 ML IV SCH ×2 (13:02→22:03)
--- NOTE | 2018-12-18 13:08 | CT ---
Date of service: 12/18/2018 PROCEDURE: CT ORBITS WITH AND WITHOUT CONTRAST. HISTORY: swelling,pain COMPARISON: None available. TECHNIQUE: Following administration of intravenous iodinated contrast, axial CT images of the orbits were obtained. Coronal and sagittal reformats were generated. Intravenous contrast dose: 150 cc of Omni 350 Radiation dose: Total exam DLP = 1059.66 mGy-cm. This CT exam was performed using one or more of the following dose reduction techniques: Automated exposure control, adjustment of the mA and/or kV according to patient size, and/or use of iterative reconstruction technique. FINDINGS: RIGHT ORBIT: RIGHT BONY ORBIT: Normal. RIGHT INTRAORBITAL STRUCTURES: Globe: Normal. Extraocular muscles: Normal. Post septal space: Normal. Optic Nerve: Normal. Lacrimal Apparatus: Normal. RIGHT PRESEPTAL SOFT TISSUES: Normal. LEFT ORBIT: LEFT BONY ORBIT: Normal. LEFT INTRAORBITAL STRUCTURES: Globe: Normal. Extraocular muscles: Normal. Post septal space: Normal. Optic Nerve: Normal. Lacrimal Apparatus: Normal. LEFT PRESEPTAL SOFT TISSUES: Normal. OTHER: None. IMPRESSION: Negative study
[2018-12-18] MEDS ORDERED: Lidocaine 1% Inj (20ml) ONE (14:12)
[2018-12-18 14:44] LABS: FLUID TYPE SPINAL FLUID
[2018-12-18] MEDS ORDERED: methylPREDNISolone 1 GM in Sodium Chloride 0.9% 250 ML IV ONE (15:00)
[2018-12-18 15:20] LABS: CSF APPEARANCE CLEAR/COLORLESS (CLEAR); CSF VOLUME 3 mL (0-1)
--- NOTE | 2018-12-18 16:16 | CP.PCM.CON ---
History of Present Illness - History of Present Illness History of Present Illness: Neurology Consultation Note: Consult requested by Dr. Adam Mr. Walton is an 83-year-old man who was in the TCU for eye-lid cellulitis and developed changes in mental status, was sent to the ED for evaluation. He complained of headache and diplopia. He was not febrile. A lumbar puncture was done and showed very elevated CSF protein, but normal WBC. ESR in serum was elevated to 160. Neurology was consulted to assist with the management and care. When I saw the patient, he did complain of a headache located in the frontal and eliud-orbital region. He described it as a pressure-like pain and rated it 4/10 in severity. He admitted to having some photophobia and was feeling lethargic. Review of Systems - Constitutional Constitutional: As Per HPI - EENT Eyes: As Per HPI Nose/Mouth/Throat: absent: As Per HPI, Epistaxis, Nasal Congestion, Nasal Discharge, Nasal Obstruction, Nasal Trauma, Nose Pain, Post Nasal Drip, Sinus Pain, Sinus Pressure, Bleeding Gums, Change in Voice, Dental Pain, Dry Mouth, Dysphagia, Halitosis, Hoarsness, Lip Swelling, Mouth Lesions, Mouth Pain, Odynophagia, Sore Throat, Throat Swelling, Tongue Swelling, Facial Pain, Neck Pain, Neck Mass, Other - Cardiovascular Cardiovascular: absent: As Per HPI, Acrocyanosis, Chest Pain, Chest Pain at Rest, Chest Pain with Activity, Claudication, Diaphoresis, Dyspnea, Dyspnea on E xertion, Edema, Irregular Heart Rhythm, Pain Radiating to Arm/Neck/Jaw, Leg Edema, Leg Ulcers, Lightheadedness, Orthopnea, Palpitations, Paroxysmal Nocturnal Dyspnea, Pedal Edema, Radiating Pain, Rapid Heart Rate, Slow Heart Rate, Syncope, Other - Respiratory Respiratory: absent: As Per HPI, Cough, Dyspnea, Hemoptysis, Dyspnea on Exertion, Wheezing, Snoring, Stridor, Pain on Inspiration, Chest Congestion, Excessive Mucous Production, Change in Mucous Color, Pain with Coughing, Other - Musculoskeletal Musculoskeletal: absent: As Per HPI, Abnormal Gait, Arthralgias, Atrophy, Back Pain, Deformity, Joint Swelling, Limited Range of Motion, Loss of Height, Muscle Cramps, Muscle Weakness, Myalgias, Neck Pain, Numbness, Radiating Pain into Limb, Stiffness, Tingling, Other - Integumentary Integumentary: absent: As Per HPI, Acne, Alopecia, Bleeding Lesions, Change in Hair, Change in Nails, Change in Pigmentation, Changing Lesions, Dry Skin, Erythema, Furuncle, Hirsutism, Lesions, New Lesions, Non-Healing Lesions, Photosensitivity, Pruritus, Rash, Skin Pain, Skin Ulcer, Sores, Striae, Swelling, Unusual Bruising, Wounds, Jaundice, Other - Neurological Neurological: As Per HPI - Psychiatric Psychiatric: absent: As Per HPI, Abnormal Sleep Pattern, Anhedonia, Anxiety, Auditory Hallucinations, Behavioral Changes, Change in Appetite, Change in Libido, Confusion, Depression, Difficulty Concentrating, Hallucinations, Homicidal Ideation, Hopelessness, Irritability, Memory Loss, Mood Swings, Panic Attacks, Paranoia, Suicidal Ideation, Visual Hallucinations, Tactile Hallucinations, Other - Endocrine Endocrine: absent: As Per HPI, Change in Body Appearance, Change in Libido, Cold Intolorance, Deepening of Voice, Excessive Sweating, Fatigue, Flushing, Heat Int olorance, Increase in Ring/Shoe/Hat Size, Palpitations, Polydipsia, Polyphagia, Polyuria, Other Past Patient History - Infectious Disease Hx of Infectious Diseases: None - Tetanus Immunizations Tetanus Immunization: Unknown - Past Social History Smoking Status: Former Smoker - CARDIAC Hx Cardiac Disorders: Yes (CAD) - PULMONARY Hx Pneumonia: Yes - NEUROLOGICAL Hx Neurological Disorder: Yes (Periferal Neuropathy) Hx Dizziness: Yes - HEENT Hx HEENT Problems: (double vision since last admission 2013) Hx Cataracts: Yes (L IOF) - RENAL Hx Chronic Kidney Disease: Yes (renal insufficiency) - ENDOCRINE/METABOLIC Hx Diabetes Mellitus Type 2: Yes - HEMATOLOGICAL/ONCOLOGICAL Hx Blood Disorders: Yes (myelodysplasic syndrome) Hx Anemia: Yes - INTEGUMENTARY Hx Dermatological Problems: Yes (R buttock old stitches) Other/Comment: B/L feet dry skin - MUSCULOSKELETAL/RHEUMATOLOGICAL Hx Falls: No - GASTROINTESTINAL Hx Gall Bladder Disease: Yes - PSYCHIATRIC Hx Emotional Abuse: No Hx Physical Abuse: No Hx Substance Use: No - SURGICAL HISTORY Hx Orthopedic Surgery: Yes (r foot sx) - ANESTHESIA Hx Anesthesia Reactions: No Hx Malignant Hyperthermia: No Meds Allergies/Adverse Reactions: Allergies Allergy/AdvReac Type Severity Reaction Status Date / Time No Known Allergies Allergy Verified 12/18/18 11:24 - Medications Medications: Current Medications Sodium Chloride (Sodium Chloride 0.9%) 1,000 mls @ 150 mls/hr IV .[id number] [facility] Last Admin: 12/18/18 13:02 Dose: 150 mls/hr Physical Exam - Constitutional Appears: No Acute Distress - Head Exam Head Exam: ATRAUMATIC - Eye Exam Eye Exam: Conjunctival injection, Periorbital tenderness Additional comments: There is mild scleral redness, there is edema of the bilateral upper eyelids but worse on the left, there is mild tenderness of the left eyelid, there is no proptosis of the eyes. - ENT Exam ENT Exam: Mucous Membranes Moist - Neck Exam Neck exam: Positive for: Full Rom, Normal Inspection. Negative for: Meningismus, Tenderness - Respiratory Exam Respiratory Exam: Clear to Auscultation Bilateral, NORMAL BREATHING PATTERN - Cardiovascular Exam Cardiovascular Exam: REGULAR RHYTHM, +S1, +S2 - GI/Abdominal Exam GI & Abdominal Exam: Normal Bowel Sounds, Soft. absent: Tenderness - Neurological Exam Neurological exam: Alert, CN II-XII Intact, Oriented x3, Reflexes Normal Additional comments: Somnolent, but oriented and easily aroused. Generalized weakness without focal deficits. CN 2-12 intact. - Psychiatric Exam Psychiatric exam: Normal Affect, Normal Mood - Skin Skin Exam: Dry, Intact, Normal Color, Warm Results - Vital Signs Recent Vital Signs: Last Vital Signs Temp 98.9 F 12/18/18 11:19 Pulse 101 H 12/18/18 15:00 Resp 18 12/18/18 15:00 BP 124/92 H 12/18/18 15:00 Pulse Ox 93 L 12/18/18 15:00 - Labs Result Diagrams: 12/18/18 12:00 12/18/18 12:00 Labs: Laboratory Results - last 24 hr 12/18/18 12/18/18 12/18/18 11:30 12:00 12:00 WBC 8.9 D RBC 2.44 L Hgb 7.7 L Hct 23.8 L MCV 97.5 MCH 31.6 MCHC 32.4 RDW 13.6 Plt Count 145 MPV 8.4 Neut % (Auto) 67.0 Lymph % (Auto) 26.4 Stanley % (Auto) 6.2 H Eos % (Auto) 0.1 L Baso % (Auto) 0.3 Lymph # (Auto) 2.4 Stanley # (Auto) 0.6 Eos # (Auto) 0.0 Baso # (Auto) 0.03 Absolute Neuts (auto) 5.95 ESR 160 H PT 17.0 H INR 1.50 APTT 31.3 pO2 79 H VBG pH 7.51 H VBG pCO2 36.0 L VBG HCO3 28.7 H VBG Total CO2 29.8 H VBG O2 Sat (Calc) 98.4 H VBG Base Excess 5.6 H VBG Potassium 4.3 Sodium 134.0 Chloride 101.0 Glucose 203 H Lactate 0.9 FiO2 21.0 Potassium Carbon Dioxide Anion Gap BUN Creatinine Est GFR ( Amer) Est GFR (Non-Af Amer) Random Glucose Calcium Phosphorus Magnesium Total Bilirubin AST ALT Alkaline Phosphatase Total Creatine Kinase Total Protein Albumin Globulin Albumin/Globulin Ratio Venous Blood Potassium 4.3 Fluid Type CSF Volume CSF Appearance CSF WBC CSF RBC CSF Total Cell Counted CSF Monos/Macrophages CSF Comment CSF Glucose CSF Total Protein 12/18/18 12/18/18 12/18/18 12:00 14:40 14:40 WBC RBC Hgb Hct MCV MCH MCHC RDW Plt Count MPV Neut % (Auto) Lymph % (Auto) Stanley % (Auto) Eos % (Auto) Baso % (Auto) Lymph # (Auto) Stanley # (Auto) Eos # (Auto) Baso # (Auto) Absolute Neuts (auto) ESR PT INR APTT pO2 VBG pH VBG pCO2 VBG HCO3 VBG Total CO2 VBG O2 Sat (Calc) VBG Base Excess VBG Potassium Sodium 133 Chloride 98 Glucose Lactate FiO2 Potassium 4.3 Carbon Dioxide 29 Anion Gap 11 BUN 16 Creatinine 0.9 Est GFR ( Amer) > 60 Est GFR (Non-Af Amer) > 60 Random Glucose 206 H Calcium 8.4 Phosphorus 3.7 Magnesium 1.8 Total Bilirubin 0.8 AST 33 ALT < 6 L Alkaline Phosphatase 129 H Total Creatine Kinase < 20 L Total Protein 7.8 Albumin 2.9 L Globulin 4.9 Albumin/Globulin Ratio 0.6 L Venous Blood Potassium Fluid Type Spinal fluid CSF Volume 3 H CSF Appearance Clear/colorless CSF WBC 1.0 CSF RBC 832.0 H CSF Total Cell Counted TEST NOT PERFORMED CSF Monos/Macrophages TEST NOT PERFORMED CSF Comment TEST NOT PERFORMED CSF Glucose 90 H CSF Total Protein 244.0 H* Assessment & Plan (1) Headache Assessment and Plan: The headache could be related to current orbital cellulitis, and the ESR may be elevated as a result as well. It does not appear to be consistent in location to a typical headache associated with giant cell arteritis. The elevated CSF protein is concerning and could be related to an auto-immune neuropathy causing diplopia as well. I recommend obtaining an MRI of the brain with and without contrast for further evaluation. The differential does also include cavernous sinus involvement of infection or thrombosis. I recommend an MRV in addition to the MRI ordered. Continue management of pre-septal cellulitis per ID recommendations. Thank you for this consultation. Status: Acute
--- NOTE | 2018-12-18 22:14 | CARD ---
APPROVED REPORT Date of service: 12/18/2018 EKG Measurement Heart [id number] <Conclusion> Sinus tachycardia with premature atrial complexes Right bundle branch block Abnormal ECG
[2018-12-18] MEDS: Vancomycin 1gm in NS 250ml 1 GM/250 ML BAG IVPB SCH (22:47)
[2018-12-19] MEDS ORDERED: cefTRIAXone 1 gm 1 GM/100 ML BAG IVPB ONE ×2 (01:45→22:00)
--- NOTE | 2018-12-19 02:33 | CON ---
DATE: 12/18/2018 LOCATION: The patient is seen in the emergency room earlier on today. CHIEF COMPLAINT: Weakness from several days. HISTORY OF PRESENT ILLNESS: This is an 83-year-old male with extensive past medical history, who was in the transitional care and the patient reports to have frontal headaches, left eye pain, and double vision. The patient cannot tell me exactly when the double vision started, but he does have headaches since 1 or 2 days' duration. Denies any nausea, any fevers. No abdominal pain, diarrhea, or constipation. REVIEW OF SYSTEMS: Reveals a 12-point review of systems performed. PAST MEDICAL HISTORY: Significant for renal disease, diabetes mellitus, cataract, congestive heart failure, coronary artery disease, hyperlipidemia, prostate disease, arthritis, myelodysplastic syndrome. PAST SURGICAL HISTORY: Significant for laminectomy, cholecystectomy, cardiac cath and PTCA, and right foot surgery. ALLERGIES: THE PATIENT HAS NO KNOWN ALLERGIES. MEDICATIONS AT HOME: Reveals the patient to be on metformin, zolpidem, prednisone, . PHYSICAL EXAMINATION: GENERAL: The patient is in bed, seen earlier in the ER. VITAL SIGNS: Temperature is 98, heart rate of 101, blood pressure is 147/81, respiratory rate of 20, O2 saturation of 93%. HEENT: Reveals bilateral periorbital edema. NECK: Supple. LUNGS: Decreased breath sounds. HEART: Normal S1 and S2. ABDOMEN: Soft and nontender. LABORATORY DATA: Reveals a white count of 8.9, sed rate of 160, hemoglobin of 7, platelets of 145. Chemistries; BUN of 16, creatinine of 0.9, alk phos of 129. Spinal fluid reveals 1 wbc, 832 rbc's, protein 244 with a glucose of 90. Dr. Zackery Galvin's consultation is reviewed. It states that the patient is an 83-year-old with eyelid cellulitis along with changes in mental status, sent to the ER. Complained of diplopia. Emergency room chart was reviewed. CAT scan of the orbit was done, unremarkable. The patient also had a CAT scan of the head, no acute findings of the CAT scan of the orbit. ASSESSMENT AND PLAN: This is an 83-year-old male presenting with headaches and periorbital edema. There is no fevers, just having tachycardia, no dyspnea, normal white count. The patient does have headaches, etiology of which is not entirely clear with an elevated protein of 244 in the CSF and 832 rbc's and only , 90 glucose. Blood cultures, urine cultures, and CSF cultures are noted. Herpes PCR is sent. The patient is started on ceftriaxone and tramadol, and Solu-Medrol was given. MRA of the brain was ordered. Concerned about headache and must rule out herpes encephalitis and/or related to the underlying myelodysplastic syndrome. We will add vancomycin, Rocephin and acyclovir. Agree with the MRI to rule out cavernous sinus thrombosis and sinusitis in the differential diagnosis. Because of bilateral orbital edema, recent sinusitis and cavernous vein thrombosis, MRI of the sinuses of the head and cavernous vein sinus with the pending calderon cultures including CSF and the above cultures. We will follow closely with you. We will treat with vancomycin, Rocephin, acyclovir. We will make further recommendations upon availability of initial results. We will treat the sinusitis. Shawn Nye MD
[2018-12-19] MEDS: Insulin Reg-LOW-Coverage SC SCH ×4 (07:01→22:00)
[2018-12-19] MEDS: Meropenem IV 1 gm in NS 1 GM/50 ML BAG IVPB SCH ×3 (07:02→21:01)
[2018-12-19] MEDS ORDERED: Insulin Regular 1 UNITS/0.01 ML ML SC ONE ×3 (07:59→15:48)
[2018-12-19] MEDS ORDERED: Sodium Chloride 0.9% 1,000 ML IV SCH (08:01)
[2018-12-19 08:46] LABS: BASO # 0.01 K/mm3 (0.0-2.0); BASO % 0.1 % (0.0-3.0); HEMOGLOBIN 7.5 g/dL (14.0-18.0); LYMPH # 1.6 (1.2-3.4); MEAN CELL VOLUME 96.7 fl (80.0-105.0); MEAN CORPUSCULAR HEMOGLOBIN 31.1 pg (25.0-35.0); MEAN CORPUSCULAR HGB CONC 32.2 g/dl (31.0-37.0); MEAN PLATELET VOLUME 8.4 fl (7.0-11.0); MONO # 0.1 (0.1-0.6); MONO % 1.6 % (1.0-6.0); RBC 2.41 10^6/uL (3.5-6.1); RED CELL DISTRIBUTION WIDTH 13.4 % (11.5-14.5)
[2018-12-19 09:17] LABS: ALB/GLOB RATIO 0.6 (1.1-1.8); ALBUMIN 2.9 g/dL (3.0-4.8); ALT/SGPT 6 U/L (7-56); AMYLASE 87 U/L (35-125); AST/SGOT 43 U/L (17-59); BLOOD UREA NITROGEN 32 mg/dL (7-21); CALCIUM 8.1 mg/dL (8.4-10.5); GFR NON-AFRICAN AMERICAN > 60; LIPASE 433 U/L (23-300)
[2018-12-19] MEDS: Vancomycin 1gm in NS 250ml 1 GM/250 ML BAG IVPB SCH ×2 (09:51→21:27)
[2018-12-19] MEDS ORDERED: Saliva Substitute 44.3 ML PO PRN (15:45)
[2018-12-19] MEDS ORDERED: Gadodiamide 287 MG/ML VIAL (15ML) IV ONE (16:10)
[2018-12-19] MEDS: Nystatin 100,000 Units/ml Oral Susp 5 ml UD PO SCH (17:25)
--- NOTE | 2018-12-19 22:23 | PN ---
DATE: 12/19/2018 SUBJECTIVE: The patient is in bed, was seen early this morning in room 568, bed 1. OBJECTIVE: GENERAL: He is awake, he is alert and oriented x3, and he has had no fevers, no headaches. VITAL SIGNS: On exam, temperature is 97, blood pressure is 158/90, respiratory rate of 18, heart rate of 100. HEENT: Unremarkable. NECK: Supple. LUNGS: Have decreased breath sounds. HEART: Normal S1, S2. ABDOMEN: Soft. LABORATORY EXAMINATION: Reveals a white count of 7000, hemoglobin of 7, platelets of . Chemistries reveal a BUN of 32, creatinine of 1.1. Serology is noted. The CSF does have an elevated protein of 244 with 1 WBC, 832 RBCs. Herpes PCR is pending. CSF cultures are negative. Blood cultures are negative. The patient had an MRI of the head and MRA of the head, no results are available at this point. ASSESSMENT AND PLAN: This is an 83-year-old male who had headaches and periorbital edema, which have been greatly improved as of today. Cavernous sinus thrombosis is concerning and also sinusitis. Currently on vancomycin, meropenem and acyclovir pending further results. We will follow with you. Shawn Nye MD
[2018-12-19] MEDS ORDERED: Lubricant Eye Drops UD OD STA (23:03)
--- NOTE | 2018-12-19 23:49 | PN ---
DATE: 12/19/2018 SUBJECTIVE: The patient was seen this Friday morning in room 568, bed 1. In 24 hours with IV antibiotics, IV antivirals, and steroids, there has been marked improvement in his overall clinical picture. He is wide awake, alert, opens eyes, answering appropriately. He is not shaven and is a little tired after his difficult ordeal over the last few days. Nonetheless, the improvement in his clinical status is quite remarkable. PHYSICAL EXAMINATION: LUNGS: Show good aeration, right and left. HEART: Regular and not tachycardic. EXTREMITIES: Show no edema. IMPRESSION: 1. Altered mental status. 2. Periorbital cellulitis. 3. Conjunctivitis. 4. Rule out viral encephalitis. 5. Possible addisonian like steroid withdrawal phenomenon from prior steroid use and the need for increased steroid dose during this recent illness. 6. Myelodysplastic syndrome. 7. Chronic low back pain. 8. 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 9. Osteoarthritis. 10. Diabetes PLAN: We will continue current antibiotics, antivirals, and steroids. We will check his sugars as they have been markedly elevated due to steroids and reassess the patient in the morning. Sidney Grey MD [id number]
[2018-12-20] MEDS: Meropenem IV 1 gm in NS 1 GM/50 ML BAG IVPB SCH ×3 (05:00→21:26)
[2018-12-20] MEDS: Insulin Reg-LOW-Coverage SC SCH (08:23)
[2018-12-20] MEDS: Nystatin 100,000 Units/ml Oral Susp 5 ml UD PO SCH ×4 (10:38→21:27)
[2018-12-20] MEDS: Vancomycin 1gm in NS 250ml 1 GM/250 ML BAG IVPB SCH ×2 (10:39→21:26)
[2018-12-20] MEDS: Insulin Reg-HIGH-Coverage SC SCH ×3 (11:39→21:27)
--- NOTE | 2018-12-20 20:34 | PN ---
DATE: 12/20/2018 SUBJECTIVE: The patient is seen earlier today. He is doing much better. He is awake and alert. He knows where he is. No fevers or chills. His eyes have improved. OBJECTIVE: VITAL SIGNS: Temperature is 97, blood pressure is , respiratory rate of 18, and heart rate of 90. HEENT: Unremarkable. NECK: Supple. LUNGS: Have decreased breath sounds. HEART: Normal S1 and S2. ABDOMEN: Soft. LABORATORY EXAMINATION: White count of 7 and hemoglobin of 7.5. Chemistries are BUN of 32 and creatinine of 1.1. Protein is elevated at 244. Serology is pending. Microbiology reveals the CSF cultures are negative. Blood cultures are negative. The patient's MRI results is still pending. ASSESSMENT AND PLAN: This is an 83-year-old who was admitted with headaches and periorbital edema, which has improved, cavernous sinus thrombosis and also pansinusitis, frontal sinusitis, and currently on vancomycin, meropenem, acyclovir, awaiting for HSV PCR and MRI of the brain results. We will follow with you. Shawn Nye MD
--- NOTE | 2018-12-20 22:20 | PN ---
DATE: 12/20/2018 SUBJECTIVE: The patient was seen this Friday morning in room 568 bed 1. His IV is being restarted in the left arm. He is looking forward to getting out of bed and increasing his activity as well as shaving later today. He is awake, alert and in good spirits, a marked improvement from the altered mental status that prompted his admission from Transistional Care Unit to the acute care facility at [facility]. MRI report and viral studies are still pending. He remains on antibiotics, eye drops and IV antiviral agents. PHYSICAL EXAMINATION HEENT: The periorbital cellulitis has resolved almost completely. Conjunctivitis has improved dramatically. There is no further crusting around the eye. His headaches have improved. There is no tenderness in the scalp or the temporal area. NECK: Shows no nodes. LUNGS: Show good aeration right and left. HEART: Regular and not tachycardic. ABDOMEN: Soft, nontender. EXTREMITIES: Show no edema. Left hand thumb, acute inflammatory changes and tenderness has markedly improved with the steroids. PLAN: We will decrease the steroids to 10 mg t.i.d. I see his hemoglobin is low. We will ask for a repeat CBC type and cross tomorrow and ask his vine pruner to put direction on correction of the anemia. The patient is requesting to not have a transfusion. He does get Procrit or similar type injections in Dr. Rasmussen's office. We will defer to her opinion to all things related to his myelodysplastic syndrome including the steroids. Of note is that I have reviewed his past medical records and pharmacy history. The patient had been receiving 2.5 mg of prednisone daily for his myelodysplastic syndrome. I am uncertain as to whether this continued up until the time of his recent hospital admission in late November approximately 2 weeks ago. Since it was only 2.5 mg of prednisone daily, I doubt this would prompt confusion and an Addisonian like crisis, but nonetheless he has improved dramatically from steroids and we will continue on higher dose steroid for now and taper soon. Await results of viral studies and MRI. Sidney Grey MD [id number]
--- NOTE | 2018-12-21 03:37 | HP ---
DATE OF EXAM: 12/18/2018 CHIEF COMPLAINT: Lethargy, altered mental status. HISTORY OF PRESENT ILLNESS: This is an 83-year-old man who was recently admitted to acute care facility at [facility] and then came to Transitional Care Unit for additional physical therapy and conditioning. While in Transitional Care, he developed some generalized weakness. His oral analgesics and sedatives were Benadryl and Tramadol and Neurontin and these were discontinued, but he remained lethargic. He had developed a periorbital cellulitis and conjunctivitis, treated with oral antibiotics and antibiotic steroid eyedrops, this had improved, but on Friday, the date of this transfer from TCU to the emergency room for admission, the patient's periorbital puffiness and erythema worsened and became bilateral where it had been only in the left eye. His lethargy was worse to a degree where he was barely able to engage in conversation. Because he was an immunocompromised host with a history of having been on steroids with a myelodysplastic syndrome with diabetes and having been in the hospital, I had considerable concern for meningitis, viral encephalitis, altered mental status related to other metabolic or neurological causes and so he was discharged from Transitional Care Unit and taken to the emergency room for admission, evaluation and workup. PAST MEDICAL HISTORY: Significant for hypertension since 1999, diabetes since 07/2013, hyperlipidemia, coronary artery disease since 2010, and myelodysplastic syndrome which developed and was diagnosed in 2012. Past history is negative for tuberculosis, asthma, seizures, gout, CVA, TIA, and myocardial infarction. He was a lifetime smoker, but quit long ago, probably does have some underlying COPD. He had a colonoscopy in 2009, endoscopy in 2009, stress tests in 2005, 2011, and 2013. He gets the flu shot yearly. He received the Pneumovax vaccine in 2007 and 2016. The medical record shows that his urologist is Dr. Herrera, his rn team leader is Dr. Gibbs and spine surgeon is . Problem list in the office include myelodysplastic syndrome, failed back syndrome, coronary artery disease, hyperlipidemia, history of temporal arteritis, hypertension, diabetes, and hyperlipidemia. PAST SURGICAL HISTORY: Significant for cholecystectomy in 1986, renal colic in 1995, X-STOP lumbar spine surgery on 09/23/2008, lumbar spine stimulator attempt in 08/2012, which failed, a laminectomy in 04/2014, PCTA and stent placement in 07/2011, TUVP in 10/2012, bilateral cataracts in 2017, prostate biopsy in 2004, hemorrhoid surgery and a right inguinal hernia surgery long ago, pilonidal cyst in the 1949's, a series of epidurals leading up to a spine surgery in 2010, 2011, and 2012. There is a question of temporal arteritis in 2013 that was treated, even though the pathology report was negative the patient's signs and symptoms were reportedly quite classical. He was hospitalized in 09/2016 with urosepsis, urinary retention, and acute renal failure. ALLERGIES: HE HAS NO KNOWN ALLERGIES TO MEDICINES. SOCIAL HISTORY: He quit smoking some 26 years ago, does not drink alcohol, drinks one cup of coffee a day. He is and remarried, currently to his childhood sweetheart and they are approximately two years. From his first marriage he has two children, one son and one daughter. He retired in 2004 from [employer]. Up until the time of his back surgery he was physically active, walking regularly. FAMILY HISTORY: Significant for longevity. His mother at age 93. His father at age 72. He is number 3 of four siblings. His sister . He has two brothers who are alive and well. MEDICATIONS: Include metformin 500 mg t.i.d., glipizide 5 mg t.i.d., carvedilol 3.125 mg b.i.d., gabapentin 600 mg t.i.d., lisinopril 10 mg daily, Lipitor 10 mg daily, and tramadol on a p.r.n. basis. PHYSICAL EXAMINATION GENERAL: The patient was seen in the Transitional Care Unit prior to transfer to the emergency room. He was arousable, but lethargic, quite obtunded, unable to answer complete sentences. HEENT: Head and neck; there was bilateral periorbital edema with erythema of conjunctivitis with crusting and there was evidence of conjunctivitis with crusting and erythema of both conjunctiva. Mucous membranes were a bit dry. NECK: Supple without masses. Thyroid was not palpable. LUNGS: Showed good aeration, right and left. HEART: Regular and not tachycardic. ABDOMEN: Soft, nontender. EXTREMITIES: Showed no edema. IMPRESSION: 1. Altered mental status in an immunocompromised 83-year-old man with a recently diagnosed periorbital cellulitis treated antibiotics without resolution, and conjunctivitis. 2. Immunocompromised host with a history of prednisone, chronic use. 3. Immunocompromised host with a history of myelodysplastic syndrome. 4. Diabetes. 5. Coronary artery disease. 6. Chronic back pain. 7. Hypertension. 8. Myelodysplastic syndrome. PLAN: I spoke with the physician in the emergency room. The patient will be admitted to the medical-surgical floor, spinal tap was done in the emergency room. CT scan of the head was done. Neurology and Infectious Disease consultations were called. The patient will be given steroids because of the history of temporal arteritis and also I also had concern for viral encephalitis. Infectious Disease input appreciated. Beginning IV antibiotics and IV acylovir. We will wait for viral studies, spinal fluid analysis and cultures. Sidney Grey MD MTDKika
[2018-12-21] MEDS: Meropenem IV 1 gm in NS 1 GM/50 ML BAG IVPB SCH ×2 (05:06→14:32)
[2018-12-21 06:49] LABS: BASO # 0.01 K/mm3 (0.0-2.0); BASO % 0.3 % (0.0-3.0); LYMPH % 27.3 % (22.0-35.0); MEAN CELL VOLUME 96.8 fl (80.0-105.0); MEAN CORPUSCULAR HEMOGLOBIN 31.5 pg (25.0-35.0); MEAN CORPUSCULAR HGB CONC 32.5 g/dl (31.0-37.0); MEAN PLATELET VOLUME 8.5 fl (7.0-11.0); MONO # 0.1 (0.1-0.6); MONO % 2.4 % (1.0-6.0); RBC 2.19 10^6/uL (3.5-6.1); RED CELL DISTRIBUTION WIDTH 13.4 % (11.5-14.5); WHITE BLOOD COUNT 3.8 10^3/uL (4.5-11.0)
[2018-12-21 07:17] LABS: HEMOGLOBIN 6.9 g/dL (14.0-18.0)
[2018-12-21] MEDS: Insulin Reg-HIGH-Coverage SC SCH ×4 (08:13→21:51)
[2018-12-21] MEDS: Nystatin 100,000 Units/ml Oral Susp 5 ml UD PO SCH ×4 (09:26→21:51)
[2018-12-21] MEDS: Vancomycin 1gm in NS 250ml 1 GM/250 ML BAG IVPB SCH (09:26)
--- NOTE | 2018-12-21 09:51 | MRI ---
Date of service: 12/19/2018 PROCEDURE: MRI BRAIN WITH AND WITHOUT CONTRAST HISTORY: diplopia, encephalopathy COMPARISON: None available. TECHNIQUE: Multiplanar, multisequence MR images of the brain were obtained with and without intravenous contrast enhancement. 15 cc of Omniscan FINDINGS: HEMORRHAGE: None DWI: No evidence of an acute or early subacute infarction. BRAIN PARENCHYMA: No mass,mass effect or edema. Chronic microvascular changes are seen in the periventricular white matter and basal ganglia. ENHANCEMENT: No abnormal intracranial enhancement. VENTRICLES: Unremarkable. No hydrocephalus. CRANIUM: Unremarkable. ORBITS: Grossly unremarkable. PARANASAL SINUSES/MASTOIDS: Clear VASCULAR SYSTEM: Skull base flow voids intact. OTHER FINDINGS: The report concurs with the preliminary [facility] report. IMPRESSION: No acute intracranial findings
--- NOTE | 2018-12-21 09:55 | MRI ---
Date of service: 12/19/2018 PROCEDURE: Magnetic Resonance Angiography Brain HISTORY: dipoplia, ? cavernous sinus thrombosis MRA/MRV COMPARISON: None available. TECHNIQUE: 3D time of flight MR angiography of the intracranial arteries was performed. Rotating maximum intensity projection images were generated. MRV images were also obtained FINDINGS: INTERNAL CAROTID ARTERIES: Unremarkable. The skull base, petrous, cavernous and supraclinoid segments are bilaterally widely patient. ANTERIOR CEREBRAL ARTERIES: Unremarkable. A1 and A2 segments are widely patent. Smaller distal branches unremarkable, as visualized. MIDDLE CEREBRAL ARTERIES: Unremarkable. M1 and M2 segments are widely patent. Perisylvian branches grossly symmetric. POSTERIOR CIRCULATION: Basilar Artery: Unremarkable. Distal Vertebral Arteries: Unremarkable. Posterior Cerebral Arteries: Unremarkable. Posterior Inferior Cerebellar Arteries: Unremarkable. ANEURYSM/ VASCULAR MALFORMATIONS: None. OTHER FINDINGS: The MRV portion of the study is unremarkable The report concurs with the preliminary [facility] report IMPRESSION: Unremarkable MR angiography of the brain.
[2018-12-21 11:43] LABS: HEMOGLOBIN 6.8 g/dL (14.0-18.0)
--- NOTE | 2018-12-21 13:21 | PN ---
DATE: 12/21/2018 SUBJECTIVE: The patient is an 83-year-old male, who was admitted to the [facility] with complaint of headaches. The patient was treated on the medical floor and eventually transferred to the Transitional Care Unit. On the Transitional Care Unit, he developed periorbital cellulitis and conjunctivitis. He also became extremely weak and unable to ambulate as he did previously. Therefore, arrangements were made for him to be transferred to the medical floor of [facility] once again for further evaluation and treatment. The patient is known to have a past medical history for myeloblastic syndrome and diabetes. The patient is being followed by Dr. Shawn Nye, the infectious disease specialist. 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 He is receiving meropenem, acyclovir and vancomycin. We are awaiting results of viral testing. MRI of the brain was performed and it shows no acute intracranial findings. MRA of the head was unremarkable. When seen today, the patient is lying in bed. He is awake, alert and oriented. The periorbital edema is completely gone from both eyes. The patient is feeling well and is looking forward to discharge. Of note is that the hemoglobin this morning was 6.9 with a hematocrit of 21.2. We will be repeating the H and H later on today and discussing the case with his repair welder, Dr. Rasmussen and considering transfusion of packed red blood cells. The patient is looking forward to being discharged to home possible today if no transfusion will be done or tomorrow post-transfusion. Thomas Grey MD KEYSHA
--- NOTE | 2018-12-21 14:14 | CP.PCM.PCO ---
Additional Comments - Additional Comments Additional Comments: Pt seen and examined at bedside. In no acute distress. Hgb noted to be 6.8, no overt signs of bleeding. D/W Dr. Rasmussen and recommends to transfuse 3 units of prbc and check stool for occult blood. Pt on Merrem/Vanco/Acyclovir per ID recs. Will continue to follow. Impressions Brain MRI 12/19/18 16:13 IMPRESSION: No acute intracranial findings Head MRA 12/19/18 16:44 IMPRESSION: Unremarkable MR angiography of the brain. Laboratory Results - last 24 hr 12/18/18 12/20/18 12/20/18 14:40 16:05 21:17 WBC RBC Hgb Hct MCV MCH MCHC RDW Plt Count MPV Neut % (Auto) Lymph % (Auto) [place] % (Auto) Eos % (Auto) Baso % (Auto) Lymph # (Auto) [place] # (Auto) Eos # (Auto) Baso # (Auto) Absolute Neuts (auto) POC Glucose (mg/dL) 267 H 323 H CSF Cryptococcus Ag Not detected Blood Type Antibody Screen Crossmatch BBK History Checked 12/21/18 12/21/18 12/21/18 02:08 06:20 06:20 WBC 3.8 L D RBC 2.19 L Hgb 6.9 L* Hct 21.2 L MCV 96.8 MCH 31.5 MCHC 32.5 RDW 13.4 Plt Count 126 MPV 8.5 Neut % (Auto) 70.0 H Lymph % (Auto) 27.3 [place] % (Auto) 2.4 Eos % (Auto) 0.0 L Baso % (Auto) 0.3 Lymph # (Auto) 1.0 L [place] # (Auto) 0.1 Eos # (Auto) 0.0 Baso # (Auto) 0.01 Absolute Neuts (auto) 2.64 POC Glucose (mg/dL) 233 H CSF Cryptococcus Ag Blood Type O NEGATIVE Antibody Screen Negative Crossmatch See Detail BBK History Checked Patient has bt 12/21/18 12/21/18 06:46 11:15 WBC RBC Hgb 6.8 L* Hct 20.8 L* MCV MCH MCHC RDW Plt Count MPV Neut % (Auto) Lymph % (Auto) [place] % (Auto) Eos % (Auto) Baso % (Auto) Lymph # (Auto) [place] # (Auto) Eos # (Auto) Baso # (Auto) Absolute Neuts (auto) POC Glucose (mg/dL) 275 H CSF Cryptococcus Ag Blood Type Antibody Screen Crossmatch BBK History Checked
[2018-12-21 15:11] LABS: SPECIMEN SOURCE CSF
--- NOTE | 2018-12-22 00:04 | PN ---
DATE: 12/21/2018 SUBJECTIVE: The patient is seen in bed, in no acute distress, and nontoxic. OBJECTIVE: VITAL SIGNS: Temperature is 97, blood pressure is 140/60, and respiratory rate of 20. HEENT: Unremarkable. NECK: Supple. LUNGS: Have decreased breath sounds. HEART: Normal S1 and S2. ABDOMEN: Soft. LABORATORY EXAMINATION: Reveals a white count is 3.8 and hemoglobin is 6.9. Chemistries are noted and the patient's creatinine is at 1.1. Microbiology; urine cultures Gram-positive cocci. The blood cultures are negative. CSF cultures are negative. HSV PCR is not detected. CSF cultures are negative. The patient's MRA and MRI results are noted. No evidence of acute or early subacute infarction. Paranasal sinuses mass which showed sinusitis is all clear. Dr. Thomas Grey's note is reviewed. All the cultures are negative and MRA results also negative, unremarkable. ASSESSMENT AND PLAN: This is an 83-year-old who was admitted with headaches and periorbital edema and MRI does not show any cavernous sinus thrombosis and does not show any sinusitis. When the HSV PCR is negative, we will discontinue meropenem, vancomycin, and acyclovir. The patient has received 4 days of antibiotics. At this point, his periorbital edema is resolved. mental status is normal and he is doing well. Shawn Nye MD
[2018-12-22 01:16] VITALS: RESP 18
[2018-12-22] MEDS ORDERED: Melatonin 3 MG Tab PO STA (02:28)
--- NOTE | 2018-12-22 04:40 | CP.PCM.PN ---
Subjective - Date & Time of Evaluation Date of Evaluation: 12/22/18 Time of Evaluation: 04:40 - Subjective Subjective: S:I was asked to co-sign order for melatonin 3 mg po x1. As per patient's nurse, he requested his sleeping pill. Patient is asleep now. Pertinent medical record was reviewed. O:VSS. Not in acute distress. LUNGS:Normal breathing pattern. A:Insomnia. P:Melatonin 3 mg PO x 1. Objective - Vital Signs/Intake and Output Vital Signs (last 24 hours): Temp Pulse Resp BP Pulse Ox 97.5 F L 82 18 166/79 H 97 12/22/18 02:59 12/22/18 02:59 12/22/18 02:59 12/22/18 02:59 12/21/18 23:09 Intake and Output: 12/21/18 12/22/18 18:59 06:59 Intake Total 0 440 Balance 0 440 - Medications Medications: Current Medications Acetaminophen (Tylenol 325mg Tab) 650 mg PO Q6H PRN PRN Reason: Headache Aspirin (Aspirin Chewable) 81 mg PO DAILY [facility] Last Admin: 12/21/18 09:26 Dose: 81 mg Atorvastatin Calcium (Lipitor) 10 mg PO DIN [facility] Last Admin: 12/21/18 17:06 Dose: 10 mg Carvedilol (Coreg) 3.125 mg PO BID [facility] Last Admin: 12/21/18 17:06 Dose: 3.125 mg Glipizide (Glucotrol) 5 mg PO BID [facility] Last Admin: 12/21/18 17:05 Dose: 5 mg Sodium Chloride (Sodium Chloride 0.9%) 1,000 mls @ 75 mls/hr IV .[id number] [facility] Last Admin: 12/19/18 08:10 Dose: 75 mls/hr Insulin Human Regular (Humulin R High) 0 units SC ACHS [facility]; Protocol Last Admin: 12/21/18 21:51 Dose: Not Given Lisinopril (Zestril) 10 mg PO DAILY [facility] Last Admin: 12/21/18 09:26 Dose: 10 mg Metformin HCl (Glucophage) 500 mg PO BID [facility] Last Admin: 12/21/18 17:06 Dose: 500 mg Nystatin (Nystatin Oral Susp) 5 ml PO QID [facility] Last Admin: 12/21/18 21:51 Dose: Not Given Prednisone (Prednisone Tab) 10 mg PO Q8H [facility] Last Admin: 12/22/18 02:18 Dose: 10 mg Saliva Substitute (Saliva Substitute) 1 ml PO Q1 PRN PRN Reason: Dry mouth Last Admin: 12/19/18 17:25 Dose: 1 ml Tramadol HCl (Ultram) 50 mg PO Q6H PRN PRN Reason: Pain, moderate (4-7) - Labs Labs: 12/21/18 11:15 12/19/18 08:30 PT 17.0 SECONDS (9.4-12.5) H 12/18/18 12:00 INR 1.50 12/18/18 12:00 APTT 31.3 Seconds (26.9-38.3) 12/18/18 12:00
[2018-12-22 04:48] VITALS: PULSE 81
[2018-12-22] MEDS: Insulin Reg-HIGH-Coverage SC SCH ×2 (08:02→12:08)
[2018-12-22 08:24] LABS: BASO # 0.01 K/mm3 (0.0-2.0); BASO % 0.2 % (0.0-3.0); LYMPH # 1.5 (1.2-3.4); LYMPH % 34.2 % (22.0-35.0); MEAN CELL VOLUME 92.1 fl (80.0-105.0); MEAN CORPUSCULAR HGB CONC 33.7 g/dl (31.0-37.0); MEAN PLATELET VOLUME 8.5 fl (7.0-11.0); MONO # 0.2 (0.1-0.6); MONO % 3.6 % (1.0-6.0); RBC 3.03 10^6/uL (3.5-6.1); WHITE BLOOD COUNT 4.4 10^3/uL (4.5-11.0)
[2018-12-22 08:26] LABS: HEMOGLOBIN 9.4 g/dL (14.0-18.0)
[2018-12-22 08:44] LABS: ALB/GLOB RATIO 0.7 (1.1-1.8); ALBUMIN 2.6 g/dL (3.0-4.8); ALT/SGPT 15 U/L (7-56); AST/SGOT 30 U/L (17-59); BLOOD UREA NITROGEN 31 mg/dL (7-21); CALCIUM 8.3 mg/dL (8.4-10.5); GFR NON-AFRICAN AMERICAN > 60
[2018-12-22] MEDS: Nystatin 100,000 Units/ml Oral Susp 5 ml UD PO SCH (10:25)
[2018-12-22 14:43] VITALS: BP 143/77; TEMP 97.8; O2SAT 98
--- NOTE | 2018-12-22 22:37 | PN ---
DATE: 12/22/2018 SUBJECTIVE: The patient is in bed, in no acute distress. PHYSICAL EXAMINATION: VITAL SIGNS: Temperature is 98, blood pressure is 140/70, and respiratory rate of 18. HEENT: Unremarkable. NECK: Supple. LUNGS: Decreased breath sounds. HEART: Normal S1 and S2. ABDOMEN: Soft. LABORATORY DATA: Reveals a white count of 4.4 and hemoglobin of 9. Chemistries reveal the BUN of 31 and creatinine of 0.9. Serology is noted. ASSESSMENT AND PLAN: The patient was seen earlier this morning in room 567, bed 2, who was admitted with headaches and periorbital edema. MRI does not show any cavernous sinus thrombosis and no sinusitis. HSV PCR is negative, off of antibiotics. The patient has received four days of antibiotics. The patient is doing well. periorbital edema is all resolved, etiology of which is not entirely clear . He will follow up as outpatient closely with his primary. Shawn Nye MD
== END 2018-12-22 16:33 | disposition home health service (06) | DRG 603 ==
LOC: ED 11:19 → ERH 14:45 → 5RNO 17:53
PROVIDERS: ADMIT Internal Medicine; ATTEND Internal Medicine
PROC: 009U3ZX Drainage of Spinal Canal, Percutaneous Approach, Diagnostic (ICD-10-PCS; principal; 2018-12-18)
PROC: 30233N1 Transfusion of Nonautologous Red Blood Cells into Peripheral Vein, Percutaneous Approach (ICD-10-PCS; 2018-12-21)
DX: L03.213 Periorbital cellulitis (principal); I13.0 Hypertensive heart and chronic kidney disease with heart failure and stage 1 through stage 4 chronic kidney disease, or unspecified chronic kidney disease; M31.6 Other giant cell arteritis; R51 Headache; H57.12 Ocular pain, left eye; Z79.82 Long term (current) use of aspirin; Z79.84 Long term (current) use of oral hypoglycemic drugs; Z79.899 Other long term (current) drug therapy; D46.9 Myelodysplastic syndrome, unspecified; N18.9 Chronic kidney disease, unspecified; E11.22 Type 2 diabetes mellitus with diabetic chronic kidney disease; H10.9 Unspecified conjunctivitis; D89.9 Disorder involving the immune mechanism, unspecified; I25.10 Atherosclerotic heart disease of native coronary artery without angina pectoris; G89.29 Other chronic pain; M54.5 Low back pain; G62.9 Polyneuropathy, unspecified; E78.5 Hyperlipidemia, unspecified; I50.9 Heart failure, unspecified; J44.9 Chronic obstructive pulmonary disease, unspecified; M19.90 Unspecified osteoarthritis, unspecified site; T38.0X5A Adverse effect of glucocorticoids and synthetic analogues, initial encounter; G47.00 Insomnia, unspecified; Z87.01 Personal history of pneumonia (recurrent); Z87.891 Personal history of nicotine dependence; Z90.49 Acquired absence of other specified parts of digestive tract